=== PATIENT | female | born 1955 | race Caucasian/White ===

== ENCOUNTER 2017-09-25 11:58 | Inpatient (IN) | payer BC ==
[~2017-09-25] VITALS: Ht 172.7 cm; Wt 139.9 kg
[2017-09-25] VITALS (10 sets, daily range): BP systolic 84–140; BP diastolic 20–101
[~2017-09-25 11:58] MED LIST: CEPH500C PO; CLAR500T8 PO; CYCL10TA9 PO; DCS100C; HYDR-1231 PO; IRB150T PO; LOSARTAN; LSNP10T; MTC10T; MULT-608 PO; MULT1TAB63; NF-TYLARTH PO; OMEG1CAP51 PO; PRD20T PO; PRM25T; PSYL1PAC18; TRIGOSAMINE PO
[2017-09-25] MEDS ORDERED: PATIENT MAY USE OWN MEDS, ALL PO SCH (12:15)
[2017-09-25] MEDS ORDERED: ENOXAPARIN 40 MG/0.4 ML (LOVENOX) SYR SC SCH (12:15)
[2017-09-25] MEDS ORDERED: ASPIRIN 325 MG (5 GR) TABLET PO NR (12:15)
[2017-09-25] MEDS ORDERED: cefTRIAXone INJECTION 1,000 MG in NS (IVPB) 50 ML IV SCH (12:15)
[2017-09-25] MEDS ORDERED: ONDANSETRON 4 MG/2 ML (SDV) Z0FRAN IVP PRN (12:15)
--- OUTSIDE RECORDS SUMMARY | 2017-09-25 12:17 | XMS REPORT ---
Author Author RUBI DUMONT [facility] eClinicalWorks Address Unknown Phone Unavailable Care Team Providers Care Horse Racing Analyst Name Role Phone RUBI DUMONT Unavailable Allergies No Known Allergies Problems Problem Type Condition Code Onset Dates Condition Status Problem Cough 786.2 Active Assessment Encounter for immunization Z23 Active Problem Acute bronchitis 466.0 Active Medications No Known Medications Procedures Procedure Coding System Code Date SINGLE IMMUNIZATION ADMIN CPT-4 01456 May 24, 2016 FLUARIX QUAD P-FREE 3 AND UP .50 2015 CPT-4 69119 May 24, 2016 Results No Known Results Immunizations Vaccine Administration Date FLUARIX QUAD P-FREE 3 AND UP .50 2015May 24, 2016 Summary Purpose eClinicalWorks Submission
--- OUTSIDE RECORDS SUMMARY | 2017-09-25 12:17 | XMS REPORT ---
Author Author RUBI DUMONT [facility] eClinicalWorks Address Unknown Phone Unavailable Care Team Providers Care Seed District Sales Manager Name Role Phone RUBI DUOMNT Unavailable Allergies No Known Allergies Problems Problem Type Condition Code Onset Dates Condition Status Problem Need for prophylactic vaccination and inoculation, Influenza V04.81 Active Problem Acute bronchitis 466.0 Active Problem Acute upper respiratory infections of unspecified site 465.9 Active Problem Cough 786.2 Active Assessment Encounter for immunization Z23 Active Medications No Known Medications Procedures Procedure Coding System Code Date SINGLE IMMUNIZATION ADMIN CPT-4 54859 May 26, 2015 FLUARIX QUAD (3 & UP)-GSK-2014 CPT-4 36305 May 26, 2015 Results No Known Results Immunizations Vaccine Administration Date FLUARIX QUAD (3 & UP)-GSK-2014May 26, 2015 Summary Purpose eClinicalWorks Submission
--- OUTSIDE RECORDS SUMMARY | 2017-09-25 12:17 | XMS REPORT ---
Author Author RUBI DUMONT [facility] eClinicalWorks Address Unknown Phone Unavailable Care Team Providers Care Ship Fitter Name Role Phone RUBI DUMONT Unavailable Allergies [...] System Code Date SINGLE IMMUNIZATION ADMIN CPT-4 12705 Jun 06, 2015 TDAP (BOOSTRIX) CPT-4 56387 Jun 06, 2015 Results No Known Results Immunizations Vaccine Administration Date TDAP (BOOSTRIX) Jun 06, 2015 Summary Purpose eClinicalWorks Submission
--- OUTSIDE RECORDS SUMMARY | 2017-09-25 12:17 | XMS REPORT ---
Author Author RUBI DUMONT [facility] eClinicalWorks Address Unknown Phone Unavailable Care Team Providers Care Knotting Machine Operator Name Role Phone RUBI DUMONT Unavailable Allergies [...] System Code Date SINGLE IMMUNIZATION ADMIN CPT-4 95941 Jun 02, 2015 PCV 13 CPT-4 46817 Jun 02, 2015 Results No Known Results Immunizations Vaccine Administration Date PCV 13 Jun 02, 2015 Summary Purpose eClinicalWorks Submission
--- OUTSIDE RECORDS SUMMARY | 2017-09-25 12:17 | XMS REPORT ---
Author Author RUBI DUMONT Organization [facility] Address [address] [place] [address] Care Team Providers Care Mortgage Collector Name Role Phone JULIARUBI Unavailable PROBLEMS Type Condition ICD9-CM Code [id number] Code Onset Dates Condition Status SNOMED Code Problem Acute bronchitis 466.0 Active 66919400 Problem Cough 786.2 Active 24624296 Assessment Bronchitis J40 Apr, Active 42972384 ALLERGIES Substance Reaction Event Type Date Status Codeine Unknown Drug Allergy Apr, Active SOCIAL HISTORY No smoking Hx information available PLAN OF CARE VITAL SIGNS Height 68 in 2016-04-26 Heart Rate 68 bpm 2016-04-26 Respiratory Rate 16 2016-04-26 Oximetry 96 % 2016-04-26 Blood pressure systolic 161 mmHg 2016-04-26 Blood pressure diastolic 92 mmHg 2016-04-26 MEDICATIONS Medication Instructions Dosage Frequency Start Date End Date Duration Status PredniSONE 10 mg Orally 4 tabs x 4 days 3 tabs x 3 days 2 tabs x 2 days then 1 tab 1 tablet Apr, Apr, 10 days Active Zithromax 250 MG Orally Once a day 2 tablets on the first day, then 1 tablet daily for 4 days 24h Apr, Apr, 5 day(s) Active losartan 25 mg 1 Tablet by Oral route 1 time per day Nov, Active Ventolin HFA 108 (90 Base) MCG/ACT Inhalation every 4 hrs prn shortness of air 2 puffs as needed Apr, 30 days Active RESULTS No Results PROCEDURES Procedure Date Ordered Related Diagnosis Body Site MEASURE BLOOD OXYGEN LEVEL Apr 26, 2016 DEPO MEDROL 80 MG/ML Apr 26, 2016 Office Visit, Est Pt., Level 4 Apr 26, 2016 NEB/MDI RX INITIAL Apr 26, 2016 IMMUNIZATIONS Vaccine Route Administration Date Status DEPO MEDROL 80 MG/ML IM Intramuscular Apr 26, 2016 Administered
--- OUTSIDE RECORDS SUMMARY | 2017-09-25 12:17 | XMS REPORT ---
Author Author RUBI DUMONT Organization [facility] Address [address] [place] [address] Care Team Providers Care Relocation Services Specialist Name Role Phone RUBI DUMONT Unavailable PROBLEMS Type Condition ICD9-CM Code [id number] Code Onset Dates Condition Status SNOMED Code Problem Essential hypertension I10 Active 49979310 Problem Acute bronchitis J20.9 Active 09377715 ALLERGIES Substance Reaction Event Type Date Status Codeine Unknown Drug Allergy Oct, Active SOCIAL HISTORY Never Assessed PLAN OF CARE Activity Details Follow Up 1 Week Reason: VITAL SIGNS Height 68 in 2016-10-18 Temperature 98 degrees Fahrenheit 2016-10-18 Heart Rate 90 bpm 2016-10-18 Respiratory Rate 18 2016-10-18 Blood pressure systolic 168 mmHg 2016-10-18 Blood pressure diastolic 100 mmHg 2016-10-18 MEDICATIONS Medication Instructions Dosage Frequency Start Date End Date Duration Status losartan 25 mg 1 Tablet by Oral route 1 time per day Nov, Active RESULTS No Results PROCEDURES No Known procedures IMMUNIZATIONS No Known Immunizations MEDICAL (GENERAL) HISTORY Type Description Date Medical History Acute bronchitis Medical History hypertension Medical History obesity
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
--- NOTE | 2017-09-25 13:10 | History & Physicial ---
History of Present Illness History of Present Illness Reason for visit/HPI This is a 62 year old female who presented to my office with shortness of air for 4 days. She was hypoxic in my office with an oxygen saturation of 84% on room air. She was placed on 2L of oxygen via NC and her O2 sat increased to 90% . She did admit to some substernal chest pressure off and on recently as well. She denied any cough or fever. She states her legs have been more swollen recently as well. She will be directly admitted to cardiac stepdown for cardiac rule out as well as PE rule out and further treatment. Date of Admission Sep 25, 2017 at 12:12 Date Seen by Provider: Sep 25, 2017 Time Seen by Provider: 11:45 I consulted on this patient on 09/25/17 13:04 Attending Physician Katharine Alcala DO Admitting Physician Katharine Alcala DO Consult Allergies and Home Medications Allergies Coded Allergies: codeine (Verified Allergy, Unknown, 03/31/08) Home Medications Acetaminophen 650 Mg Cplt, 2 TAB PO DAILY, (Reported) Cephalexin Monohydrate 500 Mg Capsule, 1 EACH PO TID for 5 Days, Ref 0 Prescribed by: BHAVESH FONTAINE on 10/05/12 1208 Cephalexin Monohydrate 500 Mg Capsule, 1 EACH PO TID, #21 Ref 0 Prescribed by: BHAVESH FONTAINE on 02/01/151944 Clarithromycin 500 Mg Tab.sr.24h, 2 EACH PO DAILY, (Reported) Cyclobenzaprine Hcl 10 Mg Tablet, 1 EACH PO Q8H PRN for SPASMS, #10 Ref 0 Prescribed by: BHAVESH FONTAINE on 02/01/151944 Hydrocodone Bit/Acetaminophen 1 Tab Tablet, 1 TAB PO Q4H PRN for PAIN, #20 Ref 0 Prescribed by: BHAVESH FONTAINE on 02/01/151944 Multivitamins 1 Tab Tablet, 1 TAB PO DAILY, (Reported) [place]-3 Fatty Acids/Fish Oil 1 Each Capsule, 1 EACH PO DAILY, (Reported) Prednisone 20 Mg Tab, 20 MG PO BID for 3 Days Prescribed by: MAURICE DE LA CRUZ on 08/22/12 4257 [Losartan] , (Reported) [Trigosamine] , 1 TAB PO DAILY, (Reported) Past Ipvxkds-Ckiuhs-Vonbkc Hx Patient Social History Recent Foreign Travel: No Contact w/other who traveled: No Immunizations Up To Date Tetanus Booster (TDap): Less than 5yrs Date of Influenza Vaccine: May 19, 2012 Reproductive System Hx Reproductive Disorders: Yes (ENDOMETROSIS) Sexually Transmitted Disease: No Family Medical History Significant Family History: No Pertinent Family Hx Constitutional: weakness EENTM: No see HPI, No no symptoms reported, No ear discharge, No hearing loss, No ear pain, No blurred vision, No double vision, No eye pain, No tearing, No vision loss, No dental problems, No hoarseness, No mouth pain, No mouth swelling , No epistaxis, No nose congestion, No nose pain, No throat pain, No throat swelling, No other Respiratory: dyspnea on exertion, short of breath Cardiovascular: chest pain, edema Gastrointestinal: No RUQ, No LUQ, No RLQ, No LLQ, No no symptoms reported, No see HPI, No abdominal pain, No constipation, No diarrhea, No dysphagia, No hematemesis, No heartburn, No jaundice, No loss of appetite, No melena, No nausea, No vomiting, No other Genitourinary: No no symptoms reported, No see HPI, No decreased output, No discharge, No dysuria, No frequency, No hematuria, No hesitancy, No incontinence , No nocturia, No pain, No other Musculoskeletal: back pain (chest pain does radiate through to shoulder blades) Psychiatric/Neurological: Weakness Physical Exam Vital Signs Capillary Refill : General Appearance: Mild Distress HEENT: Pharynx Normal Neck: Supple Respiratory: Lungs Clear, Decreased Breath Sounds Cardiovascular: Regular Rate, Rhythm, Systolic Murmur, Gallop/S4 Gastrointestinal: Normal Bowel Sounds, Non Tender, Soft Rectal: Deferred Extremity: No Calf Tenderness, Pedal Edema Neurologic/Psychiatric: Alert, Oriented x3 Skin: Diaphoresis Assessment/Plan Assessment and Plan 1. Acute Hypoxia--admit for IV oxygen, check CXR, check D-Dimer and BNP, start lovenox, check EKG and cardiac enzymes 2. Dyspnea--as above 3. Acute Chest Pain--rule out cardiac etiology for hypoxia/dyspnea--check EKG and cardiac analyzer 4. Hypertension--resume home medications Problems: KATHARINE ALCALA DO Sep 25, 2017 13:10
[2017-09-25 13:39] LABS: BASOPHILS % (AUTO) 0 % (0-10); EOSINOPHILS % (AUTO) 0 % (0-10); HEMATOCRIT 43 % (35-52); HEMOGLOBIN 13.8 G/DL (11.5-16.0); LYMPHOCYTES # (AUTO) 0.8 X 10^3 (1.0-4.0); LYMPHOCYTES % (AUTO) 5 % (12-44); MEAN CORPUSCULAR HEMOGLOBIN 27 PG (25-34); MEAN CORPUSCULAR HGB CONC 32 G/DL (32-36); MEAN CORPUSCULAR VOLUME 83 FL (80-99); MEAN PLATELET VOLUME 9.7 FL (7.4-10.4); MONOCYTES # (AUTO) 0.8 X 10^3 (0.0-1.0); MONOCYTES % (AUTO) 5 % (0-12); NEUTROPHILS # (AUTO) 15.1 X 10^3 (1.8-7.8); NEUTROPHILS % (AUTO) 91 % (42-75); PLATELET COUNT 328 10^3/uL (130-400); RED BLOOD COUNT 5.15 10^6/uL (4.35-5.85); RED CELL DISTRIBUTION WIDTH 15.1 % (10.0-14.5); WHITE BLOOD COUNT 16.6 10^3/uL (4.3-11.0)
--- NOTE | 2017-09-25 13:45 | Diagnostic Imaging Report ---
EXAMINATION: Portable erect AP chest obtained at 1:07 PM . INDICATION: Chest pain The cardiomegaly noted on 01/22/2015 is again evident and no different. In the interval since the prior exam an area of increased density has developed in the right infrahilar region. This finding could be secondary to crowding of bronchovascular markings. The possibility that there is an element of pneumonia/atelectasis in this area should still be considered. Clinical followup is recommended. The lungs are otherwise clear. The mediastinum is not widened. The osseous structures are intact. IMPRESSION: 1. A new area of increased density has developed in the right infrahilar region. Whether this is secondary to superimposition of bronchovascular markings or whether there is an element of pneumonia/atelectasis present is not certain. Clinical followup is recommended. If further imaging is desired, then CT of the chest would be recommended. 2. There is no acute cardiopulmonary abnormality noted otherwise. 3. These results were discussed with Dr. Jovel. Dictated by: Dictated on workstation # [id number]
[2017-09-25 13:58] LABS: ALANINE AMINOTRANSFERASE 52 U/L (0-55); ALBUMIN 3.7 GM/DL (3.2-4.5); ALKALINE PHOSPHATASE 131 U/L (40-136); BILIRUBIN,TOTAL 0.5 MG/DL (0.1-1.0); BUN/CREATININE RATIO 23; CALCIUM 9.3 MG/DL (8.5-10.1); CARBON DIOXIDE 24 MMOL/L (21-32); CHLORIDE 103 MMOL/L (98-107); CREATININE SERUM 0.91 MG/DL (0.60-1.30); GFR ESTIMATED > 60; GLUCOSE 124 MG/DL (70-105); POTASSIUM 4.6 MMOL/L (3.6-5.0); SODIUM 139 MMOL/L (135-145); TOTAL PROTEIN 7.9 GM/DL (6.4-8.2)
[2017-09-25] MEDS ORDERED: LOSA100T28 PO (14:00)
[2017-09-25] MEDS ORDERED: GLUC-203 PO (14:00)
[2017-09-25] MEDS ORDERED: NAPR220T66 PO (14:00)
[2017-09-25] MEDS ORDERED: MULT-35 PO (14:00)
[2017-09-25 14:10] LABS: LYMPHOCYTES % (MANUAL) 2 %; MONOCYTES % (MANUAL) 6 %; NEUTROPHILS % (MANUAL) 92 %; RBC MORPH NORMAL
[2017-09-25] MEDS ORDERED: NS 250 ML (IVPB) BAG IV ONE (15:00)
[2017-09-25] MEDS ORDERED: IOHEXOL 350 MG/ML 150 ML (OMNIPAQUE 350) VIAL IV ONE (15:00)
[2017-09-25] MEDS: RT-ALBUTEROL/IPRATROPIUM 3 ML (DUONEB) VIAL INH SCH ×3 (15:14→21:47)
--- NOTE | 2017-09-25 16:50 | Diagnostic Imaging Report ---
PROCEDURE: CT angiography of the chest with contrast. TECHNIQUE: Multiple contiguous axial images were obtained through the chest after uneventful bolus administration of intravenous contrast. Reconstructed CTA MIP acquisitions were also performed. INDICATION: Sweatiness, lightheaded. COMPARISON: None. FINDINGS: Exam confirms the presence of an at least moderate burden of bilateral pulmonary arterial emboli. The disease involves branches of all five lobes but is most notable at the level of the left lower lobe. There is a small amount of clot within the distal left and right main pulmonary arteries but no clot in the undivided pulmonary segment and no bridging embolus left to right. No intracardiac chamber mass or thrombus and the pulmonary outflow tract revealed no clot or occlusion. There is no abnormal venous reflux. There is no pathological enlargement of the right heart or displacement of the intraventricular septum. There is no pleural or pericardial effusion. There is only minimal infrahilar and basilar partial atelectasis. There were no findings of pulmonary parenchymal hemorrhage or Padgett's hump. The visualized upper abdomen reveals fatty liver with patency of the intrahepatic, suprahepatic and upper intrahepatic cava. Superior vena cava also patent. Contrast was injected via left upper extremity with the left upper extremity central venous system patent. IMPRESSION: There is a moderate burden of bilateral pulmonary arterial emboli confirmed. A small amount of clot in the distal left and right main pulmonary arteries but no MPA clot. No bridging saddle embolus. No findings to suggest right heart failure. No pulmonary hemorrhage or acute pleural pathology. Critical findings were discussed by phone with the ordering physician prior to this dictation. Dictated by: Dictated on workstation # [id number]
[2017-09-25] MEDS ORDERED: ENOXAPARIN 300 MG/3 ML (LOVENOX) MULTI-DOSE VIAL SQ SCH (17:15)
--- NOTE | 2017-09-25 17:49 | Diagnostic Imaging Report ---
INDICATION: Pulmonary embolism. EXAMINATIONS: Both grayscale and color Doppler imaging of the deep veins of the lower extremities were performed with waveform analysis. FINDINGS: There is no intraluminal filling defect. Normal continuous flow is seen throughout the deep venous systems of both legs, and there is normal response to augmentation. The deep veins compress normally. IMPRESSION: No ultrasound evidence of deep venous thrombosis in either lower extremity. Dictated by: Dictated on workstation # [id number]
--- NOTE | 2017-09-25 18:07 | Consultation-Cardiology ---
HPI-Cardiology Cardiology Consultation: Date of Consultation 09/25/17 Date of Admission Attending Physician Katharine Jovel DO Admitting Physician Katharine Jovel DO Consulting Physician Jorge A LAYNE MD HPI: Time Seen by Provider: 18:06 Chief Complaint: shortness of breath this is a 62 year old lady who is a patient of Dr Jovel with no significant past medical history except HTN. She presented with shortness of breath to Dr Jovel's office. She also complained for mild sub sternal chest discomfort. No radiation. Mild intensity. No exacerbating or relieving factors. No Orthopnea, PND. The patient denies smoking. No recent surgeries or travel. Review of Systems-Cardiology Review of Systems Constitutional: No As described under HPI, No no symptoms reported, No chills, No fever, No lightheadedness, No malaise, No tiredness, No weight loss, No weight gain, No other Eyes: No As described under HPI, No no symptoms reported, No blindness, No blurred vision, No contact lenses, No drainage, No decreased acuity, No foreign body sensation, No glasses, No inflammation, No pain, No photophobia, No previous injury, No shadows, No tunnel vision, No other, No vision change Ears/Nose/Throat: No As described under HPI, No no symptoms reported, No chronic hearing loss, No epistaxis, No ear discharge, No ear pain, No loose teeth, No mouth pain, No mouth swelling, No nasal drainage, No nose pain, No recent hearing loss, No throat pain, No throat swelling, No ulcerations, No other Respiratory: orthopnea, shortness of breath Cardiovascular: No no symptoms reported, No As described under HPI, chest pain , No edema, No irregular heart rate, No lightheadedness, No palpitations, No syncope, No other Gastrointestinal: No no symptoms reported, No As described under HPI, No abdomen distended, No abdominal pain, No blood streaked bowels, No constipation , No diarrhea, No difficulty swallowing, No nausea, No poor appetite, No poor fluid intake, No rectal bleeding, No vomiting, No other, No nausea/vomiting/ diarrhea, No stool coloration changes Genitourinary: No no symptoms reported, No As described under HPI, No burning, No dysuria, No discharge, No frequency, No flank pain, No hematuria, No incontinence, No pain, No urgency, No other, No urine frequency changes, No urine coloration changes Musculoskeletal: No no symptoms reported, No As describe under HPI, No back pain, No gout, No joint pain, No joint swelling, No muscle pain, No muscle stiffness, No neck pain, No other Skin: No no symptoms reported, No As described under HPI, No change in color, No change in hair/nails, No dryness, No lesions, No lumps, No rash, No other, No skin related problems, No ulcerations, No rash on exposed areas, No ulcerations on exposed areas Psychiatric/Neurological: No no symptoms reported, No As described under HPI, No anxiety, No depression, No emotional problems, No headache, No numbness, No pre-existing deficit, No seizure, No tingling, No tremors, No weakness, No other , No focal weakness, No syncope PHK-Xgvaeg-Mdhgkg Hx Patient Social History Alcohol Use: Occasionally Uses Recreational Drug Use: No Smoking Status: Never a Smoker Recent Foreign Travel: No Recent Infectious Disease Expo: No Hospitalization with Isolation: Contact Physical Abuse Screen: No Sexual Abuse: No Immunizations Up To Date Tetanus Booster (TDap): Less than 5yrs Date of Pneumonia Vaccine: May 19, 2016 Date of Influenza Vaccine: May 19, 2017 Past Medical History PMH As described under Assessment. Allergies and Home Medications Allergies Coded Allergies: codeine (Verified Allergy, Unknown, 03/31/08) Home Medications Glucosam/Chond/Hyalu/Cf Borate 1 Each Tablet, 1 TAB PO HS, (Reported) Losartan Potassium 100 Mg Tablet, 100 MG PO DAILY, (Reported) Multivitamin 1 Each Tablet, 1 TAB PO DAILY, (Reported) Naproxen Sodium 220 Mg Tablet, 220-440 MG PO DAILY PRN for PAIN-MILD, (Reported) Physical Exam-Cardiology Physical Exam Vital Signs/I&O Vital Sign - Last 12Hours 09/25/17 09/25/17 09/25/17 09/25/17 12:20 12:20 12:45 13:00 Temp 98.9 Pulse 103 100 101 Resp 19 23 21 B/P (MAP) 136/98 (111) 139/95 (110) 140/90 (107) Pulse Ox 93 94 93 92 O2 Delivery Nasal Cannula Nasal Cannula Nasal Cannula Nasal Cannula O2 Flow Rate 2.00 2.00 2.00 2.00 2/7/18 2/7/18 2/7/18 2/7/18 13:00 14:00 15:14 16:00 Pulse 101 83 Resp 23 B/P (MAP) 133/97 (109) Pulse Ox 94 94 O2 Delivery Nasal Cannula Nasal Cannula Nasal Cannula O2 Flow Rate 2.00 2.00 4.00 09/25/17 09/25/17 16:35 19:02 B/P (MAP) Pulse Ox 95 O2 Delivery Nasal Cannula Nasal Cannula O2 Flow Rate 4.00 4.00 Capillary Refill : Constitutional: AAO x 3, well-developed HEENT: PERRL, No discharge, hearing is well preserved, oral hygience is good, No ulceration, No xanthelasmas are seen Neck: No non-tender, No full range of motion, No supple, No normal inspection, No carotid bruit, No limited range of motion, No lymphadenopathy (R), No lymphadenopathy (L), No tender lateral, No tender midline, No thyromegaly, No other, carotid pulses are 2 + bilaterally, No with good upstrokes Respiratory: No accessory muscle use, No respiratory distress, No chest tender , No chest expansion is symmetric, chest is bilaterally symmetric, lungs clear to percussion, lungs clear to auscultation, No crackles, No rhonchi, No rales, No stridor, No wheezing, No pleural rub, No other Cardiovascular: regular rate-rhythm, No irregularly irregular, No extra beats, No parasternal heave is noted, No JVD, No edema, No bradycardia, No tachycardia , No point of maximal impulse, No cardiac thrills are palpable, S1 and S2, No gallop/S3, No gallop/S4, No diastolic murmur, No systolic murmur, No friction rub, No click, No other Gastrointestinal: No tender, No soft, No round, No distended, No pulsatile mass , No organomegaly, No guarding, No rebound, No tenderness, No hernia, No mass, No audible bowel sounds, No abnormal bowel sounds, No abdominal bruits, No spleenomegaly, No other Rectal: deferred Extremities: No normal range of motion, No non-tender, No normal inspection, No pedal edema, No calf tenderness, No normal capillary refill, No pelvis stable , No calf tenderness, No inflammation, No pedal edema, No slow capillary refill , No swelling, No other, No abrasion, No clubbing, No cyanosis, No ecchymosis, No laceration, No no lower extremity edema bilateral, No significant edema, No tenderness, No wound Neurologic/Psychiatric: No course developer II-XII nml as tested, No no motor/sensory deficits, alert, normal mood/affect, oriented x 3, No abnormal cerebellar tests , No abnormal course developer II-XII, No abnormal gait, No aphasia, No EOM palsy, No facial droop, No motor weakness, No sensory deficit, No depressed affect, No disoriented x 3, No other, No grossly intact, No power is 5/5 both on sides Skin: No normal color, No warm/dry, No cyanosis, No cool, No diaphoresis, No damp, No ecchymosis, No jaundice, No mottled, No pallor, No rash, No tattoos/ piercings, No ulcerations, No rash on exposed areas, No ulcerations on exposed areas, No other Lymphatic: No no adenopathy, No axilla node tender (R), No axilla node tender ( L), No inguinal node tender (R), No inguinal node tender (L), No other Data Review Labs Laboratory Tests 09/25/17 13:29: White Blood Count 16.6H, Red Blood Count 5.15, Hemoglobin 13.8, Hematocrit 43, Mean Corpuscular Volume 83, Mean Corpuscular Hemoglobin 27, Mean Corpuscular Hemoglobin Concent 32, Red Cell Distribution Width 15.1H, Platelet Count 328, Mean Platelet Volume 9.7, Neutrophils (%) (Auto) 91H, Lymphocytes (%) (Auto) 5L , Monocytes (%) (Auto) 5, Eosinophils (%) (Auto) 0, Basophils (%) (Auto) 0, Neutrophils # (Auto) 15.1H, Lymphocytes # (Auto) 0.8L, Monocytes # (Auto) 0.8, Eosinophils # (Auto) 0.0, Basophils # (Auto) 0.0, Neutrophils % (Manual) 92, Lymphocytes % (Manual) 2, Monocytes % (Manual) 6, Clumped Platelets , Blood Morphology Comment NORMAL, D-Dimer 3.12H, Sodium Level 139, Potassium Level 4.6 , Chloride Level 103, Carbon Dioxide Level 24, Anion Gap 12, Blood Urea Nitrogen 21H, Creatinine 0.91, Estimat Glomerular Filtration Rate > 60, BUN/ Creatinine Ratio 23, Glucose Level 124H, Calcium Level 9.3, Total Bilirubin 0.5 , Aspartate Amino Transf (AST/SGOT) 48H, Alanine Aminotransferase (ALT/SGPT) 52 , Alkaline Phosphatase 131, Troponin I < 0.30, B-Type Natriuretic Peptide 84.8, Total Protein 7.9, Albumin 3.7 ECG Impression ECG Initial ECG Rhythm: S.Tach Comment RBBB. S1,Q3, Inverted T3 A/P-Cardiology Assessment/Admission Diagnosis Large bilateral PE, Hypoxia, Chest pain, HTN, Leukocytosis Plan Large bilateral PE, confirmed on CTA chest. Reviewed by self. large PE in main pulmonary branches. O2 saturation 87% on RA. Increased oxygen via NC. Start Eliquis 10mg po bid x 7 days. No clear etiology found. Ultrasound bilateral veins negative. watch in the ICU. normal hemodynamics at this point in time. If unstable hemodynamics -> thrombolytics. will also check for RV dysfunction. Hypoxia, secondary to PE. No CHF. BNP negative. Check Echo. Chest pain, rule out ACS with serial negative troponin. HTN, ok to start amlodipine. watch out for hypotension. Leukocytosis, likely stress related. however need to rule out infection. Thank you for your consultation. Please call me if you have any questions. Manda Layne MD, FACP, FACC, FSCAI, FHRS, CCDS Interventional Cardiology Cardiac Electrophysiology Vascular Medicine and Endovascular Interventions Clinical Quality Measures DVT/VTE Risk/Contraindication: Risk Factor Score Per Nursin RFS Level Per Nursing on Admit: 3=High Jorge A LAYNE MD Sep 25, 2017 6:06 pm
[2017-09-25] MEDS ORDERED: APIXABAN 5 MG (ELIQUIS) TABLET PO SCH (18:15)
[2017-09-25] MEDS ORDERED: ACETAMINOPHEN 500 MG TAB (TYLENOL) PO PRN (19:00)
[2017-09-25] MEDS ORDERED: amLODIPine 2.5MG (NORVASC) TAB PO NR (19:00)
[2017-09-25] MEDS ORDERED: NS 1000 ML IV BAG IV ONE (19:15)
[2017-09-25] MEDS ORDERED: NS IV 1000 ML 1,000 ML IV ONE (19:45)
[2017-09-25] MEDS: NS IV 1000 ML 1,000 ML IV SCH (20:42)
[2017-09-25] MEDS ORDERED: NS IV 500 ML 500 ML IV ONE (23:30)
[2017-09-26] VITALS (18 sets, daily range): BP systolic 102–147; BP diastolic 57–100
[2017-09-26] MEDS: RT-ALBUTEROL/IPRATROPIUM 3 ML (DUONEB) VIAL INH SCH ×6 (03:21→22:25)
[2017-09-26 05:30] LABS: BASOPHILS # (AUTO) 0.1 10^3/uL (0.0-0.1); BASOPHILS % (AUTO) 1 % (0-10); EOSINOPHILS # (AUTO) 0.1 10^3/uL (0.0-0.3); EOSINOPHILS % (AUTO) 1 % (0-10); HEMATOCRIT 40 % (35-52); HEMOGLOBIN 12.3 G/DL (11.5-16.0); LYMPHOCYTES # (AUTO) 1.5 X 10^3 (1.0-4.0); LYMPHOCYTES % (AUTO) 12 % (12-44); MEAN CORPUSCULAR HEMOGLOBIN 26 PG (25-34); MEAN CORPUSCULAR HGB CONC 31 G/DL (32-36); MEAN CORPUSCULAR VOLUME 85 FL (80-99); MEAN PLATELET VOLUME 9.9 FL (7.4-10.4); MONOCYTES # (AUTO) 0.9 X 10^3 (0.0-1.0); MONOCYTES % (AUTO) 7 % (0-12); NEUTROPHILS # (AUTO) 9.8 X 10^3 (1.8-7.8); NEUTROPHILS % (AUTO) 80 % (42-75); PLATELET COUNT 274 10^3/uL (130-400); RED BLOOD COUNT 4.66 10^6/uL (4.35-5.85); RED CELL DISTRIBUTION WIDTH 15.1 % (10.0-14.5); WHITE BLOOD COUNT 12.3 10^3/uL (4.3-11.0)
[2017-09-26 06:05] LABS: ALANINE AMINOTRANSFERASE 37 U/L (0-55); ALBUMIN 3.3 GM/DL (3.2-4.5); ALKALINE PHOSPHATASE 111 U/L (40-136); BILIRUBIN,TOTAL 0.3 MG/DL (0.1-1.0); BUN/CREATININE RATIO 22; CARBON DIOXIDE 21 MMOL/L (21-32); CHLORIDE 106 MMOL/L (98-107); CREATININE SERUM 0.93 MG/DL (0.60-1.30); GFR ESTIMATED > 60; GLUCOSE 117 MG/DL (70-105); MAGNESIUM 1.9 MG/DL (1.8-2.4); PHOSPHORUS 4.7 MG/DL (2.3-4.7); POTASSIUM 4.1 MMOL/L (3.6-5.0); SODIUM 139 MMOL/L (135-145); TOTAL PROTEIN 6.9 GM/DL (6.4-8.2)
[2017-09-26] MEDS: NS IV 1000 ML 1,000 ML IV SCH ×3 (06:41→18:36)
--- NOTE | 2017-09-26 07:01 | Pulmonary Consultation ---
History of Present Illness History of Present Illness Date of Consultation 09/26/17 06:50 Time Seen by Provider: 06:50 Date of Admission History of Present Illness 62yo never smoker and no hx of lung disease presented as direct admit from Dr. Méndez office secondary to acute worsening SOB over the previous 4 days. She was found to be hypoxic with Sp02 of 84%. She was placed on a 2 liter NC and Sp02 increased to 90%. No f/c or productive cough. She does have R>L LE edema. CTA of chest shows bilateral acute PEs. IV contrast infiltrated into subcutaneous tissue during Ct scan. Dopplers of LE show no blood clots. Echocardiogram is pending. I am consulted for pulmonary management. No prior hx of PE. Allergies and Home Medications Allergies Coded Allergies: codeine (Verified Allergy, Unknown, 03/31/08) Home Medications Glucosam/Chond/Hyalu/Cf Borate 1 Each Tablet, 1 TAB PO HS, (Reported) Losartan Potassium 100 Mg Tablet, 100 MG PO DAILY, (Reported) Multivitamin 1 Each Tablet, 1 TAB PO DAILY, (Reported) Naproxen Sodium 220 Mg Tablet, 220-440 MG PO DAILY PRN for PAIN-MILD, (Reported) Past Irdecqx-Fhpsnm-Dxntxq Hx Patient Social History Alcohol Use: Occasionally Uses Number of Drinks Today: 0 Alcohol Beverage of Choice: Other Recreational Drug Use: No Smoking Status: Never a Smoker Recent Foreign Travel: No Contact w/Someone Who Travel: No Recent Infectious Disease Expo: No Recent Hopitalizations: Yes (patient had cdiff 7 years ago) Immunizations Up To Date Tetanus Booster (TDap): Less than 5yrs Date of Pneumonia Vaccine: May 19, 2016 Date of Influenza Vaccine: May 19, 2017 Seasonal Allergies Seasonal Allergies: No Surgeries History of Surgeries: Yes (VAG DELIVERY, ENDOMETOSIS) Respiratory History of Respiratory Disorde: No (occasional bronchitis) Currently Using CPAP: No Currently Using BIPAP: No Cardiovascular History of Cardiac Disorders: Yes Neurological History of Neurological Disord: No Reproductive System Hx Reproductive Disorders: Yes (ENDOMETROSIS) Sexually Transmitted Disease: No Genitourinary History of Genitourinary Disor: Yes Genitourinary Disorders: Renal Failure Gastrointestinal History of Gastrointestinal Di: Yes Gastrointestinal Disorders: C-Diff Musculoskeletal History of Musculoskeletal Dis: Yes Endocrine History of Endocrine Disorders: No HEENT History of HEENT Disorders: No Cancer History of Cancer: No Psychosocial History of Psychiatric Problem: No Integumentary History of Skin or Integumenta: Yes Skin/Integumentary Disorders: Eczema Blood Transfusions History of Blood Disorders: No Family Medical History Significant Family History: No Pertinent Family Hx Review of Systems Time Seen by Provider: 07:11 Constitutional: Weakness, Malaise, No: Fever, Chills, Sweats, Other Respiratory: Cough, Dry, Shortness of breath Cardiovascular: Chest Pain, Palpitations, Paroxysmal Noc. Dyspnea, Edema, Lt Headedness Gastrointestinal: No: Nausea, Vomiting, Diarrhea Neurological: Weakness Exam Exam Vital Signs Date Time Temp Pulse Resp B/P (MAP) Pulse Ox O2 Delivery O2 Flow Rate FiO2 09/26/17 06:31 94 OxyMask 5.00 09/26/17 06:00 77 18 117/79 (92) 92 OxyMask 5.00 09/26/17 05:00 102 19 93 OxyMask 5.00 09/26/17 04:00 97.7 09/26/17 04:00 OxyMask 5.00 09/26/17 04:00 91 20 102/73 (83) 93 OxyMask 5.00 09/26/17 03:21 95 OxyMask 5.00 09/26/17 03:00 82 20 123/75 (91) 94 OxyMask 5.00 09/26/17 02:00 104 19 109/81 (90) 97 OxyMask 5.00 09/26/17 01:00 91 19 127/88 (101) 94 OxyMask 5.00 09/26/17 01:00 96 09/26/17 00:10 98.1 98 18 126/90 (102) 94 OxyMask 5.00 09/26/17 00:00 OxyMask 5.00 09/25/17 23:09 99.1 105 20 88/64 (72) 94 OxyMask 5.00 09/25/17 23:00 107 21 84/69 (74) 93 OxyMask 5.00 09/25/17 22:15 94 20 110/77 (88) 93 09/25/17 21:47 92 OxyMask 5.00 09/25/17 21:15 Nasal Cannula 5.00 09/25/17 21:00 89 23 120/69 (86) 90 Nasal Cannula 4.00 09/25/17 20:00 Nasal Cannula 4.00 09/25/17 20:00 97.8 09/25/17 20:00 106 21 135/71 (92) 92 Nasal Cannula 4.00 09/25/17 19:02 95 Nasal Cannula 4.00 09/25/17 19:00 101 16 128/101 (110) 95 Nasal Cannula 4.00 09/25/17 19:00 103 09/25/17 19:00 103 09/25/17 16:35 Nasal Cannula 4.00 09/25/17 16:00 94 Nasal Cannula 4.00 09/25/17 15:14 Nasal Cannula 2.00 09/25/17 14:00 83 23 133/97 (109) 94 Nasal Cannula 2.00 09/25/17 13:00 101 09/25/17 13:00 101 21 140/90 (107) 92 Nasal Cannula 2.00 09/25/17 12:45 100 23 139/95 (110) 93 Nasal Cannula 2.00 09/25/17 12:20 98.9 103 19 136/98 (111) 94 Nasal Cannula 2.00 09/25/17 12:20 93 Nasal Cannula 2.00 I & O 09/26/17 07:00 Intake Total 900 ml Output Total 500 ml Balance 400 ml General Appearance: Mild Distress HEENT: Pharynx Normal Neck: Supple Respiratory: Lungs Clear, Decreased Breath Sounds Cardiovascular: Regular Rate, Rhythm, Systolic Murmur, Gallop/S4 Extremity: No Calf Tenderness, Pedal Edema Neurologic/Psychiatric: Alert, Oriented x3 Skin: Diaphoresis Results Lab Laboratory Tests 09/25/17 13:29 09/26/17 05:10 Assessment/Plan Assessment/Plan Acute unprovoked bilateral PE with hypoxia -Pt is currently on Eliquis -Dopplers are negative -echo is pending Acute infiltration of right arm from IV contrast -ICE, elevation -CHeck peripheral pulses with vital signs -Monitor for compartment syndrome morbid obesity with probable PAMELLA -Will do out patient testing 255 Clinical Quality Measures DVT/VTE Risk/Contraindication: Risk Factor Score Per Nursin RFS Level Per Nursing on Admit: 3=High GORAN CHAVEZ DO Sep 26, 2017 07:01
[2017-09-26] MEDS ORDERED: ASPIRIN E.C. 325 MG (ECOTRIN) TABLET PO SCH (09:00)
--- NOTE | 2017-09-26 09:46 | Diagnostic Imaging Report ---
INDICATION: Hypoxia. Frontal chest obtained at 4:49 a.m. and compared with 09/25/17. FINDINGS: There is prominent cardiomegaly. Infiltrate in the right medial base appears unchanged from yesterday. There is no pneumothorax or pleural fluid or other new finding. IMPRESSION: Unchanged cardiomegaly. Unchanged infiltrate in right medial base. No new finding compared to yesterday. Dictated by: Dictated on workstation # [id number]
[2017-09-26] MEDS: APIXABAN 5 MG (ELIQUIS) TABLET PO SCH ×2 (09:57→18:36)
--- NOTE | 2017-09-26 11:25 | Cardiology Progress Note ---
Cardiology SOAP Progress Note Subjective: Mild improvement. Objective: I&O/Vital Signs Vital Sign - Last 12Hours 09/26/17 09/26/17 09/26/17 09/26/17 06:31 07:00 07:00 08:00 Temp 98.0 Pulse 114 112 Resp 11 B/P (MAP) 126/100 (109) Pulse Ox 94 95 O2 Delivery OxyMask OxyMask Nasal Cannula O2 Flow Rate 5.00 5.00 3.00 09/26/17 09/26/17 09/26/17 09/26/17 08:00 09:00 10:00 10:19 Pulse 105 86 Resp 12 26 B/P (MAP) 111/85 (94) 124/73 (90) Pulse Ox 92 96 96 O2 Delivery Nasal Cannula Nasal Cannula Nasal Cannula Nasal Cannula O2 Flow Rate 3.00 3.00 3.00 3.00 09/26/17 09/26/17 09/26/17 09/26/17 11:00 12:00 13:00 13:00 Pulse 107 100 97 96 Resp 27 11 16 B/P (MAP) 123/78 (93) Pulse Ox 95 94 93 O2 Delivery Nasal Cannula Nasal Cannula Nasal Cannula O2 Flow Rate 3.00 3.00 3.00 09/26/17 09/26/17 09/26/17 09/26/17 14:00 14:14 15:00 16:00 Pulse 105 109 105 Resp 19 12 13 B/P (MAP) 131/57 (81) 134/77 (96) Pulse Ox 93 94 95 94 O2 Delivery Nasal Cannula Nasal Cannula Nasal Cannula Nasal Cannula O2 Flow Rate 3.00 3.00 3.00 3.00 09/26/17 09/26/17 09/26/17 16:00 17:00 18:00 Temp 99.6 Pulse 95 98 Resp 18 18 B/P (MAP) 103/81 (88) Pulse Ox 92 93 O2 Delivery Nasal Cannula Nasal Cannula O2 Flow Rate 3.00 3.00 Intake and Output 09/26/17 00:00 Intake Total 900 ml Output Total 500 ml Balance 400 ml Weight (Pounds): 307 Weight (Ounces): 7.0 Weight (Calculated Kilograms): 139.354883 Constitutional: AAO x 3, well-developed Respiratory: No accessory muscle use, No respiratory distress, No chest tender , No chest expansion is symmetric, chest is bilaterally symmetric, lungs clear to percussion, lungs clear to auscultation, No crackles, No rhonchi, No rales, No stridor, No wheezing, No pleural rub, No other Cardiovascular: regular rate-rhythm, No irregularly irregular, No extra beats, No parasternal heave is noted, No JVD, No edema, No bradycardia, No tachycardia , No point of maximal impulse, No cardiac thrills are palpable, S1 and S2, No gallop/S3, No gallop/S4, No diastolic murmur, No systolic murmur, No friction rub, No click, No other Gastrointestional: No tender, No soft, No round, No distended, No pulsatile mass, No organomegaly, No guarding, No rebound, No tenderness, No hernia, No mass, No audible bowel sounds, No abnormal bowel sounds, No abdominal bruits, No spleenomegaly, No other Extremities: No normal range of motion, No non-tender, No normal inspection, No pedal edema, No calf tenderness, No normal capillary refill, No pelvis stable , No calf tenderness, No inflammation, No pedal edema, No slow capillary refill , No swelling, No other, No abrasion, No clubbing, No cyanosis, No ecchymosis, No laceration, No no lower extremity edema bilateral, No significant edema, No tenderness, No wound Neurologic/Psychiatric: No portfolio administrator II-XII nml as tested, No no motor/sensory deficits, alert, normal mood/affect, oriented x 3, No abnormal cerebellar tests , No abnormal portfolio administrator II-XII, No abnormal gait, No aphasia, No EOM palsy, No facial droop, No motor weakness, No sensory deficit, No depressed affect, No disoriented x 3, No other, No grossly intact, No power is 5/5 both on sides Skin: No normal color, No warm/dry, No cyanosis, No cool, No diaphoresis, No damp, No ecchymosis, No jaundice, No mottled, No pallor, No rash, No tattoos/ piercings, No ulcerations, No rash on exposed areas, No ulcerations on exposed areas, No other Results/Procedures: Labs Laboratory Tests 09/25/17 20:10: Troponin I 0.30 2/8/18 05:10: White Blood Count 12.3H, Red Blood Count 4.66, Hemoglobin 12.3, Hematocrit 40, Mean Corpuscular Volume 85, Mean Corpuscular Hemoglobin 26, Mean Corpuscular Hemoglobin Concent 31L, Red Cell Distribution Width 15.1H, Platelet Count 274, Mean Platelet Volume 9.9, Neutrophils (%) (Auto) 80H, Lymphocytes (%) (Auto) 12 , Monocytes (%) (Auto) 7, Eosinophils (%) (Auto) 1, Basophils (%) (Auto) 1, Neutrophils # (Auto) 9.8H, Lymphocytes # (Auto) 1.5, Monocytes # (Auto) 0.9, Eosinophils # (Auto) 0.1, Basophils # (Auto) 0.1, Sodium Level 139, Potassium Level 4.1, Chloride Level 106, Carbon Dioxide Level 21, Anion Gap 12, Blood Urea Nitrogen 20H, Creatinine 0.93, Estimat Glomerular Filtration Rate > 60, BUN /Creatinine Ratio 22, Glucose Level 117H, Calcium Level 9.0, Phosphorus Level 4.7, Magnesium Level 1.9, Total Bilirubin 0.3, Aspartate Amino Transf (AST/SGOT ) 28, Alanine Aminotransferase (ALT/SGPT) 37, Alkaline Phosphatase 111, Total Protein 6.9, Albumin 3.3 A/P: Assessment/Dx: Large bilateral PE, Hypoxia, Chest pain, HTN, Leukocytosis Plan: Large bilateral PE, confirmed on CTA chest. Reviewed by self. large PE in main pulmonary branches. O2 saturation 87% on RA. Increased oxygen via NC. Start Eliquis 10mg po bid x 7 days. No clear etiology found. Ultrasound bilateral veins negative. watch in the ICU. Hypoxia, secondary to PE. No CHF. BNP negative. Echocardiogram shows mild RV enlargement with normal RV function. No significant pulmonary hypertension. Chest pain, ACS ruled out with serial negative troponin. HTN, ok to start amlodipine. watch out for hypotension. Leukocytosis, likely stress related. however need to rule out infection. Thank you for your consultation. Please call me if you have any questions. Manda Layne MD, FACP, FACC, FSCAI, FHRS, CCDS Interventional Cardiology Cardiac Electrophysiology Vascular Medicine and Endovascular Interventions Jorge A LAYNE MD Sep 26, 2017 11:25
--- NOTE | 2017-09-26 13:02 | Progress Note (SOAP) ---
Subjective Date Seen by Provider: Sep 26, 2017 Time Seen by Provider: 12:58 Subjective/Events-last exam Fwup Bilateral pulmonary emboli, dyspnea, edema, hypertension, new RBBB. Had hypotension last night so given IVF bolus and switched to ICU status and BP improved now. Right arm with some swelling/blistering from infiltration of IV with contrast but nursing is measuring and monitoring and has improved per patient and nursing. Objective Exam Vital Signs Date Time Temp Pulse Resp B/P (MAP) Pulse Ox O2 Delivery O2 Flow Rate FiO2 09/26/17 10:19 96 Nasal Cannula 3.00 09/26/17 10:00 86 26 124/73 (90) 96 Nasal Cannula 3.00 09/26/17 09:00 105 12 111/85 (94) 92 Nasal Cannula 3.00 09/26/17 08:00 Nasal Cannula 3.00 09/26/17 08:00 98.0 Nasal Cannula 3.00 09/26/17 07:00 112 09/26/17 07:00 114 11 126/100 (109) 95 OxyMask 5.00 09/26/17 06:31 94 OxyMask 5.00 09/26/17 06:00 77 18 117/79 (92) 92 OxyMask 5.00 09/26/17 05:00 102 19 93 OxyMask 5.00 09/26/17 04:00 97.7 09/26/17 04:00 OxyMask 5.00 09/26/17 04:00 91 20 102/73 (83) 93 OxyMask 5.00 09/26/17 03:21 95 OxyMask 5.00 09/26/17 03:00 82 20 123/75 (91) 94 OxyMask 5.00 09/26/17 02:00 104 19 109/81 (90) 97 OxyMask 5.00 09/26/17 01:00 91 19 127/88 (101) 94 OxyMask 5.00 09/26/17 01:00 96 09/26/17 00:10 98.1 98 18 126/90 (102) 94 OxyMask 5.00 09/26/17 00:00 OxyMask 5.00 09/25/17 23:09 99.1 105 20 88/64 (72) 94 OxyMask 5.00 09/25/17 23:00 107 21 84/69 (74) 93 OxyMask 5.00 09/25/17 22:15 94 20 110/77 (88) 93 09/25/17 21:47 92 OxyMask 5.00 09/25/17 21:15 Nasal Cannula 5.00 09/25/17 21:00 89 23 120/69 (86) 90 Nasal Cannula 4.00 09/25/17 20:00 Nasal Cannula 4.00 09/25/17 20:00 97.8 09/25/17 20:00 106 21 135/71 (92) 92 Nasal Cannula 4.00 09/25/17 19:02 95 Nasal Cannula 4.00 09/25/17 19:00 101 16 128/101 (110) 95 Nasal Cannula 4.00 09/25/17 19:00 103 09/25/17 19:00 103 09/25/17 16:35 Nasal Cannula 4.00 09/25/17 16:00 94 Nasal Cannula 4.00 09/25/17 15:14 Nasal Cannula 2.00 09/25/17 14:00 83 23 133/97 (109) 94 Nasal Cannula 2.00 09/25/17 13:00 101 09/25/17 13:00 101 21 140/90 (107) 92 Nasal Cannula 2.00 I & O 09/26/17 07:00 Intake Total 900 ml Output Total 500 ml Balance 400 ml Capillary Refill : General Appearance: No Apparent Distress Neck: Supple Respiratory: Lungs Clear Cardiovascular: Regular Rate, Rhythm Gastrointestinal: normal bowel sounds, non tender, soft Extremity: Non Tender, No Calf Tenderness, Pedal Edema (1 plus) Neurologic/Psychiatric: Alert, Oriented x3 Skin: Other (blisters to medial antecubital fossa and down forearm on right) Results Lab Laboratory Tests 09/25/17 13:29: White Blood Count 16.6H, Red Blood Count 5.15, Hemoglobin 13.8, Hematocrit 43, Mean Corpuscular Volume 83, Mean Corpuscular Hemoglobin 27, Mean Corpuscular Hemoglobin Concent 32, Red Cell Distribution Width 15.1H, Platelet Count 328, Mean Platelet Volume 9.7, Neutrophils (%) (Auto) 91H, Lymphocytes (%) (Auto) 5L , Monocytes (%) (Auto) 5, Eosinophils (%) (Auto) 0, Basophils (%) (Auto) 0, Neutrophils # (Auto) 15.1H, Lymphocytes # (Auto) 0.8L, Monocytes # (Auto) 0.8, Eosinophils # (Auto) 0.0, Basophils # (Auto) 0.0, Neutrophils % (Manual) 92, Lymphocytes % (Manual) 2, Monocytes % (Manual) 6, Clumped Platelets , Blood Morphology Comment NORMAL, D-Dimer 3.12H, Sodium Level 139, Potassium Level 4.6 , Chloride Level 103, Carbon Dioxide Level 24, Anion Gap 12, Blood Urea Nitrogen 21H, Creatinine 0.91, Estimat Glomerular Filtration Rate > 60, BUN/ Creatinine Ratio 23, Glucose Level 124H, Calcium Level 9.3, Total Bilirubin 0.5 , Aspartate Amino Transf (AST/SGOT) 48H, Alanine Aminotransferase (ALT/SGPT) 52 , Alkaline Phosphatase 131, Troponin I < 0.30, B-Type Natriuretic Peptide 84.8, Total Protein 7.9, Albumin 3.7 09/25/17 20:10: Troponin I 0.30 09/26/17 05:10: White Blood Count 12.3H, Red Blood Count 4.66, Hemoglobin 12.3, Hematocrit 40, Mean Corpuscular Volume 85, Mean Corpuscular Hemoglobin 26, Mean Corpuscular Hemoglobin Concent 31L, Red Cell Distribution Width 15.1H, Platelet Count 274, Mean Platelet Volume 9.9, Neutrophils (%) (Auto) 80H, Lymphocytes (%) (Auto) 12 , Monocytes (%) (Auto) 7, Eosinophils (%) (Auto) 1, Basophils (%) (Auto) 1, Neutrophils # (Auto) 9.8H, Lymphocytes # (Auto) 1.5, Monocytes # (Auto) 0.9, Eosinophils # (Auto) 0.1, Basophils # (Auto) 0.1, Sodium Level 139, Potassium Level 4.1, Chloride Level 106, Carbon Dioxide Level 21, Anion Gap 12, Blood Urea Nitrogen 20H, Creatinine 0.93, Estimat Glomerular Filtration Rate > 60, BUN /Creatinine Ratio 22, Glucose Level 117H, Calcium Level 9.0, Total Bilirubin 0.3 , Aspartate Amino Transf (AST/SGOT) 28, Alanine Aminotransferase (ALT/SGPT) 37, Alkaline Phosphatase 111, Total Protein 6.9, Albumin 3.3, Phosphorus Level 4.7, Magnesium Level 1.9 Assessment/Plan Assessment/Plan Assess & Plan/Chief Complaint 1. Bilateral PE--switched to Eliquis, will do clotting studies after finished with 6mos of treatment but patient has been sleeping consistently in a chair with her legs hanging down 2. Hypertension--stable, will monitor 3. New RBBB--ECHO done this morning and cardiology evaluating 4. Right arm IV infiltration--monitor Clinical Quality Measures DVT/VTE Risk/Contraindication: Risk Factor Score Per Nursin RFS Level Per Nursing on Admit: 3=High AYLA ALCALA DO Sep 26, 2017 13:02
[2017-09-27] VITALS (13 sets, daily range): BP systolic 122–165; BP diastolic 74–99
[2017-09-27] MEDS: RT-ALBUTEROL/IPRATROPIUM 3 ML (DUONEB) VIAL INH SCH ×6 (02:24→21:24)
[2017-09-27 05:20] LABS: BASOPHILS # (AUTO) 0.1 10^3/uL (0.0-0.1); BASOPHILS % (AUTO) 1 % (0-10); EOSINOPHILS # (AUTO) 0.2 10^3/uL (0.0-0.3); EOSINOPHILS % (AUTO) 2 % (0-10); HEMATOCRIT 38 % (35-52); HEMOGLOBIN 12.2 G/DL (11.5-16.0); LYMPHOCYTES # (AUTO) 1.4 X 10^3 (1.0-4.0); LYMPHOCYTES % (AUTO) 11 % (12-44); MEAN CORPUSCULAR HEMOGLOBIN 27 PG (25-34); MEAN CORPUSCULAR HGB CONC 33 G/DL (32-36); MEAN CORPUSCULAR VOLUME 84 FL (80-99); MEAN PLATELET VOLUME 9.8 FL (7.4-10.4); MONOCYTES # (AUTO) 0.9 X 10^3 (0.0-1.0); MONOCYTES % (AUTO) 7 % (0-12); NEUTROPHILS % (AUTO) 80 % (42-75); PLATELET COUNT 258 10^3/uL (130-400); RED BLOOD COUNT 4.45 10^6/uL (4.35-5.85); RED CELL DISTRIBUTION WIDTH 15.4 % (10.0-14.5); WHITE BLOOD COUNT 12.6 10^3/uL (4.3-11.0)
--- NOTE | 2017-09-27 05:39 | Diagnostic Imaging Report ---
Indication: Hypoxemia Portable chest 5:14 AM Heart size and pulmonary vascular normal. Lungs are clear. There are no effusions or pneumothoraces. Impression: Suboptimal inspiration. No acute abnormalities seen in the chest. Dictated by: Dictated on workstation # [id number]
--- NOTE | 2017-09-27 05:42 | Pulmonary Progress Note ---
Subjective Time Seen by Provider: 05:42 Subjective/Events-last exam Pt feels better. Her right arm looks much better. SHe is still requiring oxygen. Exam Exam Vital Signs Date Time Temp Pulse Resp B/P (MAP) Pulse Ox O2 Delivery O2 Flow Rate FiO2 09/27/17 04:00 86 21 131/80 (97) 95 Nasal Cannula 3.00 09/27/17 03:00 81 10 146/91 (109) 94 Nasal Cannula 3.00 09/27/17 02:00 96 Nasal Cannula 3.00 09/27/17 02:00 81 20 141/99 (113) 94 Nasal Cannula 3.00 09/27/17 01:00 72 18 138/81 (100) 93 Nasal Cannula 3.00 09/27/17 01:00 78 09/27/17 00:00 86 22 123/74 (90) 94 Nasal Cannula 3.00 09/26/17 23:00 92 20 137/82 (100) 93 Nasal Cannula 3.00 09/26/17 22:00 96 35 140/89 (106) 93 Nasal Cannula 3.00 09/26/17 21:50 98 Nasal Cannula 3.00 09/26/17 21:00 100 18 131/88 (102) 93 Nasal Cannula 3.00 09/26/17 21:00 Nasal Cannula 3.00 09/26/17 20:02 98.5 09/26/17 20:00 107 23 147/81 (103) 93 Nasal Cannula 3.00 09/26/17 19:00 96 25 145/76 (99) 93 Nasal Cannula 3.00 09/26/17 19:00 96 09/26/17 18:15 97 Nasal Cannula 3.00 09/26/17 18:00 98 18 93 Nasal Cannula 3.00 09/26/17 17:00 95 18 103/81 (88) 92 Nasal Cannula 3.00 09/26/17 16:00 99.6 09/26/17 16:00 105 13 134/77 (96) 94 Nasal Cannula 3.00 09/26/17 15:00 109 12 131/57 (81) 95 Nasal Cannula 3.00 09/26/17 14:14 94 Nasal Cannula 3.00 09/26/17 14:00 105 19 93 Nasal Cannula 3.00 09/26/17 13:00 96 16 93 Nasal Cannula 3.00 09/26/17 13:00 97 2/8/18 12:00 100 11 94 Nasal Cannula 3.00 09/26/17 11:00 107 27 123/78 (93) 95 Nasal Cannula 3.00 09/26/17 10:19 96 Nasal Cannula 3.00 09/26/17 10:00 86 26 124/73 (90) 96 Nasal Cannula 3.00 09/26/17 09:00 105 12 111/85 (94) 92 Nasal Cannula 3.00 09/26/17 08:00 Nasal Cannula 3.00 09/26/17 08:00 98.0 Nasal Cannula 3.00 09/26/17 07:00 112 09/26/17 07:00 114 11 126/100 (109) 95 OxyMask 5.00 09/26/17 06:31 94 OxyMask 5.00 09/26/17 06:00 77 18 117/79 (92) 92 OxyMask 5.00 I & O 09/27/17 07:00 Intake Total 2060 ml Output Total 1000 ml Balance 1060 ml General Appearance: No Apparent Distress HEENT: Pharynx Normal Neck: Supple Respiratory: Lungs Clear, No Accessory Muscle Use, No Respiratory Distress Cardiovascular: Regular Rate, Rhythm Gastrointestinal: normal bowel sounds, non tender, soft Extremity: Non Tender, No Calf Tenderness, Pedal Edema (1 plus) Neurologic/Psychiatric: Alert, Oriented x3 Skin: Normal Color, Warm/Dry, Other (blisters to medial antecubital fossa and down forearm on right) Lymphatic: No Adenopathy Results Lab Laboratory Tests 09/25/17 13:29 09/26/17 05:10 09/27/17 05:10 Assessment/Plan Assessment/Plan Acute unprovoked bilateral PE with hypoxia -Pt is currently on Eliquis -Dopplers are negative -echo is pending Acute infiltration of right arm from IV contrast -ICE, elevation -CHeck peripheral pulses with vital signs -Monitor for compartment syndrome morbid obesity with probable PAMELLA -Will do out patient testing 233 Clinical Quality Measures DVT/VTE Risk/Contraindication: Risk Factor Score Per Nursin RFS Level Per Nursing on Admit: 3=High GORAN CHAVEZ DO Sep 27, 2017 05:42
[2017-09-27] MEDS ORDERED: FUROSEMIDE 40 MG/4 ML INJ (LASIX) IVP ONE (05:45)
[2017-09-27 05:49] LABS: BUN/CREATININE RATIO 18; CALCIUM 8.7 MG/DL (8.5-10.1); CARBON DIOXIDE 21 MMOL/L (21-32); CHLORIDE 106 MMOL/L (98-107); GFR ESTIMATED > 60; GLUCOSE 111 MG/DL (70-105); MAGNESIUM 1.9 MG/DL (1.8-2.4); PHOSPHORUS 3.8 MG/DL (2.3-4.7); POTASSIUM 4.4 MMOL/L (3.6-5.0); SODIUM 140 MMOL/L (135-145)
[2017-09-27] MEDS ORDERED: MAGNESIUM 1 GM/100 ML IVPB 100 ML IV SCH (06:00)
[2017-09-27] MEDS ORDERED: KCL 20 MEQ TAB (K-DUR) PO SCH (06:00)
[2017-09-27] MEDS ORDERED: POTASSIUM CL 10MEQ/50ML IVPB 50 ML IV SCH (06:00)
[2017-09-27] MEDS: APIXABAN 5 MG (ELIQUIS) TABLET PO SCH ×2 (07:48→17:56)
[2017-09-27] MEDS: CEFEPIME INJECTION 1,000 MG in NS (IVPB) 50 ML IV SCH ×2 (07:50→21:28)
--- NOTE | 2017-09-27 11:03 | Cardiology Progress Note ---
Cardiology SOAP Progress Note Subjective: Improved shortness of breath. Objective: I&O/Vital Signs Vital Sign - Last 12Hours 09/27/17 09/27/17 09/27/17 09/27/17 09:45 09:50 10:17 12:00 Temp 99.6 98.4 Pulse 92 88 Resp 20 20 B/P (MAP) 165/90 (115) 136/78 (97) Pulse Ox 91 91 93 O2 Delivery Nasal Cannula Room Air Nasal Cannula Nasal Cannula O2 Flow Rate 1.00 1.50 1.00 09/27/17 09/27/17 09/27/17 09/27/17 13:00 14:34 16:00 18:58 Temp 100.2 Pulse 101 105 87 Resp 20 B/P (MAP) 125/93 (104) Pulse Ox 91 92 O2 Delivery Nasal Cannula Nasal Cannula O2 Flow Rate 1.50 1.00 09/27/17 19:57 Temp 100.7 Pulse 87 Resp 22 B/P (MAP) 135/85 (102) Pulse Ox 93 O2 Delivery Nasal Cannula O2 Flow Rate 1.00 Intake and Output 09/27/17 00:00 Intake Total 1820 ml Output Total 1000 ml Balance 820 ml Weight (Pounds): 308 Weight (Ounces): 7.0 Weight (Calculated Kilograms): 139.019948 Constitutional: AAO x 3, well-developed Respiratory: No accessory muscle use, No respiratory distress, No chest tender , No chest expansion is symmetric, chest is bilaterally symmetric, lungs clear to percussion, lungs clear to auscultation, No crackles, No rhonchi, No rales, No stridor, No wheezing, No pleural rub, No other Cardiovascular: regular rate-rhythm, No irregularly irregular, No extra beats, No parasternal heave is noted, No JVD, No edema, No bradycardia, No tachycardia , No point of maximal impulse, No cardiac thrills are palpable, S1 and S2, No gallop/S3, No gallop/S4, No diastolic murmur, No systolic murmur, No friction rub, No click, No other Gastrointestional: No tender, No soft, No round, No distended, No pulsatile mass, No organomegaly, No guarding, No rebound, No tenderness, No hernia, No mass, No audible bowel sounds, No abnormal bowel sounds, No abdominal bruits, No spleenomegaly, No other Extremities: No normal range of motion, No non-tender, No normal inspection, No pedal edema, No calf tenderness, No normal capillary refill, No pelvis stable , No calf tenderness, No inflammation, No pedal edema, No slow capillary refill , No swelling, No other, No abrasion, No clubbing, No cyanosis, No ecchymosis, No laceration, No no lower extremity edema bilateral, No significant edema, No tenderness, No wound Neurologic/Psychiatric: No dye weigher II-XII nml as tested, No no motor/sensory deficits, alert, normal mood/affect, oriented x 3, No abnormal cerebellar tests , No abnormal dye weigher II-XII, No abnormal gait, No aphasia, No EOM palsy, No facial droop, No motor weakness, No sensory deficit, No depressed affect, No disoriented x 3, No other, No grossly intact, No power is 5/5 both on sides Skin: No normal color, No warm/dry, No cyanosis, No cool, No diaphoresis, No damp, No ecchymosis, No jaundice, No mottled, No pallor, No rash, No tattoos/ piercings, No ulcerations, No rash on exposed areas, No ulcerations on exposed areas, No other Results/Procedures: Labs Laboratory Tests 09/27/17 05:10: White Blood Count 12.6H, Red Blood Count 4.45, Hemoglobin 12.2, Hematocrit 38, Mean Corpuscular Volume 84, Mean Corpuscular Hemoglobin 27, Mean Corpuscular Hemoglobin Concent 33, Red Cell Distribution Width 15.4H, Platelet Count 258, Mean Platelet Volume 9.8, Neutrophils (%) (Auto) 80H, Lymphocytes (%) (Auto) 11L , Monocytes (%) (Auto) 7, Eosinophils (%) (Auto) 2, Basophils (%) (Auto) 1, Neutrophils # (Auto) 10.0H, Lymphocytes # (Auto) 1.4, Monocytes # (Auto) 0.9, Eosinophils # (Auto) 0.2, Basophils # (Auto) 0.1, Sodium Level 140, Potassium Level 4.4, Chloride Level 106, Carbon Dioxide Level 21, Anion Gap 13, Blood Urea Nitrogen 14, Creatinine 0.80, Estimat Glomerular Filtration Rate > 60, BUN/ Creatinine Ratio 18, Glucose Level 111H, Calcium Level 8.7, Phosphorus Level 3.8 , Magnesium Level 1.9 A/P: Assessment/Dx: Large bilateral PE, Hypoxia, Chest pain, HTN, Leukocytosis Plan: Large bilateral PE, confirmed on CTA chest. Reviewed by self. large PE in main pulmonary branches. Eliquis 10mg po bid x 7 days. No clear etiology found. Ultrasound bilateral veins negative. Hypoxia, secondary to PE. No CHF. BNP negative. Echocardiogram shows mild RV enlargement with normal RV function. No significant pulmonary hypertension. Chest pain, ACS ruled out with serial negative troponin. HTN, on amlodipine. Leukocytosis, likely stress related. however need to rule out infection. Follow-up with cardiology in one month after discharge. Thank you for your consultation. Please call me if you have any questions. Manda Layne MD, FACP, FACC, FSCAI, FHRS, CCDS Interventional Cardiology Cardiac Electrophysiology Vascular Medicine and Endovascular Interventions Jorge A LAYNE MD Sep 27, 2017 11:03 am
--- NOTE | 2017-09-27 12:43 | Progress Note (SOAP) ---
Subjective Date Seen by Provider: Sep 27, 2017 Time Seen by Provider: 11:30 Subjective/Events-last exam Fwup Bilateral pulmonary emboli, dyspnea, edema, hypertension, new RBBB, right arm swelling from IV infiltration with contrast. Has been moved to medical floor and feeling much better. Right arm not as swollen. Objective Exam Vital Signs Date Time Temp Pulse Resp B/P (MAP) Pulse Ox O2 Delivery O2 Flow Rate FiO2 09/27/17 10:17 91 Nasal Cannula 1.50 09/27/17 09:45 99.6 92 20 165/90 (115) 91 Nasal Cannula 1.00 09/27/17 09:00 Nasal Cannula 2.00 09/27/17 09:00 91 27 140/82 (101) 91 Nasal Cannula 3.00 09/27/17 08:00 90 13 92 Nasal Cannula 3.00 09/27/17 08:00 98.7 09/27/17 07:00 89 09/27/17 07:00 93 27 122/87 (99) 91 Nasal Cannula 3.00 09/27/17 06:43 98 Nasal Cannula 1.00 09/27/17 06:00 72 17 136/83 (100) 90 Nasal Cannula 3.00 09/27/17 05:00 81 17 148/91 (110) 94 Nasal Cannula 3.00 09/27/17 04:00 86 21 131/80 (97) 95 Nasal Cannula 3.00 09/27/17 03:00 81 10 146/91 (109) 94 Nasal Cannula 3.00 09/27/17 02:00 96 Nasal Cannula 3.00 09/27/17 02:00 81 20 141/99 (113) 94 Nasal Cannula 3.00 09/27/17 01:00 72 18 138/81 (100) 93 Nasal Cannula 3.00 09/27/17 01:00 78 09/27/17 00:00 86 22 123/74 (90) 94 Nasal Cannula 3.00 09/26/17 23:00 92 20 137/82 (100) 93 Nasal Cannula 3.00 09/26/17 22:00 96 35 140/89 (106) 93 Nasal Cannula 3.00 09/26/17 21:50 98 Nasal Cannula 3.00 09/26/17 21:00 100 18 131/88 (102) 93 Nasal Cannula 3.00 09/26/17 21:00 Nasal Cannula 3.00 09/26/17 20:02 98.5 09/26/17 20:00 107 23 147/81 (103) 93 Nasal Cannula 3.00 09/26/17 19:00 96 25 145/76 (99) 93 Nasal Cannula 3.00 09/26/17 19:00 96 09/26/17 18:15 97 Nasal Cannula 3.00 09/26/17 18:00 98 18 93 Nasal Cannula 3.00 09/26/17 17:00 95 18 103/81 (88) 92 Nasal Cannula 3.00 09/26/17 16:00 99.6 09/26/17 16:00 105 13 134/77 (96) 94 Nasal Cannula 3.00 09/26/17 15:00 109 12 131/57 (81) 95 Nasal Cannula 3.00 09/26/17 14:14 94 Nasal Cannula 3.00 09/26/17 14:00 105 19 93 Nasal Cannula 3.00 09/26/17 13:00 96 16 93 Nasal Cannula 3.00 09/26/17 13:00 97 I & O 09/27/17 07:00 Intake Total 2260 ml Output Total 1600 ml Balance 660 ml Capillary Refill : General Appearance: No Apparent Distress Neck: Supple Respiratory: Lungs Clear Cardiovascular: Regular Rate, Rhythm, Systolic Murmur Gastrointestinal: normal bowel sounds, non tender, soft Extremity: Non Tender, No Calf Tenderness, No Pedal Edema, Swelling (right arm antecubital area and forearm ) Neurologic/Psychiatric: Alert, Oriented x3 Skin: Erythema (mild to right forearm with some blisters) Results Lab Laboratory Tests 09/27/17 05:10: White Blood Count 12.6H, Red Blood Count 4.45, Hemoglobin 12.2, Hematocrit 38, Mean Corpuscular Volume 84, Mean Corpuscular Hemoglobin 27, Mean Corpuscular Hemoglobin Concent 33, Red Cell Distribution Width 15.4H, Platelet Count 258, Mean Platelet Volume 9.8, Neutrophils (%) (Auto) 80H, Lymphocytes (%) (Auto) 11L , Monocytes (%) (Auto) 7, Eosinophils (%) (Auto) 2, Basophils (%) (Auto) 1, Neutrophils # (Auto) 10.0H, Lymphocytes # (Auto) 1.4, Monocytes # (Auto) 0.9, Eosinophils # (Auto) 0.2, Basophils # (Auto) 0.1, Sodium Level 140, Potassium Level 4.4, Chloride Level 106, Carbon Dioxide Level 21, Anion Gap 13, Blood Urea Nitrogen 14, Creatinine 0.80, Estimat Glomerular Filtration Rate > 60, BUN/ Creatinine Ratio 18, Glucose Level 111H, Calcium Level 8.7, Phosphorus Level 3.8 , Magnesium Level 1.9 Assessment/Plan Assessment/Plan Assess & Plan/Chief Complaint 1. Bilateral PE--switched to Eliquis, will do clotting studies after finished with 6mos of treatment but patient had been sleeping consistently in a chair with her legs hanging down prior to presentation 2. Hypertension--stable, will monitor 3. New RBBB--ECHO normal 4. Right arm IV infiltration with mild cellulitis--monitoring and started on IV abx per pulmonology 5. Hypoxia--down to 1.5L of oxygen, will increase activity/start PT Clinical Quality Measures DVT/VTE Risk/Contraindication: Risk Factor Score Per Nursin RFS Level Per Nursing on Admit: 3=High AYLA ALCALA DO Sep 27, 2017 12:42 pm
--- NOTE | 2017-09-27 12:54 | Physical Therapy Evaluation ---
PT Evaluation-General Medical Diagnosis Admission Date Sep 25, 2017 at 12:12 Medical Diagnosis: CP/hyypoxia/dizziness Onset Date: Sep 25, 2017 Therapy Diagnosis Therapy Diagnosis: generalized weakness/debility Height/Weight Height (Feet): 5 Height (Inches): 8.00 Weight (Pounds): 308 Weight (Ounces): 7.0 Precautions Precautions/Isolations: Standard Precautions Weight Bear Status Right Lower Extremity: Right Full Weight Bearing Left Lower Extremity: Left Full Weight Bearing Referral Physician: Becka Reason for Referral: Evaluation/Treatment Medical History Pertinent Medical History: HTN Additional Medical History morbid obesity Current History admit from office with decreased SAO2 and bilateral LE edema; result...bilateral PE's Reviewed History: Yes Social History Home: Single Level Current Living Status: Alone Prior/Core FIM Prior Level of Function Functional [place] Measure 0=Not Assessed/NA 4=Minimal Assistance 1=Total Assistance 5=Supervision or Setup 2=Maximal Assistance 6=Modified [place] 3=Moderate Assistance 7=Complete [place] Bed Mobility: 7 Transfers (B,C,W/C) (FIM): 7 Gait: 7 Locomotion: 7 PT Evaluation-Current Subjective Patient agrees to PT. No c/o at this time. Pain Numeric Pain Scale: 0-No Pain Location: No Pain Reported Objective Patient Orientation: Normal For Age Problem Solving: Good Attachments: Oxygen (1.5L) ROM/Strength ROM Lower Extremities bilateral LE WNL Strength Lower Extremities bilateral LE WNL Integumentary/Posture Integumentary refer to nursing notes Bowel Incontinence: Yes Bladder Incontinence: Yes Posture WNL Neuromuscular (Tone, Coordination, Reflexes) grossly intact Sensory Vision: Functional Hearing: Functional Sensation Right Lower Extremit: Intact Sensation Left Lower Extremity: Intact Transfers Functional [place] Measure 0=Not Assessed/NA 4=Minimal Assistance 1=Total Assistance 5=Supervision or Setup 2=Maximal Assistance 6=Modified [place] 3=Moderate Assistance 7=Complete [place] Transfers (B, C, W/C) (FIM): 7 Scootin Rollin Supine to/from Sit: 7 Sit to/from Stand: 7 Gait Mode of Locomotion: Walk Anticipated Mode of Locomotion: Walk Gait (FIM): 7 Distance: 150' Gait Level of Assist: 7 Gait Assistive Device: None Comments/Gait Description slow, steady, functional Balance Sitting Static: Normal Sitting Dynamic: Normal Standing Static: Normal Standing Dynamic: Normal Assessment/Needs 62 y.o. female is currently at independent PLOF with all gross motor skills. PT educated patient on ambulating PRN in hallway to improve pulmonary function and patient voices understanding. RN notified of patient to be up ad jen. No skilled PT indicated at this time. Rehab Potential: Good PT Plan Treatment/Plan Treatment Plan: Discontinue PT, goals met Treatment Plan: Other Treatment Duration: Sep 27, 2017 Frequency: 1 time per week Estimated Hrs Per Day: .25 hour per day Patient and/or Family Agrees t: Yes Safety Risks/Education Patient Education: Safety Issues Teaching Recipient: Patient Teaching Methods: Discussion Response to Teaching: Verbalize Understanding Discharge Recommendations Therapy D/C Recommendations: Home Independently Time/GCodes Time In: 1145 Time Out: 1200 Total Billed Treatment Time: 15 Total Billed Treatment 1 visit EVLowC 15 min G Codes Necessary: NUPUR Marroquin PT Sep 27, 2017 12:54
[2017-09-27] MEDS ORDERED: NS (IVPB) 50 ML ONE (21:15)
[2017-09-27] MEDS ORDERED: CEFEPIME 1 GM (MAXIPIME) VIAL ONE (21:15)
[2017-09-28] VITALS: BP 134/66
[2017-09-28] MEDS: RT-ALBUTEROL/IPRATROPIUM 3 ML (DUONEB) VIAL INH SCH ×6 (01:29→21:59)
[2017-09-28 04:00] VITALS: BP 126/82
[2017-09-28] MEDS: APIXABAN 5 MG (ELIQUIS) TABLET PO SCH ×2 (06:16→18:20)
[2017-09-28 06:22] LABS: BASOPHILS # (AUTO) 0.1 10^3/uL (0.0-0.1); BASOPHILS % (AUTO) 1 % (0-10); EOSINOPHILS # (AUTO) 0.2 10^3/uL (0.0-0.3); EOSINOPHILS % (AUTO) 2 % (0-10); HEMATOCRIT 38 % (35-52); HEMOGLOBIN 12.1 G/DL (11.5-16.0); LYMPHOCYTES # (AUTO) 1.7 X 10^3 (1.0-4.0); LYMPHOCYTES % (AUTO) 13 % (12-44); MEAN CORPUSCULAR HEMOGLOBIN 27 PG (25-34); MEAN CORPUSCULAR HGB CONC 32 G/DL (32-36); MEAN CORPUSCULAR VOLUME 84 FL (80-99); MEAN PLATELET VOLUME 10.1 FL (7.4-10.4); MONOCYTES # (AUTO) 0.9 X 10^3 (0.0-1.0); MONOCYTES % (AUTO) 7 % (0-12); NEUTROPHILS # (AUTO) 10.1 X 10^3 (1.8-7.8); NEUTROPHILS % (AUTO) 78 % (42-75); PLATELET COUNT 279 10^3/uL (130-400); RED CELL DISTRIBUTION WIDTH 15.4 % (10.0-14.5)
[2017-09-28 06:39] LABS: BUN/CREATININE RATIO 17; CALCIUM 8.7 MG/DL (8.5-10.1); CARBON DIOXIDE 21 MMOL/L (21-32); CHLORIDE 104 MMOL/L (98-107); CREATININE SERUM 0.81 MG/DL (0.60-1.30); GFR ESTIMATED > 60; GLUCOSE 105 MG/DL (70-105); MAGNESIUM 1.8 MG/DL (1.8-2.4); PHOSPHORUS 4.5 MG/DL (2.3-4.7); POTASSIUM 3.6 MMOL/L (3.6-5.0); SODIUM 140 MMOL/L (135-145)
[2017-09-28 08:00] VITALS: BP 134/89
--- NOTE | 2017-09-28 08:41 | Diagnostic Imaging Report ---
EXAMINATION: Portable chest compared to prior study from 09/27/2017. INDICATION: Hypoxia. FINDINGS: There is enlargement of the cardiac silhouette. Prominence of the central pulmonary vascularity is unchanged. There is no new dense alveolar consolidation or large effusion evident and there is no evidence of pneumothorax. IMPRESSION: 1. Enlarged cardiac silhouette with continued central pulmonary vascular congestion. Dictated by: Dictated on workstation # [id number]
[2017-09-28] MEDS: CEFEPIME 1 GM/NS 50 ML IV SCH ×4 (10:00→20:44)
[2017-09-28 12:00] VITALS: BP 138/76
--- NOTE | 2017-09-28 12:10 | Progress Note-Hospitalist ---
Subjective HPI/CC On Admission Date Seen by Provider: Sep 28, 2017 Time Seen by Provider: 10:30 Subjective/Events-last exam Patient reports ambulating in halls with less shortness of breath. She denies right arm pain and reports swelling has gone down significantly. She denies chills or fever. She has mild nonproductive cough. No hemoptysis reported. Objective Exam Vital Signs Vital Signs Date Time Temp Pulse Resp B/P (MAP) Pulse Ox O2 Delivery O2 Flow Rate FiO2 09/25/17 12:20 93 Nasal Cannula 2.00 09/25/17 12:20 98.9 103 19 136/98 (111) Capillary Refill : General Appearance: No Apparent Distress, Obese Respiratory: Chest Non Tender, Lungs Clear, Normal Breath Sounds, No Accessory Muscle Use, No Respiratory Distress Cardiovascular: Regular Rate, Rhythm, No Edema, No Gallop, No JVD, No Murmur, Normal Peripheral Pulses Extremity: Other (Swelling of right upper extremity there are a few areas of erythema without evidence for skin breakdown on the volar aspect of the right forearm and hand is warm and radial pulses are 2+ over 4.) Results/Procedures Lab Laboratory Tests 09/28/17 05:26 Assessment/Plan Assessment and Plan Assess & Plan/Chief Complaint 1. Bilateral pulmonary embolism improving on Eliquis. 2. Local reaction from contrast extravasation of the right upper extremity doubt infection considering the rapidity of improvement. Consider possible discharge tomorrow if improvement continues. LUIS M WINSTON MD Sep 28, 2017 12:10
--- NOTE | 2017-09-28 12:37 | Cardiology Progress Note ---
Cardiology SOAP Progress Note Subjective: Improvement in shortness of breath. Objective: I&O/Vital Signs Vital Sign - Last 12Hours 09/28/17 09/28/17 09/28/17 09/28/17 06:47 07:09 07:11 08:00 Temp 98.0 Pulse 83 97 93 Resp 18 B/P (MAP) 134/89 (104) Pulse Ox 94 O2 Delivery Room Air Nasal Cannula O2 Flow Rate 2.00 09/28/17 09/28/17 09/28/17 09/28/17 08:30 10:45 12:00 13:00 Temp 98.6 Pulse 92 89 Resp 20 B/P (MAP) 138/76 (96) Pulse Ox 91 94 O2 Delivery Nasal Cannula Room Air Nasal Cannula O2 Flow Rate 2.00 2.00 09/28/17 14:22 Pulse Ox 91 O2 Delivery Nasal Cannula O2 Flow Rate 1.50 Intake and Output 09/28/17 00:00 Intake Total 1320 ml Balance 1320 ml Weight (Pounds): 309 Weight (Ounces): 5.0 Weight (Calculated Kilograms): 140.971960 Constitutional: AAO x 3, well-developed Respiratory: chest is bilaterally symmetric, lungs clear to percussion, lungs clear to auscultation Cardiovascular: regular rate-rhythm, S1 and S2 Gastrointestional: No tender, No soft, No round, No distended, No pulsatile mass, No organomegaly, No guarding, No rebound, No tenderness, No hernia, No mass, No audible bowel sounds, No abnormal bowel sounds, No abdominal bruits, No spleenomegaly, No other Extremities: No normal range of motion, No non-tender, No normal inspection, No pedal edema, No calf tenderness, No normal capillary refill, No pelvis stable , No calf tenderness, No inflammation, No pedal edema, No slow capillary refill , No swelling, No other, No abrasion, No clubbing, No cyanosis, No ecchymosis, No laceration, No no lower extremity edema bilateral, No significant edema, No tenderness, No wound Neurologic/Psychiatric: alert, normal mood/affect, oriented x 3 Skin: No normal color, No warm/dry, No cyanosis, No cool, No diaphoresis, No damp, No ecchymosis, No jaundice, No mottled, No pallor, No rash, No tattoos/ piercings, No ulcerations, No rash on exposed areas, No ulcerations on exposed areas, No other Results/Procedures: Labs Laboratory Tests 09/28/17 05:26: White Blood Count 13.0H, Red Blood Count 4.50, Hemoglobin 12.1, Hematocrit 38, Mean Corpuscular Volume 84, Mean Corpuscular Hemoglobin 27, Mean Corpuscular Hemoglobin Concent 32, Red Cell Distribution Width 15.4H, Platelet Count 279, Mean Platelet Volume 10.1, Neutrophils (%) (Auto) 78H, Lymphocytes (%) (Auto) 13 , Monocytes (%) (Auto) 7, Eosinophils (%) (Auto) 2, Basophils (%) (Auto) 1, Neutrophils # (Auto) 10.1H, Lymphocytes # (Auto) 1.7, Monocytes # (Auto) 0.9, Eosinophils # (Auto) 0.2, Basophils # (Auto) 0.1, Sodium Level 140, Potassium Level 3.6, Chloride Level 104, Carbon Dioxide Level 21, Anion Gap 15H, Blood Urea Nitrogen 14, Creatinine 0.81, Estimat Glomerular Filtration Rate > 60, BUN/ Creatinine Ratio 17, Glucose Level 105, Calcium Level 8.7, Phosphorus Level 4.5 , Magnesium Level 1.8 A/P: Assessment/Dx: Large bilateral PE, Hypoxia, Chest pain, HTN, Leukocytosis Plan: Large bilateral PE, confirmed on CTA chest. Reviewed by self. large PE in main pulmonary branches. Eliquis 10mg po bid x 7 days. No clear etiology found. Ultrasound bilateral veins negative. Hypoxia, secondary to PE. No CHF. BNP negative. Echocardiogram shows mild RV enlargement with normal RV function. No significant pulmonary hypertension. Chest pain, ACS ruled out with serial negative troponin. May require pharmacological nuclear stress test as an outpatient. HTN, on amlodipine. Leukocytosis, likely stress related. however need to rule out infection. Follow-up with cardiology in one month after discharge. Thank you for your consultation. Please call me if you have any questions. Manda Layne MD, FACP, FACC, FSCAI, FHRS, CCDS Interventional Cardiology Cardiac Electrophysiology Vascular Medicine and Endovascular Interventions Jorge A LAYNE MD Sep 28, 2017 12:37 pm
[2017-09-28 16:00] VITALS: BP 139/91
[2017-09-28 20:00] VITALS: BP 153/75
[2017-09-28] MEDS ORDERED: CEFEPIME 1 GM/NS 50 ML IV SCH ×2 (21:00)
[2017-09-29] VITALS: BP 138/80
[2017-09-29] MEDS: RT-ALBUTEROL/IPRATROPIUM 3 ML (DUONEB) VIAL INH SCH ×4 (01:21→17:13)
[2017-09-29 04:00] VITALS: BP 112/61
[2017-09-29 05:51] LABS: BASOPHILS # (AUTO) 0.1 10^3/uL (0.0-0.1); BASOPHILS % (AUTO) 1 % (0-10); EOSINOPHILS # (AUTO) 0.3 10^3/uL (0.0-0.3); EOSINOPHILS % (AUTO) 2 % (0-10); HEMATOCRIT 37 % (35-52); HEMOGLOBIN 11.9 G/DL (11.5-16.0); LYMPHOCYTES # (AUTO) 1.4 X 10^3 (1.0-4.0); LYMPHOCYTES % (AUTO) 11 % (12-44); MEAN CORPUSCULAR HEMOGLOBIN 27 PG (25-34); MEAN CORPUSCULAR HGB CONC 32 G/DL (32-36); MEAN CORPUSCULAR VOLUME 84 FL (80-99); MONOCYTES # (AUTO) 0.8 X 10^3 (0.0-1.0); MONOCYTES % (AUTO) 6 % (0-12); NEUTROPHILS # (AUTO) 10.2 X 10^3 (1.8-7.8); NEUTROPHILS % (AUTO) 80 % (42-75); PLATELET COUNT 279 10^3/uL (130-400); RED BLOOD COUNT 4.39 10^6/uL (4.35-5.85); RED CELL DISTRIBUTION WIDTH 15.3 % (10.0-14.5); WHITE BLOOD COUNT 12.7 10^3/uL (4.3-11.0)
[2017-09-29 06:06] LABS: BUN/CREATININE RATIO 19; CALCIUM 8.6 MG/DL (8.5-10.1); CARBON DIOXIDE 22 MMOL/L (21-32); CHLORIDE 105 MMOL/L (98-107); CREATININE SERUM 0.79 MG/DL (0.60-1.30); GFR ESTIMATED > 60; GLUCOSE 107 MG/DL (70-105); MAGNESIUM 1.9 MG/DL (1.8-2.4); POTASSIUM 3.6 MMOL/L (3.6-5.0); SODIUM 138 MMOL/L (135-145)
[2017-09-29] MEDS: APIXABAN 5 MG (ELIQUIS) TABLET PO SCH (06:16)
--- NOTE | 2017-09-29 08:22 | Diagnostic Imaging Report ---
INDICATION: Hypoxia. Comparison made with prior examination 09/28/2017. FINDINGS: There is cardiomegaly. There is venous congestion. There is bibasilar atelectasis and/or pneumonitis left greater than right. There is no pneumothorax. Mediastinum is unremarkable. IMPRESSION: Bibasilar atelectasis and/or pneumonitis left greater than right. Cardiomegaly and mild central pulmonary venous congestion. Dictated by: Dictated on workstation # [id number]
[2017-09-29 08:25] VITALS: BP 143/81
[2017-09-29] MEDS: CEFEPIME 1 GM/NS 50 ML IV SCH ×4 (09:20→09:26)
--- NOTE | 2017-09-29 11:45 | Cardiology Progress Note ---
Cardiology SOAP Progress Note Subjective: Significant improvement. Objective: I&O/Vital Signs Vital Sign - Last 12Hours 09/29/17 09/29/17 09/29/17 09/29/17 00:00 01:00 01:21 04:00 Temp 99.5 99.1 Pulse 103 93 79 Resp 20 16 B/P (MAP) 138/80 (99) 112/61 (78) Pulse Ox 92 91 94 O2 Delivery Room Air Nasal Cannula Nasal Cannula O2 Flow Rate 2.00 2.00 09/29/17 09/29/17 09/29/17 09/29/17 06:47 07:00 08:25 09:48 Temp 99.1 Pulse 79 82 Resp 18 B/P (MAP) 143/81 (101) Pulse Ox 92 93 93 O2 Delivery Nasal Cannula Room Air Room Air O2 Flow Rate 2.00 Intake and Output 09/29/17 00:00 Intake Total 1550 ml Output Total 1000 ml Balance 550 ml Weight (Pounds): 308 Weight (Ounces): 6.0 Weight (Calculated Kilograms): 139.866288 Constitutional: AAO x 3, well-developed Respiratory: chest is bilaterally symmetric, lungs clear to percussion, lungs clear to auscultation Cardiovascular: regular rate-rhythm, S1 and S2 Gastrointestional: No tender, No soft, No round, No distended, No pulsatile mass, No organomegaly, No guarding, No rebound, No tenderness, No hernia, No mass, No audible bowel sounds, No abnormal bowel sounds, No abdominal bruits, No spleenomegaly, No other Extremities: No normal range of motion, No non-tender, No normal inspection, No pedal edema, No calf tenderness, No normal capillary refill, No pelvis stable , No calf tenderness, No inflammation, No pedal edema, No slow capillary refill , No swelling, No other, No abrasion, No clubbing, No cyanosis, No ecchymosis, No laceration, No no lower extremity edema bilateral, No significant edema, No tenderness, No wound Neurologic/Psychiatric: alert, normal mood/affect, oriented x 3 Skin: No normal color, No warm/dry, No cyanosis, No cool, No diaphoresis, No damp, No ecchymosis, No jaundice, No mottled, No pallor, No rash, No tattoos/ piercings, No ulcerations, No rash on exposed areas, No ulcerations on exposed areas, No other Results/Procedures: Labs Laboratory Tests 09/29/17 05:30: White Blood Count 12.7H, Red Blood Count 4.39, Hemoglobin 11.9, Hematocrit 37, Mean Corpuscular Volume 84, Mean Corpuscular Hemoglobin 27, Mean Corpuscular Hemoglobin Concent 32, Red Cell Distribution Width 15.3H, Platelet Count 279, Mean Platelet Volume 10.0, Neutrophils (%) (Auto) 80H, Lymphocytes (%) (Auto) 11L, Monocytes (%) (Auto) 6, Eosinophils (%) (Auto) 2, Basophils (%) (Auto) 1, Neutrophils # (Auto) 10.2H, Lymphocytes # (Auto) 1.4, Monocytes # (Auto) 0.8, Eosinophils # (Auto) 0.3, Basophils # (Auto) 0.1, Sodium Level 138, Potassium Level 3.6, Chloride Level 105, Carbon Dioxide Level 22, Anion Gap 11, Blood Urea Nitrogen 15, Creatinine 0.79, Estimat Glomerular Filtration Rate > 60, BUN/ Creatinine Ratio 19, Glucose Level 107H, Calcium Level 8.6, Phosphorus Level 4.0 , Magnesium Level 1.9 A/P: Assessment/Dx: Large bilateral PE, Hypoxia, Chest pain, HTN, Leukocytosis Plan: Large bilateral PE, confirmed on CTA chest. Reviewed by self. large PE in main pulmonary branches. Eliquis 10mg po bid x 7 days. And then continue Eliquis at a lower dose for 6 months. No clear etiology found. Ultrasound bilateral veins negative. Hypoxia, secondary to PE. No CHF. BNP negative. Echocardiogram shows mild RV enlargement with normal RV function. No significant pulmonary hypertension. Chest pain, ACS ruled out with serial negative troponin. May require pharmacological nuclear stress test as an outpatient. HTN, on amlodipine. Leukocytosis, likely stress related. however need to rule out infection. Okay to discharge; Follow-up with cardiology in one month after discharge. Earlier if any other symptoms. Thank you for your consultation. Please call me if you have any questions. Manda Layne MD, FACP, FACC, FSCAI, FHRS, CCDS Interventional Cardiology Cardiac Electrophysiology Vascular Medicine and Endovascular Interventions Jorge A LAYNE MD Sep 29, 2017 11:45 am
[2017-09-29] MEDS ORDERED: APIX5TAB PO (11:46)
== END 2017-09-29 14:10 | disposition home or self-care (01) | DRG 176 ==
LOC: ICU 12:12 → 4TH 09-27 09:45
PROVIDERS: ADMIT Family Medicine; ATTEND Family Medicine
DX: I26.99 Other pulmonary embolism without acute cor pulmonale (principal); L03.113 Cellulitis of right upper limb; T80.818A Extravasation of other vesicant agent, initial encounter; T50.8X5A Adverse effect of diagnostic agents, initial encounter; I95.9 Hypotension, unspecified; I10 Essential (primary) hypertension; I45.10 Unspecified right bundle-branch block; E66.01 Morbid (severe) obesity due to excess calories; Z68.42 Body mass index [BMI] 45.0-49.9, adult
CPT/HCPCS: 36415; 71045; 71275; 80048; 80053; 83735; 83880; 84100; 84484; 85007; 85025; 85027; 85379; 93005; 93306; 93970; 94150; 94640; 94760

== ENCOUNTER 2017-11-01 20:00 | Outpatient (CLI) | payer BC ==
[~2017-11-01 20:00] MED LIST changes: +APIX5TAB PO; +GLUC-203 PO; +LOSA100T28 PO; +MULT-35 PO; +NAPR220T66 PO
== END 2017-11-02 06:59 | disposition home or self-care (01) ==
LOC: SLEEP 20:00
PROVIDERS: ATTEND Internal Medicine Critical Care Medicine
DX: G47.33 Obstructive sleep apnea (adult) (pediatric) (principal); I10 Essential (primary) hypertension; Z88.5 Allergy status to narcotic agent; Z86.718 Personal history of other venous thrombosis and embolism
CPT/HCPCS: 95811

== ENCOUNTER 2017-12-11 15:57 | Emergency (ER) | payer BC ==
[~2017-12-11] VITALS: Ht 172.7 cm; Wt 132.4 kg
--- OUTSIDE RECORDS SUMMARY | 2017-12-11 16:02 | XMS REPORT ---
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 Name Role Phone MAURILIO DUMONTYL Unavailable PROBLEMS Type Condition ICD9-CM Code LCI86-GN Code Onset Dates Condition Status SNOMED Code Problem Essential hypertension I10 Active 47188641 Problem Acute bronchitis J20.9 Active 19141220 ALLERGIES Substance Reaction Event Type Date Status Codeine Unknown Drug Allergy Apr, Active ENCOUNTERS Encounter Location Date Diagnosis [facility] [id number] [place] [address] [phone] May, Encounter for immunization Z23 [facility] [address] [id number] Apr, Swelling R60.9 ; Toxic effect of venom of other arthropod, accidental (unintentional), initial encounter T63.481A and Bitten or stung by nonvenomous insect and other nonvenomous arthropods, initial encounter W57.XXXA [facility] [id number] [place] [address] [id number] Oct, Essential hypertension I10 and Acute bronchitis J20.9 [facility] [id number] [place] [address] [phone] May, Encounter for immunization Z23 [facility] [id number] [place] [address] [id number] Apr, Bronchitis J40 [facility] [id number] [place] [address] [phone] May, Encounter for immunization Z23 [facility] [id number] [place] [address] [phone] May, Encounter for immunization 23 [facility] [id number] [address] May, Encounter for immunization Z23 [facility] [id number] [place] [address] [phone] December, Candidiasis of female genitalia 112.1 ; Sinusitis 473.9 and Cough 786.2 [facility] [id number] [place] [phone] Nov, [facility] [id number] [place] [address] [phone] Nov, [facility] [id number] [place] [address] [phone] Sep, [facility] [id number] [place] [address] [phone] Sep, [facility] [id number] [place] [address] [phone] May, [facility] [id number] [place] [address] [phone] May, [facility] [id number] [place] [address] [phone] May, [facility] [id number] [place] [address] [phone] May, [facility] [id number] [place] [phone] May, [facility] [id number] [place] [address] May, [facility] [id number] [place] [address] [phone] May, [facility] [id number] [place] [address] May, [facility] [id number] [place] [address] [phone] December, [facility] [address] [facility] [place] [id number] [place] [address] Nov, [facility] [address] [facility] [place] [id number] [place] [address] May, [facility] [address] [facility] [place] [id number] [place] [address] May, IMMUNIZATIONS Vaccine Route Administration Date Status DEPO MEDROL 80 MG/ML IM Intramuscular Apr 26, 2017 Administered SOCIAL HISTORY Never Assessed REASON FOR VISIT wasp sting-TGuymonMA PLAN OF CARE Activity Details Follow Up prn Reason: VITAL SIGNS Height 68 in 2017-04-26 Temperature 99.0 degrees Fahrenheit 2017-04-26 Heart Rate 103 bpm 2017-04-26 Respiratory Rate 20 2017-04-26 Blood pressure systolic 170 mmHg 2017-04-26 Blood pressure diastolic 88 mmHg 2017-04-26 MEDICATIONS Medication Instructions Dosage Frequency Start Date End Date Duration Status losartan 25 mg 1 Tablet by Oral route 1 time per day Nov, Active PredniSONE 20 mg Orally Once a day 2 tablets x 3 days then 1 tablet x 2 days 24h Apr, Apr, 05 days Active RESULTS No Results PROCEDURES Procedure Date Ordered Result Body Site DEPO MEDROL 80 MG/ML Apr 26, 2017 THER/PROPH/DIAG INJ, SC/IM Apr 26, 2017 INSTRUCTIONS MEDICATIONS ADMINISTERED No Known Medications MEDICAL (GENERAL) HISTORY Type Description Date Medical History Acute bronchitis Medical History hypertension Medical History obesity
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
[2017-12-11] MEDS ORDERED: NS IV 1000 ML 1,000 ML IV ONE (16:14)
[2017-12-11] MEDS ORDERED: ASPIRIN 81 MG CHEW (CHILDREN'S ASA) PO ONE (16:15)
[2017-12-11 16:25] LABS: BASOPHILS # (AUTO) 0.1 10^3/uL (0.0-0.1); BASOPHILS % (AUTO) 1 % (0-10); EOSINOPHILS # (AUTO) 0.2 10^3/uL (0.0-0.3); EOSINOPHILS % (AUTO) 2 % (0-10); HEMATOCRIT 40 % (35-52); HEMOGLOBIN 12.8 G/DL (11.5-16.0); LYMPHOCYTES # (AUTO) 1.7 X 10^3 (1.0-4.0); LYMPHOCYTES % (AUTO) 14 % (12-44); MEAN CORPUSCULAR HEMOGLOBIN 26 PG (25-34); MEAN CORPUSCULAR HGB CONC 32 G/DL (32-36); MEAN CORPUSCULAR VOLUME 81 FL (80-99); MEAN PLATELET VOLUME 9.7 FL (7.4-10.4); MONOCYTES % (AUTO) 8 % (0-12); NEUTROPHILS # (AUTO) 9.2 X 10^3 (1.8-7.8); NEUTROPHILS % (AUTO) 76 % (42-75); PLATELET COUNT 335 10^3/uL (130-400); RED BLOOD COUNT 4.85 10^6/uL (4.35-5.85); RED CELL DISTRIBUTION WIDTH 15.7 % (10.0-14.5); WHITE BLOOD COUNT 12.1 10^3/uL (4.3-11.0)
--- NOTE | 2017-12-11 16:28 | ED Chest Pain ---
General Chief Complaint: Chest Pain Stated Complaint: CHEST DISCOMFORT Source: patient Exam Limitations: no limitations (EVITA NI MD) History of Present Illness Date Seen by Provider: Dec 11, 2017 Time Seen by Provider: 16:15 Initial Comments Here with report of central chest pain left-sided above the breast that is described as dull discomfort. Onset at about 2 p.m. and persisted but better now. Was a 5 earlier and now is a 1 or 2. Denies breathing problems. Does have history of pulmonary embolism and is currently on Eliquis and reports that she takes it exactly as directed. Denies breathing problems or nausea or vomiting. Timing/Duration: 1-3 hours Severity/Quality: moderate, dull Location: central Radiation: no radiation Activities at Onset: none Prior CP/Workup: pulmonary embolism Modifying Factors: improves with rest ASA po SENIOR STAFF ACCOUNTANT: No NTG SL SENIOR STAFF ACCOUNTANT: No Associated Symptoms: No abdominal pain, No back pain, No nausea/vomiting, No shortness of breath, No weakness (EVITA NI MD) Allergies and Home Medications Allergies Coded Allergies: codeine (Verified Allergy, Unknown, 03/31/08) Home Medications Apixaban 5 Mg Tablet, 10 MG PO BID@0700,1900 For the next 7 doses take 2 of the 5mg eliquis tabs then decrease to one 5mg tablet twice daily. Prescribed by: LUIS M WINSTON on 09/29/17 1146 Glucosam/Chond/Hyalu/Cf Borate 1 Each Tablet, 1 TAB PO HS, (Reported) Losartan Potassium 100 Mg Tablet, 100 MG PO DAILY, (Reported) Multivitamin 1 Each Tablet, 1 TAB PO DAILY, (Reported) Patient Home Medication List Home Medication List Reviewed: Yes (EVITA NI MD) Home Medication List Reviewed: Yes (LANI FORBES) Review of Systems Constitutional: see HPI; No chills, No fever EENTM: No Symptoms Reported Respiratory: No Symptoms Reported; Denies Cough, Denies Shortness of Air Cardiovascular: See HPI, Chest Pain; Denies Edema, Denies Irregular Heart Rate Gastrointestinal: Denies Nausea, Denies Vomiting Genitourinary: No Symptoms Reported Musculoskeletal: no symptoms reported Skin: no symptoms reported (EVITA IN MD) All Other Systems Reviewed Negative Unless Noted: Yes (EVITA NI MD) Past Rmawhln-Dfffnz-Tfumeg Hx Past Med/Social Hx: Reviewed Nursing Past Med/Soc Hx (EVITA NI MD) Patient Social History Alcohol Use: Occasionally Uses Number of Drinks Today: II Alcohol Beverage of Choice: Other Recreational Drug Use: No Smoking Status: Never a Smoker Recent Foreign Travel: No Contact w/Someone Who Travel: No Recent Hopitalizations: Yes (patient had cdiff 7 years ago) Physical Abuse: No Sexual Abuse: No Mistreated: No Fear: No (EVITA NI MD) Immunizations Up To Date Tetanus Booster (TDap): Unknown Date of Pneumonia Vaccine: May 19, 2016 Date of Influenza Vaccine: May 19, 2017 (EVITA NI MD) Seasonal Allergies Seasonal Allergies: No (EVITA NI MD) Past Medical History Surgeries: Yes (, ltkr) Orthopedic Respiratory: Yes (occasional bronchitis) Currently Using CPAP: No Currently Using BIPAP: No Cardiac: Yes Hypertension Neurological: No Reproductive Disorders: Yes (ENDOMETROSIS) Sexually Transmitted Disease: No Genitourinary: Yes Renal Failure Gastrointestinal: Yes C-Diff Musculoskeletal: Yes Endocrine: No HEENT: No Cancer: No Psychosocial: No Nursing Suicide Risk Score: 0 Integumentary: Yes Eczema Blood Disorders: No (EVITA NI MD) Family Medical History Reviewed Nursing Family Hx (EVITA NI MD) No Pertinent Family Hx (EVITA NI MD) Physical Exam Vital Signs Vital Signs - First Documented 12/11/17 16:21 Temp 98.1 Pulse 100 Resp 14 B/P (MAP) 159/83 (108) Pulse Ox 96 O2 Delivery Room Air (LANI FORBES) Vital Signs Capillary Refill : Less Than 3 Seconds (EVITA NI MD) General Appearance: No Apparent Distress, WD/WN HEENT: PERRL/EOMI, Pharynx Normal Neck: Non Tender, Supple Respiratory: Lungs Clear, Normal Breath Sounds Cardiovascular: Regular Rate, Rhythm, No Murmur Gastrointestinal: Non Tender, Soft Extremity: Normal Inspection, Normal Range of Motion, Non Tender, No Calf Tenderness Neurologic/Psychiatric: Alert, Oriented x3 Skin: Normal Color, Warm/Dry (EVITA NI MD) Progress/Results/Core Measures Lab Results Laboratory Tests Test 12/11/17 16:12 12/11/17 19:11 Range/Units White Blood Count 12.1 H 4.3-11.0 10^3/uL Red Blood Count 4.85 4.35-5.85 10^6/uL Hemoglobin 12.8 11.5-16.0 G/DL Hematocrit 40 35-52 % Mean Corpuscular Volume 81 80-99 FL Mean Corpuscular Hemoglobin 26 25-34 PG Mean Corpuscular Hemoglobin Concent 32 32-36 G/DL Red Cell Distribution Width 15.7 H 10.0-14.5 % Platelet Count 335 130-400 10^3/uL Mean Platelet Volume 9.7 7.4-10.4 FL Neutrophils (%) (Auto) 76 H 42-75 % Lymphocytes (%) (Auto) 14 12-44 % Monocytes (%) (Auto) 8 0-12 % Eosinophils (%) (Auto) 2 0-10 % Basophils (%) (Auto) 1 0-10 % Neutrophils # (Auto) 9.2 H 1.8-7.8 X 10^3 Lymphocytes # (Auto) 1.7 1.0-4.0 X 10^3 Monocytes # (Auto) 1.0 0.0-1.0 X 10^3 Eosinophils # (Auto) 0.2 0.0-0.3 10^3/uL Basophils # (Auto) 0.1 0.0-0.1 10^3/uL Prothrombin Time 13.6 12.2-14.7 SEC INR Comment 1.0 0.8-1.4 Activated Partial Thromboplast Time 30 24-35 SEC D-Dimer 0.63 H 0.00-0.49 UG/ML Sodium Level 138 135-145 MMOL/L Potassium Level 4.4 3.6-5.0 MMOL/L Chloride Level 104 98-107 MMOL/L Carbon Dioxide Level 23 21-32 MMOL/L Anion Gap 11 5-14 MMOL/L Blood Urea Nitrogen 16 7-18 MG/DL Creatinine 0.90 0.60-1.30 MG/DL Estimat Glomerular Filtration Rate > 60 BUN/Creatinine Ratio 18 Glucose Level 101 70-105 MG/DL Calcium Level 9.4 8.5-10.1 MG/DL Magnesium Level 1.9 1.8-2.4 MG/DL Total Bilirubin 0.4 0.1-1.0 MG/DL Aspartate Amino Transf (AST/SGOT) 33 5-34 U/L Alanine Aminotransferase (ALT/SGPT) 17 0-55 U/L Alkaline Phosphatase 108 40-136 U/L Myoglobin 139.3 H 89.8 10.0-92.0 NG/ML Troponin I < 0.30 < 0.30 <0.30 NG/ML B-Type Natriuretic Peptide 40.7 <100.0 PG/ML Total Protein 7.6 6.4-8.2 GM/DL Albumin 3.7 3.2-4.5 GM/DL Lipase 25 8-78 U/L (LANI FORBES) My Orders Orders - LANI FORBES Troponin I (12/11/17 19:00) Myoglobin Serum (12/11/17 19:00) Ekg Tracing (12/11/17 19:00) (LANI FORBES) Medications Given in ED Current Medications Medications Dose Ordered Sig/Dai Route Start Time Stop Time Status Last Admin Dose Admin Aspirin 324 mg ONCE ONCE PO 12/11/17 16:15 12/11/17 16:17 DC 12/11/17 17:15 324 MG Sodium Chloride 1,000 ml @ 0 mls/hr Q0M ONCE IV 12/11/17 16:14 12/11/17 16:17 DC 12/11/17 17:16 0 MLS/HR (LANI FORBES) Vital Signs/I&O 12/11/17 12/11/17 16:21 16:21 Temp 98.1 Pulse 100 Resp 14 B/P (MAP) 159/83 (108) Pulse Ox 96 O2 Delivery Room Air (LANI FORBES) Progress Note : Progress Note Seen and evaluated. IV, labs, EKG and chest x-ray ordered. ASA 324 mg by mouth ordered. Monitor patient. 1800: Patient is pain-free. Labs reviewed. Slight elevation of myoglobin. We will get repeat labs and EKG at around 7 p.m. to give this time between onset of pain and repeat labs. This was discussed with the patient who agrees. D-dimer was slightly elevated but patient is on medication appropriate for treatment and this is only very slight elevation. Care transferred to Dr. Forbes pending repeat labs. (EVITA NI MD) Initial ECG Impression Date: Dec 11, 2017 Initial ECG Impression Time: 16:16 Initial ECG Rate: 101 Initial ECG Rhythm: Normal Sinus Initial ECG Comparisson: Changed Comment Sinus rhythm with normal axis. No evidence of ST elevation DE. Right bundle branch block noted previously is less pronounced today. Multiple PVCs noted today that were not present previously. Interpreted by me. (EVITA NI MD) EKG : EKG Time: 19:07 Rate: 82 Rhythm: Normal Sinus Intervals: Normal ECG Comparisson: No Previous ECG Available ECG Impression: Normal Comment No ST segment elevation or depression. (LANI FORBES) Diagonstic Imaging: Xray Plain Films/CT/US/NM/MRI: chest Comments NAME: ANA ROSA MOLINA MED REC#: [id number] PHYSICIAN: EVITA NI MD CC: AMY GREGORY MD; EVITA NI MD Page 1 of 1 RADIOLOGY REPORT [facility] [place] [place] CC: AMY GREGORY MD; EVITA NI MD Page 1 of 1 RADIOLOGY REPORT NAME: ANA ROSA MOLINA MED REC#: [id number] PT STATUS: REG ER : 1955 PHYSICIAN: EVITA NI MD ADMIT DATE: 12/11/17/ER Signed Date of Exam: 12/11/17 CHEST 1 VIEW, AP/PA ONLY PATIENT HISTORY: Chest pain. TECHNIQUE: Single frontal view of the chest. COMPARISON: 09/29/2017 and priors. FINDINGS: Lung volumes are normal. There are bibasilar airspace opacities. There is moderate cardiomegaly. Mild central vascular congestion is present. No large pleural effusion is seen. No pneumothorax is seen. IMPRESSION: Moderate cardiomegaly with mild central vascular congestion. Bibasilar airspace opacities may be due to atelectasis or infiltrate. Dictated by: Dictated on workstation # [id number] Dict: 12/11/17 1644 Trans: 12/11/17 1720 Interpreted by: AMY GREGORY MD Electronically signed by: AMY GREGORY MD 12/11/17 1720 Reviewed: Reviewed by Me (LANI FORBES) Departure Impression Primary Impression: Chest pain Qualified Codes: R07.9 - Chest pain, unspecified Disposition: HOME, SELF-CARE Condition: Stable Departure-Patient Inst. Decision time for Depature: 20:09 (LANI FORBES) Referrals: AYLA ALCALA DO (PCP/Family) Primary Care Physician Patient Instructions: Chest Pain That Is Not Caused by the Heart (DC) Add. Discharge Instructions: Follow-up with your primary care provider to continue workup for your chest pain if it continues. All discharge instructions reviewed with patient and/or family. Voiced understanding. Copy Copies To 1: AYLA ALCALA TIMOTHY D MD Dec 11, 2017 16:28 LANI FORBES Dec 11, 2017 20:05
[2017-12-11 16:43] LABS: ALANINE AMINOTRANSFERASE 17 U/L (0-55); ALBUMIN 3.7 GM/DL (3.2-4.5); ALKALINE PHOSPHATASE 108 U/L (40-136); BILIRUBIN,TOTAL 0.4 MG/DL (0.1-1.0); BUN/CREATININE RATIO 18; CALCIUM 9.4 MG/DL (8.5-10.1); CARBON DIOXIDE 23 MMOL/L (21-32); CHLORIDE 104 MMOL/L (98-107); GFR ESTIMATED > 60; GLUCOSE 101 MG/DL (70-105); LIPASE 25 U/L (8-78); MAGNESIUM 1.9 MG/DL (1.8-2.4); POTASSIUM 4.4 MMOL/L (3.6-5.0); SODIUM 138 MMOL/L (135-145); TOTAL PROTEIN 7.6 GM/DL (6.4-8.2)
[2017-12-11 16:47] LABS: PROTHROMBIN TIME PATIENT 13.6 SEC (12.2-14.7)
--- NOTE | 2017-12-11 16:48 | Diagnostic Imaging Report ---
PATIENT HISTORY: Chest pain. TECHNIQUE: Single frontal view of the chest. COMPARISON: 09/29/2017 and priors. FINDINGS: Lung volumes are normal. There are bibasilar airspace opacities. There is moderate cardiomegaly. Mild central vascular congestion is present. No large pleural effusion is seen. No pneumothorax is seen. IMPRESSION: Moderate cardiomegaly with mild central vascular congestion. Bibasilar airspace opacities may be due to atelectasis or infiltrate. Dictated by: Dictated on workstation # [id number]
[2017-12-11 16:49] LABS: MYOGLOBIN SERUM 139.3 NG/ML (10.0-92.0)
[2017-12-11 19:41] LABS: MYOGLOBIN SERUM 89.8 NG/ML (10.0-92.0)
[2017-12-11 20:19] VITALS: BP 145/90
== END 2017-12-11 20:19 | disposition home or self-care (01) ==
LOC: EDUNIT# 15:57 → ER 15:58
DX: R07.89 Other chest pain (principal); I10 Essential (primary) hypertension; Z87.19 Personal history of other diseases of the digestive system; Z86.718 Personal history of other venous thrombosis and embolism; Z79.01 Long term (current) use of anticoagulants; Z88.5 Allergy status to narcotic agent
CPT/HCPCS: 36415; 71045; 80053; 83690; 83735; 83874; 83880; 84484; 85025; 85379; 85610; 85730; 93005; 93041; 96360; 96361

== ENCOUNTER → 2018-01-14 | Outpatient (CLI) | payer BC ==
[~2018-01-14] MED LIST changes: +LIDOCAINE 2% VISCOUS 15 ML UDC ONE
== END ==
LOC: CARD 08:52
PROVIDERS: ATTEND Internal Medicine Interventional Cardiology
DX: I10 Essential (primary) hypertension (principal); I26.99 Other pulmonary embolism without acute cor pulmonale; E66.01 Morbid (severe) obesity due to excess calories
CPT/HCPCS: 93306

== ENCOUNTER → 2018-01-15 | Outpatient (CLI) | payer BC ==
[~2018-01-15] MED LIST changes: -LIDOCAINE 2% VISCOUS 15 ML UDC ONE
--- NOTE | 2018-01-15 12:22 | Diagnostic Imaging Report ---
INDICATION: Chest pain. COMPARISON: 12/11/2017 FINDINGS: 2 views of the chest are obtained. Heart size is mildly prominent but is less prominent than on the recent prior study, likely technical. The pulmonary vessels appear unremarkable. There is no pneumothorax, mediastinal widening or pleural fluid. Bibasilar opacities are again demonstrated particularly on the right. Suspect this is prominent vascular structures overlapping soft tissue. No focal pneumonia is suspected. IMPRESSION: No acute abnormality is demonstrated. Mild cardiomegaly. Dictated by: Dictated on workstation # [id number]
== END ==
LOC: RAD 10:19
PROVIDERS: ATTEND Nurse Practitioner Family
DX: I51.7 Cardiomegaly (principal)
CPT/HCPCS: 71046

== ENCOUNTER → 2018-03-03 | Outpatient (CLI) | payer BC ==
[~2018-03-03] MED LIST changes: +RT-ALBUTEROL SULF 2.5 MG/3 ML PRE-MIX VIAL INH ONE; +RT-ALBUTEROL SULF 2.5 MG/3 ML PRE-MIX VIAL ONE
== END ==
LOC: RT 08:41
PROVIDERS: ATTEND Nurse Practitioner Family
DX: I26.99 Other pulmonary embolism without acute cor pulmonale (principal); J40 Bronchitis, not specified as acute or chronic
CPT/HCPCS: 94060; 94726; 94729

== ENCOUNTER → 2018-06-06 | Outpatient (CLI) | payer BC ==
[~2018-06-06] MED LIST changes: -LOSA100T28 PO; +LOSA100T8 PO; -RT-ALBUTEROL SULF 2.5 MG/3 ML PRE-MIX VIAL INH ONE; -RT-ALBUTEROL SULF 2.5 MG/3 ML PRE-MIX VIAL ONE
--- NOTE | 2018-06-10 19:16 | Diagnostic Imaging Report ---
INDICATION: Routine screening. COMPARISON: Comparison is made with prior mammograms from 05/20/2017 and 03/27/2016. TECHNIQUE: 2D and 3D bilateral screening mammography was performed with computer-aided detection (CAD) system. FINDINGS: Scattered fibroglandular densities are identified bilaterally. Circumscribed nodular densities in both breasts appear to be fairly stable. No spiculated mass or malignant appearing microcalcifications are seen. The axillae are unremarkable. IMPRESSION: No mammographic features suspicious for malignancy are identified. ACR BI-RADS Category 2: Benign findings. Result letter will be mailed to the patient. Note: At least 10% of breast cancer is not imaged by mammography. Dictated by: Dictated on workstation # [id number]
== END ==
LOC: RAD 13:46
PROVIDERS: ATTEND Nurse Practitioner Family
DX: Z12.31 Encounter for screening mammogram for malignant neoplasm of breast (principal)
CPT/HCPCS: 77067

== ENCOUNTER 2018-08-21 07:33 | Inpatient (IN) | payer BC ==
[2018-08-21] VITALS (7 sets, daily range): BP systolic 140–179; BP diastolic 76–107
[~2018-08-21] VITALS: Ht 172.7 cm; Wt 133.4 kg
--- OUTSIDE RECORDS SUMMARY | 2018-08-21 07:38 | XMS REPORT ---
Author Author SATHISH HINOJOSA Organization [facility] Address [address] [place] [address] Care Team Providers Care Planer Operator / Grader Name Role Phone SATHISH HINOJOSA Unavailable PROBLEMS Type Condition ICD9-CM Code [id number] Code Onset Dates Condition Status SNOMED Code Problem Essential hypertension I10 Active 89207128 Problem Acute bronchitis J20.9 Active 81631139 ALLERGIES No Information ENCOUNTERS Encounter Location Date Diagnosis [place] [address] [id number] May, Encounter for immunization Z23 [facility] [address] [id number] May, Encounter for immunization Z23 [facility] [address] [id number] Apr, Swelling R60.9 ; Toxic effect of venom of other arthropod, accidental (unintentional), initial encounter T63.481A and Bitten or stung by nonvenomous insect and other nonvenomous arthropods, initial encounter W57.XXXA [facility] [address] [id number] Oct, Essential hypertension I10 and Acute bronchitis J20.9 [facility] [address] [id number] May, Encounter for immunization Z23 [facility] [address] [id number] Apr, Bronchitis J40 [facility] [address] [id number]- [address] May, Encounter for immunization Z23 [place] [address] [id number] [address] May, 2015 Encounter for immunization Z23 [facility] [address] [address] 08 May, 2015 Encounter for immunization Z23 [facility] [address] [place] [id number] [place] [id number] December, Candidiasis of female genitalia 112.1 ; Sinusitis 473.9 and Cough 786.2 [facility] [address] [place] [id number] [place] [address] Nov, [facility] [address] [place] [id number] [place] [address] Nov, [facility] [address] [place] [id number] [place] [address] Sep, [facility] [address] [place] [id number] [place] [address] 677219- [address] Sep, [facility] [address] [place] [address]- [address] May, [facility] [address] [place] [id number] [place] [address] 240172- [address] May, [facility] [address] [place] [id number], [place] [address] May, [facility] [address] [place] [id number] [place] [address]- [address] May, [facility] [address] [address] May, [facility] [address] [place] [id number] [place] [address]- [address] May, [facility] [address] [place] [id number] [address] May, [facility] [address] [place] [address] 985702- [address] May, [facility] [address] [facility] [id number] [address] December, [facility] [address] [facility] [id number] [address] Nov, [facility] [address] [facility] [id number], [place] [address] May, [facility] [address] [facility] [id number], [place] [address] May, IMMUNIZATIONS Vaccine Route Administration Date Status FLULAVAL QUAD 0.5ML (6 MO & UP) 2018 IM Intramuscular Jun 12, 2018 Administered SOCIAL HISTORY Never Assessed REASON FOR VISIT flu shot PLAN OF CARE VITAL SIGNS MEDICATIONS Unknown Medications RESULTS No Results PROCEDURES Procedure Date Ordered Result Body Site FLULAVAL QUAD 0.5ML (6 MO AND UP) 2018 Jun 12, 2018 SINGLE IMMUNIZATION ADMIN Jun 12, 2018 INSTRUCTIONS MEDICATIONS ADMINISTERED No Known Medications MEDICAL (GENERAL) HISTORY Type Description Date Medical History Acute bronchitis Medical History hypertension Medical History obesity
--- OUTSIDE RECORDS SUMMARY | 2018-08-21 07:39 | XMS REPORT ---
Author Author RUBI DUMONT [facility] Address [address] [place] [address] Care Team Providers Care Environmental Department Manager Name Role Phone RUBI DUMONT Unavailable PROBLEMS Type Condition ICD9-CM Code ALM36-JS Code Onset Dates Condition Status SNOMED Code Problem Essential hypertension I10 Active 87875529 Problem Acute bronchitis J20.9 Active 75782985 ALLERGIES No Information ENCOUNTERS Encounter Location Date Diagnosis [facility] [address] [id number] May, Encounter for immunization Z23 [facility] [address] [id number] Apr, Swelling R60.9 ; Toxic effect of venom of other arthropod, accidental (unintentional), initial encounter T63.481A and Bitten or stung by nonvenomous insect and other nonvenomous arthropods, initial encounter W57.XXXA [facility] [address] [place] [id number] [place] [id number] Oct, Essential hypertension I10 and Acute bronchitis J20.9 [facility] [address] [place] [id number] [place] [address] [id number] May, Encounter for immunization Z23 [facility] [address] [place] [id number] [place] [address] [id number] Apr, Bronchitis J40 [facility] [address] [address] May, Encounter for immunization Z23 [place] [address] 7728[address]- [address] May, Encounter for immunization Z23 [place] [address] [place] [address] May, Encounter for immunization Z23 [facility] [address] [place] [id number] [id number] December, Candidiasis of female genitalia 112.1 ; Sinusitis 473.9 and Cough 786.2 [facility] [address] [address] Nov, [facility] [address] [place] [id number] [place] [address] Nov, [facility] [address] [place] [id number] [place] [address]- [address] Sep, [facility] [address] [place] [id number] [place] [address] Sep, [facility] [address] [place] [id number] [address] May, [facility] [address] [place] [id number] [address] May, [facility] [address] [address] May, [facility] [address] [place] [id number] [address] May, [facility] [address] [address] May, [facility] [address] [address] May, [facility] [address] [address] May, [facility] [address] [address] May, [facility] [address] [address] December, [facility] [address] [place] [id number] [address] Nov, [facility] [address] [facility] [id number] [place] [address] May, [facility] [address] [facility] [id number] [place] [address] May, IMMUNIZATIONS Vaccine Route Administration Date Status FLUARIX QUAD (3 AND UP) 2017 IM Intramuscular May 23, 2017 Administered SOCIAL HISTORY Never Assessed REASON FOR VISIT Flu Vaccine-Mary 

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
[2018-08-21] MEDS ORDERED: RECEIVED CONTRAST (Hold Metformin) IV SCH (08:00)
[2018-08-21] MEDS ORDERED: IOHEXOL 350 MG/ML 150 ML (OMNIPAQUE 350) VIAL IV ONE (08:00)
[2018-08-21] MEDS ORDERED: NS 100 ML (IVPB) BAG IV ONE (08:00)
[2018-08-21 08:01] LABS: BASOPHILS # (AUTO) 0.1 10^3/uL (0.0-0.1); BASOPHILS % (AUTO) 1 % (0-10); EOSINOPHILS # (AUTO) 0.1 10^3/uL (0.0-0.3); EOSINOPHILS % (AUTO) 1 % (0-10); HEMATOCRIT 43 % (35-52); HEMOGLOBIN 13.1 G/DL (11.5-16.0); LYMPHOCYTES # (AUTO) 1.2 X 10^3 (1.0-4.0); LYMPHOCYTES % (AUTO) 11 % (12-44); MEAN CORPUSCULAR HEMOGLOBIN 25 PG (25-34); MEAN CORPUSCULAR HGB CONC 31 G/DL (32-36); MEAN CORPUSCULAR VOLUME 82 FL (80-99); MEAN PLATELET VOLUME 9.8 FL (7.4-10.4); MONOCYTES # (AUTO) 0.7 X 10^3 (0.0-1.0); MONOCYTES % (AUTO) 7 % (0-12); NEUTROPHILS # (AUTO) 8.8 X 10^3 (1.8-7.8); NEUTROPHILS % (AUTO) 80 % (42-75); PLATELET COUNT 336 10^3/uL (130-400); RED CELL DISTRIBUTION WIDTH 15.6 % (10.0-14.5); WHITE BLOOD COUNT 10.9 10^3/uL (4.3-11.0)
[2018-08-21 08:12] LABS: PROTHROMBIN TIME PATIENT 13.2 SEC (12.2-14.7)
[2018-08-21 08:18] LABS: ALANINE AMINOTRANSFERASE 20 U/L (0-55); ALBUMIN 3.9 GM/DL (3.2-4.5); ALKALINE PHOSPHATASE 131 U/L (40-136); BILIRUBIN,TOTAL 0.5 MG/DL (0.1-1.0); BUN/CREATININE RATIO 16; CALCIUM 9.4 MG/DL (8.5-10.1); CARBON DIOXIDE 24 MMOL/L (21-32); CHLORIDE 104 MMOL/L (98-107); GFR ESTIMATED 56; GLUCOSE 137 MG/DL (70-105); MAGNESIUM 1.7 MG/DL (1.8-2.4); POTASSIUM 3.9 MMOL/L (3.6-5.0); SODIUM 140 MMOL/L (135-145); TOTAL PROTEIN 7.7 GM/DL (6.4-8.2)
--- NOTE | 2018-08-21 08:23 | Diagnostic Imaging Report ---
EXAMINATION: Portable erect AP chest obtained at 750h. INDICATION: Respiratory distress The mild cardiomegaly noted on the prior exam of 01/15/18 is again evident and no different. The lungs are generally clear. There is no sign of failure, pneumonia or a pleural effusion to indicate an acute abnormality. The mediastinum is not widened. The ascending aorta shadow is prominent but no different than on the prior exam. The osseous structures are intact. IMPRESSION: There is mild cardiomegaly but there is no evidence for an acute cardiopulmonary abnormality. Dictated by: Dictated on workstation # [id number]
[2018-08-21 08:24] LABS: MYOGLOBIN SERUM 47.8 NG/ML (10.0-92.0)
[2018-08-21] MEDS ORDERED: ASPI-808 PO (09:04)
--- NOTE | 2018-08-21 09:05 | Diagnostic Imaging Report ---
PROCEDURE: CT angiography of the chest with contrast. TECHNIQUE: Multiple contiguous axial images were obtained through the chest after uneventful bolus administration of intravenous contrast. 2D reconstructed CTA MIP acquisitions were also performed. INDICATION: Hypoxemia There are emboli present in both pulmonary arteries involving proximal segmental branches. Lungs are clear. There is no effusion or pneumothorax. There is some calcific atherosclerosis of the aorta but no aneurysm. There is no hilar or mediastinal lymphadenopathy. Impression: Bilateral pulmonary emboli. Critical finding Report was called to [facility] ER by marleny at 9:05 am. Dictated by: Dictated on workstation # [id number]
[2018-08-21] MEDS ORDERED: HEParin DRIP 25000 UNIT/500ML 500 ML IV ONE (09:08)
[2018-08-21] MEDS ORDERED: HEParin 1000 UNIT/ML (10ML VIAL) FOR BOLUS IV ONE (09:15)
--- NOTE | 2018-08-21 09:31 | ED Chest Pain ---
General Chief Complaint: Respiratory Problems Stated Complaint: SOB;CHEST HEAVINESS Nursing Triage Note: PT AMBULATED TO ROOM 7 PT CO OF SOA AND UPPER BACK RIB PAIN, PT STATES STARTED ABOUT 3 DAYS AGO HAS HX OF PE. Nursing Sepsis Screen: No Definite Risk Source: patient Exam Limitations: no limitations History of Present Illness Date Seen by Provider: Aug 21, 2018 Time Seen by Provider: 09:53 Initial Comments This 63-year-old woman presents to the emergency room with shortness of breath and pleuritic chest pain for couple of days. She is noted to be hypoxic with an oxygen saturation of 75 percent on room air and tachycardic. She has a history of pulmonary embolism of uncertain cause in September of last year. She completed 6 months of anticoagulation on Eliquis. She then had a quite a lot with the workup performed by Dr. JOVEL. No abnormalities were identified. Patient is now on aspirin alone. She denies any lower extremity symptoms. She reports being more sedentary recently over the holidays than usual. Allergies and Home Medications Allergies Coded Allergies: codeine (Verified Allergy, Unknown, 03/31/08) Home Medications Losartan Potassium 100 Mg Tablet, 100 MG PO DAILY, (Reported) Multivitamin 1 Each Tablet, 1 TAB PO DAILY, (Reported) Patient Home Medication List Home Medication List Reviewed: Yes Review of Systems Review of Systems Constitutional: no symptoms reported EENTM: No Symptoms Reported Respiratory: See HPI Cardiovascular: See HPI Gastrointestinal: No Symptoms Reported Genitourinary: No Symptoms Reported Musculoskeletal: no symptoms reported Skin: no symptoms reported Psychiatric/Neurological: No Symptoms Reported Endocrine: No Symptoms Reported Hematologic/Lymphatic: No Symptoms Reported Past Nlhgrye-Yqwxvy-Bkcwds Hx Patient Social History Alcohol Use: Occasionally Uses Alcohol Beverage of Choice: Other Recreational Drug Use: No Smoking Status: Never a Smoker Recent Foreign Travel: No Contact w/Someone Who Travel: No Recent Infectious Disease Expo: No Recent Hopitalizations: Yes (patient had cdiff 7 years ago) Immunizations Up To Date Tetanus Booster (TDap): Unknown Date of Pneumonia Vaccine: May 19, 2016 Date of Influenza Vaccine: May 19, 2017 Seasonal Allergies Seasonal Allergies: No Past Medical History Surgeries: Yes (, ltkr) Orthopedic Respiratory: Yes (occasional bronchitis) Pulmonary Embolism Currently Using CPAP: No Currently Using BIPAP: No Cardiac: Yes Hypertension Neurological: No Reproductive Disorders: Yes (ENDOMETROSIS) Sexually Transmitted Disease: No Genitourinary: Yes Renal Failure Gastrointestinal: Yes C-Diff Musculoskeletal: Yes Endocrine: No HEENT: No Cancer: No Psychosocial: No Integumentary: Yes Eczema Blood Disorders: No Family Medical History No Pertinent Family Hx Physical Exam Vital Signs Vital Signs - First Documented 08/21/18 07:35 Temp 98.1 Pulse 117 Resp 24 B/P (MAP) 145/98 (114) Pulse Ox 96 O2 Delivery Nasal Cannula O2 Flow Rate 4.00 FiO2 75 Capillary Refill : Less Than 3 Seconds Height, Weight, BMI Height: 5'8.00" Weight: 291lbs. 6.0oz. 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 Skin: Normal Color, Warm/Dry Progress/Results/Core Measures Results/Orders Lab Results Laboratory Tests Test 08/21/18 07:45 08/21/18 09:45 Range/Units White Blood Count 10.9 4.3-11.0 10^3/uL Red Blood Count 5.20 4.35-5.85 10^6/uL Hemoglobin 13.1 11.5-16.0 G/DL Hematocrit 43 35-52 % Mean Corpuscular Volume 82 80-99 FL Mean Corpuscular Hemoglobin 25 25-34 PG Mean Corpuscular Hemoglobin Concent 31 L 32-36 G/DL Red Cell Distribution Width 15.6 H 10.0-14.5 % Platelet Count 336 130-400 10^3/uL Mean Platelet Volume 9.8 7.4-10.4 FL Neutrophils (%) (Auto) 80 H 42-75 % Lymphocytes (%) (Auto) 11 L 12-44 % Monocytes (%) (Auto) 7 0-12 % Eosinophils (%) (Auto) 1 0-10 % Basophils (%) (Auto) 1 0-10 % Neutrophils # (Auto) 8.8 H 1.8-7.8 X 10^3 Lymphocytes # (Auto) 1.2 1.0-4.0 X 10^3 Monocytes # (Auto) 0.7 0.0-1.0 X 10^3 Eosinophils # (Auto) 0.1 0.0-0.3 10^3/uL Basophils # (Auto) 0.1 0.0-0.1 10^3/uL Prothrombin Time 13.2 12.2-14.7 SEC INR Comment 1.0 0.8-1.4 Activated Partial Thromboplast Time 28 24-35 SEC D-Dimer 3.29 H 0.00-0.49 UG/ML Sodium Level 140 135-145 MMOL/L Potassium Level 3.9 3.6-5.0 MMOL/L Chloride Level 104 98-107 MMOL/L Carbon Dioxide Level 24 21-32 MMOL/L Anion Gap 12 5-14 MMOL/L Blood Urea Nitrogen 16 7-18 MG/DL Creatinine 1.00 0.60-1.30 MG/DL Estimat Glomerular Filtration Rate 56 BUN/Creatinine Ratio 16 Glucose Level 137 H 70-105 MG/DL Calcium Level 9.4 8.5-10.1 MG/DL Corrected Calcium 9.5 8.5-10.1 MG/DL Magnesium Level 1.7 L 1.8-2.4 MG/DL Total Bilirubin 0.5 0.1-1.0 MG/DL Aspartate Amino Transf (AST/SGOT) 21 5-34 U/L Alanine Aminotransferase (ALT/SGPT) 20 0-55 U/L Alkaline Phosphatase 131 40-136 U/L Myoglobin 47.8 10.0-92.0 NG/ML Troponin I < 0.028 <0.028 NG/ML Total Protein 7.7 6.4-8.2 GM/DL Albumin 3.9 3.2-4.5 GM/DL My Orders Orders - CY ANN MD Cbc With Automated Diff (08/21/18 07:39) Magnesium (08/21/18 07:39) Chest 1 View, Ap/Pa Only (08/21/18 07:39) Ekg Tracing (08/21/18 07:39) Cardiac Profile 1 (08/21/18 07:39) Comprehensive Metabolic Panel (08/21/18 07:39) Myoglobin Serum (08/21/18 07:39) Protime With Inr (08/21/18 07:39) Partial Thromboplastin Time (08/21/18 07:39) O2 (08/21/18 07:39) Monitor-Rhythm Ecg Trace Only (08/21/18 07:39) Lipid Panel (08/22/18 06:00) Saline Lock/Iv-Start (08/21/18 07:39) Fibrin Degradation Products (08/21/18 07:39) I-Stat Bedside Testing (08/21/18 07:39) Ct Angio Chest W (08/21/18 07:51) Iohexol Injection (Omnipaque 350 Mg/Ml 1 (08/21/18 08:00) Contrast Received (Contrast Received) (08/21/18 08:00) Ns (Ivpb) (Sodium Chloride 0.9% Ivpb Bag (08/21/18 08:00) Heparin Drip [id number] Unit/500ml (Heparin (08/21/18 09:08) Heparin (Bolus Per Protocol) (Heparin (B (08/21/18 09:15) Factor Ii Mutation (08/21/18 09:32) Medications Given in ED Current Medications Medications Dose Ordered Sig/Dai Route Start Time Stop Time Status Last Admin Dose Admin Heparin Sodium (Porcine) HEPARIN FULL PROTOC... ONCE ONCE IV 08/21/18 09:15 08/21/18 09:16 DC 08/21/18 09:45 5,000 UNIT Heparin Sodium/ Dextrose 500 ml @ 0 mls/hr Q0M ONCE IV 08/21/18 09:08 08/21/18 09:10 DC 08/21/18 09:45 24 MLS/HR Iohexol 125 ml ONCE ONCE IV 08/21/18 08:00 08/21/18 08:01 DC 08/21/18 08:06 125 ML Sodium Chloride 100 ml ONCE ONCE IV 08/21/18 08:00 08/21/18 08:01 DC 08/21/18 08:06 80 ML Vital Signs/I&O 08/21/18 08/21/18 07:35 07:35 Temp 98.1 Pulse 117 Resp 24 B/P (MAP) 145/98 (114) Pulse Ox 96 95 O2 Delivery Nasal Cannula Nasal Cannula O2 Flow Rate 4.00 4.00 FiO2 75 Blood Pressure Mean: 114 iStat Bedside Lab Testing Sodium (Na): 140.00 Potassium (K): 4.10 Chloride (CI): 104.00 TCO2: 26.00 Glucose (Glu): 138.00 Urea Nitrogen (BUN)/Urea: 19.00 Creatinine (Crea): 0.80 Anion Gap*: 14.00 Progress Progress Note : Progress Note Patient's hypoxia resolved with nasal cannula at 3-4 L/m. I-STAT labs were obtained. Creatinine was normal and CT angiogram was pursued. Large bilateral PEs were identified. Case was discussed with Dr. Rodríguez who agreed with starting heparin bolus and drip. Heparin drip will be used so that it can be stopped in preparation for TPA should patient develop significant right heart strain or decompensate. Dr. Rodríguez requested an echocardiogram. Case was discussed with Dr. JOVEL who confirmed that patient had a thorough coagulopathy workup through her office. She is in agreement with admission. I also discussed the case with Dr. Cramer who recommended adding in the factor II gene mutation. Heparin drip was started in the emergency room. Initial ECG Impression Date: Aug 21, 2018 Initial ECG Impression Time: 07:37 Initial ECG Rate: 107 Initial ECG Rhythm: S.Tach Comment Sinus tachycardia with no ST elevation or depression. No significant abnormal intervals or axis deviation. PVCs noted. Diagnostic Imaging Diagonstic Imaging: Xray Plain Films/CT/US/NM/MRI: chest Comments NAME: ANA ROSA MOLINA MED REC#: [id number] PT STATUS: REG ER : 1955 PHYSICIAN: CY ANN MD ADMIT DATE: 08/21/18/ER Draft Date of Exam:08/21/18 CHEST 1 VIEW, AP/PA ONLY EXAMINATION: Portable erect AP chest obtained at 750h. INDICATION: Respiratory distress The mild cardiomegaly noted on the prior exam of 01/15/18 is again evident and no different. The lungs are generally clear. There is no sign of failure, pneumonia or a pleural effusion to indicate an acute abnormality. The mediastinum is not widened. The ascending aorta shadow is prominent but no different than on the prior exam. The osseous structures are intact. IMPRESSION: There is mild cardiomegaly but there is no evidence for an acute cardiopulmonary abnormality. Dictated on workstation # [id number] Dict: 08/21/18 0814 Trans: 08/21/18 0822 [facility] [id number] Interpreted by: MANNY GAUTAM MD Reviewed: Reviewed by Me Diagonstic Imaging: CT Plain Films/CT/US/NM/MRI: chest Comments CT chest viewed by me and report reviewed. See report below: NAME: ANA ROSA MOLINA [facility] REC#: [id number] PT STATUS: REG ER : 1955 PHYSICIAN: CY ANN MD ADMIT DATE: 08/21/18/ER Signed Date of Exam: 08/21/18 CT ANGIO CHEST W PROCEDURE: CT angiography of the chest with contrast. TECHNIQUE: Multiple contiguous axial images were obtained through the chest after uneventful bolus administration of intravenous contrast. 2D reconstructed CTA MIP acquisitions were also performed. INDICATION: Hypoxemia There are emboli present in both pulmonary arteries involving proximal segmental branches. Lungs are clear. There is no effusion or pneumothorax. There is some calcific atherosclerosis of the aorta but no aneurysm. There is no hilar or mediastinal lymphadenopathy. Impression: Bilateral pulmonary emboli. Critical finding Report was called to Dr. Ann [facility] ER by marleny at 9:05 am. Dictated by: Dictated on workstation # [id number] Dict: 08/21/18 0858 Trans: 08/21/18918 Interpreted by: EVITA BAUTISTA MD Electronically signed by: EVITA BAUTISTA MD 08/21/18918 Departure Communication (Admissions) Time/Spoke to Admitting Phy: 09:20 Dr. Jovel Time/Spoke to Consulting Phy: 09:15 Dr. Rodríguez Impression Primary Impression: Bilateral pulmonary embolism Additional Impression: Hypoxia Disposition: ADMITTED INPATIENT Condition: Improved Admissions Decision to Admit Reason: Admit from ER (General) Decision to Admit/Date: Aug 21, 2018 Time/Decision to Admit Time: 09:15 Departure-Patient Inst. Decision time for Depature: 09:27 Referrals: AYLA JOVEL DO (PCP/Family) Primary Care Physician CY ANN MD Aug 21, 2018 09:31
[2018-08-21] MEDS ORDERED: inSUlin ASPART (NovoLOG) 1 UNIT/0.01 ML (CHARGE PER UNIT) SQ PRN (11:00)
[2018-08-21] MEDS ORDERED: CETI10TA20 PO (11:32)
[2018-08-21] MEDS ORDERED: GLUC-203 PO (11:32)
--- NOTE | 2018-08-21 12:19 | Pulmonary Consultation ---
History of Present Illness History of Present Illness Date of Consultation 08/21/18 12:14 Time Seen by Provider: 12:14 Date of Admission History of Present Illness 63yo with hx of unprovoked PE 10/06 presented to ED with pleuritic CP onset 2 days prior. She was found to be 75% on RA and tachycardic. Allergies and Home Medications Allergies Coded Allergies: codeine (Verified Allergy, Unknown, 03/31/08) Home Medications Aspirin 325 Mg Tablet, 325 MG PO DAILY, (Reported) Cetirizine HCl 10 Mg Tablet, 10 MG PO HS PRN for ITCH/RASH, (Reported) Glucosam/Chond/Hyalu/Cf Borate 1 Each Tablet, 1 TAB PO HS, (Reported) Losartan Potassium 100 Mg Tablet, 100 MG PO DAILY, (Reported) Multivitamin 1 Each Tablet, 1 TAB PO HS, (Reported) Past Ofvaxlc-Nifkrf-Tbmyeg Hx Patient Social History Alcohol Use: Occasionally Uses Alcohol Beverage of Choice: Other Recreational Drug Use: No Smoking Status: Never a Smoker Recent Foreign Travel: No Contact w/Someone Who Travel: No Recent Infectious Disease Expo: No Recent Hopitalizations: Yes (patient had cdiff 7 years ago) Immunizations Up To Date Tetanus Booster (TDap): Unknown Date of Pneumonia Vaccine: May 19, 2016 Date of Influenza Vaccine: May 19, 2018 Seasonal Allergies Seasonal Allergies: No Past Medical History Surgeries: Yes (, ltkr) Orthopedic Respiratory: Yes (occasional bronchitis) Pulmonary Embolism Currently Using CPAP: Yes Currently Using BIPAP: No Cardiac: Yes Hypertension Neurological: No Reproductive Disorders: Yes (ENDOMETROSIS) Sexually Transmitted Disease: No Genitourinary: Yes Renal Failure Gastrointestinal: Yes Hemorrhoids, C-Diff Musculoskeletal: Yes Endocrine: No HEENT: No Cancer: No Psychosocial: No Integumentary: Yes Eczema Blood Disorders: No Family Medical History No Pertinent Family Hx Review of Systems Time Seen by Provider: 12:37 Constitutional: Sweats, Weakness, Malaise; No: Fever, Chills, Other Eyes: No: Pain, Vision change, Conjunctivae inflammation, Eyelid inflammation, Other, Redness ENT: No: Ear pain, Ear discharge, Nose pain, Nose discharge, Nose congestion, Mouth pain, Mouth swelling, Throat pain, Throat swelling, Other Respiratory: Cough, Dry, Shortness of breath; No: Wheezing, Hemoptysis Cardiovascular: Chest Pain, Palpitations, Orthopnea, Paroxysmal Noc. Dyspnea, Lt Headedness; No: Edema, Other Gastrointestinal: No: Nausea, Vomiting, Abdominal Pain, Diarrhea, Constipation , Melena, Hematochezia, Other Neurological: Weakness Sepsis Event Evaluation Height, Weight, BMI Height: 5'8.00" Weight: 301lbs. 0.0oz. 136.780333qo; 45.8 BMI Method:Stated Exam Exam Vital Signs Date Time Temp Pulse Resp B/P (MAP) Pulse Ox O2 Delivery O2 Flow Rate FiO2 08/21/18 10:37 96 Nasal Cannula 4.00 08/21/18 10:27 93 08/21/18 10:20 98.4 90 19 148/105 (119) 95 Nasal Cannula 4.00 08/21/18 09:58 98.1 83 21 139/90 (106) 97 Nasal Cannula 4.00 08/21/18 07:35 95 Nasal Cannula 4.00 75 08/21/18 07:35 98.1 117 24 145/98 (114) 96 Nasal Cannula 4.00 Height & Weight Height: 5'8.00" Weight: 301lbs. 0.0oz. 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 -There is no need to do genetic testing since it will not change recommendation of life long treatment. -Check Bilateral dopplers -I would not recommend TPA since pt is doing well on 2 liter NC and is not hypotensive -Check echocardiogram Morbid obesity GORAN CHAVEZ DO Aug 21, 2018 12:19
[2018-08-21] MEDS ORDERED: APIXABAN 5 MG (ELIQUIS) TABLET PO SCH (12:30)
[2018-08-21] MEDS: APIXABAN 5 MG (ELIQUIS) TABLET PO SCH ×2 (13:00→22:58)
[2018-08-21] MEDS: LOSARTAN 100 MG (COZAAR) TABLET PO SCH (13:12)
--- NOTE | 2018-08-21 14:45 | Diagnostic Imaging Report ---
PROCEDURE: US Venous Lower Ext Bello. TECHNIQUE: Multiple real-time grayscale images were obtained over the lower extremities in various projections, bilaterally. Additional duplex Doppler and color Doppler images were also obtained. INDICATION: Pulmonary emboli. FINDINGS: The veins in lower extremities have good color filling and compressibility. There is normal spontaneous and augmented flow. IMPRESSION: Negative venous Doppler of lower extremities. Dictated by: Dictated on workstation # [id number]
--- NOTE | 2018-08-21 16:00 | NUR ---
TRANSFERRED FROM ICU TO ROOM 430. SKIN W/D. COLOR SL. PALE RESP. REGULAR. O2 ON PER N/C AT 4 L PER MIN. DENIES S.O.A AT REST. SALINE LOCK TO LEFT AC IN PLACE. TELEMETRY ON. TAKING LIQUIDS WELL.
[2018-08-22] VITALS (7 sets, daily range): BP systolic 116–171; BP diastolic 60–93
[2018-08-22] MEDS ORDERED: MAGNESIUM 1 GM/100 ML IVPB 100 ML IV SCH (06:00)
[2018-08-22] MEDS ORDERED: POTASSIUM CL 10MEQ/50ML IVPB 50 ML IV SCH (06:00)
[2018-08-22] MEDS ORDERED: KCL 20 MEQ TAB (K-DUR) PO SCH (06:00)
[2018-08-22 07:15] LABS: BUN/CREATININE RATIO 17; CALCIUM 8.9 MG/DL (8.5-10.1); CARBON DIOXIDE 24 MMOL/L (21-32); CHLORIDE 104 MMOL/L (98-107); CREATININE SERUM 0.82 MG/DL (0.60-1.30); GFR ESTIMATED > 60; GLUCOSE 105 MG/DL (70-105); POTASSIUM 4.1 MMOL/L (3.6-5.0); SODIUM 139 MMOL/L (135-145)
[2018-08-22 07:20] LABS: INR 1.3 (0.8-1.4); PROTHROMBIN TIME PATIENT 16.6 SEC (12.2-14.7)
[2018-08-22 07:39] LABS: CHOLESTEROL 185 MG/DL (< 200); HDL CHOLESTEROL 47 MG/DL (40-60); TRIGLYCERIDES 168 MG/DL (<150); VLDL CHOLESTEROL 34 MG/DL (5-40)
--- NOTE | 2018-08-22 08:16 | Pulmonary Progress Note ---
Subjective Time Seen by a Provider: 08:16 Subjective/Events-last exam Pt appears to be doing better today. SHe is still requiring oxygen. Sepsis Event Evaluation Height, Weight, BMI Height: 5'8.00" Weight: 301lbs. 0.6oz. 136.573717tg; 45.8 BMI Method:Stated Exam Exam Vital Signs Date Time Temp Pulse Resp B/P (MAP) Pulse Ox O2 Delivery O2 Flow Rate FiO2 08/22/18 04:00 98.4 84 18 129/75 (93) 95 Nasal Cannula 4.00 08/22/18 01:00 89 08/22/18 00:10 98.4 93 20 116/60 (78) 93 Nasal Cannula 4.00 08/21/18 23:50 Nasal Cannula 3.00 08/21/18 20:00 Nasal Cannula 3.00 08/21/18 19:20 98.8 101 20 147/88 (107) 96 Nasal Cannula 4.00 08/21/18 19:00 95 08/21/18 16:00 95 Nasal Cannula 3.00 08/21/18 16:00 97.8 83 18 143/76 (98) 95 Nasal Cannula 4.00 08/21/18 13:00 87 08/21/18 13:00 86 10 153/100 (117) 97 Nasal Cannula 4.00 08/21/18 12:00 89 20 147/107 (120) 98 Nasal Cannula 4.00 08/21/18 12:00 95 Nasal Cannula 3.00 08/21/18 11:00 87 18 140/79 (99) 97 Nasal Cannula 4.00 08/21/18 10:45 85 18 179/96 (123) 97 Nasal Cannula 4.00 08/21/18 10:37 96 Nasal Cannula 4.00 08/21/18 10:27 93 08/21/18 10:20 98.4 90 19 148/105 (119) 95 Nasal Cannula 4.00 08/21/18 09:58 98.1 83 21 139/90 (106) 97 Nasal Cannula 4.00 I & O 08/22/18 07:00 Intake Total 1400 ml Output Total 350 ml Balance 1050 ml Height & Weight Height: 5'8.00" Weight: 301lbs. 0.6oz. 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 From pulmonary standpoint she is ok for discharge. I will f/u with her as an out patient. Will have RT do qualification testing. GORAN CHAVEZ DO Aug 22, 2018 08:16
[2018-08-22] MEDS: LOSARTAN 100 MG (COZAAR) TABLET PO SCH (08:23)
[2018-08-22] MEDS: APIXABAN 5 MG (ELIQUIS) TABLET PO SCH ×2 (08:23→20:32)
[2018-08-22] MEDS ORDERED: LOSARTAN 100 MG (COZAAR) TABLET PO SCH (09:00)
--- NOTE | 2018-08-22 09:38 | NUR ---
HOME OXYGEN STUDY PT WILL REQUIRE OXYGEN AT ALL TIMES SPO2 ON ROOM AIR FOR 20 MINUTES WAS 83%, PLACED BACK ON 4 LPM NASAL CANNULA AND SPO2 INCREASED TO 92%.
--- NOTE | 2018-08-22 11:51 | History & Physicial ---
History of Present Illness History of Present Illness Reason for visit/HPI This is a 63 year old female with a previous history of bilateral pulmonary emboli after a long trip and then sleeping in her chair for 2 weeks. She had completed 6 months of therapy with eliquis then was off anticoagulants for a month and clotting studies were ordered which were negative so she was continued on aspirin therapy with lifestyle change for weight loss, exercise, and counseling on ways to prevent edema/venous stasis. She also had a cardiac workup following her PEs which was negative. 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 However, this morning when she was getting ready for work she was very short of air and so she presented to the emergency room where her oxygen saturation was 72% and she was once again found to have bilateral pulmonary emboli. She will be admitted to the ICU on oxygen with heparin and restarted on eliquis. Cardiology and pulmonology have been consulted. Date of Admission Aug 21, 2018 at 09:51 Date Seen by a Provider: Aug 21, 2018 Time Seen by a Provider: 12:25 I consulted on this patient on 08/22/18 11:46 Attending Physician Katharine Jovel DO Admitting Physician Katharine Jovel DO Consult Allergies and Home Medications Allergies Coded Allergies: codeine (Verified Allergy, Unknown, 03/31/08) Home Medications Aspirin 325 Mg Tablet, 325 MG PO DAILY, (Reported) Cetirizine HCl 10 Mg Tablet, 10 MG PO HS PRN for ITCH/RASH, (Reported) Glucosam/Chond/Hyalu/Cf Borate 1 Each Tablet, 1 TAB PO HS, (Reported) Losartan Potassium 100 Mg Tablet, 100 MG PO DAILY, (Reported) Multivitamin 1 Each Tablet, 1 TAB PO HS, (Reported) Patient Home Medication List Home Medication List Reviewed: Yes Past Nohhgwc-Gbcrmt-Rrlihz Hx Patient Social History Alcohol Use: Occasionally Uses Alcohol Beverage of Choice: Other Recreational Drug Use: No Smoking Status: Never a Smoker Recent Foreign Travel: No Contact w/other who traveled: No Recent Hopitalizations: Yes (patient had cdiff 7 years ago) Recent Infectious Disease Expo: No Immunizations Up To Date Tetanus Booster (TDap): Unknown Date of Pneumonia Vaccine: May 19, 2016 Date of Influenza Vaccine: May 19, 2018 Seasonal Allergies Seasonal Allergies: No Surgeries Yes (, ltkr) Orthopedic Respiratory Yes (occasional bronchitis) Currently Using CPAP: Yes Currently Using BIPAP: No Cardiovascular Yes Hypertension Neurological No Reproductive System Hx Reproductive Disorders: Yes (ENDOMETROSIS) Sexually Transmitted Disease: No Genitourinary Yes Renal Failure Gastrointestinal Yes Hemorrhoids, C-Diff Musculoskeletal Yes Endocrine History of Endocrine Disorders: No HEENT History of HEENT Disorders: No Cancer No Psychosocial History of Psychiatric Problem: No Integumentary History of Skin or Integumenta: Yes Skin/Integumentary Disorders: Eczema Blood Transfusions History of Blood Disorders: No Family Medical History Significant Family History: No Pertinent Family Hx Review of Systems Constitutional: weakness EENTM: No see HPI, No no symptoms reported, No ear discharge, No hearing loss, No ear pain, No blurred vision, No double vision, No eye pain, No tearing, No vision loss, No dental problems, No hoarseness, No mouth pain, No mouth swelling , No epistaxis, No nose congestion, No nose pain, No throat pain, No throat swelling, No other Respiratory: dyspnea on exertion, short of breath Cardiovascular: No no symptoms reported, No see HPI, No chest pain, No edema, No Hx of Intervention, No palpitations, No syncope, No vascular heart diseas, No other Gastrointestinal: No RUQ, No LUQ, No RLQ, No LLQ, No no symptoms reported, No see HPI, No abdominal pain, No constipation, No diarrhea, No dysphagia, No hematemesis, No heartburn, No jaundice, No loss of appetite, No melena, No nausea, No vomiting, No other Genitourinary: No no symptoms reported, No see HPI, No decreased output, No discharge, No dysuria, No frequency, No hematuria, No hesitancy, No incontinence , No nocturia, No pain, No other Musculoskeletal: No no symptoms reported, No see HPI, No back pain, No gout, No joint pain, No joint swelling, No muscle pain, No muscle stiffness, No muscle cramps, No muscle twitching, No muscle weakness, No neck pain, No other Skin: No no symptoms reported, No see HPI, No change in color, No change in hair/nails, No dryness, No hx of skin cancer, No lesions, No lumps, No pruritus , No rash, No other Psychiatric/Neurological: Weakness Physical Exam Vital Signs Vital Signs - First Documented 08/21/18 07:35 Temp 98.1 Pulse 117 Resp 24 B/P (MAP) 145/98 (114) Pulse Ox 96 O2 Delivery Nasal Cannula O2 Flow Rate 4.00 FiO2 75 Capillary Refill : Less Than 3 Seconds Height, Weight, BMI Height: 5'8.00" Weight: 301lbs. 0.6oz. 136.525386kc; 45.8 BMI Method:Stated General Appearance: No Apparent Distress HEENT: Normal ENT Inspection Neck: Supple Respiratory: Lungs Clear Cardiovascular: Regular Rate, Rhythm, Systolic Murmur, Gallop/S4 Gastrointestinal: Normal Bowel Sounds, Non Tender, Soft Rectal: Deferred Back: No CVA Tenderness Extremity: Non Tender, No Calf Tenderness, No Pedal Edema Neurologic/Psychiatric: Alert, Oriented x3 Skin: Warm/Dry Comments Laboratory Tests 08/21/18 07:45: White Blood Count 10.9, Red Blood Count 5.20, Hemoglobin 13.1, Hematocrit 43, Mean Corpuscular Volume 82, Mean Corpuscular Hemoglobin 25, Mean Corpuscular Hemoglobin Concent 31L, Red Cell Distribution Width 15.6H, Platelet Count 336, Mean Platelet Volume 9.8, Neutrophils (%) (Auto) 80H, Lymphocytes (%) (Auto) 11L , Monocytes (%) (Auto) 7, Eosinophils (%) (Auto) 1, Basophils (%) (Auto) 1, Neutrophils # (Auto) 8.8H, Lymphocytes # (Auto) 1.2, Monocytes # (Auto) 0.7, Eosinophils # (Auto) 0.1, Basophils # (Auto) 0.1, Prothrombin Time 13.2, INR Comment 1.0, Activated Partial Thromboplast Time 28, D-Dimer 3.29H, Sodium Level 140, Potassium Level 3.9, Chloride Level 104, Carbon Dioxide Level 24, Anion Gap 12, Blood Urea Nitrogen 16, Creatinine 1.00, Estimat Glomerular Filtration Rate 56, BUN/Creatinine Ratio 16, Glucose Level 137H, Calcium Level 9.4, Corrected Calcium 9.5, Magnesium Level 1.7L, Total Bilirubin 0.5, Aspartate Amino Transf (AST/SGOT) 21, Alanine Aminotransferase (ALT/SGPT) 20, Alkaline Phosphatase 131, Myoglobin 47.8, Troponin I < 0.028, Total Protein 7.7 , Albumin 3.9 08/21/18 09:45: 08/21/18 12:14: Glucometer 108 08/22/18 06:30: Prothrombin Time 16.6H, INR Comment 1.3, Sodium Level 139, Potassium Level 4.1, Chloride Level 104, Carbon Dioxide Level 24, Anion Gap 11, Blood Urea Nitrogen 14, Creatinine 0.82, Estimat Glomerular Filtration Rate > 60, BUN/Creatinine Ratio 17, Glucose Level 105, Calcium Level 8.9, Triglycerides Level 168H, Cholesterol Level 185, LDL Cholesterol Direct 124, VLDL Cholesterol 34, HDL Cholesterol 47 Assessment/Plan Assessment and Plan 1. Bilateral Pulmonary Emboli--recurrent so will be on residential anticoagulation , started on heparin and eliquis started so will dc heparin after 2hrs of the first eliquis dose 2. Hypertension--resume home medications Admission Diagnosis Admission Status: Inpatient Order (span 2 midnights) Reason for Inpatient Admission: Will need at least 2 nights while adjusting meds and monitoring oxygen Clinical Quality Measures DVT/VTE Risk/Contraindication: Risk Factor Score Per Nursin RFS Level Per Nursing on Admit: 4+=Very High KATHARINE JOVEL DO Aug 22, 2018 11:51
--- NOTE | 2018-08-22 11:56 | Progress Note (SOAP) ---
Subjective Date Seen by a Provider: Aug 22, 2018 Time Seen by a Provider: 11:54 Subjective/Events-last exam Fwup bilateral pulmonary emboli. Still short of air with exertion. Still requiring oxygen. Objective Exam Vital Signs Date Time Temp Pulse Resp B/P (MAP) Pulse Ox O2 Delivery O2 Flow Rate FiO2 08/22/18 09:35 92 4.00 08/22/18 08:00 98.1 84 16 171/93 (119) 92 Nasal Cannula 4.00 08/22/18 07:04 84 08/22/18 04:00 98.4 84 18 129/75 (93) 95 Nasal Cannula 4.00 08/22/18 01:00 89 08/22/18 00:10 98.4 93 20 116/60 (78) 93 Nasal Cannula 4.00 08/21/18 23:50 Nasal Cannula 3.00 08/21/18 20:00 Nasal Cannula 3.00 08/21/18 19:20 98.8 101 20 147/88 (107) 96 Nasal Cannula 4.00 08/21/18 19:00 95 08/21/18 16:00 95 Nasal Cannula 3.00 08/21/18 16:00 97.8 83 18 143/76 (98) 95 Nasal Cannula 4.00 08/21/18 13:00 87 08/21/18 13:00 86 10 153/100 (117) 97 Nasal Cannula 4.00 08/21/18 12:00 89 20 147/107 (120) 98 Nasal Cannula 4.00 08/21/18 12:00 95 Nasal Cannula 3.00 I & O 08/22/18 07:00 Intake Total 1400 ml Output Total 350 ml Balance 1050 ml Capillary Refill : Less Than 3 Seconds General Appearance: No Apparent Distress Neck: Supple Respiratory: Lungs Clear Cardiovascular: Regular Rate, Rhythm Gastrointestinal: normal bowel sounds, non tender, soft Extremity: Non Tender, No Calf Tenderness, No Pedal Edema Neurologic/Psychiatric: Alert, Oriented x3 Skin: Warm/Dry Results Lab Laboratory Tests 08/21/18 12:14: Glucometer 108 08/22/18 06:30: Prothrombin Time 16.6H, INR Comment 1.3, Sodium Level 139, Potassium Level 4.1, Chloride Level 104, Carbon Dioxide Level 24, Anion Gap 11, Blood Urea Nitrogen 14, Creatinine 0.82, Estimat Glomerular Filtration Rate > 60, BUN/Creatinine Ratio 17, Glucose Level 105, Calcium Level 8.9, Triglycerides Level 168H, Cholesterol Level 185, LDL Cholesterol Direct 124, VLDL Cholesterol 34, HDL Cholesterol 47 Assessment/Plan Assessment/Plan Assess & Plan/Chief Complaint 1. Bilateral pulmonary Emboli--Home on eliquis and fdc anticoagulation 2. Dyspnea/Hypoxia--home on oxygen 3. Hypertension--home meds restarted Clinical Quality Measures Admission Status Admission Dx 1. Bilateral Pulmonary Emboli--recurrent so will be on fdc anticoagulation , started on heparin and eliquis started so will dc heparin after 2hrs of the first eliquis dose 2. Hypertension--resume home medications DVT/VTE Risk/Contraindication: Risk Factor Score Per Nursin RFS Level Per Nursing on Admit: 4+=Very High AYLA ALCALA DO Aug 22, 2018 11:56
[2018-08-22] MEDS ORDERED: APIX5TAB PO (12:00)
--- NOTE | 2018-08-22 13:00 | NUR ---
RT ABDIEL NOTIFIED OF NEW IS ORDER.
[2018-08-22] MEDS ORDERED: ONDANSETRON 4 MG/2 ML (SDV) Z0FRAN IVP PRN (14:15)
[2018-08-22] MEDS ORDERED: DOCUSATE SODIUM 100 MG (COLACE) CAP PO PRN (14:15)
[2018-08-22] MEDS ORDERED: diphenhydrAMINE 25 MG TAB (BENADRYL) PO PRN (14:15)
[2018-08-22] MEDS ORDERED: CALCIUM CARBONATE 500 MG (TUMS) TAB.CHEW PO PRN (14:15)
[2018-08-22] MEDS ORDERED: HYDROcodone/APAP 5 MG/325 MG (LORTAB) TAB PO PRN (14:15)
[2018-08-22] MEDS ORDERED: MELATONIN 3 MG TABLET PO PRN (14:15)
[2018-08-22] MEDS ORDERED: ALPRAZolam 0.25 MG (XANAX) TAB PO PRN (14:15)
[2018-08-22] MEDS ORDERED: ACETAMINOPHEN 500 MG TAB (TYLENOL) PO PRN ×2 (14:15→14:30)
[2018-08-22] MEDS ORDERED: ACETAMINOPHEN 500 MG TAB (TYLENOL) ONE (14:16)
--- NOTE | 2018-08-22 14:22 | NUR ---
TYLENOL 500MG PO FOR HEADACHE.
--- NOTE | 2018-08-22 14:47 | NUR ---
CM/SS, respond to consult. DME: Coordinated new home O2 with patient choice agency, [facility] ([facility]) [facility]. Agency understands that patient is not discharged until tomorrow and to deliver portable O2 to patient room today or tomorrow per their preference. They are to work directly with patient and her family regarding home setup. Patient's son was present and will likely be the one to be at home for equipment unless they wait until patient has arrived before delivering.
[2018-08-22] MEDS ORDERED: MULTIVIT W/MINERALS TAB (THERAGRAN M) PO SCH (17:00)
[2018-08-22] MEDS: POLYETHYLENE GLYCOL 17 GM (MIRALAX) PACK PO SCH (20:56)
[2018-08-22] MEDS ORDERED: NON-FORMULARY MEDICATION 1 EA EA (Multivitamin (Daily Multiple Vitamin) 1 TAB) PO SCH (21:00)
[2018-08-23 04:18] VITALS: BP 144/85
--- NOTE | 2018-08-23 07:47 | Discharge Summary-Hospitalist ---
Diagnosis/Chief Complaint Date of Admission Aug 21, 2018 at 09:51 Date of Discharge Discharge Date: Aug 23, 2018 Discharge Diagnosis (1) Bilateral pulmonary embolism Status: Acute (2) PAMELLA on CPAP Status: Chronic (3) Obesity Status: Chronic (4) Hypoxia Status: Acute (5) Dyspnea Status: Acute Discharge Summary Discharge Physical Exam Allergies: Coded Allergies: codeine (Verified Allergy, Unknown, Pt has received Lortab in the past, 08/22/18) Vitals & I&Os Vital Signs Date Time Temp Pulse Resp B/P (MAP) Pulse Ox O2 Delivery O2 Flow Rate FiO2 08/23/18 08:00 97.7 81 18 126/56 (79) 94 Nasal Cannula 4.00 08/21/18 07:35 75 General Appearance: No Apparent Distress, WD/WN, Chronically ill, Obese Neurologic/Psychiatric: Alert, Oriented x3, No Motor/Sensory Deficits, Normal Mood/Affect Hospital Course Hospital course: Patient presented with shortness of breath found to have pulmonary emboli bilaterally. Patient required oxygen and placement on anticoagulation. She was found to meet criteria for home oxygen and that was set up and lubrication for the inside of her nose was clarified with respiratory therapy to use K-Y jelly and respiratory therapy also provided an adapter to hook the oxygen into the CPAP machine. Patient was deemed stable for discharge. Labs (last 24 hrs) Laboratory Tests 08/23/18 06:57: Sodium Level 138, Potassium Level 4.1, Chloride Level 104, Carbon Dioxide Level 23, Anion Gap 11, Blood Urea Nitrogen 14, Creatinine 0.81, Estimat Glomerular Filtration Rate > 60, BUN/Creatinine Ratio 17, Glucose Level 101, Calcium Level 8.9 Microbiology 08/21/18 MRSA Screen - Final, Complete MRSA not isolated Patient resulted labs reviewed. Pending Labs Laboratory Tests 08/23/18 06:57: Sodium Level 138, Potassium Level 4.1, Chloride Level 104, Carbon Dioxide Level 23, Anion Gap 11, Blood Urea Nitrogen 14, Creatinine 0.81, Estimat Glomerular Filtration Rate > 60, BUN/Creatinine Ratio 17, Glucose Level 101, Calcium Level 8.9 Discussion & Recommendations Discharge Planning: <30 minutes discharge planning Discharge Home Medications: Active Scripts Active Eliquis (Apixaban) 5 Mg Tablet 5 Mg PO BID 2 po BID for 5 days then 1 po BID Reported Zyrtec (Cetirizine HCl) 10 Mg Tablet 10 Mg PO HS PRN Move Free Joint Health Tablet (Glucosam/Chond/Hyalu/Cf Borate) 1 Each Tablet 1 Tab PO HS Losartan Potassium 100 Mg Tablet 100 Mg PO DAILY Daily Multiple Vitamin (Multivitamin) 1 Each Tablet 1 Tab PO HS Instructions to patient/family Please see electronic discharge instructions given to patient. Clinical Quality Measures DVT/VTE Risk/Contraindication: Risk Factor Score Per Nursin RFS Level Per Nursing on Admit: 4+=Very High Problem Qualifiers (1) Obesity: Obesity type: due to excess calories Obesity classification: adult class 3 ( BMI >= 40) Body mass index: BMI 40.0-44.9 (2) Dyspnea: Dyspnea type: dyspnea on exertion Qualified Codes: R06.09 - Other forms of dyspnea MARISELA CHU DO Aug 23, 2018 07:47
[2018-08-23 08:00] VITALS: BP 126/56
[2018-08-23 08:20] LABS: BUN/CREATININE RATIO 17; CALCIUM 8.9 MG/DL (8.5-10.1); CARBON DIOXIDE 23 MMOL/L (21-32); CHLORIDE 104 MMOL/L (98-107); CREATININE SERUM 0.81 MG/DL (0.60-1.30); GFR ESTIMATED > 60; GLUCOSE 101 MG/DL (70-105); POTASSIUM 4.1 MMOL/L (3.6-5.0); SODIUM 138 MMOL/L (135-145)
[2018-08-23] MEDS: LOSARTAN 100 MG (COZAAR) TABLET PO SCH (10:13)
[2018-08-23] MEDS: APIXABAN 5 MG (ELIQUIS) TABLET PO SCH (10:14)
[2018-08-23] MEDS: POLYETHYLENE GLYCOL 17 GM (MIRALAX) PACK PO SCH (10:14)
[2018-08-23 12:30] VITALS: BP 126/58
--- NOTE | 2018-08-23 12:30 | NUR ---
ANA ROSA MOLINA demonstrates understanding of discharge instructions and accurately returns instructions upon questioning. Copy of Post-Discharge Instructions given to PT. ANA ROSA MOLINA is able to manage continuing needs after discharge. Patients belongings returned to PT. Patient discharged from [facility] on 08/23/18 at 1230. ANA ROSA MOLINA left floor via W/C, accompanied by STAFF AND SON PER AUTO.
[2018-08-28] MEDS ORDERED: APIXABAN 5 MG (ELIQUIS) TABLET PO SCH (09:00)
== END 2018-08-23 12:30 | disposition home or self-care (01) | DRG 176 ==
LOC: EDUNIT# 07:33 → ER 07:34 → ICU 09:51 → 4TH 15:36
PROVIDERS: ADMIT Family Medicine; ATTEND Family Medicine
DX: I26.99 Other pulmonary embolism without acute cor pulmonale (principal); Z68.42 Body mass index [BMI] 45.0-49.9, adult; I10 Essential (primary) hypertension; I49.3 Ventricular premature depolarization; E66.01 Morbid (severe) obesity due to excess calories; L30.9 Dermatitis, unspecified; N80.9 Endometriosis, unspecified; G47.33 Obstructive sleep apnea (adult) (pediatric); Z96.652 Presence of left artificial knee joint; Z86.711 Personal history of pulmonary embolism; Z88.5 Allergy status to narcotic agent; Z79.82 Long term (current) use of aspirin
CPT/HCPCS: 36415; 71045; 71275; 80048; 80053; 80061; 81240; 82962; 83735; 83874; 84484; 85025; 85379; 85610; 85730; 87081; 93005; 93041; 93306; 93970; 94664; 94761; 96374

== ENCOUNTER 2018-09-29 14:07 | Outpatient (RCR) | payer BC ==
[~2018-09-29 14:07] MED LIST changes: +ASPI-808 PO; +CETI10TA20 PO; +LOSA100T57 PO; -LOSA100T8 PO
--- NOTE | 2018-09-29 15:18 | Pulmonary Rehab Eval/Txmt Plan ---
Pulmonary Rehab Initial Eval Information Paper Evaluation Completed: Yes Date: Sep 29, 2018 Therapist: SAULO FREEMAN Diagnosis: COPD Pulmonary Rehab Treatment Plan Treatment P Treatment Periord: Initial Diagnosis Diagnosis: COPD Date: Sep 29, 2018 Barriers to Learning Barriers: None Assessment/Problems Exercise: Deconditioning, Decreased Exer Tolerance, No Regular Exercise, Sedentary Type: AEROBIC Frequency: 2 X'S PER WEEK Duration: 1 HR CLASS, EXERCISE PER PT'S TOLERANCE Barriers to Exercise: RIGHT KNEE PAIN; P.E. BEING TX Initial MET Level: 1 Aerobic Exercise/Goals Freq: time per week minus DC: 2 MET Level=: 1 Type: Arm Ergometry, Bike, Scifi/Nustep, Treadmill, Walking DAYEN LOMAX DO Sep 29, 2018 15:18
[2018-12-08] MEDS ORDERED: LOSA1TAB26 PO (14:40)
[2018-12-11] MEDS ORDERED: IBUP-1773 PO (10:16)
== END 2018-12-28 | disposition home or self-care (01) ==
LOC: RT 14:07
PROVIDERS: ATTEND Family Medicine
DX: J44.9 Chronic obstructive pulmonary disease, unspecified (principal); I26.99 Other pulmonary embolism without acute cor pulmonale; G47.33 Obstructive sleep apnea (adult) (pediatric)
CPT/HCPCS: 99211

== ENCOUNTER → 2018-10-22 | Outpatient (CLI) | payer BC ==
--- NOTE | 2018-10-22 17:15 | Diagnostic Imaging Report ---
INDICATION: Postmenopausal bleeding. EXAMINATION: Pelvic sonography was performed with transvaginal views only. FINDINGS: Bladder was empty and therefore transabdominal view could not be performed. The uterus measures 8.6 x 4.5 x 3.4 cm. Endometrium measures 9 mm in thickness. Neither ovary could be visualized. There is a nabothian cyst in the cervix measuring about 1 cm. There is no free fluid. IMPRESSION: Endometrium appears thickened for age, measuring 9 mm. This may represent endometrial hyperplasia or endometrial neoplasm. Correlate with clinical findings. Ovaries could not be visualized. Nabothian cyst in the cervix is noted. Dictated by: Dictated on workstation # [id number]
== END ==
LOC: RAD 15:07
PROVIDERS: ATTEND Family Medicine
DX: N95.0 Postmenopausal bleeding (principal)
CPT/HCPCS: 76830

== ENCOUNTER 2018-12-08 05:37 | Outpatient (CLI) | payer BC ==
[~2018-12-08] VITALS: Ht 172.7 cm; Wt 133.4 kg
[2018-12-08] MEDS ORDERED: LOSA1TAB26 PO (14:40)
== END 2018-12-08 14:54 | disposition home or self-care (01) ==
LOC: PREOP 05:37
PROVIDERS: ATTEND Obstetrics & Gynecology
DX: Z01.818 Encounter for other preprocedural examination (principal)

== ENCOUNTER 2018-12-11 09:39 | Day surgery (SDC) | payer BC ==
[~2018-12-11] VITALS: Ht 172.7 cm; Wt 133.4 kg
[2018-12-11] VITALS (9 sets, daily range): BP systolic 117–137; BP diastolic 54–81
[~2018-12-11 09:39] MED LIST changes: +LOSA1TAB26 PO
[2018-12-11] MEDS ORDERED: LACTATED RINGERS 1,000 ML IV PRN (10:13)
[2018-12-11] MEDS ORDERED: D5 LR IV SOLUTION 1,000 ML IV SCH (10:14)
--- NOTE | 2018-12-11 10:14 | Progress Note-Pre Operative ---
Pre-Operative Progress Note H&P Reviewed The H&P was reviewed, patient examined and no changes noted. Date Seen by Provider: Dec 11, 2018 Time Seen by Provider: 10:14 Date H&P Reviewed: Dec 11, 2018 Time H&P Reviewed: 10:20 Pre-Operative Diagnosis: PMB, Endometrial thickening DELVIS SHERMAN DO Dec 11, 2018 10:14
[2018-12-11] MEDS ORDERED: KETOROLAC 30 MG/ML VIAL IVP ONE (10:15)
[2018-12-11] MEDS ORDERED: ONDANSETRON 4 MG/2 ML (SDV) Z0FRAN IVP PRN ×2 (10:15→12:00)
[2018-12-11] MEDS ORDERED: IBUP-1773 PO (10:16)
--- NOTE | 2018-12-11 10:18 | Discharge Inst-Women's Service ---
Discharge Inst-Women's Serv Depart Medication/Instructions New, Converted or Re-Newed RX: Call to Patients Pharmacy Consults/Follow Up Additional Follow Up: Yes Orders/Referrals Dr. Sherman in 3 weeks Activity Activity: Activity as Tolerated Driving Instructions: No Driving for 1 Week NO SMOKING: NO SMOKING Nothing Inside Vagina: No Douching, No [place], No Tampons Diet Discharge Diet: No Restrictions Symptoms to Report to : Bleeding Excessive, Pain Increased, Fever Over 101 Degrees F, Vaginal Bleeding Increase, Questions/Concerns For Any Problems or Questions: Contact Your Physician DELVIS SHERMAN DO Dec 11, 2018 10:18
[2018-12-11 10:20] LABS: BASOPHILS # (AUTO) 0.1 10^3/uL (0.0-0.1); BASOPHILS % (AUTO) 1 % (0-10); EOSINOPHILS # (AUTO) 0.1 10^3/uL (0.0-0.3); EOSINOPHILS % (AUTO) 1 % (0-10); HEMATOCRIT 40 % (35-52); HEMOGLOBIN 12.6 G/DL (11.5-16.0); LYMPHOCYTES # (AUTO) 1.6 X 10^3 (1.0-4.0); LYMPHOCYTES % (AUTO) 18 % (12-44); MEAN CORPUSCULAR HEMOGLOBIN 26 PG (25-34); MEAN CORPUSCULAR HGB CONC 32 G/DL (32-36); MEAN CORPUSCULAR VOLUME 82 FL (80-99); MEAN PLATELET VOLUME 9.3 FL (7.4-10.4); MONOCYTES # (AUTO) 0.6 X 10^3 (0.0-1.0); MONOCYTES % (AUTO) 7 % (0-12); NEUTROPHILS # (AUTO) 6.6 X 10^3 (1.8-7.8); NEUTROPHILS % (AUTO) 74 % (42-75); PLATELET COUNT 375 10^3/uL (130-400); RED CELL DISTRIBUTION WIDTH 16.1 % (10.0-14.5)
[2018-12-11] MEDS ORDERED: DEXAMETHASONE 10 MG/ML (DECADRON) 1 ML VIAL ONE (10:32)
[2018-12-11] MEDS ORDERED: LIDOCAINE PF 2% 5 ML (XYLOCAINE) VIAL ONE (10:32)
[2018-12-11] MEDS ORDERED: SEVOFLURANE (ULTANE) 15 ML INHAL SOLN ONE ×2 (10:32→11:38)
[2018-12-11] MEDS ORDERED: MIDAZOLAM 2 MG/2 ML (VERSED) VIAL ONE (10:32)
[2018-12-11] MEDS ORDERED: ONDANSETRON 4 MG/2 ML (SDV) Z0FRAN ONE (10:32)
[2018-12-11] MEDS ORDERED: fentaNYL INJECTION 100 MCG/2 ML AMP ONE (10:32)
[2018-12-11] MEDS ORDERED: proPOfol 200 MG/20 ML (DIPRIVAN) VIAL IV ONE (10:32)
[2018-12-11] MEDS ORDERED: BUPIVACAINE 0.25% 30 ML (SENSORCAINE) VIAL ONE ×2 (10:38→10:51)
[2018-12-11] MEDS ORDERED: MEPERIDINE (DEMEROL) INJ 50 MG/ML IVP ONE (12:00)
[2018-12-11] MEDS ORDERED: morphine INJ 10 MG/ML 1ML (SYR OR VIAL) IVP ONE (12:00)
[2018-12-11] MEDS ORDERED: morphine INJ 10 MG/ML 1ML (SYR OR VIAL) ONE (12:07)
--- NOTE | 2018-12-11 13:47 | Anesthesia-General Post-Op ---
General Patient Condition Mental Status/LOC: Same as Preop Cardiovascular: Satisfactory Nausea/Vomiting: Absent Respiratory: Satisfactory Pain: Controlled Complications: Absent Post Op Complications Complications None Follow Up Care/Instructions Patient Instructions None needed. Anesthesia/Patient Condition Patient Condition Patient is doing well, no complaints, stable vital signs, no apparent adverse anesthesia problems. No complications reported per nursing. D/C home per [facility] Criteria: Yes PHILOMENA BABIN CRNA Dec 11, 2018 13:47
--- NOTE | 2018-12-11 15:20 | OPERATIVE REPORT ---
DATE OF SERVICE: 12/11/2018 PREOPERATIVE DIAGNOSIS: A 63-year-old female with postmenopausal bleeding. POSTOPERATIVE DIAGNOSIS: A 63-year-old female with postmenopausal bleeding. PROCEDURE: D and C. SURGEON: Delvis Sherman DO ANESTHESIA: General endotracheal. ESTIMATED BLOOD LOSS: Minimal. URINE OUTPUT: 30 mL of clear drained at the end of procedure. FLUIDS: 1200 mL of lactated Ringer solution. FINDINGS: Grossly normal external female genitalia with a stenotic cervix and a small to moderate amount of endometrial tissue collected by curetting. SPECIMEN SENT: Endometrial curettes. INDICATION FOR PROCEDURE: This 63-year-old female is a consultation to me from Dr. Jovel's office for episodes of postmenopausal bleeding. The patient had been on Eliquis for the past year and half due to recurrent DVT and pulmonary embolism in the past. We discussed having to come off the blood thinners for a few days that we could perform this procedure. Risks of the procedure were discussed with the patient in detail including the risk of bleeding, infection, damage to surrounding structures including, but not limited to bowel, bladder, ureter, kidneys, possible postoperative thromboembolic events, recovery timeframe, everything was discussed with the patient and all of her questions were answered. Consent was obtained in the preoperative area and the patient was taken to the operating room. OPERATIVE REPORT IN DETAIL: Once in the operating room, anesthesia was found to be adequate. She was placed in dorsal lithotomy position, prepped and draped in normal sterile fashion. A weighted speculum was inserted in the patient's vagina. A right angle retractor was used to visualize the cervix, which was grasped at 12 o'clock position using a single tooth tenaculum. A paracervical block was then performed at 3 and 9 o'clock positions on the cervix and 5 mL of 0.25% Marcaine are injected at each site after which I gently dilated the cervix using Hegar dilators to a maximum dilatation of approximately 5 to 6 mm to allow myself to pass endometrial curette. The endometrial cavity does sound to approximately 8 cm. The curetting was then performed after the curette was passed through the cervix and small to moderate amount of endometrial tissue was collected and sent to pathology as endometrial curettings after which there was no active bleeding noted from any of my dissection planes. I removed the single tooth tenaculum and there was some bleeding from that site, which was made hemostatic using silver nitrate. After which, all the instruments were removed from the patient's vagina. The patient tolerated the procedure well and was taken to recovery area in stable condition. Lap and sponge counts were correct at the end of the procedure. Instrument counts were correct as well. Job ID: [id number] DocumentID: [id number] Dictated Date: 12/11/2018 11:48:58 Corporate Attorney Date: 12/11/2018 15:19:51 Dictated By: DELVIS SHERMAN DO
== END 2018-12-11 13:55 | disposition home or self-care (01) ==
LOC: SDC 09:39
PROVIDERS: ATTEND Obstetrics & Gynecology
DX: N95.0 Postmenopausal bleeding (principal); N88.2 Stricture and stenosis of cervix uteri; G47.33 Obstructive sleep apnea (adult) (pediatric); I27.20 Pulmonary hypertension, unspecified; I10 Essential (primary) hypertension; J45.909 Unspecified asthma, uncomplicated; E66.01 Morbid (severe) obesity due to excess calories; Z68.41 Body mass index [BMI] 40.0-44.9, adult; Z86.711 Personal history of pulmonary embolism; Z86.718 Personal history of other venous thrombosis and embolism; Z79.01 Long term (current) use of anticoagulants; Z79.899 Other long term (current) drug therapy
CPT/HCPCS: 36415; 85025; 86850; 86900; 86901; 87081; 94664

== ENCOUNTER 2019-01-21 05:49 | Outpatient (CLI) | payer BC ==
[~2019-01-21] VITALS: Ht 172.7 cm; Wt 133.4 kg
[~2019-01-21 05:49] MED LIST changes: +IBUP-1773 PO
[2019-01-21] MEDS ORDERED: APIX5TAB PO (12:43)
[2019-01-21] MEDS ORDERED: MULT-974 PO (12:43)
[2019-01-21] MEDS ORDERED: CHOL500044 PO (12:44)
== END 2019-01-21 12:48 | disposition home or self-care (01) ==
LOC: PREOP 05:49
PROVIDERS: ATTEND Specialist
DX: Z01.818 Encounter for other preprocedural examination (principal)

== ENCOUNTER 2019-01-23 08:01 | Day surgery (SDC) | payer BC ==
[~2019-01-23] VITALS: Ht 172.7 cm; Wt 133.4 kg
[~2019-01-23 08:01] MED LIST changes: +CHOL500044 PO; +MULT-974 PO
[2019-01-23 08:05] VITALS: BP 129/78
[2019-01-23] MEDS: TETRACAINE 0.5% OPHTH SOLN 4 ML BTL (SINGLE DOSE ONLY) OU PRN ×4 (08:12→08:39)
[2019-01-23] MEDS ORDERED: TIMOLOL MALEATE 0.5% 5 ML (TIMOPTIC) BTL OU PRN (08:15)
[2019-01-23] MEDS ORDERED: POVIDONE (BETADINE) OPHTH SOLN 5% 30 ML OP ONE (08:15)
[2019-01-23] MEDS ORDERED: MOXIFLOXACIN OPHTH SOLN 5 MG/ML 0.3 ML SYRINGE OP ONE (08:15)
[2019-01-23] MEDS ORDERED: LIDOCAINE PF 1% 2 ML AMP IR PRN (08:15)
[2019-01-23] MEDS: PHENYLEPHRINE 10% OPHTH (NEO-SYN) 5 ML BTL OU SCH ×3 (08:23→08:39)
[2019-01-23] MEDS: CYCLOPENTOLATE 1% (CYCLOGYL) 2 ML DROPS OP SCH ×3 (08:23→08:39)
--- NOTE | 2019-01-23 08:51 | Ophthalmologist Pre-Op Note ---
Pre-Operative Progress Note H&P Reviewed The H&P was reviewed, patient examined and no changes noted. Date H&P Reviewed: Jan 23, 2019 Time H&P Reviewed: 08:51 Pre-Op Dx Cataract, Right Eye GONZALO JOHN MD Jan 23, 2019 08:51
[2019-01-23] MEDS ORDERED: MIDAZOLAM 2 MG/2 ML (VERSED) VIAL ONE (08:57)
--- NOTE | 2019-01-23 09:18 | Ophthalmology Operative Report ---
Cataract removal/placement IOL PREOPERATIVE DIAGNOSIS: Cataract Right Eye POSTOPERATIVE DIAGNOSIS: Cataract Right Eye PROCEDURE: Cataract removal and placement of posterior chamber implant, right eye SURGEON: Wes John ANESTHESIA: Topical with sedation COMPLICATIONS: None ESTIMATED BLOOD LOSS: Minimal DESCRIPTION OF PROCEDURE: After proper informed consent was obtained, the patient, a 63 female, was taken to the Operating Room and the right eye was anesthetized with tetracaine. The right eye was then prepped and draped in the usual manner. A wire lid speculum was placed. A paracentesis was made at the left hand position. Preservative free lidocaine was injected into the anterior chamber followed by viscoelastic. A clear corneal incision was made in the temporal position. A capsulorrhexis was preformed and the central nuclear and cortical material were removed. The posterior capsule was polished and Kunal 19.5 AU00T0 IOL was placed into the capsular bag. The residual viscoelastic was aspirated and balanced saline solution was injected into the anterior chamber. Moxifloxacin was injected into the anterior chamber. The wound was checked and found to be water tight. The patient tolerated the procedure well without complications. WES JOHN MD Jan 23, 2019 09:18
[2019-01-23 09:27] VITALS: BP 127/96
[2019-01-23] MEDS ORDERED: acetaZOLAMIDE ER 500 MG CAP (DIAMOX SEQUELS) PO ONE (09:30)
--- NOTE | 2019-01-23 09:57 | Anesthesia-General Post-Op ---
MAC Patient Condition Mental Status/LOC: Same as Preop Cardiovascular: Satisfactory Nausea/Vomiting: Absent Respiratory: Satisfactory Pain: Controlled Complications: Absent Post Op Complications Complications None Follow Up Care/Instructions Patient Instructions None needed. Anesthesiology Discharge Order Discharge Order Patient is doing well, no complaints, stable vital signs, no apparent adverse anesthesia problems. No complications reported per nursing. NIMISHA SMITH CRNA Jan 23, 2019 09:57
== END 2019-01-23 09:27 | disposition home or self-care (01) ==
LOC: SDC 08:01
PROVIDERS: ATTEND Specialist
DX: H25.11 Age-related nuclear cataract, right eye (principal)

== ENCOUNTER 2019-02-04 05:48 | Outpatient (CLI) | payer BC | END 2019-02-04 14:42 | disposition home or self-care (01) | LOC: PREOP 05:48 | PROVIDERS: ATTEND Specialist | DX: Z01.818 Encounter for other preprocedural examination (principal) ==

== ENCOUNTER → 2019-06-08 | Outpatient (CLI) | payer BC ==
--- NOTE | 2019-06-08 10:39 | Diagnostic Imaging Report ---
INDICATION: Routine screening. Comparison is made with prior mammogram from 06/06/2018 and 05/20/2017. 2-D and 3-D bilateral screening mammography was performed with a Computer Aided Detection (CAD) system. 3-D tomosynthesis was also performed and reviewed. FINDINGS: Scattered fibroglandular densities are identified bilaterally. Numerous bilateral circumscribed breast nodules appear stable. There are benign calcifications. No dominant mass or malignant appearing microcalcifications are seen. Axillae are unremarkable. IMPRESSION: No mammographic features suspicious for malignancy are identified. ACR BI-RADS Category 2: Benign findings. Result letter will be mailed to the patient. Note: At least 10% of breast cancer is not imaged by mammography. Dictated by: Dictated on workstation # [id number]
== END ==
LOC: RAD 07:43
PROVIDERS: ATTEND Family Medicine
DX: Z12.31 Encounter for screening mammogram for malignant neoplasm of breast (principal)
CPT/HCPCS: 77067

== ENCOUNTER 2019-11-02 11:30 | Outpatient (CLI) | payer BC ==
[~2019-11-02] VITALS: Ht 172 cm; Wt 131.0 kg
[~2019-11-02 11:30] MED LIST changes: -CETI10TA20 PO; +CETI10TA21 PO; +CHOL200078 PO
== END 2019-11-02 11:57 | disposition home or self-care (01) ==
LOC: PREOP 11:30
PROVIDERS: ATTEND Surgery
DX: Z01.818 Encounter for other preprocedural examination (principal)

== ENCOUNTER → 2020-06-09 | Outpatient (CLI) | payer BC ==
[~2020-06-09] MED LIST changes: -CETI10TA21 PO; +CETI10TA49 PO
--- NOTE | 2020-06-09 11:19 | Diagnostic Imaging Report ---
INDICATION: Routine screening. Comparison is made with prior mammogram 06/08/2019 and 06/06/2018. 2-D and 3-D bilateral screening mammography was performed with CAD. Scattered fibroglandular densities are identified bilaterally. Circumscribed nodules in both breasts appears stable. There are benign calcifications in both breasts. There is an irregular density in the outer left breast at anterior to mid depth appearing slightly more prominent than prior exams. No definite corresponding density on the MLO view is identified. Right breast is unremarkable. Axillae are unremarkable. IMPRESSION: Left breast density. Additional views including spot compression and rolled cc views are recommended for further evaluation. BI-RADS 0 ACR BI-RADS Category 0: Incomplete. (Needs additional imaging evaluation). Result letter will be mailed to the patient. Note: At least 10% of breast cancer is not imaged by mammography. Dictated by: Dictated on workstation # [id number]
== END ==
LOC: RAD 07:45
PROVIDERS: ATTEND Nurse Practitioner Family
DX: Z12.31 Encounter for screening mammogram for malignant neoplasm of breast (principal); R92.2 Inconclusive mammogram
CPT/HCPCS: 77063; 77067

== ENCOUNTER → 2020-06-15 | Outpatient (CLI) | payer BC ==
--- NOTE | 2020-06-15 12:56 | Diagnostic Imaging Report ---
INDICATION: Left breast density. Patient presents for additional views. Correlation is made with recent screening study from 06/09/2020. 2-D and 3-D unilateral left diagnostic mammography was performed including spot compression CC, rolled CC and 90 degree lateral views. There appears to be predominantly dispersion of fibroglandular elements with additional views. There is mild residual density present but no discrete mass is seen. There are scattered benign nodules and benign calcifications. IMPRESSION: BI-RADS 0 No discrete mass identified. There is some minimal residual density outer left breast approximately 4 to 5 cm from the nipple. Further evaluation with ultrasound is recommended and will be performed today. ACR BI-RADS Category 0: Incomplete. (Needs additional imaging evaluation). Result letter will be mailed to the patient. Note: At least 10% of breast cancer is not imaged by mammography. Dictated by: Dictated on workstation # [id number]
--- NOTE | 2020-06-15 13:43 | Diagnostic Imaging Report ---
INDICATION: Left breast density. COMPARISON: Correlation is made with the diagnostic mammogram from earlier this same day and the screening mammogram from 06/09/2020. FINDINGS: Interrogation of the outer left breast was performed. There is a lymph node at the 2:30 location. A second smaller circumscribed hypoechoic nodule is seen at the 3:30 location 4-5 cm from the nipple measuring 7 mm x 3 mm x 6 mm. This has benign features. It is uncertain if this accounts for the mammographic density. No concerning findings are noted sonographically. IMPRESSION: Benign findings in the outer left breast. No concerning sonographic findings are seen. The patient may return to routine annual screening mammography. ACR BI-RADS Category 2: Benign findings. Dictated by: Dictated on workstation # [id number]
== END ==
LOC: RAD 12:45
PROVIDERS: ATTEND Family Medicine
DX: R92.2 Inconclusive mammogram (principal)
CPT/HCPCS: 76642; 77065; G0279

== ENCOUNTER 2020-07-29 12:15 | Emergency (ER) | payer BC ==
[2020-07-29] MEDS ORDERED: ZIPRASIDONE 20 MG INJ (GEODON) VIAL IM ONE (12:33)
[2020-07-29] MEDS ORDERED: WATER (STERILE) FOR INJECTION 10 ML ONE (12:34)
[2020-07-29] MEDS ORDERED: HALOPERIDOL 5 MG/ML (HALDOL) VIAL IM ONE (13:00)
[2020-07-29] MEDS ORDERED: LORazepam INJ 2 MG/ML (ATIVAN) VIAL IVP ONE ×2 (13:00)
[2020-07-29] MEDS ORDERED: ZIPRASIDONE INJECTION 20 MG in WATER (STERILE) FOR INJECTION 1.2 ML IM PRN (13:00)
[2020-07-29] MEDS ORDERED: NS IV 1000 ML 1,000 ML IV SCH (13:00)
--- NOTE | 2020-07-29 13:10 | NUR ---
Note undone in [facility] - 07/29/20 at 1530 by TLBROCE 1303 PREOXYGENATED VIA BVM. SPO2 98%. 1304 10MG ETOMIDATE IV PUSH 1305 50MCG ROCURONIUM IV PUSH 1306 INTUBATION COMPLETE. + COLOR CHANGE. + BILAT BREATH SOUNDS. 7.5 ET TUBE 23 AT GUMS. 1310 16FR OG (LOW INTERMITTENT SUCTION). Addendum: 07/29/20 at 1412 by TLBROCE Amendment undone in [facility] - 07/29/20 at 1530 by TLBROCE VENT SETTINGS TV 450 PEEP 7 FIO2 40% RATE 18
--- NOTE | 2020-07-29 13:10 | NUR ---
Note undone in [facility] - 07/29/20 at 2023 by TLBROCE 1303 PREOXYGENATED VIA BVM. SPO2 98%. 1304 10MG ETOMIDATE IV PUSH 1305 50MG ROCURONIUM IV PUSH 1306 INTUBATION COMPLETE. + COLOR CHANGE. + BILAT BREATH SOUNDS. 7.5 ET TUBE 23 AT GUMS. 1310 16FR OG (LOW INTERMITTENT SUCTION). Addendum: 07/29/20 at 1530 by TLBROCE Amendment undone in [facility] - 07/29/20 at 2023 by TLBROCE VENT SETTINGS TV 450 PEEP 7 FIO2 40% RATE 18
[2020-07-29] MEDS ORDERED: DexMEDEtomidine PRE MIX 100 ML IV SCH (13:15)
[2020-07-29 13:16] VITALS: BP 131/96
[2020-07-29 13:18] LABS: BASOPHILS # (AUTO) 0.1 10^3/uL (0.0-0.1); BASOPHILS % (AUTO) 0 % (0-10); EOSINOPHILS # (AUTO) 0.1 10^3/uL (0.0-0.3); EOSINOPHILS % (AUTO) 1 % (0-10); HEMATOCRIT 39 % (35-52); HEMOGLOBIN 11.7 g/dL (11.5-16.0); LYMPHOCYTES # (AUTO) 1.1 10^3/uL (1.0-4.0); LYMPHOCYTES % (AUTO) 9 % (12-44); MEAN CORPUSCULAR HEMOGLOBIN 28 pg (25-34); MEAN CORPUSCULAR HGB CONC 30 g/dL (32-36); MEAN CORPUSCULAR VOLUME 92 fL (80-99); MEAN PLATELET VOLUME 10.6 fL (9.0-12.2); MONOCYTES # (AUTO) 1.4 10^3/uL (0.0-1.0); MONOCYTES % (AUTO) 11 % (0-12); NEUTROPHILS # (AUTO) 10.5 10^3/uL (1.8-7.8); NEUTROPHILS % (AUTO) 79 % (42-75); PLATELET COUNT 648 10^3/uL (130-400); WHITE BLOOD COUNT 13.3 10^3/uL (4.3-11.0)
[2020-07-29 13:22] LABS: ALBUMIN 4.1 GM/DL (3.2-4.5)
[2020-07-29 13:23] LABS: CHLORIDE 106 MMOL/L (98-107); POTASSIUM 4.2 MMOL/L (3.6-5.0); SODIUM 140 MMOL/L (135-145)
[2020-07-29 13:24] LABS: CALCIUM 9.9 MG/DL (8.5-10.1)
[2020-07-29 13:25] LABS: GLUCOSE 112 MG/DL (70-105); TOTAL PROTEIN 7.8 GM/DL (6.4-8.2)
[2020-07-29 13:26] LABS: CARBON DIOXIDE 21 MMOL/L (21-32)
[2020-07-29 13:27] LABS: BILIRUBIN,TOTAL 0.3 MG/DL (0.1-1.0)
[2020-07-29 13:29] LABS: ALKALINE PHOSPHATASE 188 U/L (40-136); CREATININE SERUM 0.82 MG/DL (0.60-1.30); GFR ESTIMATED > 60
[2020-07-29 13:30] LABS: BUN/CREATININE RATIO 16
[2020-07-29 13:32] LABS: ALANINE AMINOTRANSFERASE 45 U/L (0-55)
[2020-07-29 13:41] LABS: ABG BASE EXCESS -1.7 MMOL/L (-2.5-2.5); ABG OXYGEN SATURATION 87 % (94-100); ABG PCO2 42 MMHG (35-45); ABG PH 7.36 (7.37-7.43); ABG PO2 60 MMHG (79-93); ABG TCO2 24.3 MMOL/L (21.0-31.0)
[2020-07-29 13:42] LABS: BILIRUBIN,URINE 1+ (NEGATIVE); CLARITY,URINE CLEAR; COLOR,URINE YELLOW; GLUCOSE, URINE (UA) NEGATIVE (NEGATIVE); KETONES,URINE 1+ (NEGATIVE); LEUKOCYTE ESTERASE ,URINE NEGATIVE (NEGATIVE); NITRITE,URINE NEGATIVE (NEGATIVE); PROTEIN,URINE 1+ (NEGATIVE)
--- NOTE | 2020-07-29 13:45 | ED General ---
General Chief Complaint: Altered Mental Status Stated Complaint: COVID +, SOB Source of Information: Patient Exam Limitations: No Limitations History of Present Illness Date Seen by Provider: Jul 29, 2020 Time Seen by Provider: 12:39 Initial Comments To ER by EMS from [facility] with reports of altered mental status. She had Covid diagnosed on 07/08/2020. Upon EMS arrival oxygen saturation 90% on room air, patient has a known history of bipolar and Alzheimer's but is medicated and is typically conversational and alert and fairly oriented. Upon their arrival she was moaning screaming and flailing repeating "fuck fuck fuck" Timing/Duration: 1-2 Days (Long time) Severity: Moderate Allergies and Home Medications Allergies Coded Allergies: codeine (Verified Allergy, Mild, N/V, 11/02/19) Home Medications Apixaban 5 Mg Tablet, 5 MG PO BID, (Reported) Cetirizine HCl 10 Mg Tablet, 10 MG PO HS PRN for ITCH/RASH, (Reported) Cholecalciferol (Vitamin D3) 2,000 Unit Tab.chew, 2,000 UNIT PO DAILY, (Re ported) Glucosam/Chond/Hyalu/Cf Borate 1 Each Tablet, 1 TAB PO HS, (Reported) Losartan/Hydrochlorothiazide 1 Each Tablet, 1 EACH PO DAILY, (Reported) Multivitamin 1 Each Tablet, 1 EACH PO HS, (Reported) Patient Home Medication List Home Medication List Reviewed: Yes Review of Systems Review of Systems Constitutional: see HPI, other (Unable to obtain) Past Zdmgquu-Zgrnkj-Ayclxb Hx Patient Social History Alcohol Beverage of Choice: Other 2nd Hand Smoke Exposure: No Recent Hopitalizations: Yes (AUG 2018-PE ) Immunizations Up To Date Tetanus Booster (TDap): Unknown Date of Pneumonia Vaccine: May 19, 2016 Date of Influenza Vaccine: May 25, 2019 Seasonal Allergies Seasonal Allergies: Yes Past Medical History Surgeries: Yes (L TKR, DX LAP-ENDOMETRIOSIS, D&C, CATARACT) Orthopedic Respiratory: Yes (PE X2) Pulmonary Embolism, Sleep Apnea Currently Using CPAP: Yes Currently Using BIPAP: No Cardiac: Yes Hypertension Neurological: No Reproductive Disorders: Yes (ENDOMETROSIS) Female Reproductive Disorders: Denies Sexually Transmitted Disease: No Genitourinary: Yes (HX RENAL FAILURE 2007) Gastrointestinal: Yes Hemorrhoids, Chronic Diarrhea, C-Diff Musculoskeletal: Yes (KNEE AND SHOULDER) Arthritis Endocrine: No HEENT: No (GLASSES) Loss of Vision: Bilateral Hearing Impairment: Denies Cancer: No Psychosocial: No Integumentary: No Eczema Blood Disorders: No Adverse Reaction/Blood Tranf: No (N/A) Family Medical History No Pertinent Family Hx Physical Exam Vital Signs Vital Signs - First Documented 07/29/20 07/29/20 12:15 13:16 Temp 36.7 Pulse 123 Resp 26 B/P (MAP) 129/101 (110) Pulse Ox 94 O2 Delivery OxyMask O2 Flow Rate 10.00 FiO2 40 Capillary Refill : Height, Weight, BMI Height: 5'8.00" Weight: 294lbs. 0.6oz. 133.202539bo; 44.28 BMI Method:Stated General Appearance: WD/WN, Other (Appears older than stated age, flailing about the bed, trying to climb over the rails takes 3 staff members to restrain in bed, not making any sense, grabbing at her oxygen mask, repeats "mama mama" and "Fuck you". She was given 2 mg of IV lorazepam with minimal improvement in symptoms. After 5 minutes additional 2 mg was given. Minimal improvement. She also received 2.5 mg of IV haloperidol with minimal improvement. She was then given 20 mg of intramuscular Geodon, continued to flail about the bed moaning a nd pulling oxygen and leads off. Decided to proceed with intubation) Eyes: Bilateral Eye Normal Inspection, Bilateral Eye PERRL, Bilateral Eye EOMI Neck: Full Range of Motion, Normal Inspection Respiratory: Normal Breath Sounds, No Accessory Muscle Use, No Respiratory Distress Cardiovascular: Normal Peripheral Pulses, Tachycardia Gastrointestinal: Normal Bowel Sounds, Non Tender, Soft Extremity: Normal Capillary Refill, Normal Inspection Neurologic/Psychiatric: Alert, Other (Disoriented) Skin: Normal Color, Warm/Dry Focused Exam Lactate Level 07/29/20 12:30: Lactic Acid Level 2.17*H Lactic Acid Level Procedures/Interventions Date of ETT Placement: Jul 29, 2020 Time of ETT Placement: 1310 Tube Size: 7.50 Medications: Etomidate, Rocuronium Positive End Tide CO2: Yes Breath Sounds after Intubation: bilateral-equal Intubation Complications: no complications Progress/Results/Core Measures Suspected Sepsis SIRS Temperature: Pulse: 126 Respiratory Rate: 18 Laboratory Tests 07/29/20 12:30: White Blood Count 13.3H Blood Pressure 131 /96 Mean: 108 07/29/20 12:30: Lactic Acid Level 2.17*H Laboratory Tests 07/29/20 12:30: Creatinine 0.82, Platelet Count 648H, Total Bilirubin 0.3 Results/Orders Lab Results Laboratory Tests Test 07/29/20 12:30 07/29/20 13:25 07/29/20 13:30 Range/Units White Blood Count 13.3 H 4.3-11.0 10^3/uL Red Blood Count 4.20 3.80-5.11 10^6/uL Hemoglobin 11.7 11.5-16.0 g/dL Hematocrit 39 35-52 % Mean Corpuscular Volume 92 80-99 fL Mean Corpuscular Hemoglobin 28 25-34 pg Mean Corpuscular Hemoglobin Concent 30 L 32-36 g/dL Red Cell Distribution Width 14.9 H 10.0-14.5 % Platelet Count 648 H 130-400 10^3/uL Mean Platelet Volume 10.6 9.0-12.2 fL Immature Granulocyte % (Auto) 1 % Neutrophils (%) (Auto) 79 H 42-75 % Lymphocytes (%) (Auto) 9 L 12-44 % Monocytes (%) (Auto) 11 0-12 % Eosinophils (%) (Auto) 1 0-10 % Basophils (%) (Auto) 0 0-10 % Neutrophils # (Auto) 10.5 H 1.8-7.8 10^3/uL Lymphocytes # (Auto) 1.1 1.0-4.0 10^3/uL Monocytes # (Auto) 1.4 H 0.0-1.0 10^3/uL Eosinophils # (Auto) 0.1 0.0-0.3 10^3/uL Basophils # (Auto) 0.1 0.0-0.1 10^3/uL Immature Granulocyte # (Auto) 0.1 0.0-0.1 10^3/uL Sodium Level 140 135-145 MMOL/L Potassium Level 4.2 3.6-5.0 MMOL/L Chloride Level 106 98-107 MMOL/L Carbon Dioxide Level 21 21-32 MMOL/L Anion Gap 13 5-14 MMOL/L Blood Urea Nitrogen 13 7-18 MG/DL Creatinine 0.82 0.60-1.30 MG/DL Estimat Glomerular Filtration Rate > 60 BUN/Creatinine Ratio 16 Glucose Level 112 H 70-105 MG/DL Lactic Acid Level 2.17 *H 0.50-2.00 MMOL/L Calcium Level 9.9 8.5-10.1 MG/DL Corrected Calcium 9.8 8.5-10.1 MG/DL Total Bilirubin 0.3 0.1-1.0 MG/DL Aspartate Amino Transf (AST/SGOT) 35 H 5-34 U/L Alanine Aminotransferase (ALT/SGPT) 45 0-55 U/L Alkaline Phosphatase 188 H 40-136 U/L C-Reactive Protein High Sensitivity 1.22 H 0.00-0.50 MG/DL Total Protein 7.8 6.4-8.2 GM/DL Albumin 4.1 3.2-4.5 GM/DL Thyroid Stimulating Hormone (TSH) 0.53 0.35-4.94 UIU/ML Free Thyroxine 1.40 0.70-1.48 NG/DL Urine Color YELLOW Urine Clarity CLEAR Urine pH 6.0 5-9 Urine Specific [place] 1.025 H 1.016-1.022 Urine Protein 1+ H NEGATIVE Urine Glucose (UA) NEGATIVE NEGATIVE Urine Ketones 1+ H NEGATIVE Urine Nitrite NEGATIVE NEGATIVE Urine Bilirubin 1+ H NEGATIVE Urine Urobilinogen 0.2 < = 1.0 MG/DL Urine Leukocyte Esterase NEGATIVE NEGATIVE Urine RBC (Auto) NEGATIVE NEGATIVE Urine RBC NONE /HPF Urine WBC NONE /HPF Urine Squamous Epithelial Cells 0-2 /HPF Urine Crystals NONE /LPF Urine Bacteria NEGATIVE /HPF Urine Casts NONE /LPF Urine Mucus SMALL H /LPF Urine Culture Indicated NO Urine Opiates Screen NEGATIVE NEGATIVE Urine Oxycodone Screen NEGATIVE NEGATIVE Urine Methadone Screen NEGATIVE NEGATIVE Urine Propoxyphene Screen NEGATIVE NEGATIVE Urine Barbiturates Screen NEGATIVE NEGATIVE Ur Tricyclic Antidepressants Screen NEGATIVE NEGATIVE Urine Phencyclidine Screen NEGATIVE NEGATIVE Urine Amphetamines Screen NEGATIVE NEGATIVE Urine Methamphetamines Screen NEGATIVE NEGATIVE Urine Benzodiazepines Screen POSITIVE H NEGATIVE Urine Cocaine Screen NEGATIVE NEGATIVE Urine Cannabinoids Screen NEGATIVE NEGATIVE Blood Gas Puncture Site RT RAD Blood Gas Patient Temperature 36.7 Arterial Blood pH 7.36 L 7.37-7.43 Arterial Blood Partial Pressure CO2 42 35-45 MMHG Arterial Blood Partial Pressure O2 60 L 79-93 MMHG Arterial Blood HCO3 23 23-27 MMOL/L Arterial Blood Total CO2 24.3 21.0-31.0 MMOL/L Arterial Blood Oxygen Saturation 87 L 94-100 % Arterial Blood Base Excess -1.7 -2.5-2.5 MMOL/L Hal Test YES-POS Blood Gas Ventilator Setting YES Blood Gas Inspired Oxygen 40% My Orders Orders - MATTY ROSENTHAL APRN Lorazepam Injection (Ativan Injection) (07/29/20 13:00) Lorazepam Injection (Ativan Injection) (07/29/20 13:00) Haloperidol Injection (Haldol Injectio (07/29/20 13:00) Ziprasidone Injection (Geodon Injection) (07/29/20 13:00) Cbc With Automated Diff (07/29/20 12:57) Comprehensive Metabolic Panel (07/29/20 12:57) Hs C Reactive Protein (07/29/20 12:57) Chest 1 View, Ap/Pa Only (07/29/20 12:57) Lactic Acid Analyzer (07/29/20 12:57) Blood Culture (07/29/20 12:57) Marshall Cath (07/29/20 12:57) Ua Culture If Indicated (07/29/20 12:57) Drug Screen Stat (Urine) (07/29/20 12:57) Ns Iv 1000 Ml (Sodium Chloride 0.9%) (07/29/20 13:00) Dexmedetomidine Pre Mix (Precedex Pre-M (07/29/20 13:15) Propofol Drip (Icu) (Diprivan Drip (Icu) (07/29/20 14:15) Propofol Drip (Icu) (Diprivan Drip (Icu) (07/29/20 14:02) Fentanyl Drip Pre-Mix (Fentanyl Drip Pre (07/29/20 14:30) Iohexol Injection (Omnipaque 350 Mg/Ml 1 (07/29/20 14:30) Received Contrast (Hold Metformin- Contr (07/29/20 14:30) Sodium Chloride Flush (Catheter Flush Sy (07/29/20 14:30) Ns (Ivpb) (Sodium Chloride 0.9% Ivpb Bag (07/29/20 14:30) Ekg Tracing (07/29/20 14:34) Thyroid Stimulating Hormone (07/29/20 14:35) Free T4 (Free Thyroxine) (07/29/20 14:35) Norepinephrine 4 Mg/250 Ml (Norepinephri (07/29/20 15:02) [place] Level (07/29/20 16:03) Blood Culture (07/29/20 16:34) Medications Given in ED Current Medications Medications Dose Ordered Sig/Dai Route Start Time Stop Time Status Last Admin Dose Admin Haloperidol Lactate 2.5 mg ONCE ONCE IM 07/29/20 13:00 07/29/20 13:02 DC 07/29/20 12:25 2.5 MG Lorazepam 2 mg ONCE ONCE IVP 07/29/20 13:00 07/29/20 13:02 DC 07/29/20 12:17 2 MG Lorazepam 2 mg ONCE ONCE IVP 07/29/20 13:00 07/29/20 13:02 DC 07/29/20 12:35 2 MG Norepinephrine Bitartrate 250 ml @ ud STK-MED ONCE IV 07/29/20 15:02 07/29/20 15:04 DC 07/29/20 15:11 29.6 MLS/HR Sterile Water 10 ml @ ud STK-MED ONCE .ROUTE 07/29/20 12:34 07/29/20 12:37 DC 07/29/20 12:42 0 MLS/HR Ziprasidone 20 mg STK-MED ONCE IM 07/29/20 12:33 07/29/20 12:36 DC 07/29/20 12:42 20 MG Vital Signs/I&O 07/29/20 07/29/20 07/29/20 07/29/20 12:15 13:16 13:22 13:47 Temp 36.7 36.7 Pulse 123 128 126 121 Resp 26 18 18 B/P (MAP) 129/101 (110) 131/96 121/99 Pulse Ox 94 99 98 O2 Delivery OxyMask Mechanical Ventilator Mechanical Ventilator O2 Flow Rate 10.00 40.00 40.00 FiO2 40 07/29/20 07/29/20 14:10 15:11 Pulse 112 86 B/P (MAP) 120/76 96/71 Capillary Refill : Blood Pressure Mean: 108 Departure Communication (Admissions) Time/Spoke to Admitting Phy: 16:19 Family Conversation NAME: ANA ROSA DANIEL [facility] REC#: [id number] PT STATUS: REG ER : 1955 PHYSICIAN: MATTY ROSENTHAL APRN ADMIT DATE: 07/29/20/ER Draft Date of Exam:07/29/20 CT ANGIO CHST/ABD/PELV W PROCEDURE: CT angiography of the chest with contrast and CT abdomen and pelvis with contrast. TECHNIQUE: Multiple contiguous axial images were obtained through the chest, abdomen and pelvis after administration of intravenous contrast. 3D MIP reconstructed CT angiography acquisitions of the aorta were then performed. Auto Exposure Controls were utilized during the CT exam to meet ALARA standards for radiation dose reduction. INDICATION: Altered mental status. COVID-19 infection in April. Abdominal distention. FINDINGS: CHEST: ET tube has tip at the level of the priscilla and near the left mainstem bronchus. Retraction of approximately 3 cm is recommended. Enteric tube courses through the esophagus and terminates in the mid stomach. No pulmonary emboli. Normal caliber thoracic aorta without dissection. No pleural effusion. No pneumothorax. Consolidations are present in the posterior aspect of both lower lobes, greater on the right. There are some groundglass opacities and interlobular septal thickening in the upper lobes. No concerning focal osseous lesion. ABDOMEN AND PELVIS: No free intraperitoneal air or fluid. Diffuse hypoattenuation of liver is indicative of hepatic steatosis. No focal mass lesion. Cholecystectomy. No biliary duct dilatation. The spleen and pancreas are normal. No adrenal mass. Kidneys enhance symmetrically without mass lesion or obstruction. The urinary bladder is partially filled with a Marshall catheter in place. Appendix is normal. No bowel obstruction or pericolonic inflammatory change. Ectasia of the infrarenal abdominal aorta measuring up to 2.8 cm. No dissection within the abdominal aorta. Grade 1 anterolisthesis of L5 on S1 due to severe facet osteoarthritis. Focal osseous lesions. IMPRESSION: 1. No pulmonary emboli or acute aortic syndrome. 2. ET tube has tip at the level of the priscilla. Recommend 3 cm retraction and follow-up radiograph imaging to confirm adequate position. 3. Bilateral pulmonary consolidations with scattered groundglass opacities. This may be due to sequelae of COVID-19, although superimposed bacterial infection could be present. 4. No obstructive or inflammatory process in the abdomen and pelvis. 5. Diffuse hepatic steatosis. Dictated on workstation # [id number] Dict: 07/29/20 1605 Trans: 07/29/20 1614 [facility] [id number] Interpreted by: GAGAN SMALLS MD Electronically signed by: NAME: ANA ROSA DANIEL [facility] REC#: [id number] PT STATUS: REG ER : 1955 PHYSICIAN: MATTY ROSENTHAL APRN ADMIT DATE: 07/29/20/ER Signed Date of Exam:07/29/20 CT HEAD WO PROCEDURE: CT head without contrast. TECHNIQUE: Multiple contiguous axial images were obtained through the brain without the use of intravenous contrast. Auto Exposure Controls were utilized during the CT exam to meet ALARA standards for radiation dose reduction. INDICATION: Altered mental status. CORRELATION is made with prior head CT from 05/14/2016. Ventricles and sulci appear stable. No sulcal effacement or midline shift is identified. No acute intra-axial or extra-axial hemorrhage is detected. Cisterns are patent. Visualized paranasal sinuses are clear. IMPRESSION: No acute intracranial process is detected. Dictated by: Dictated on workstation # [id number] Dict: 07/29/20 1559 Trans: 07/29/20 1616 [facility] [id number] Interpreted by: REA CRANE MD Electronically signed by: REA CRANE MD 07/29/20 1615 1240-Her oxygen saturation is 95% on 4 L. Heart rate is 130-140. She is afebrile at 97 6. She moves all extremities. 1420-vitals are as follows, heart rate of 103 sinus, SPO2 99% on the ventilator respiratory rate of 18 blood pressure 115/75. Ventilator settings are size 7.5 endotracheal tube 23 cm at the teeth tidal volume of 450 mL PEEP of 7 rate of 1840% FiO2. She is on a propofol drip at 20 mics per kilo per minute, she is on Precedex drip, she is still biting on the tube and attempting to grab at the tube. Gave a 100 mcg push of fentanyl which did help with sedation. I then called pharmacy for a fentanyl drip. Impression Primary Impression: Agitated Delirium Disposition: ADMITTED INPATIENT Condition: Stable Admissions Decision to Admit Reason: Admit from ER (General) Decision to Admit/Date: Jul 29, 2020 Time/Decision to Admit Time: 14:11 Departure-Patient Inst. Referrals: ORENDER,AYLA S DO (PCP/Family) Primary Care Physician MATTY ROSENTHAL GRAIN RO[employer]ER Jul 29, 2020 13:45
[2020-07-29 13:47] LABS: ALLENS TEST YES-POS; INSPIRED O2 40%; VENTILATOR YES
[2020-07-29 13:48] LABS: PATIENT TEMP 36.7
--- NOTE | 2020-07-29 13:51 | NUR ---
Danny solo in EDM - 07/29/20 at 2024 by TETE 1351 5MG VERSED IV PUSH PER PROVIDER VERBAL ORDER.
[2020-07-29 13:54] LABS: AMPHETAMINE SCREEN, URINE NEGATIVE (NEGATIVE); BARBITURATE SCREEN URINE NEGATIVE (NEGATIVE); BENZODIAZEPINES SCREEN URINE POSITIVE (NEGATIVE); CANNABINOID SCREEN, URINE NEGATIVE (NEGATIVE); COCAINE SCREEN URINE NEGATIVE (NEGATIVE); METHADONE STAT NEGATIVE (NEGATIVE); METHAMPHETAMINE SCREEN URINE S NEGATIVE (NEGATIVE); OPIATE SCREEN URINE NEGATIVE (NEGATIVE); OXYCODONE STAT NEGATIVE (NEGATIVE); PROPOXYPHENE STAT NEGATIVE (NEGATIVE); TRICYCLIC ANTIDEPRESSANTS SCRE NEGATIVE (NEGATIVE)
[2020-07-29 13:55] LABS: BACTERIA,URINE NEGATIVE /HPF; SQUAMOUS EPITHELIAL CELL,UR 0-2 /HPF
[2020-07-29] MEDS ORDERED: PROPOFOL DRIP (ICU) 100 ML IV ONE (14:02)
[2020-07-29] MEDS ORDERED: PROPOFOL DRIP (ICU) 100 ML IV SCH (14:15)
--- NOTE | 2020-07-29 14:17 | Diagnostic Imaging Report ---
INDICATION: Shortness of breath, altered mental status, COVID positive. TECHNIQUE: Frontal chest obtained at 01:46 p.m. and compared to 08/21/2018. FINDINGS: ET tube tip is in the lower trachea just above the priscilla. NG tube tip is below the film. Heart is normal in size. There are some patchy infiltrates in the right perihilar region and base as well as some milder infiltrate in the left base. There is no pneumothorax or pleural fluid. IMPRESSION: Patchy bilateral infiltrates, right greater than left, compatible with atypical pneumonia. ET tube and NG tube, as above. Dictated by: Dictated on workstation # [id number]
--- NOTE | 2020-07-29 14:18 | NUR ---
Danny solo in [facility] - 07/29/20 at 2025 by TETE 100MCG FENTANYL PUSH BY MATTY ROSENTHAL, CHICKEN DRESSER
[2020-07-29] MEDS ORDERED: fentaNYL DRIP PRE-MIX 250 ML IV SCH (14:30)
[2020-07-29] MEDS ORDERED: CATHETER FLUSH 10 ML SYR IV PRN (14:30)
[2020-07-29] MEDS ORDERED: IOHEXOL 350 MG/ML 100 ML (OMNIPAQUE 350) VIAL IV ONE (14:30)
[2020-07-29] MEDS ORDERED: HOLD METFORMIN - RECEIVED CONTRAST 20 ML VIAL IV SCH (14:30)
[2020-07-29] MEDS ORDERED: NS 100 ML (IVPB) BAG IV ONE (14:30)
--- NOTE | 2020-07-29 15:00 | NUR ---
Danny solo in EDM - 07/29/20 at 2024 by TETE 50MG ROCURONIUM IV PUSH PER PROVIDER ORDER.
[2020-07-29] MEDS ORDERED: NOREPINEPHRINE 4 MG/250 ML 250 ML IV ONE (15:02)
[2020-07-29 15:11] VITALS: BP 96/71
[2020-07-29 15:20] LABS: FREE T4 (FREE THYROXINE) 1.4 NG/DL (0.70-1.48)
== END 2020-07-29 17:13 | disposition other institution (70) ==
LOC: EDUNIT# 12:19 → ER 12:21
DX: R41.0 Disorientation, unspecified (principal); I10 Essential (primary) hypertension; Z88.5 Allergy status to narcotic agent; Z86.711 Personal history of pulmonary embolism; Z79.01 Long term (current) use of anticoagulants
CPT/HCPCS: 36415; 71045; 80053; 80306; 81000; 82805; 83605; 84439; 84443; 85025; 86141; 87040; 94002

== ENCOUNTER → 2021-06-12 | Outpatient (CLI) | payer BC ==
--- NOTE | 2021-06-12 12:33 | Diagnostic Imaging Report ---
INDICATION: Routine screening. COMPARISON: 06/09/2020 and 06/08/2019. TECHNIQUE: 2D and 3D bilateral screening mammography was performed with CAD. FINDINGS: Numerous intraparenchymal lymph nodes in the outer left breast are again noted. There are scattered benign calcifications. No malignant-appearing microcalcifications are seen. The axillae are unremarkable. IMPRESSION: No mammographic features suspicious for malignancy are identified. ACR BI-RADS Category 2: Benign findings. Result letter will be mailed to the patient. Note: At least 10% of breast cancer is not imaged by mammography. Dictated by: Dictated on workstation # [id number]
== END ==
LOC: RAD 07:30
PROVIDERS: ATTEND Family Medicine
DX: Z12.31 Encounter for screening mammogram for malignant neoplasm of breast (principal)
CPT/HCPCS: 77063; 77067

== ENCOUNTER → 2021-12-29 | Outpatient (CLI) | payer BC ==
--- NOTE | 2021-12-29 11:03 | Diagnostic Imaging Report ---
PROCEDURE: CT right lower extremity without contrast. TECHNIQUE: Axially acquired CT was obtained through the right lower extremity without intravenous contrast. Coronal and sagittal reformations were also performed. Auto Exposure Controls were utilized during the CT exam to meet ALARA standards for radiation dose reduction. INDICATION: Right knee pain, osteoarthritis. COMPARISON: None. FINDINGS: No acute fracture is seen in the right knee. Alignment appears normal. Evaluation is suboptimal without sagittal and coronal reformats, but there is severe degenerative change in the medial compartment and there appears to be at least [id number] degenerative change in the lateral and patellofemoral compartments. There is a small right knee joint effusion. No focal muscular atrophy is seen. Ligaments and menisci are not well evaluated by CT. There are degenerative changes in the right hip and ankle with no acute osseous abnormality identified. There is soft tissue swelling about the right ankle. IMPRESSION: 1. Advanced tricompartmental degenerative change in the right knee. 2. Small right knee joint effusion. Dictated by: Dictated on workstation # [id number]
== END ==
LOC: RAD 09:45
PROVIDERS: ATTEND Orthopaedic Surgery
DX: M17.11 Unilateral primary osteoarthritis, right knee (principal)
CPT/HCPCS: 73700

== ENCOUNTER 2022-01-10 09:44 | Outpatient (CLI) | payer BC ==
[~2022-01-10] VITALS: Ht 172.1 cm; Wt 140.5 kg
[2022-01-10] MEDS ORDERED: SITA25TA5 PO (10:51)
[2022-01-10] MEDS ORDERED: METO-333 PO (10:51)
[2022-01-10 11:57] LABS: BILIRUBIN,URINE NEGATIVE (NEGATIVE); CLARITY,URINE CLEAR; COLOR,URINE YELLOW; GLUCOSE, URINE (UA) NEGATIVE (NEGATIVE); KETONES,URINE NEGATIVE (NEGATIVE); LEUKOCYTE ESTERASE ,URINE NEGATIVE (NEGATIVE); NITRITE,URINE NEGATIVE (NEGATIVE); PROTEIN,URINE NEGATIVE (NEGATIVE)
[2022-01-10 11:57] LABS: BASOPHILS # (AUTO) 0.1 10^3/uL (0.0-0.1); BASOPHILS % (AUTO) 1 % (0-10); EOSINOPHILS # (AUTO) 0.1 10^3/uL (0.0-0.3); EOSINOPHILS % (AUTO) 1 % (0-10); HEMATOCRIT 39 % (35-52); HEMOGLOBIN 12.1 g/dL (11.5-16.0); LYMPHOCYTES # (AUTO) 1.3 10^3/uL (1.0-4.0); LYMPHOCYTES % (AUTO) 13 % (12-44); MEAN CORPUSCULAR HEMOGLOBIN 26 pg (25-34); MEAN CORPUSCULAR HGB CONC 31 g/dL (32-36); MEAN CORPUSCULAR VOLUME 83 fL (80-99); MEAN PLATELET VOLUME 9.6 fL (9.0-12.2); MONOCYTES # (AUTO) 0.5 10^3/uL (0.0-1.0); MONOCYTES % (AUTO) 5 % (0-12); NEUTROPHILS # (AUTO) 7.6 10^3/uL (1.8-7.8); NEUTROPHILS % (AUTO) 79 % (42-75); PLATELET COUNT 309 10^3/uL (130-400); WHITE BLOOD COUNT 9.6 10^3/uL (4.3-11.0)
[2022-01-10 12:04] LABS: ALBUMIN 3.6 GM/DL (3.2-4.5)
[2022-01-10 12:05] LABS: POTASSIUM 3.8 MMOL/L (3.6-5.0)
[2022-01-10 12:06] LABS: BACTERIA,URINE NEGATIVE /HPF
[2022-01-10 12:06] LABS: CALCIUM 9.3 MG/DL (8.5-10.1)
[2022-01-10 12:07] LABS: TOTAL PROTEIN 7.5 GM/DL (6.4-8.2)
[2022-01-10 12:08] LABS: INR 1.2 (0.8-1.4); PROTHROMBIN TIME PATIENT 15.5 SEC (12.2-14.7)
[2022-01-10 12:09] LABS: BILIRUBIN,TOTAL 0.6 MG/DL (0.1-1.0)
[2022-01-10 12:11] LABS: CREATININE SERUM 0.85 MG/DL (0.60-1.30)
[2022-01-10 12:16] LABS: ERYTHROCYTE SEDIMENTATION RATE 72 MM/HR (0-30)
--- NOTE | 2022-01-10 12:20 | Diagnostic Imaging Report ---
INDICATION: Preop for knee replacement surgery. Time of Exam: 11:59 AM Correlation is made with prior chest 01/15/2018. Finding: The heart size is normal. The pulmonary vascularity is unremarkable. The lungs are clear. No infiltrate, effusion or pneumothorax is detected. Impression: No acute cardiopulmonary process is detected. Dictated by: Dictated on workstation # [id number]
[2022-01-10 12:24] VITALS: BP 127/66
== END 2022-01-10 12:56 ==
LOC: PREOP 09:44
PROVIDERS: ATTEND Orthopaedic Surgery
DX: M17.11 Unilateral primary osteoarthritis, right knee (principal); I45.10 Unspecified right bundle-branch block; Z96.651 Presence of right artificial knee joint
CPT/HCPCS: 36415; 71046; 80053; 81000; 82308; 85025; 85610; 85652; 86850; 86900; 86901; 87081; 93005

== ENCOUNTER 2022-01-17 05:52 | Inpatient (IN) | payer BC, MEDICARE ==
--- NOTE | 2022-01-10 08:23 | HISTORY AND PHYSICAL ---
DATE OF SERVICE: ADMISSION HISTORY AND PHYSICAL This will be for inpatient admission on 01/17/2022 for right total knee arthroplasty. The patient will require regular inpatient admission for pain management, need for physical therapy and gait abnormalities. HISTORY OF PRESENT ILLNESS: The patient is a 66-year-old female with progressively worsening right knee pain. Radiographs revealed severe tricompartmental osteoarthritis. She has undergone treatment with injections in the past, but reports activity limitations because of the knee. Due to progressive symptoms and failure to improve with conservative measures, the patient has elected to proceed with surgical intervention. REVIEW OF SYSTEMS: No chest pain, no shortness of breath, no dysuria. PAST MEDICAL HISTORY: Fatigue, hypertension, borderline diabetes, pulmonary embolism, sleep apnea. PAST SURGICAL HISTORY: Left total knee arthroplasty, hemorrhoidectomy, endometrial surgery, bilateral eye. 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 Denies alcohol and tobacco use. PRIMARY CARE PROVIDER: Dr. Jovel. MEDICATIONS: Losartan, joint support, Eliquis, Januvia, metoprolol. ALLERGIES: CODEINE. PHYSICAL EXAMINATION: GENERAL: The patient is a well-developed, well-nourished, in no acute distress. HEENT: Normocephalic, atraumatic. Pupils are equal, round and reactive to light. Oropharynx is clear. NECK: Supple, no lymphadenopathy. LUNGS: Clear to auscultation bilaterally. HEART: Regular rate and rhythm. ABDOMEN: Soft, nontender, nondistended. EXTREMITIES: The right knee demonstrates varus alignment. There is no erythema or warmth. She ambulates with an antalgic gait. She has difficulty getting out of a chair because of the knee range of motion 0/3/100. There is no gross valgus laxity. Negative anterior and posterior drawer. She is tender along the medial femoral condyle. She has pain with patellar loading. IMPRESSION: Severe right knee osteoarthritis, unresponsive to conservative measures. PLAN: Right total knee arthroplasty. The risks, benefits, options, ramifications and recovery were discussed at length with the patient. She understands and wishes to proceed. Job ID: [id number] DocumentID: [id number] Dictated Date: 01/03/2022 15:32:29 Senior Site Manager Date: 01/03/2022 15:42:20 Dictated By: DELVIS ACUÑA MD
[~2022-01-17] VITALS: Ht 172 cm; Wt 140.5 kg
[2022-01-17] VITALS (11 sets, daily range): BP systolic 122–155; BP diastolic 60–96
[~2022-01-17 05:52] MED LIST changes: +METO-333 PO; +SITA25TA5 PO
[2022-01-17] MEDS ORDERED: ONDANSETRON 4 MG/2 ML (SDV) Z0FRAN IVP PRN ×2 (06:45→07:30)
[2022-01-17] MEDS ORDERED: HYDROmorphone 2 MG/ML VIAL (DILAUDID) IV ONE (06:45)
[2022-01-17] MEDS ORDERED: morphine INJ 10 MG/ML 1ML (SYR OR VIAL) IVP ONE (06:45)
[2022-01-17] MEDS ORDERED: LIDOCAINE PF 2% 5 ML (XYLOCAINE) VIAL ONE (06:53)
[2022-01-17] MEDS ORDERED: fentaNYL INJ 100 MCG/2 ML AMP ONE (06:53)
[2022-01-17] MEDS ORDERED: BUPIVACAINE 0.5% 30 ML (SENSORCAINE) VIAL ONE (06:53)
[2022-01-17] MEDS ORDERED: MIDAZOLAM 2 MG/2 ML (VERSED) VIAL ONE (06:53)
[2022-01-17] MEDS ORDERED: CEFUROXIME INJECTION 1,500 MG in NS (IVPB) 50 ML IV ONE (07:00)
[2022-01-17] MEDS ORDERED: LACTATED RINGERS 1,000 ML IV PRN (07:00)
[2022-01-17] MEDS ORDERED: NEOSTIGMINE 3 MG/3 ML VIAL ONE (07:14)
[2022-01-17] MEDS ORDERED: ROCURONIUM 50 MG/5 ML (ZEMURON) VIAL IV ONE (07:14)
[2022-01-17] MEDS ORDERED: proPOfol 200 MG/20 ML (DIPRIVAN) VIAL IV ONE (07:14)
[2022-01-17] MEDS ORDERED: GLYCOPYRROLATE 0.2 MG/ML (ROBINUL) 2 ML VIAL ONE (07:14)
[2022-01-17] MEDS ORDERED: ONDANSETRON 4 MG/2 ML (SDV) Z0FRAN ONE (07:14)
[2022-01-17] MEDS ORDERED: TRANEXAMIC ACID 100 MG/ML 10 ML INJECTION ONE (07:19)
[2022-01-17] MEDS ORDERED: diphenhydrAMINE 50 MG/ML INJ (BENADRYL) IVP PRN (07:30)
[2022-01-17] MEDS ORDERED: morphine PCA 100 MG/100 ML BAG IV PRN (07:30)
[2022-01-17] MEDS ORDERED: NALOXONE 0.4 MG/ML 1 ML (NARCAN) VIAL IV PRN (07:30)
--- NOTE | 2022-01-17 07:36 | Progress Note-Pre Operative ---
Pre-Operative Progress Note H&P Reviewed The H&P was reviewed, patient examined and no changes noted. Date Seen by Provider: Jan 17, 2022 Time Seen by Provider: 07:22 Date H&P Reviewed: Jan 17, 2022 Time H&P Reviewed: 07:11 Pre-Operative Diagnosis: right knee primary osteoarthritis DELVIS ACUÑA MD Jan 17, 2022 07:36
--- NOTE | 2022-01-17 07:37 | Progress Note-Post Operative ---
Post-Operative Progess Note Surgeon (s)/Manager Books (s) Surgeon DELVIS ACUÑA MD Manager Books: Lopez Ansari Pre-Operative Diagnosis right knee primary osteoarthritis Post-Operative Diagnosis right knee primary osteoarthritis Procedure & Operative Findings Date of Procedure 01/17/22 Procedure Performed/Findings right total knee arthroplasty Anesthesia Type GETA Estimated Blood Loss Estimated blood loss (mL): minimal Specimens/Packing Specimens Removed none Packing: none DELVIS ACUÑA MD Jan 17, 2022 07:37
--- NOTE | 2022-01-17 07:39 | D/C HH Face to Face Order ---
D/C Face to Face Orders Reconcile Patient Problems Problems Reviewed?: Yes Instructions for Patient Via [facility], Patient Instructions/FollowUp: three weeks Physician to follow Patient: three weeks Discharge Diet for Home: Regular Diet Patient Data-Allergies,Ht & Wt Patient Allergies: Coded Allergies: codeine (Verified Allergy, Mild, N/V, 11/02/19) Height (Feet): 5 Height (Inches): 8.00 Weight (Pounds): 294 Weight (Ounces): 0.6 Home Health Need/Face to Face Date of Face to Face: Jan 17, 2022 Clinical Findings: Pain with ambulation, Unsteady gait I have seen Pt [id number]: Yes Discharged To: Home Diagnosis/Conditions: right total knee arthroplasty Patient is Homebound due to: Muscle weakness, Pain w/ambulation Homebound Status Due to the above stated illness, injury or surgical procedure (medical condition or diagnosis) and associated clinical findings, the patient is homebound because of his/her inability to leave home except with aid of a supportive device and/or person AND leaving the home requires a considerable and taxing effort or is medically contraindicated. Pt req the following assistanc: Walker Home Health Nursing Orders Home Health Services Order: Physical Therapy-Evaluate & Treat DC right knee ashley and apply steri strips 01/31/22 Home Health Infusion Therapy Line Start Date: Jan 17, 2022 Therapy Orders Therapy Orders: Physical Therapy, PT to assess for OT Therapy Specific Orders: Eval assistive deivces, Teach enviro modifications/safety, Gait training, Increase strength/endurance, Provider maintenance therapy, Restore ROM Certify Stmt I certify that this patient is under my care and that I, a nurse practitioner or a physician; a events administrative assistant working with me, had a face to face encounter that - meets the physician face to face encounter requirements with this patient as dated. DELVIS ACUÑA MD Jan 17, 2022 07:39
[2022-01-17] MEDS ORDERED: INTRA-ARTICULAR IU ONE ×5 (08:00)
[2022-01-17] MEDS ORDERED: HYDROmorphone 2 MG/ML VIAL (DILAUDID) ONE (09:12)
[2022-01-17] MEDS ORDERED: SEVOFLURANE (ULTANE) 15 ML INHAL SOLN ONE (09:29)
--- NOTE | 2022-01-17 09:46 | Diagnostic Imaging Report ---
INDICATION: Osteoarthritis. 2 views were obtained. FINDINGS: There are postsurgical changes of changes of a right knee arthroplasty. The hardware is in satisfactory position. There is no loosening. There is fracture or dislocation. IMPRESSION: Stable postsurgical changes of a right knee arthroplasty Dictated by: Dictated on workstation # [id number]
--- NOTE | 2022-01-17 11:56 | Progress Note ---
Standard Progress Note Progress Notes/Assess & Plan Date Seen by a Provider: Jan 17, 2022 Time Seen by a Provider: 11:54 Progress/Assessment & Plan post op check no complaints Radiographs--HW well positioned without fracture RLE--2 plus DP pulse with brisck cap refill intact DF and PF of toes and ankle intact sensation to light touch throughout s/p RTKA mobilize as able DELVIS ACUÑA MD Jan 17, 2022 11:56
--- NOTE | 2022-01-17 13:56 | Physical Therapy Evaluation ---
PT Evaluation-General Medical Diagnosis Admission Date Jan 17, 2022 at 05:52 Medical Diagnosis: right TKA Onset Date: Jan 17, 2022 Therapy Diagnosis Therapy Diagnosis: impaired mobility, ROM Height/Weight Height (Feet): 5 Height (Inches): 8.00 Weight (Pounds): 294 Weight (Ounces): 0.6 Weight Bear Status Right Lower Extremity: Right Weight Bearing/Tolerated Referral Physician: Elan Reason for Referral: Evaluation/Treatment Medical History Pertinent Medical History: HTN Additional Medical History PAST MEDICAL HISTORY: Fatigue, hypertension, borderline diabetes, pulmonary embolism, sleep apnea. PAST SURGICAL HISTORY: Left total knee arthroplasty, hemorrhoidectomy, endometrial surgery, bilateral eye. Reviewed History: Yes Social History Home: Single Level Current Living Status: Alone Entry Into Home: Stairs With Railing PT Steps Into Home: 3 Prior Prior Level of Function SCALE: Activities may be completed with or without assistive devices. 8-Sbwzvqacih-tavkazu completes the activity by him/herself with no assistance from a helper. 5-Set-up or Clean-up Assistance-helper sets up or cleans up; patient completes activity. [place] assists only prior to or following the activity. 4-Supervision or Touching Assistance-helper provides verbal cues and/or touching/steadying and/or contact guard assistance as patient completes activity. Assistance may be provided throughout the activity or intermittently. 3-Partial/Moderate Assistance-helper does LESS THAN HALF the effort. [place] lifts, holds or supports trunk or limbs, but provides less than half the effort. 2-Substantial/Maximal Assistance-helper does MORE THAN HALF the effort. [place] lifts or holds trunk or limbs and provides more than half the effort. 8-Vkdsbzgdj-zkjxma does ALL the effort. Patient does none of the effort to complete the activity. Or, the assistance of 2 or more helpers is required for the patient to complete the activity. If activity was not attempted, code reason: 7-Patient Refused. 9-Not Applicable-not attempted and the patient did not perform the activity before the current illness, exacerbation or injury. 10-Not Attempted due to Environmental Limitations-(lack of equipment, weather restraints, etc.). 88-Not Attempted due to Medical Conditions or Safety Concerns. Bed Mobility: 6 Transfers (B,C,W/C): 6 Gait: 6 Stairs: 6 Indoor Mobility (Ambulation): Independent Stairs: Independent PT Evaluation-Current Subjective Patient in bed pre tx, agrees to PT, has no complaints of pain. Pt/Family Goals to be independent at home Objective Patient Orientation: Person, Place, Situation Attachments: IV ROM/Strength ROM Lower Extremities right knee extension +20 degrees, flexion 75 degrees Sensory Hearing: Functional Sensation Right Lower Extremit: Intact Sensation Left Lower Extremity: Intact Transfers Roll Left to Right (QC): 6 Lying to Sitting/Side of Bed(Q: 3 Sit to Stand (QC): 3 Chair/Zln-ay-Daeue Xfer(QC): 4 Toilet Transfer (QC): 4 Patient reported some dizziness with supine to sit but cleared up with a moment of rest. Gait Does the Patient Walk?: Yes Mode of Locomotion: Walk Anticipated Mode of Locomotion: Walk Walk 10 feet (QC): 4 Distance: 10'x2 Gait Assistive Device: FWW Comments/Gait Description Patient ambulated from the bed to the restroom to the toilet and then back to h er recliner. Gait is slow and antalgic but no knee buckling. Balance Sitting Static: Normal Sitting Dynamic: Normal Standing Static: Good Standing Dynamic: Good Treatment RLE total knee protocol x10 (AP, QS, HS, SAQ, SLR) Assessment/Needs Patient in recliner post tx with nurse call, phone, tray, legs elevated, encouraged patient to perform QS to improve knee extension. Patient has impaired mobility and ROM. She needs some assist for supine to sit and sit to stand, especially from lower surfaces. Rehab Potential: Fair PT Fdc Goals Dispute Coordinator Goals PT Dispute Coordinator Goals Time Frame: Jan 24, 2022 Roll Left & Right (QC): 6 Sit to Lying (QC): 6 Lying-Sitting on Side/Bed(QC): 6 Sit to Stand (QC): 6 Chair/Mnm-tm-Awdva Xfer(QC): 6 Walk 10 feet (QC): 6 Walk 50ft with 2 Turns (QC): 6 Walk 150 ft (QC): 6 1 Step (curb) (QC): 4 4 Steps (QC): 4 PT Plan Problem List Problem List: Activity Tolerance, Functional Strength, Safety, Balance, Gait, Transfer, Bed Mobility, ROM Treatment/Plan Treatment Plan: Continue Plan of Care Treatment Plan: Bed Mobility, Education, Functional Activity Karen, Functional Strength, Gait, Safety, Therapeutic Exercise, Transfers Treatment Duration: Jan 24, 2022 Frequency: 11 times per week Estimated Hrs Per Day: .25 hour per day Patient and/or Family Agrees t: Yes Safety Risks/Education Patient Education: Gait Training, Transfer Techniques, Correct Positioning, Safety Issues Teaching Recipient: Patient Teaching Methods: Demonstration, Discussion Response to Teaching: Reinforcement Needed Discharge Recommendations Plan Patient will perform bed mobility and transfer training, balance and endurance training, functional strengthening, stair training, gait training, and education, to improve functional mobility and independence at home. Therapy Discharge Recommendati: Home & Family, Post Acute PT Time/GCodes Time In: 1305 Time Out: 1328 Total Billed Treatment Time: 23 Total Billed Treatment 1 visit EVL 10' FA 13' ISAREL SEQUEIRA PT Jan 17, 2022 13:56
[2022-01-17] MEDS: NS IV 1000 ML 1,000 ML IV SCH ×2 (15:44→22:48)
[2022-01-17] MEDS: CEFUROXIME INJECTION 750 MG in NS (IVPB) 50 ML IV SCH (15:44)
--- NOTE | 2022-01-17 15:57 | OPERATIVE REPORT ---
DATE OF SERVICE: 01/17/2022 PREOPERATIVE DIAGNOSIS: Right knee primary osteoarthritis. POSTOPERATIVE DIAGNOSIS: Right knee primary osteoarthritis. PROCEDURE: Right total knee arthroplasty. SURGEON: Brian Acuña MD FINANCE ANALYST: Lopez Ansari, who assisted throughout the procedure and closed the incision. ANESTHESIA: General endotracheal by Dr. Luke. TOURNIQUET TIME: Approximately 70 minutes at 300 mmHg. ESTIMATED BLOOD LOSS: Minimal. DRAINS: None. COMPLICATIONS: None. POSTOPERATIVE PLAN: Routine protocol. The patient was transferred to the recovery room awake and in stable condition. MATERIALS: Microport cemented size 4 femur, cemented size 4 tibia with 12 mm insert and cemented size 29 patellar button. STATEMENT OF MEDICAL NECESSITY: The patient is a 66-year-old female with longstanding right knee pain. Radiographs revealed severe tricompartmental osteoarthritis. She has undergone treatment with injections and anti-inflammatories without relief. Due to functional impairment and failure to improve with conservative measures, the patient elected to proceed with surgical intervention. DESCRIPTION OF PROCEDURE: After risks and benefits of procedure were discussed and questions were answered, an informed consent was signed and placed on chart, the operative site was confirmed and prepped in normal initialed by the surgeon. The patient was then transferred to the operating room. After adequate levels of general endotracheal anesthetic were obtained, a timeout was called, confirming the operative site. The right lower extremity was prepped and draped in the usual sterile fashion with the leg elevated and the knee flexed, tourniquet was inflated to 300 mmHg. Standard anterior approach was utilized. Hemostasis was obtained with cautery. Medial parapatellar arthrotomy was performed leaving 1 cm cuff on the patella for later reattachment. A portion of the fat pad was resected and subperiosteal release was performed on the proximal medial tibia being careful to stay on the bony surface. The ACL was resected. The custom cutting block was placed distally. This was pinned into position. The distal cut was made, and the size 4 cutting block was placed. Cuts were then made from posterior to anterior. Subperiosteal release was then carefully performed on the posterior distal femur, being careful stay on the bony surface. The tibial guide was placed that had been custom prepared. This was pinned into position, felt to be in excellent position. The drop therese transected the intermalleolar axis and the cut was made. The baseplate was placed in the previously placed guide holes. Again, the drop therese transected the intermalleolar axis. This was prepared with the drill and keel punch, the femoral trial was placed and trochlear cut was made, 12 mm insert was placed. The patella was then prepared by resecting 10 mm off the undersurface. The peg guide was placed, and the peg holes were drilled. A 29 trial was placed. The knee was taken through range of motion. Full extension was easily obtained, 120 degrees of flexion with gravity was easily obtained. There was no anterior/posterior or medial/lateral laxity in flexion or extension. The patella tracked well. The trials were removed. The joint was irrigated with pulse lavage. The periarticular block was placed in the posterior capsule, medial and lateral retinaculum extensor mechanism and subcutaneous tissues. The bone ends were irrigated and dried and the tibial baseplate was cemented into position. Excessive cement was removed, the superior surface was irrigated and dried and the polyethylene insert was placed. The distal femur was irrigated and dried and the femoral prosthesis was cemented into position. Excessive cement was removed and the knee was brought into full extension until cement had cured. The undersurface of patella was irrigated and dried. The patellar button was cemented into position. Once the cement had cured, the knee was taken through full range of motion. Full extension was easily obtained, 120 degrees of flexion with gravity was easily obtained. There was no anterior/posterior or medial/lateral laxity in flexion or extension. The patella tracked well. The joint was further irrigated with pulse lavage. The arthrotomy was closed with #2 [place] in ssaaif-nk-qpdti interrupted fashion. Knee was flexed. Patella tracked well with no undue tension at the repair site. Subcutaneous tissues were irrigated using a total of 6 liters throughout the procedure. A 0 Vicryl was used for the deep subcutaneous layer, 2-0 Vicryl for the superficial subcutaneous layer, ashley used on the skin. A soft dressing was applied. The tourniquet was deflated, and the patient was transferred to the recovery room awake and in stable condition. Job ID: [id number] DocumentID: [id number] Dictated Date: 01/17/2022 09:23:44 Facilities Administrator Date: 01/17/2022 15:55:54 Dictated By: BRIAN ACUÑA MD
--- NOTE | 2022-01-17 17:52 | Consultation ---
History of Present Illness History of Present Illness Patient Consulted On(pj/time) 01/17/22 17:47 Date Seen by Provider: Jan 17, 2022 Time Seen by Provider: 12:45 History of Present Illness This is a 66 year old female with a known history of right knee osteoarthritis who underwent right TKA today by Dr. Morelos. I follow her for HTN, DMII, Chronic Renal Insufficiency and History of DVTs. I am asked to consult postoperatively for medical management. She is currently resting in bed with pain well controlled. Allergies and Home Medications Allergies Coded Allergies: codeine (Verified Allergy, Mild, N/V, 11/02/19) Patient Home Medication List Home Medication List Reviewed: Yes Apixaban (Eliquis) 5 Mg Tablet, 5 MG PO BID, (Reported) Entered as Reported by: TAL RAMOS on 01/21/19 1243 Last Action: Last Taken Edited Cetirizine HCl (Zyrtec) 10 Mg Tablet, 10 MG PO HS PRN for ITCH/RASH, (Reported) Entered as Reported by: PANKAJ POTTS on 08/21/18 1132 Glucosam/Chond/Hyalu/Cf Borate (Move Free Joint Health Tablet) 1 Each Tablet, 1 TAB PO HS, (Reported) Entered as Reported by: PANKAJ POTTS on 08/21/18 1132 Last Action: Last Taken Edited Losartan/Hydrochlorothiazide (Losartan-Hctz 100-12.5 mg Tab) 1 Each Tablet, 1 EACH PO DAILY, (Reported) Entered as Reported by: TAL RAMOS on 12/08/18 1440 Last Action: Last Taken Edited Metoprolol Tartrate (Metoprolol Tartrate) 25 Mg Tablet, 25 MG PO DAILY, (Reported) Entered as Reported by: ERNST LUU on 01/10/22 1051 Last Action: Last Taken Edited Multivitamin (Multi-Vitamin Daily) 1 Each Tablet, 1 EACH PO HS, (Reported) Entered as Reported by: TAL RAMOS on 01/21/19 1243 Last Action: Last Taken Edited Sitagliptin Phosphate (Januvia) 25 Mg Tablet, 25 MG PO DAILY, (Reported) Entered as Reported by: ERNST LUU on 01/10/22 1051 Last Action: Last Taken Edited Discontinued Medications Cholecalciferol (Vitamin D3) (Vitamin D3) 2,000 Unit Tab.chew, 2,000 UNIT PO DAILY, (Reported) Discontinued Reason: No Longer Taking Entered as Reported by: TAL RAMOS on 11/02/19 1032 Past Ysgftas-Zmdxxl-Zekork Hx Patient Social History Marrital Status: 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: employed Tobacco Use?: No Substance use?: No Alcohol Use?: No Pt feels they are or have been: No Immunizations Up To Date Date of Influenza Vaccine: Apr 25, 2021 First/Initial COVID19 Vaccinat: 2020 Second COVID19 Vaccination Pj: 2020 Tetanus Booster (TDap): Unknown Date of Pneumonia Vaccine: May 19, 2016 Seasonal Allergies Seasonal Allergies: Yes Current Status status: No status: No Primary Language: Com[place]an Preferred Spoken Language: Com[place]an Is interpretation needed?: No Sensory deficits: Vision impairment Past Medical History Surgeries: Orthopedic Pulmonary Embolism, Sleep Apnea Currently Using CPAP: No (has cpap-currently not using) Currently Using BIPAP: No Hypertension Sexually Transmitted Disease: No Hemorrhoids, Chronic Diarrhea, C-Diff Arthritis Diabetes, Non-Insulin dep Loss of Vision: Bilateral Hearing Impairment: Denies Eczema Blood Disorders: Yes (HX OF BLOOD CLOTS) Adverse Reaction/Blood Tranf: No (N/A) Family Medical History No Pertinent Family Hx Review of Systems Review of Systems General: No Chills, No Night Sweats, No Fatigue, No Malaise, No Appetite, No Ot her HEENT: No Head Aches, No Visual Changes, No Eye Pain, No Ear Pain, No Dysphasia, No Sinus Congestion, No Post Nasal Drip, No Sore Throat, No Other Pulmonary: No Dyspnea, No Cough, No Pleuritic Chest Pain, No Other Cardiovascular: Edema Gastrointestinal: No: Nausea, Vomiting, Abdominal Pain, Diarrhea, Constipation, Melena, Hematochezia, Other Genitourinary: No Dysuria, No Frequency, No Incontinence, No Hematuria, No Retention, No Other Musculoskeletal: leg pain (right knee) Neurological: No: Weakness, Numbness, Incoordination, Change in speech, Confusion, Seizures, Other Physical Exam Vital Signs Vital Signs - First Documented 01/17/22 06:35 Temp 37.1 Pulse 85 Resp 20 B/P (MAP) 147/96 (113) Pulse Ox 95 O2 Delivery Room Air Capillary Refill : Less Than 3 Seconds Height, Weight, BMI Height: 5'8.00" Weight: 294lbs. 0.6oz. 133.847479oh; 47.49 BMI Method:Stated General Appearance: No Apparent Distress Neck: Supple Respiratory: Lungs Clear Cardiovascular: Regular Rate, Rhythm, Systolic Murmur Gastrointestinal: Normal Bowel Sounds, Non Tender, Soft Rectal: Deferred Back: No CVA Tenderness Extremity: Non Tender, No Calf Tenderness, Pedal Edema (RUFINA hose in place) Neurologic/Psychiatric: Alert, Oriented x3 Skin: Warm/Dry Comments Laboratory Tests 01/17/22 06:47: Glucometer 111H Assessment/Plan Assessment/Plan Admission Dx 1. Right Knee OA--S/P right TKA--pain control, lovenox for DVT prophylaxis, start PT/OT 2. Hypertension--Restart metoprolol ER 25mg po q HS and Hyzaar 100/25mg po q AM 3. Chronic Renal Insufficiency--hydate and monitor BUN/Cr 4. DMII--start accuchecks AC and HS with SSI and start AYLA Chaves DO Jan 17, 2022 17:52
[2022-01-17] MEDS: SENNA W/DOCUSATE (SENOKOT S) TABLET PO SCH ×2 (21:46→21:48)
[2022-01-17] MEDS: inSUlin ASPART (NovoLOG) 1 UNIT/0.01 ML (CHARGE PER UNIT) SC SCH (21:47)
[2022-01-18] VITALS (7 sets, daily range): BP systolic 96–149; BP diastolic 58–85
[2022-01-18] MEDS: CEFUROXIME INJECTION 750 MG in NS (IVPB) 50 ML IV SCH (00:25)
[2022-01-18] MEDS: NS IV 1000 ML 1,000 ML IV SCH ×2 (02:29→20:55)
[2022-01-18] MEDS: inSUlin ASPART (NovoLOG) 1 UNIT/0.01 ML (CHARGE PER UNIT) SC SCH ×4 (05:59→20:31)
[2022-01-18] MEDS ORDERED: MULTIVIT W/MINERALS TAB (THERAGRAN M) PO SCH (07:00)
[2022-01-18 07:30] LABS: HEMOGLOBIN 10.7 g/dL (11.5-16.0)
--- NOTE | 2022-01-18 07:45 | Progress Note ---
Standard Progress Note Progress Notes/Assess & Plan Date Seen by a Provider: Jan 18, 2022 Time Seen by a Provider: 07:45 Progress/Assessment & Plan post op check no complaints Radiographs--HW well positioned without fracture RLE--2 plus DP pulse with brisck cap refill intact DF and PF of toes and ankle intact sensation to light touch throughout s/p RTKA mobilize as able Final Diagnosis no complaints Vital Signs Date Time Temp Pulse Resp B/P (MAP) Pulse Ox O2 Delivery O2 Flow Rate FiO2 01/18/22 04:47 37.6 71 20 129/80 (96) 94 2.00 01/18/22 00:59 37.1 74 20 149/85 (106) 93 2.00 01/17/22 20:55 95 Nasal Cannula 2.00 01/17/22 19:53 36.2 65 20 135/70 (91) 95 Room Air 01/17/22 15:27 35.5 62 20 122/60 (80) 92 Room Air 01/17/22 11:10 35.8 67 18 136/79 (98) 90 Room Air 01/17/22 10:20 Room Air 01/17/22 10:20 36.6 18 132/75 (94) 93 Room Air 01/17/22 10:10 Room Air 01/17/22 10:10 18 140/75 (96) 96 Room Air 01/17/22 10:00 18 136/76 (96) 98 OxyMask 4 01/17/22 10:00 OxyMask 4 01/17/22 09:50 18 138/67 (90) 99 OxyMask 8 01/17/22 09:50 OxyMask 8 01/17/22 09:40 OxyMask 8 01/17/22 09:40 20 140/71 (94) 98 OxyMask 8 01/17/22 09:30 20 151/69 (96) 97 OxyMask 8 01/17/22 09:30 OxyMask 8 01/17/22 09:21 36.5 20 155/73 (100) 96 OxyMask 8 01/17/22 09:21 OxyMask 8 I & O 01/18/22 07:00 Intake Total 1630 ml Output Total 400 ml Balance 1230 ml Laboratory Tests Test 01/17/22 20:10 01/18/22 05:58 01/18/22 07:17 Range/Units Glucometer 99 121 H 70-110 MG/DL Hemoglobin 10.7 L 11.5-16.0 g/dL Hematocrit 35 35-52 % RLE--NVI distally no calf tenderness neg Tiffanie''s s/p RTKA PT/OT DELVIS ACUÑA MD Jan 18, 2022 07:45
[2022-01-18] MEDS: oxyCODONE/APAP 5/325MG (PERCOCET 5) TABLET PO PRN ×4 (08:25→19:19)
[2022-01-18] MEDS: ENOXAPARIN INJECTION 30 MG/0.3 ML SYR SC SCH ×2 (09:08→20:31)
[2022-01-18] MEDS: ASPIRIN E.C. 81 MG (ECOTRIN) TAB PO SCH (09:08)
[2022-01-18] MEDS: LOSARTAN 100 MG (COZAAR) TABLET PO SCH (09:08)
[2022-01-18] MEDS: SENNA W/DOCUSATE (SENOKOT S) TABLET PO SCH ×2 (09:08→20:30)
--- NOTE | 2022-01-18 09:39 | Physical Therapy Daily Note ---
PT Daily Note-Current Subjective Patient agrees to PT. Pain Numeric Pain Scale: 8 Location: Right Location Body Site: Knee Pain Description: Acute Mental Status Patient Orientation: Normal For Age Attachments: Oxygen, IV Transfers SCALE: Activities may be completed with or without assistive devices. 1-Cxwqckflie-tzpkcfp completes the activity by him/herself with no assistance from a helper. 5-Set-up or Clean-up Assistance-helper sets up or cleans up; patient completes activity. [place] assists only prior to or following the activity. 4-Supervision or Touching Assistance-helper provides verbal cues and/or touching/steadying and/or contact guard assistance as patient completes activity. Assistance may be provided throughout the activity or intermittently. 3-Partial/Moderate Assistance-helper does LESS THAN HALF the effort. [place] lifts, holds or supports trunk or limbs, but provides less than half the effort. 2-Substantial/Maximal Assistance-helper does MORE THAN HALF the effort. [place] lifts or holds trunk or limbs and provides more than half the effort. 0-Ejgzlhgxy-orgzgn does ALL the effort. Patient does none of the effort to compl ete the activity. Or, the assistance of 2 or more helpers is required for the patient to complete the activity. If activity was not attempted, code reason: 7-Patient Refused. 9-Not Applicable-not attempted and the patient did not perform the activity before the current illness, exacerbation or injury. 10-Not Attempted due to Environmental Limitations-(lack of equipment, weather restraints, etc.). 88-Not Attempted due to Medical Conditions or Safety Concerns. Lying to Sitting/Side of Bed(Q: 4 Sit to Stand (QC): 4 Chair/Ytl-st-Tcwco Xfer(QC): 4 Weight Bearing Right Lower Extremity: Right Weight Bearing/Tolerated Gait Training Distance: 175' Walk 10 feet (QC): 4 Walk 50 ft with 2 Turns(QC): 4 Walk 150 ft (QC): 4 Gait Assistive Device: FWW slow, antalgic Exercises Supine Ex: Ankle pumps, Quad Set, Heel Slides, Straight leg raise Supine Reps: 15 (AAROM) Seated Therapy Exercises: Long arc quads Seated Reps: 15 Assessment Patient right knee extension improved on this date. Patient requires time to complete all tasks. Patient up in recliner with breakfast in situ. PT encouraged patient to perform exercises PRN. PT Assisted Goals Derrick Operator Goals PT Derrick Operator Goals Time Frame: Jan 24, 2022 Roll Left & Right (QC): 6 Sit to Lying (QC): 6 Lying-Sitting on Side/Bed(QC): 6 Sit to Stand (QC): 6 Chair/Min-ys-Itnuf Xfer(QC): 6 Walk 10 feet (QC): 6 Walk 50ft with 2 Turns (QC): 6 Walk 150 ft (QC): 6 1 Step (curb) (QC): 4 4 Steps (QC): 4 PT Plan Treatment/Plan Treatment Plan: Continue Plan of Care Treatment Plan: Bed Mobility, Education, Functional Activity Karen, Functional Strength, Gait, Safety, Therapeutic Exercise, Transfers Treatment Duration: Jan 24, 2022 Frequency: 11 times per week Estimated Hrs Per Day: .25 hour per day Patient and/or Family Agrees t: Yes Time/GCodes Time In: 810 Time Out: 836 Total Billed Treatment Time: 26 Total Billed Treatment 1 visit EX 12 min GT 14 min NUPUR MULLIGAN PT Jan 18, 2022 09:39
--- NOTE | 2022-01-18 09:51 | Occupational Therapy Eval ---
OT Evaluation-General/PLF Medical Diagnosis Admission Date Jan 17, 2022 at 05:52 Medical Diagnosis: right TKA Onset Date: Jan 17, 2022 Therapy Diagnosis Therapy Diagnosis: reduced adl status Height/Weight Height (Feet): 5 Height (Inches): 8.00 Weight (Pounds): 294 Weight (Ounces): 0.6 Precautions Precautions/Isolations: Fall Prevention, Standard Precautions Weight Bear Status Weight Bearing Restriction: Weight Bearing/Tolerated Location Restriction: R LE Referral Physician: Elan Referral Reason: Evaluation/Treatment Medical History Pertinent Medical History: DM, HTN Additional Medical History PE Current History post op day 1, s/p R TKA Per patient, she lives alone in a multilevel home. All needs are met on main level. Pt states she was indep with adls and iadls prior to surgery. 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 Pt was not using any AD prior to admission. Reviewed History: Yes Social History Home: Multilevel Current Living Status: Alone Entry Into Home: Stairs With Railing Steps Into Home: 3 ADL-Prior Level of Function SCALE: Activities may be completed with or without assistive devices. 6-Fmfscajtts-vlxkick completes the activity by him/herself with no assistance from a helper. 5-Set-up or Clean-up Assistance-helper sets up or cleans up; patient completes activity. [place] assists only prior to or following the activity. 4-Supervision or Touching Assistance-helper provides verbal cues and/or touching/steadying and/or contact guard assistance as patient completes activity. Assistance may be provided throughout the activity or intermittently. 3-Partial/Moderate Assistance-helper does LESS THAN HALF the effort. [place] lifts, holds or supports trunk or limbs, but provides less than half the effort. 2-Substantial/Maximal Assistance-helper does MORE THAN HALF the effort. [place] lifts or holds trunk or limbs and provides more than half the effort. 9-Onvmutkuf-zvvcin does ALL the effort. Patient does none of the effort to complete the activity. Or, the assistance of 2 or more helpers is required for the patient to complete the activity. If activity was not attempted, code reason: 7-Patient Refused. 9-Not Applicable-not attempted and the patient did not perform the activity before the current illness, exacerbation or injury. 10-Not Attempted due to Environmental Limitations-(lack of equipment, weather restraints, etc.). 88-Not Attempted due to Medical Conditions or Safety Concerns. Self Care: Independent Functional Cognition: Independent DME/Equipment: Bath Bench, Shower Drive Self: Yes OT Current Status Subjective Pt reports 6/10 pain in thigh/knee. Pain meds given during treatment. Appearance Pt left sitting in recliner, all needs within reach. Mental Status/Objective Patient Orientation: Person, Place, Situation Attachments: IV, Oxygen Current Glasses/Contacts: Yes Hearing Aids: No Dentures/Partials: No Hand Dominance: Right Upper Extremity ROM WNL Upper Extremity Strength WFL ADL-Treatment Eating (QC): 6 Oral Hygiene (QC): 4 On/Off Footwear (QC): 1 Toileting Hygiene (QC): 4 Pt sitting in recliner at OT arrival. Several attempts to stand, max a needed for lifting from low surface. Once upright, pt is CGA. She was able to ambulate to/from bathroom with use of walker, slow but steady gait. OT placed commode over toilet for increased height. With use of grab bars, pt was able to lower/stand with CGA from heighten surface. She stood to perform kaelyn care with steadying assist. No clothing management performed as pt only wearing gown. At this time, pt likely needing steadying assist when pulling clothing up over hips. Education OT Patient Education: Correct positioning, Purpose of tx/functional activities, Reviewed precautions, Safety issues, Transfer techniques Teaching Recipient: Patient Teaching Methods: Demonstration, Discussion Response to Teaching: Verbalize Understanding, Return Demonstration, Reinforcement Needed OT People Greeter Goals Custodial Goals Time Frame: Jan 27, 2022 Oral Hygiene (QC): 6 Toileting Hygiene (QC): 6 Shower/Bathe Self (QC): 4 Upper Body Dressing (QC): 6 Lower Body Dressing (QC): 4 On/Off Footwear (QC): 4 1=Demonstrate adherence to instructed precautions during ADL tasks. 2=Patient will verbalize/demonstrate understanding of assistive devices/modifications for ADL. 3=Patient will improve strength/tolerance for activity to enable patient to perform ADL's. OT Education/Plan Problem List/Assessment Assessment: Decreased Activ Tolerance, Impaired Funct Balance, Impaired I ADL's, Impaired Self-Care Skills Discharge Recommendations Plan/Recommendations: Continue POC Target Placement ongoing assessment pt likely needing home health pending progress Treatment Plan/Plan of Care Treatment,Training & Education: Yes Patient would benefit from OT for education, treatment and training to promote independence in ADL's, mobility, safety and/or upper extremity function for ADL's. Plan of Care: ADL Retraining, Functional Mobility, Group Exercise/Act as Ind, UE Funct Exercise/Act Treatment Duration: Jan 27, 2022 Frequency: 5 times per week Estimated Hrs Per Day: .25 hour per day Agreement: Yes Rehab Potential: Fair Time/GCodes Start Time: 09:04 Stop Time: 09:28 Total Time Billed (hr/min): 24 Billed Treatment Time 1 visit EVM (10 min) ADL (14 min) Lisa Childs OT Jan 18, 2022 09:51
--- NOTE | 2022-01-18 11:33 | Anesthesia-General Post-Op ---
General Patient Condition Mental Status/LOC: Same as Preop Cardiovascular: Satisfactory Nausea/Vomiting: Absent Respiratory: Satisfactory Pain: Controlled Complications: Absent Post Op Complications Complications None Follow Up Care/Instructions Patient Instructions None needed. Anesthesia/Patient Condition Patient Condition Patient is doing well, no complaints, stable vital signs, no apparent adverse anesthesia problems. No complications reported per nursing. KWESI ALLEN CRNA Jan 18, 2022 11:33
--- NOTE | 2022-01-18 14:19 | Physical Therapy Daily Note ---
PT Daily Note-Current Subjective Patient agrees to PT. Pain Numeric Pain Scale: 7 Location: Right Location Body Site: Knee Pain Description: Acute Mental Status Patient Orientation: Normal For Age Attachments: IV Transfers SCALE: Activities may be completed with or without assistive devices. 8-Xzeddaudfz-sxfxxwj completes the activity by him/herself with no assistance from a helper. 5-Set-up or Clean-up Assistance-helper sets up or cleans up; patient completes activity. [place] assists only prior to or following the activity. 4-Supervision or Touching Assistance-helper provides verbal cues and/or touching/steadying and/or contact guard assistance as patient completes activity. Assistance may be provided throughout the activity or intermittently. 3-Partial/Moderate Assistance-helper does LESS THAN HALF the effort. [place] lifts, holds or supports trunk or limbs, but provides less than half the effort. 2-Substantial/Maximal Assistance-helper does MORE THAN HALF the effort. [place] lifts or holds trunk or limbs and provides more than half the effort. 0-Mcazbitzz-ubsskt does ALL the effort. Patient does none of the effort to complete the activity. Or, the assistance of 2 or more helpers is required for the patient to complete the activity. If activity was not attempted, code reason: 7-Patient Refused. 9-Not Applicable-not attempted and the patient did not perform the activity before the current illness, exacerbation or injury. 10-Not Attempted due to Environmental Limitations-(lack of equipment, weather restraints, etc.). 88-Not Attempted due to Medical Conditions or Safety Concerns. Sit to Lying (QC): 6 Sit to Stand (QC): 4 Chair/Lfz-kz-Mokvi Xfer(QC): 4 Weight Bearing Right Lower Extremity: Right Weight Bearing/Tolerated Gait Training Distance: 275' Walk 10 feet (QC): 4 Walk 50 ft with 2 Turns(QC): 4 Walk 150 ft (QC): 4 Gait Assistive Device: FWW slow, steady antalgic gait Exercises Supine Ex: Ankle pumps, Quad Set, Heel Slides, Straight leg raise Supine Reps: 15 Seated Therapy Exercises: Long arc quads Seated Reps: 15 Assessment Current Status: Excellent Progress Patient improving slowly with AROM right knee flexion. Patient does appear to self limit due to pain. Increase activity as tolerated by patient. PT Frontload Driver Goals Senior Living Goals PT Senior Living Goals Time Frame: Jan 24, 2022 Roll Left & Right (QC): 6 Sit to Lying (QC): 6 Lying-Sitting on Side/Bed(QC): 6 Sit to Stand (QC): 6 Chair/Mol-sh-Qgxtn Xfer(QC): 6 Walk 10 feet (QC): 6 Walk 50ft with 2 Turns (QC): 6 Walk 150 ft (QC): 6 1 Step (curb) (QC): 4 4 Steps (QC): 4 PT Plan Treatment/Plan Treatment Plan: Continue Plan of Care Treatment Plan: Bed Mobility, Education, Functional Activity Karen, Functional Strength, Gait, Safety, Therapeutic Exercise, Transfers Treatment Duration: Jan 24, 2022 Frequency: 11 times per week Estimated Hrs Per Day: .25 hour per day Patient and/or Family Agrees t: Yes Time/GCodes Time In: 1331 Time Out: 1400 Total Billed Treatment Time: 29 Total Billed Treatment 1 visit GT 15 min EX 14 min NUPUR MULLIGAN PT Jan 18, 2022 14:19
--- NOTE | 2022-01-18 18:03 | Progress Note ---
Subjective Date Seen by a Provider: Jan 18, 2022 Time Seen by a Provider: 17:50 Subjective/Events-last exam Fwup Right TKA, HTN, DMII, renal insufficiency. Had pain overnight but better today. Objective Exam Vital Signs Date Time Temp Pulse Resp B/P (MAP) Pulse Ox O2 Delivery O2 Flow Rate FiO2 01/18/22 16:28 35.9 67 20 120/69 (86) 92 Room Air 01/18/22 12:04 36.9 69 20 96/58 (71) 92 1.00 01/18/22 10:04 Nasal Cannula 1.00 01/18/22 10:02 96 Nasal Cannula 2.50 01/18/22 08:52 95 Nasal Cannula 2.00 01/18/22 08:05 37.6 70 16 114/70 (85) 96 2.00 01/18/22 04:47 37.6 71 20 129/80 (96) 94 2.00 01/18/22 00:59 37.1 74 20 149/85 (106) 93 2.00 01/17/22 20:55 95 Nasal Cannula 2.00 01/17/22 19:53 36.2 65 20 135/70 (91) 95 Room Air I & O 01/18/22 07:00 Intake Total 1630 ml Output Total 400 ml Balance 1230 ml Capillary Refill : Less Than 3 Seconds General Appearance: No Apparent Distress Respiratory: Lungs Clear Cardiovascular: Regular Rate, Rhythm Gastrointestinal: normal bowel sounds, non tender, soft Extremity: Non Tender, No Calf Tenderness, Pedal Edema (RUFINA hose on with dry dressing in place) Neurologic/Psychiatric: Alert, Oriented x3 Results Lab Laboratory Tests 01/17/22 20:10: Glucometer 99 01/18/22 05:58: Glucometer 121H 01/18/22 07:17: Hemoglobin 10.7L, Hematocrit 35 01/18/22 08:02: Glucometer 118H 01/18/22 11:26: Glucometer 147H 01/18/22 15:10: Glucometer 138H Assessment/Plan Assessment/Plan Assess & Plan/Chief Complaint 1. S/P right TKA--pain control, PT, lovenox for DVT prophylaxis, monitor H/H 2. Hypertension--Metoprolol and Hyzaar restarted 3. DMII--on tradjenta and SSI Clinical Quality Measures Admission Status Admission Dx 1. Right Knee OA--S/P right TKA--pain control, lovenox for DVT prophylaxis, start PT/OT 2. Hypertension--Restart metoprolol ER 25mg po q HS and Hyzaar 100/25mg po q AM 3. Chronic Renal Insufficiency--hydate and monitor BUN/Cr 4. DMII--start accuchecks AC and HS with SSI and start AYLA Chaves DO Jan 18, 2022 18:03
[2022-01-19] MEDS: NS IV 1000 ML 1,000 ML IV SCH (03:24)
[2022-01-19 04:00] VITALS: BP 134/63
[2022-01-19] MEDS: inSUlin ASPART (NovoLOG) 1 UNIT/0.01 ML (CHARGE PER UNIT) SC SCH ×4 (05:32→20:52)
[2022-01-19 06:02] LABS: HEMOGLOBIN 10.4 g/dL (11.5-16.0)
[2022-01-19 06:25] LABS: POTASSIUM 3.9 MMOL/L (3.6-5.0)
[2022-01-19 06:26] LABS: CALCIUM 8.3 MG/DL (8.5-10.1)
[2022-01-19 06:31] LABS: CREATININE SERUM 0.8 MG/DL (0.60-1.30)
--- NOTE | 2022-01-19 06:50 | Progress Note ---
Standard Progress Note Progress Notes/Assess & Plan Date Seen by a Provider: Jan 19, 2022 Time Seen by a Provider: 06:49 Progress/Assessment & Plan post op check no complaints Radiographs--HW well positioned without fracture RLE--2 plus DP pulse with brisck cap refill intact DF and PF of toes and ankle intact sensation to light touch throughout s/p RTKA mobilize as able Final Diagnosis no complaints Vital Signs Date Time Temp Pulse Resp B/P (MAP) Pulse Ox O2 Delivery O2 Flow Rate FiO2 01/19/22 04:00 37.3 68 19 134/63 (86) 93 Room Air 01/18/22 23:51 36.8 68 18 132/68 (89) 92 Room Air 01/18/22 20:52 Nasal Cannula 2.00 01/18/22 20:02 36.2 68 20 126/72 (90) 92 Room Air 01/18/22 16:28 35.9 67 20 120/69 (86) 92 Room Air 01/18/22 12:04 36.9 69 20 96/58 (71) 92 1.00 01/18/22 10:04 Nasal Cannula 1.00 01/18/22 10:02 96 Nasal Cannula 2.50 01/18/22 08:52 95 Nasal Cannula 2.00 01/18/22 08:05 37.6 70 16 114/70 (85) 96 2.00 I & O 01/19/22 07:00 Intake Total 2380 ml Output Total 1250 ml Balance 1130 ml Laboratory Tests Test 01/18/22 07:17 01/18/22 08:02 01/18/22 11:26 01/18/22 15:10 Range/Units Hemoglobin 10.7 L 11.5-16.0 g/dL Hematocrit 35 35-52 % Glucometer 118 H 147 H 138 H 70-110 MG/DL Test 01/18/22 20:29 01/19/22 05:25 01/19/22 05:30 Range/Units Glucometer 143 H 111 H 70-110 MG/DL Hemoglobin 10.4 L 11.5-16.0 g/dL Hematocrit 34 L 35-52 % Sodium Level 135 135-145 MMOL/L Potassium Level 3.9 3.6-5.0 MMOL/L Chloride Level 102 98-107 MMOL/L Carbon Dioxide Level 21 21-32 MMOL/L Anion Gap 12 5-14 MMOL/L Blood Urea Nitrogen 14 7-18 MG/DL Creatinine 0.80 0.60-1.30 MG/DL Estimat Glomerular Filtration Rate 82 BUN/Creatinine Ratio 18 Glucose Level 115 H 70-105 MG/DL Calcium Level 8.3 L 8.5-10.1 MG/DL RLE--incision clean and dry no calf tenderness s/p TKA PT/OT DC tomorrow DELVIS ACUÑA MD Jan 19, 2022 06:50
[2022-01-19] MEDS ORDERED: OXYC1TAB11 PO (06:53)
[2022-01-19] MEDS ORDERED: morphine INJ 4 MG/ML 1 ML (VIAL/SYRINGE) IVP PRN (07:00)
[2022-01-19 08:00] VITALS: BP 118/58
[2022-01-19] MEDS: ASPIRIN E.C. 81 MG (ECOTRIN) TAB PO SCH (08:26)
[2022-01-19] MEDS: LOSARTAN 100 MG (COZAAR) TABLET PO SCH (08:26)
[2022-01-19] MEDS: SENNA W/DOCUSATE (SENOKOT S) TABLET PO SCH ×2 (08:27→20:52)
[2022-01-19] MEDS: ENOXAPARIN INJECTION 30 MG/0.3 ML SYR SC SCH ×2 (08:27→21:05)
[2022-01-19] MEDS: oxyCODONE/APAP 5/325MG (PERCOCET 5) TABLET PO PRN ×4 (09:13→22:34)
--- NOTE | 2022-01-19 09:21 | Occupational Ther Daily Note ---
OT Current Status-Daily Note Subjective Pt reports pain in RLE as 3/10 at rest, pain increases to 7/10 post bed mobility and drops to 5/10 at end of session. RN notified that pt would like pain meds with her breakfast. Appearance Pt left sitting in recliner, all needs within reach at OT departure. Mental Status/Objective Patient Orientation: Person, Place, Situation ADL-Treatment Therapy Code Descriptions/Definitions Functional [place] Measure: 0=Not Assessed/NA 4=Minimal Assistance 1=Total Assistance 5=Supervision or Setup 2=Maximal Assistance 6=Modified [place] 3=Moderate Assistance 7=Complete IndependenceSCALE: Activities may be completed with or without assistive devices. 0-Wqysuakabh-tmeyxli completes the activity by him/herself with no assistance from a helper. 5-Set-up or Clean-up Assistance-helper sets up or cleans up; patient completes activity. [place] assists only prior to or following the activity. 4-Supervision or Touching Assistance-helper provides verbal cues and/or touching/steadying and/or contact guard assistance as patient completes activity. Assistance may be provided throughout the activity or intermittently. 3-Partial/Moderate Assistance-helper does LESS THAN HALF the effort. [place] lifts, holds or supports trunk or limbs, but provides less than half the effort. 2-Substantial/Maximal Assistance-helper does MORE THAN HALF the effort. [place] lifts or holds trunk or limbs and provides more than half the effort. 2-Sjrduajpj-ibrsxw does ALL the effort. Patient does none of the effort to complete the activity. Or, the assistance of 2 or more helpers is required for the patient to complete the activity. If activity was not attempted, code reason: 7-Patient Refused. 9-Not Applicable-not attempted and the patient did not perform the activity before the current illness, exacerbation or injury. 10-Not Attempted due to Environmental Limitations-(lack of equipment, weather restraints, etc.). 88-Not Attempted due to Medical Conditions or Safety Concerns. Eating (QC): 6 Lower Body Dressing (QC): 2 (per clinical judgment) On/Off Footwear: 1 Toileting Hygiene (QC): 4 Toilet Transfer (QC): 4 Pt supine in bed at OT arrival. Her breakfast had just arrived and she wanted help sitting more upright in bed in order to eat. Encouragement and education to sit in chair vs laying down in bed while eating. Pt reluctant to move to chair. Min-mod a to sit to EOB as pt required assist to transition RLE off side of bed and elevate torso. Good sitting balance once sitting upright. Dependent to don bilateral socks secondary to pain and impaired knee ROM. Sit<>stand: CGA from elevated bed height. Once upright, pt reports need to void. She ambulated to/from bathroom with walker and CGA. She lowered/stood from heightened toilet with use of grab bar and SBA. Steadying assist provided as she performed kaelyn care in standing. No clothing management performed as pt only wearing a hospital gown. Anticipate steadying assist would be needed. Poor eccentric control when lowering into recliner, cues for safety. Pt left sitting upright in recliner with breakfast set up in front of her. Education OT Patient Education: Correct positioning, Modified ADL techniques, Purpose of tx/functional activities, Reviewed precautions, Rehab process, Safety issues, Transfer techniques, Use of adapted equipment Teaching Recipient: Patient Teaching Methods: Demonstration, Discussion Response to Teaching: Verbalize Understanding, Return Demonstration, Reinforcement Needed OT Fci Goals Fci Goals Time Frame: Jan 27, 2022 Oral Hygiene (QC): 6 Toileting Hygiene (QC): 6 Shower/Bathe Self (QC): 4 Upper Body Dressing (QC): 6 Lower Body Dressing (QC): 4 On/Off Footwear (QC): 4 1=Demonstrate adherence to instructed precautions during ADL tasks. 2=Patient will verbalize/demonstrate understanding of assistive devices/modifications for ADL. 3=Patient will improve strength/tolerance for activity to enable patient to perform ADL's. OT Education/Plan Problem List/Assessment Assessment: Decreased Activ Tolerance, Impaired Bed Mobility, Impaired Funct Balance, Impaired I ADL's, Impaired Self-Care Skills Discharge Recommendations Plan/Recommendations: Continue POC Treatment Plan/Plan of Care Treatment,Training & Education: Yes Patient would benefit from OT for education, treatment and training to promote independence in ADL's, mobility, safety and/or upper extremity function for ADL's. Plan of Care: ADL Retraining, Functional Mobility, Group Exercise/Act as Ind, UE Funct Exercise/Act Treatment Duration: Jan 27, 2022 Frequency: 5 times per week Estimated Hrs Per Day: .25 hour per day Agreement: Yes Rehab Potential: Fair Time/GCodes Start Time: 08:53 Stop Time: 09:10 Total Time Billed (hr/min): 17 Billed Treatment Time 1 visit ADL Lisa Childs OT Jan 19, 2022 09:21
--- NOTE | 2022-01-19 11:00 | Physical Therapy Daily Note ---
PT Daily Note-Current Subjective Pt sitting in recliner upon arrival. Pt agrees to PT but reports pain and stiffness. Pain Numeric Pain Scale: 6 Location: Right, Incisional Location Body Site: Knee Pain Description: Ache, Tightness Comment: Reports pain at incision but stiffness in B knees Mental Status Patient Orientation: Person, Place, Time, Situation Transfers SCALE: Activities may be completed with or without assistive devices. 4-Ypxxtdkgil-whklhkl completes the activity by him/herself with no assistance from a helper. 5-Set-up or Clean-up Assistance-helper sets up or cleans up; patient completes activity. [place] assists only prior to or following the activity. 4-Supervision or Touching Assistance-helper provides verbal cues and/or touching/steadying and/or contact guard assistance as patient completes activity. Assistance may be provided throughout the activity or intermittently. 3-Partial/Moderate Assistance-helper does LESS THAN HALF the effort. [place] lifts, holds or supports trunk or limbs, but provides less than half the effort. 2-Substantial/Maximal Assistance-helper does MORE THAN HALF the effort. [place] lifts or holds trunk or limbs and provides more than half the effort. 1-Sdbbdjnya-sjesqx does ALL the effort. Patient does none of the effort to complete the activity. Or, the assistance of 2 or more helpers is required for the patient to complete the activity. If activity was not attempted, code reason: 7-Patient Refused. 9-Not Applicable-not attempted and the patient did not perform the activity before the current illness, exacerbation or injury. 10-Not Attempted due to Environmental Limitations-(lack of equipment, weather restraints, etc.). 88-Not Attempted due to Medical Conditions or Safety Concerns. Sit to Stand (QC): 3 Toilet Transfer (QC): 3 Weight Bearing Right Lower Extremity: Right Weight Bearing/Tolerated Gait Training Does the Patient Walk?: Yes Distance: 100' x2 Walk 10 feet (QC): 4 Walk 50 ft with 2 Turns(QC): 4 Gait Persons Needed: 1 Gait Assistive Device: FWW Very stiff and analgetic gait pattern Exercises Supine Ex: Ankle pumps, Quad Set, Glut sets, Heel Slides Supine Reps: 15 Seated Therapy Exercises: Long arc quads, Hip flexion Seated Reps: 15 Treatments VALVE LAPPER issues and reviews written HEP for Supine & Seated Ex. Pt takes short RB before standing at recliner at Mod A. Pt amb in hallway but is very stiff. Pt returns to room to use BR and VALVE LAPPER assists w/pericare. Pt returns to recliner w/LE elevated. All needs met, call light in hand. Assessment Current Status: Fair Progress Stiffness and pain limit movement, pt reluctant to move w/pain. VALVE LAPPER encourages pt to continue movement throughout day to breakup stiffness. VALVE LAPPER talked to Nurse about asking for CPM order. PT Residential Goals Residential Goals PT Minister Assistant Goals Time Frame: Jan 24, 2022 Roll Left & Right (QC): 6 Sit to Lying (QC): 6 Lying-Sitting on Side/Bed(QC): 6 Sit to Stand (QC): 6 Chair/Zbj-zf-Zeugq Xfer(QC): 6 Walk 10 feet (QC): 6 Walk 50ft with 2 Turns (QC): 6 Walk 150 ft (QC): 6 1 Step (curb) (QC): 4 4 Steps (QC): 4 PT Plan Problem List Problem List: Activity Tolerance, Functional Strength, Gait, Transfer Treatment/Plan Treatment Plan: Continue Plan of Care Treatment Plan: Bed Mobility, Education, Functional Activity Karen, Functional Strength, Gait, Safety, Therapeutic Exercise, Transfers Treatment Duration: Jan 24, 2022 Frequency: 11 times per week Estimated Hrs Per Day: .25 hour per day Patient and/or Family Agrees t: Yes Safety Risks/Education Patient Education: Gait Training, Transfer Techniques, Issued Written HEP, Correct Positioning, Safety Issues Teaching Recipient: Patient Teaching Methods: Discussion Response to Teaching: Verbalize Understanding Time/GCodes Time In: 950 Time Out: 1024 Total Billed Treatment Time: 34 Total Billed Treatment 1, FA (19m) & GT (15m) RIC LOWE VALVE LAPPER Jan 19, 2022 11:00
--- NOTE | 2022-01-19 11:01 | Progress Note ---
Subjective Date Seen by a Provider: Jan 19, 2022 Time Seen by a Provider: 10:58 Subjective/Events-last exam Fwup Right TKA, HTN, DMII, renal insufficiency. Plan was for DC home tomorrow but patient having some difficulty getting around today so looking into rehab. Objective Exam Vital Signs Date Time Temp Pulse Resp B/P (MAP) Pulse Ox O2 Delivery O2 Flow Rate FiO2 01/19/22 09:19 Room Air 01/19/22 08:00 37.0 71 18 118/58 (78) 90 Room Air 01/19/22 04:00 37.3 68 19 134/63 (86) 93 Room Air 01/18/22 23:51 36.8 68 18 132/68 (89) 92 Room Air 01/18/22 20:52 Nasal Cannula 2.00 01/18/22 20:02 36.2 68 20 126/72 (90) 92 Room Air 01/18/22 16:28 35.9 67 20 120/69 (86) 92 Room Air 01/18/22 12:04 36.9 69 20 96/58 (71) 92 1.00 I & O 01/19/22 07:00 Intake Total 2380 ml Output Total 1250 ml Balance 1130 ml Capillary Refill : Less Than 3 Seconds General Appearance: No Apparent Distress Respiratory: Lungs Clear Cardiovascular: Regular Rate, Rhythm Gastrointestinal: normal bowel sounds, non tender, soft Extremity: Non Tender, No Calf Tenderness, Pedal Edema (1 plus) Neurologic/Psychiatric: Alert, Oriented x3 Skin: Warm/Dry, Other (Dry dressing in place/RUFINA hose on) Results Lab Laboratory Tests 01/18/22 11:26: Glucometer 147H 01/18/22 15:10: Glucometer 138H 01/18/22 20:29: Glucometer 143H 01/19/22 05:25: Hemoglobin 10.4L, Hematocrit 34L, Sodium Level 135, Potassium Level 3.9, C hloride Level 102, Carbon Dioxide Level 21, Anion Gap 12, Blood Urea Nitrogen 14, Creatinine 0.80, Estimat Glomerular Filtration Rate 82, BUN/Creatinine Ratio 18, Glucose Level 115H, Calcium Level 8.3L 01/19/22 05:30: Glucometer 111H 01/19/22 10:55: Glucometer 137H Assessment/Plan Assessment/Plan Assess & Plan/Chief Complaint 1. S/P right TKA--pain control, PT, lovenox for DVT prophylaxis, H/H stable, looking into IRF 2. Hypertension--Stable on Metoprolol and Hyzaar 3. DMII--on tradjenta and SSI 4. Renal Insufficiency--BUN/Cr good/improved from baseline Clinical Quality Measures Admission Status Admission Dx 1. Right Knee OA--S/P right TKA--pain control, lovenox for DVT prophylaxis, start PT/OT 2. Hypertension--Restart metoprolol ER 25mg po q HS and Hyzaar 100/25mg po q AM 3. Chronic Renal Insufficiency--hydate and monitor BUN/Cr 4. DMII--start accuchecks AC and HS with SSI and start tradjenta AYLA ALCALA DO Jan 19, 2022 11:01
[2022-01-19 11:30] VITALS: BP 133/62
--- NOTE | 2022-01-19 15:03 | Physical Therapy Daily Note ---
PT Daily Note-Current Subjective Pt sitting in recliner upon arrival. Pt agrees to PT and asks to use BR to start tx. Pain Location: Right, Incisional Location Body Site: Knee Pain Description: Ache, Tightness Mental Status Patient Orientation: Person, Place, Time, Situation Attachments: Polar Pack, Other-See Comments (CPM) Transfers SCALE: Activities may be completed with or without assistive devices. 8-Gyycszuqvk-wusinnd completes the activity by him/herself with no assistance from a helper. 5-Set-up or Clean-up Assistance-helper sets up or cleans up; patient completes activity. [place] assists only prior to or following the activity. 4-Supervision or Touching Assistance-helper provides verbal cues and/or touching/steadying and/or contact guard assistance as patient completes activity . Assistance may be provided throughout the activity or intermittently. 3-Partial/Moderate Assistance-helper does LESS THAN HALF the effort. [place] lifts, holds or supports trunk or limbs, but provides less than half the effort. 2-Substantial/Maximal Assistance-helper does MORE THAN HALF the effort. [place] lifts or holds trunk or limbs and provides more than half the effort. 8-Fywxwcuhp-ecnjot does ALL the effort. Patient does none of the effort to complete the activity. Or, the assistance of 2 or more helpers is required for the patient to complete the activity. If activity was not attempted, code reason: 7-Patient Refused. 9-Not Applicable-not attempted and the patient did not perform the activity before the current illness, exacerbation or injury. 10-Not Attempted due to Environmental Limitations-(lack of equipment, weather restraints, etc.). 88-Not Attempted due to Medical Conditions or Safety Concerns. Sit to Lying (QC): 4 Sit to Stand (QC): 4 Toilet Transfer (QC): 4 MINING PLANT OPERATOR doesn't lift or assist w/TF or bed mob., only CGA. Weight Bearing Right Lower Extremity: Right Weight Bearing/Tolerated Gait Training Does the Patient Walk?: Yes Distance: 20' x2 Walk 10 feet (QC): 5 Gait Assistive Device: FWW Exercises Seated Therapy Exercises: Sit to stand Seated Reps: 3 Treatments TF to standing and amb. to BR. Pt returns to EOB and works on sit to stands as pt is nervous about possible d/c tomorrow. Pt needs encouragement as pt gives up TF in mid stand. Pt is able to stand at CGA x2. Pt TF to Supine in bed and repositioned to comfort w/CPM started at 50 degrees & polar pack applied. All needs met, call light in hand. Assessment Current Status: Good Progress Pt needs encouragement to push through pain/discomfort to stand w/o giving up. PT Clinical Fellow Goals Clinical Fellow Goals PT Detention Goals Time Frame: Jan 24, 2022 Roll Left & Right (QC): 6 Sit to Lying (QC): 6 Lying-Sitting on Side/Bed(QC): 6 Sit to Stand (QC): 6 Chair/Omu-gj-Smepf Xfer(QC): 6 Walk 10 feet (QC): 6 Walk 50ft with 2 Turns (QC): 6 Walk 150 ft (QC): 6 1 Step (curb) (QC): 4 4 Steps (QC): 4 PT Plan Problem List Problem List: Activity Tolerance, Functional Strength Treatment/Plan Treatment Plan: Continue Plan of Care Treatment Plan: Bed Mobility, Education, Functional Activity Karen, Functional Strength, Gait, Safety, Therapeutic Exercise, Transfers Treatment Duration: Jan 24, 2022 Frequency: 11 times per week Estimated Hrs Per Day: .25 hour per day Patient and/or Family Agrees t: Yes Safety Risks/Education Patient Education: Transfer Techniques, Correct Positioning, Safety Issues Teaching Recipient: Patient Teaching Methods: Discussion Response to Teaching: Verbalize Understanding Time/GCodes Time In: 1350 Time Out: 1435 Total Billed Treatment Time: 45 Total Billed Treatment 1, FA x3 (45m) RIC LOWE MINING PLANT OPERATOR Jan 19, 2022 15:03
[2022-01-19 16:21] VITALS: BP 120/58
[2022-01-19 19:59] VITALS: BP 155/69
[2022-01-19 23:00] VITALS: BP 126/62
--- NOTE | 2022-01-20 04:11 | DISCHARGE SUMMARY ---
DATE OF SERVICE: DIAGNOSES: 1. Right knee primary osteoarthritis. 2. Hypertension. 3. Diabetes. 4. Sleep apnea. PROCEDURE: Right total knee arthroplasty. SUMMARY: The patient is a 66-year-old female, who was admitted the day of a right total knee arthroplasty, which she underwent without complications. Postoperatively, she did well. At time of discharge, her wound was clean and dry. She had no calf tenderness. Negative Homans sign. CONDITION AT DISCHARGE: Good. DISCHARGE DIET: Regular. FOLLOWUP: Followup is in 3 weeks. ACTIVITIES: Weightbearing as tolerated with a walker. DISCHARGE MEDICATIONS: Home medications including her Eliquis and Percocet as needed for pain. Job ID: [id number] DocumentID: [id number] Dictated Date: 01/19/2022 06:51:53 School Library Media Program Director Date: 01/20/2022 04:10:08 Dictated By: DELVIS ACUÑA MD
[2022-01-20 04:14] VITALS: BP 111/53
[2022-01-20 05:46] LABS: HEMOGLOBIN 9.9 g/dL (11.5-16.0)
[2022-01-20] MEDS: inSUlin ASPART (NovoLOG) 1 UNIT/0.01 ML (CHARGE PER UNIT) SC SCH ×2 (06:07→11:26)
--- NOTE | 2022-01-20 07:39 | Progress Note ---
Standard Progress Note Progress Notes/Assess & Plan Date Seen by a Provider: Jan 20, 2022 Time Seen by a Provider: 07:38 Progress/Assessment & Plan post op check no complaints Radiographs--HW well positioned without fracture RLE--2 plus DP pulse with brisck cap refill intact DF and PF of toes and ankle intact sensation to light touch throughout s/p RTKA mobilize as able Final Diagnosis requiring two person assist, but feeling better today Vital Signs Date Time Temp Pulse Resp B/P (MAP) Pulse Ox O2 Delivery O2 Flow Rate FiO2 01/20/22 04:14 37.0 72 16 111/53 (72) 89 Room Air 01/19/22 23:00 37.1 69 20 126/62 (83) 93 Room Air 01/19/22 21:26 94 Room Air 01/19/22 19:59 37.4 73 20 155/69 (97) 94 Room Air 01/19/22 16:21 36.8 69 22 120/58 (78) 93 Room Air 01/19/22 11:30 36.8 85 22 133/62 (85) 92 Room Air 01/19/22 09:19 Room Air 01/19/22 08:00 37.0 71 18 118/58 (78) 90 Room Air I & O 01/20/22 07:00 Intake Total 1430 ml Output Total 800 ml Balance 630 ml Laboratory Tests Test 01/19/22 10:55 01/19/22 16:25 01/19/22 20:11 01/20/22 05:20 Range/Units Glucometer 137 H 125 H 178 H 70-110 MG/DL Hemoglobin 9.9 L 11.5-16.0 g/dL Hematocrit 32 L 35-52 % Test 01/20/22 05:51 Range/Units Glucometer 108 70-110 MG/DL RLE--no calf tenderness. Neg Tiffanie's dressing intact s/p RTKA with poor mobility To IRU today DELVIS ACUÑA MD Jan 20, 2022 07:39
[2022-01-20 08:00] VITALS: BP 119/58
[2022-01-20] MEDS: ASPIRIN E.C. 81 MG (ECOTRIN) TAB PO SCH (08:24)
[2022-01-20] MEDS: LOSARTAN 100 MG (COZAAR) TABLET PO SCH (08:24)
[2022-01-20] MEDS: SENNA W/DOCUSATE (SENOKOT S) TABLET PO SCH (08:25)
[2022-01-20] MEDS: oxyCODONE/APAP 5/325MG (PERCOCET 5) TABLET PO PRN ×2 (08:25→11:26)
[2022-01-20] MEDS: ENOXAPARIN INJECTION 30 MG/0.3 ML SYR SC SCH (08:25)
--- NOTE | 2022-01-20 17:53 | DISCHARGE SUMMARY ---
DATE OF SERVICE: ADDENDUM: The patient's discharge date remained 01/20/2022. However, due to poor mobility and lack of independence, the patient is transferred to the inpatient rehabilitation unit for continued physical and occupational therapy. Job ID: [id number] DocumentID: [id number] Dictated Date: 01/19/2022 19:26:27 Welt Cutter Date: 01/20/2022 17:52:14 Dictated By: DELVIS ACUÑA MD
== END 2022-01-20 11:30 | DRG 470 ==
LOC: 4TH 05:52 → SURG 05:53 → 4TH 10:19
PROVIDERS: ADMIT Orthopaedic Surgery; ATTEND Orthopaedic Surgery
PROC: 0SRC0J9 Replacement of Right Knee Joint with Synthetic Substitute, Cemented, Open Approach (ICD-10-PCS; principal; 2022-01-17 07:35)
DX: M17.11 Unilateral primary osteoarthritis, right knee (principal); G47.39 Other sleep apnea; Z96.652 Presence of left artificial knee joint; E11.22 Type 2 diabetes mellitus with diabetic chronic kidney disease; I12.9 Hypertensive chronic kidney disease with stage 1 through stage 4 chronic kidney disease, or unspecified chronic kidney disease; N18.9 Chronic kidney disease, unspecified; Z86.718 Personal history of other venous thrombosis and embolism; Z86.711 Personal history of pulmonary embolism
CPT/HCPCS: 36415; 73560; 80048; 82947; 85014; 85018; 86850; 86900; 86901; 94760

== ENCOUNTER 2022-01-20 11:15 | Inpatient (IN) | payer BC, MEDICARE ==
[~2022-01-20] VITALS: Ht 172.2 cm; Wt 147.3 kg
--- NOTE | 2022-01-20 10:26 | PM&R Post Admission Assessment ---
PM&R HP Date of Visit: Jan 20, 2022 Time of Visit: 11:30 History of Present Illness Chief complaint: Slow recovery from right total knee replacement History of present illness: This is a 66-year-old female clinic patient of Dr. Jovel who is status post right total knee replacement on 01/17/[address] Chuy boyd which was uncomplicated but has had a slow recovery since that time requiring inpatient rehab. 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 She occasionally drinks alcohol but does not smoke. She has been noncompliant with CPAP due to recall due to a filter. Currently she is doing well she has loose stools on a chronic basis. Pain is well controlled with Percocet. Prior level of functioning was independent without the use of assistive device. Past Csblzeh-Hrmjva-Zgwahd Hx Past Med/Social Hx: Reviewed Nursing Past Med/Soc Hx, Reviewed and Corrections made Patient Social History Marrital Status: 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: employed (Teacher [employer]) Alcohol Use: Occasionally Uses Alcohol Beverage of Choice: Other Smoking Status: Never a Smoker 2nd Hand Smoke Exposure: No Recent Hopitalizations: Yes (AUG 2018-PE ) Immunizations Up To Date Tetanus Booster (TDap): Unknown Date of Pneumonia Vaccine: May 19, 2016 Date of Influenza Vaccine: Apr 25, 2021 Seasonal Allergies Seasonal Allergies: Yes Past Medical History Surgeries: Orthopedic Respiratory: Sleep Apnea Currently Using CPAP: No (has cpap-currently not using) Currently Using BIPAP: No Cardiac: Hypertension Reproductive: Yes (ENDOMETROSIS) Sexually Transmitted Disease: No Female Reproductive Disorders: Denies Genitourinary: Renal Failure Gastrointestinal: Hemorrhoids, Chronic Diarrhea, C-Diff Musculoskeletal: Arthritis Endocrine: Diabetes, Non-Insulin dep Loss of Vision: Bilateral Hearing Impairment: Denies Skin/Integumentary: Eczema History of Blood Disorders: Yes (HX OF BLOOD CLOTS) Adverse Reaction to Blood Hartman: No (N/A) Family History No Pertinent Family Hx PM&R Allergy/Meds/Data Review Allergies Coded Allergies: codeine (Verified Allergy, Mild, N/V, 11/02/19) Home Medications Scheduled Apixaban (Eliquis), 5 MG PO BID, (Reported) Glucosam/Chond/Hyalu/Cf Borate (Move Free Joint Health Tablet), 1 TAB PO HS, (Reported) Losartan/Hydrochlorothiazide (Losartan-Hctz 100-12.5 mg Tab), 1 EACH PO DAILY, (Reported) Metoprolol Tartrate (Metoprolol Tartrate), 25 MG PO DAILY, (Reported) Multivitamin (Multi-Vitamin Daily), 1 EACH PO HS, (Reported) Sitagliptin Phosphate (Januvia), 25 MG PO DAILY, (Reported) Scheduled PRN Cetirizine HCl (Zyrtec), 10 MG PO HS PRN for ITCH/RASH, (Reported) Oxycodone HCl/Acetaminophen (Oxycodone-Acetaminophen 5-325), 1 EACH PO Q4H PRN for PAIN-SEVERE Current Medications Current Medications Reviewed Review of Systems Constitutional: see HPI, malaise, weakness EENTM: no symptoms reported Respiratory: no symptoms reported Cardiovascular: no symptoms reported Gastrointestinal: diarrhea Genitourinary: no symptoms reported Musculoskeletal: joint pain Skin: no symptoms reported Psychiatric/Neurological: No Symptoms Reported All Other Systems Reviewed Negative Unless Noted: Yes Physical Exam Physical Exam Vital Signs Capillary Refill : Height, Weight, BMI Height: 5'8.00" Weight: 294lbs. 0.6oz. [id number]; 47.49 BMI Method:Stated General Appearance: No Apparent Distress, WD/WN, Chronically ill, Obese Eyes: Bilateral Eye Normal Inspection, Bilateral Eye PERRL HEENT: PERRL/EOMI, Normal ENT Inspection, Pharynx Normal Neck: Full Range of Motion, Normal Inspection, Non Tender, Supple, Carotid Bruit Respiratory: Chest Non Tender, Lungs Clear, Normal Breath Sounds, No Accessory Muscle Use, No Respiratory Distress Cardiovascular: Regular Rate, Rhythm, No Edema, No Gallop, No JVD, No Murmur, Normal Peripheral Pulses Gastrointestinal: Normal Bowel Sounds, No Organomegaly, No Pulsatile Mass, Non Tender, Soft Back: Normal Inspection, No CVA Tenderness, No Vertebral Tenderness Extremity: Normal Capillary Refill, Normal Inspection, Normal Range of Motion (Except right knee), Non Tender, No Calf Tenderness, No Pedal Edema Neurologic/Psychiatric: Alert, Oriented x3, No Motor/Sensory Deficits, Normal Mood/Affect, Abnormal Gait, Motor Weakness Skin: Normal Color, Warm/Dry Lymphatic: No Adenopathy PM&R Medical Assessment & Plan REHAB/MEDICAL ASSESSMENT AND PLAN: REHAB IMPAIRMENT GROUP: Right knee replacement with slow recovery BMI 47 ETIOLOGIC DIAGNOSIS: Right knee replacement with slow recovery BMI 47 The comorbidities that impact the patients function and/or functional outcome by: Increased BMI, PAMELLA, hypertension, chronic kidney disease, diabetes REHAB PLAN: The patient is being admitted to our comprehensive inpatient rehabilitation facility and can tolerate the intensity of service consisting of at least: 180 minutes of therapy a day, 5 out of 7 days a week Rehab treatment will consist of: PT and OT will focus on regaining function with assistive device walker in order to regain enough independent function to return home with independent living The patient/family has a good understanding of our discharge process and will benefit from an interdisciplinary inpatient rehabilitation program. The patient has potential to make improvement and is in need of at least two of the following multidisciplinary therapies including but not limited to physical, occupational, speech, and prosthetics and orthotics. Additionally the patient will need services from respiratory, nutritional services, wound care, psychology, etc. (Customize this to each patient). Given the patients complex condition and risk of further medical complications, rehabilitation services cannot be safely or effectively provided at a lower level of care such as a halfway facility. BARRIERS TO DISCHARGE: Lives alone ESTIMATED LOS: 7 days DISPOSITION: Home RELEVANT CHANGES SINCE PREADMISSION SCREENING: I have compared the patients medical and functional status at the time of the preadmission screening and there are: no changes PROGNOSIS: Good REHABILITATION GOALS: 1. PT and OT will focus on regaining function with assistive device walker in order to regain enough independent function to return home with independent living All the above goals were reviewed with the patient and he/she is in agreement. By signing this document, I acknowledge that I have personally performed a full physical examination on this patient within 24 hours of admission to this inpatient rehabilitation facility and have determined the patient to be able to tolerate the above course of treatment at an intensive level for a reasonable period of time. I will be completing a detailed individualized Plan of Care for this patient by day #4 of the patients stay based upon the Preadmission Screen, the Post-Admission Evaluation, and the therapy evaluations. Admission Dx/Comorbidities: (1) Status post right knee replacement ICD Codes: Z96.651 - Presence of right artificial knee joint (2) Diabetes ICD Codes: E11.9 - Type 2 diabetes mellitus without complications (3) Hypertension ICD Codes: I10 - Essential (primary) hypertension (4) Chronic kidney disease ICD Codes: N18.9 - Chronic kidney disease, unspecified (5) History of pulmonary embolism ICD Codes: Z86.711 - Personal history of pulmonary embolism (6) Osteoarthritis of right knee ICD Codes: M17.11 - Unilateral primary osteoarthritis, right knee (7) PAMELLA on CPAP Status: Chronic ICD Codes: G47.33 - Obstructive sleep apnea (adult) (pediatric); Z99.89 - Depen dence on other enabling machines and devices (8) Obesity Status: Chronic ICD Codes: E66.9 - Obesity, unspecified Assessment/Plan Assessment and Plan Assess & Plan/Chief Complaint Assessment: Right total knee replacement postop day # 3 slow recovery Increased BMI 47 PAMELLA noncompliant with CPAP History of pulmonary emboli DVT prophylaxis with Lovenox 30 mg SQ every 12 Diabetes Hypertension Chronic kidney disease Chronic diarrhea Plan: Aggressive rehab Pain control DVT prophylaxis Monitor sugar MARISELA CHU DO Jan 20, 2022 10:26
[~2022-01-20 11:15] MED LIST changes: +ACETAMINOPHEN 325 MG TABLET PO PRN; +ALPRAZolam 0.25 MG (XANAX) TAB PO PRN; +BISACODYL 10 MG SUPP (DULCOLAX) PR PRN; +CALCIUM CARBONATE 500 MG (TUMS) TAB.CHEW PO PRN; +DOCUSATE SODIUM 100 MG (COLACE) CAP PO PRN; +FLEET ENEMA ADULT 1 EA BTL PR PRN; +LACTULOSE SYRUP 10GM/15ML (ENULOSE) 30ML UDC PO PRN; +LOPERAMIDE 2 MG (IMODIUM) TABLET PO PRN; +MELATONIN 3 MG TABLET PO PRN; +OXYC1TAB11 PO; +SENNA W/DOCUSATE (SENOKOT S) TABLET PO SCH; +diphenhydrAMINE 25 MG TAB (BENADRYL) PO PRN
[2022-01-20 12:01] VITALS: BP 126/57
[2022-01-20] MEDS ORDERED: diphenhydrAMINE 50 MG/ML INJ (BENADRYL) IVP PRN (12:15)
[2022-01-20] MEDS ORDERED: morphine INJ 4 MG/ML 1 ML (VIAL/SYRINGE) IVP PRN (12:15)
[2022-01-20] MEDS ORDERED: ONDANSETRON 4 MG/2 ML (SDV) Z0FRAN IVP PRN (12:15)
--- NOTE | 2022-01-20 12:49 | Physical Therapy Evaluation ---
PT Evaluation-General Medical Diagnosis Admission Date Jan 20, 2022 at 11:15 Medical Diagnosis: s/p R TKA Onset Date: Jan 17, 2022 Therapy Diagnosis Therapy Diagnosis: s/p R TKA Height/Weight Height (Feet): 5 Height (Inches): 8.00 Weight (Pounds): 294 Weight (Ounces): 0.6 Precautions Precautions/Isolations: Standard Precautions Weight Bear Status Right Lower Extremity: Right Weight Bearing/Tolerated Left Lower Extremity: Left Full Weight Bearing Referral Physician: Fanny Reason for Referral: Evaluation/Treatment Medical History Pertinent Medical History: DM, HTN Social History Home: Apartment Current Living Status: Alone Entry Into Home: Stairs With Railing PT Steps Into Home: 3 Prior Prior Level of Function SCALE: Activities may be completed with or without assistive devices. 9-Pgeujyrtgp-ngkeftx completes the activity by him/herself with no assistance from a helper. 5-Set-up or Clean-up Assistance-helper sets up or cleans up; patient completes activity. [place] assists only prior to or following the activity. 4-Supervision or Touching Assistance-helper provides verbal cues and/or touching/steadying and/or contact guard assistance as patient completes activity. Assistance may be provided throughout the activity or intermittently. 3-Partial/Moderate Assistance-helper does LESS THAN HALF the effort. [place] lifts, holds or supports trunk or limbs, but provides less than half the effort. 2-Substantial/Maximal Assistance-helper does MORE THAN HALF the effort. [place] lifts or holds trunk or limbs and provides more than half the effort. 2-Zyhwzzmca-irhote does ALL the effort. Patient does none of the effort to complete the activity. Or, the assistance of 2 or more helpers is required for the patient to complete the activity. If activity was not attempted, code reason: 7-Patient Refused. 9-Not Applicable-not attempted and the patient did not perform the activity before the current illness, exacerbation or injury. 10-Not Attempted due to Environmental Limitations-(lack of equipment, weather restraints, etc.). 88-Not Attempted due to Medical Conditions or Safety Concerns. Bed Mobility: 6 Transfers (B,C,W/C): 6 Gait: 6 Stairs: 6 PT Evaluation-Current Subjective Pt sitting up in chair upon arrival to room, agreeable to PT treatment. She rates R knee pain 4/10. Pt/Family Goals Return home Objective Patient Orientation: Person, Place, Situation ROM/Strength ROM Lower Extremities RLE: <90 deg flexion: approx 10 deg extension Strength Lower Extremities grossly 3/5 Integumentary/Posture Integumentary refer to nursing notes Neuromuscular (Tone, Coordination, Reflexes) intact Transfers Roll Left & Right (QC): 4 Sit to Lying (QC): 4 Lying to Sitting/Side of Bed(Q: 4 Sit to Stand (QC): 3 Chair/Hfs-rz-Lmyso Xfer(QC): 3 Toilet Transfer (QC): 3 Car Transfer (QC): 3 Assistance with RLE on car transfer, and sit to supine in bed. Gait Does the Patient Walk?: No and Walking Goal IS indicated Mode of Locomotion: Walk Anticipated Mode of Locomotion: Walk Walk 10 feet (QC): 4 Walk 50 ft with 2 Turns(QC): 4 Walk 150 ft (QC): 4 Walking 10ft/uneven surface-QC: 4 Distance: 200' Gait Assistive Device: FWW Wheelchair Training Wheel 50 ft with 2 turns (QC): 88 Wheel 150 ft (QC): 88 Stairs 1 Step (curb) (QC): 4 4 Steps (QC): 4 12 Steps (QC): 88 Pt able to ambulate 4 steps x 2 trips, Balance Sitting Static: Fair Sitting Dynamic: Fair Standing Static: Fair Standing Dynamic: Fair Picking up an Object (QC): 3 Assessment/Needs Pt presents with decreased R knee ROM, R knee strength, abnormal gait pattern and increased pain which impacts her functional mobility and increases her risk of falls. Pt will benefit from skilled PT to address above mentioned limitations and ensure safety upon DC from hospital. Rehab Potential: Good PT Short Term Goals Short Term Goals Time Frame: Feb 03, 2022 Roll Left & Right: 5 Sit to lyin Lying to sitting on side of be: 5 Sit to stand: 5 Chair/wyl-sj-ipmms transfer: 5 Toilet transfer: 5 Car transfer: 5 Walk 50 feet with two turns: 5 Walk 150 feet: 5 Walking 10ft on uneven surface: 5 1 step (curb): 5 4 steps: 5 12 steps: 5 Picking up objects: 5 PT Baker Chef Goals Detention Goals PT Detention Goals Time Frame: Feb 03, 2022 Roll Left & Right (QC): 6 Sit to Lying (QC): 6 Lying-Sitting on Side/Bed(QC): 6 Sit to Stand (QC): 6 Chair/Dup-da-Ywaej Xfer(QC): 6 Toilet Transfer (QC): 6 Car Transfer (QC): 6 Does the Patient Walk: Yes Walk 10 feet (QC): 6 Walk 50ft with 2 Turns (QC): 6 Walk 150 ft (QC): 6 Walking 10ft on Uneven Surface: 6 1 Step (curb) (QC): 6 4 Steps (QC): 6 12 Steps (QC): 6 Picking up an Object (QC): 6 Wheel 50 feet with 2 turns (QC: 88 Wheel 150 feet: 88 PT Plan Problem List Problem List: Activity Tolerance, Functional Strength, Safety, Balance, Gait, Transfer, Bed Mobility, ROM Treatment/Plan Treatment Plan: Continue Plan of Care Treatment Plan: Bed Mobility, Functional Activity Karen, Functional Strength, Group Therapy, Gait, Safety, Therapeutic Exercise, Transfers Treatment Duration: Feb 03, 2022 Frequency: At least 5 of 7 days/Wk (IRF) Estimated Hrs Per Day: 1.5 hours per day Patient and/or Family Agrees t: Yes Time/GCodes Time In: 1100 Time Out: 1145 Total Billed Treatment 1 visit [facility] (45') LUCIAN AHMADI PT Jan 20, 2022 12:49
[2022-01-20] MEDS: polyethylene glycoL POWDER 17 GM (MIRALAX) PACK PO SCH ×3 (13:15→21:11)
[2022-01-20] MEDS: DOCUSATE SODIUM 100 MG (COLACE) CAP PO SCH ×2 (13:16→21:10)
[2022-01-20] MEDS: oxyCODONE/APAP 5/325MG (PERCOCET 5) TABLET PO PRN ×2 (16:29→21:09)
[2022-01-20] MEDS: inSUlin ASPART (NovoLOG) 1 UNIT/0.01 ML (CHARGE PER UNIT) SC SCH ×2 (17:04→21:08)
[2022-01-20 20:00] VITALS: BP 135/67
[2022-01-20] MEDS: ENOXAPARIN 40 MG/0.4 ML (LOVENOX) SYR SC SCH (21:10)
[2022-01-20] MEDS: SENNA W/DOCUSATE (SENOKOT S) TABLET PO SCH (21:11)
[2022-01-21] MEDS ORDERED: CATHETER FLUSH 10 ML SYR IVP PRN (01:45)
[2022-01-21] MEDS ORDERED: CATHETER FLUSH 10 ML SYR IVP SCH (06:00)
[2022-01-21 06:25] LABS: BASOPHILS # (AUTO) 0.1 10^3/uL (0.0-0.1); BASOPHILS % (AUTO) 1 % (0-10); EOSINOPHILS # (AUTO) 0.2 10^3/uL (0.0-0.3); EOSINOPHILS % (AUTO) 2 % (0-10); HEMATOCRIT 32 % (35-52); LYMPHOCYTES % (AUTO) 9 % (12-44); MEAN CORPUSCULAR HEMOGLOBIN 26 pg (25-34); MEAN CORPUSCULAR HGB CONC 31 g/dL (32-36); MEAN CORPUSCULAR VOLUME 83 fL (80-99); MEAN PLATELET VOLUME 9.7 fL (9.0-12.2); MONOCYTES # (AUTO) 0.8 10^3/uL (0.0-1.0); MONOCYTES % (AUTO) 7 % (0-12); NEUTROPHILS # (AUTO) 9.5 10^3/uL (1.8-7.8); NEUTROPHILS % (AUTO) 82 % (42-75); PLATELET COUNT 309 10^3/uL (130-400); WHITE BLOOD COUNT 11.6 10^3/uL (4.3-11.0)
[2022-01-21 06:34] LABS: ALBUMIN 2.9 GM/DL (3.2-4.5); POTASSIUM 3.7 MMOL/L (3.6-5.0)
[2022-01-21 06:35] LABS: CALCIUM 8.5 MG/DL (8.5-10.1)
[2022-01-21 06:37] LABS: TOTAL PROTEIN 6.3 GM/DL (6.4-8.2)
[2022-01-21 06:38] LABS: BILIRUBIN,TOTAL 0.6 MG/DL (0.1-1.0)
[2022-01-21 06:40] LABS: CREATININE SERUM 0.76 MG/DL (0.60-1.30)
[2022-01-21] MEDS: inSUlin ASPART (NovoLOG) 1 UNIT/0.01 ML (CHARGE PER UNIT) SC SCH ×4 (06:42→21:06)
[2022-01-21] MEDS: DOCUSATE SODIUM 100 MG (COLACE) CAP PO SCH ×2 (08:22→21:34)
[2022-01-21] MEDS: ENOXAPARIN 40 MG/0.4 ML (LOVENOX) SYR SC SCH (08:22)
[2022-01-21] MEDS: LOSARTAN 100 MG (COZAAR) TABLET PO SCH (08:22)
[2022-01-21] MEDS: ASPIRIN E.C. 81 MG (ECOTRIN) TAB PO SCH (08:22)
[2022-01-21] MEDS: SENNA W/DOCUSATE (SENOKOT S) TABLET PO SCH ×2 (08:23→21:34)
[2022-01-21 08:24] VITALS: BP 141/63
[2022-01-21] MEDS: oxyCODONE/APAP 5/325MG (PERCOCET 5) TABLET PO PRN ×3 (08:31→16:59)
[2022-01-21] MEDS: polyethylene glycoL POWDER 17 GM (MIRALAX) PACK PO SCH ×2 (09:09→21:34)
--- NOTE | 2022-01-21 11:14 | PM&R Progress Note ---
Subjective HPI/CC On Admission Date Seen by Provider: Jan 21, 2022 Time Seen by Provider: 06:10 Subjective/Events-last exam 01/21/2022: Patient doing well BM+ Pain controlled Labs reviewed Changing Lovenox back to home dose Eliquis Review of Systems General: Fatigue, Malaise Musculoskeletal: leg pain Objective Exam Vital Signs Vital Signs Date Time Temp Pulse Resp B/P (MAP) Pulse Ox O2 Delivery O2 Flow Rate FiO2 01/21/22 09:10 Room Air 01/21/22 08:24 37.4 74 18 141/63 (89) 93 Capillary Refill : General Appearance: No Apparent Distress, WD/WN, Chronically ill, Obese HEENT: PERRL/EOMI, Normal ENT Inspection, Pharynx Normal Neck: Full Range of Motion, Normal Inspection, Non Tender, Supple, Carotid Bruit Respiratory: Chest Non Tender, Lungs Clear, Normal Breath Sounds, No Accessory Muscle Use, No Respiratory Distress Cardiovascular: Regular Rate, Rhythm, No Edema, No Gallop, No JVD, No Murmur, Normal Peripheral Pulses Gastrointestinal: Normal Bowel Sounds, No Organomegaly, No Pulsatile Mass, Non Tender, Soft Back: Normal Inspection, No CVA Tenderness, No Vertebral Tenderness Extremity: Normal Capillary Refill, Normal Inspection, Normal Range of Motion (Except right knee), Non Tender, No Calf Tenderness, No Pedal Edema Neurologic/Psychiatric: Alert, Oriented x3, No Motor/Sensory Deficits, Normal Mood/Affect, Abnormal Gait, Motor Weakness Skin: Normal Color, Warm/Dry Lymphatic: No Adenopathy Results/Procedures Lab Laboratory Tests 01/21/22 06:05 Patient resulted labs reviewed. FIM Transfers Therapy Code Descriptions/Definitions Functional [place] Measure: 0=Not Assessed/NA 4=Minimal Assistance 1=Total Assistance 5=Supervision or Setup 2=Maximal Assistance 6=Modified [place] 3=Moderate Assistance 7=Complete IndependenceSCALE: Activities may be completed with or without assistive devices. 4-Cnydukdlhm-roqitnw completes the activity by him/herself with no assistance from a helper. 5-Set-up or Clean-up Assistance-helper sets up or cleans up; patient completes activity. [place] assists only prior to or following the activity. 4-Supervision or Touching Assistance-helper provides verbal cues and/or touching/steadying and/or contact guard assistance as patient completes activity. Assistance may be provided throughout the activity or intermittently. 3-Partial/Moderate Assistance-helper does LESS THAN HALF the effort. [place] lifts, holds or supports trunk or limbs, but provides less than half the effort. 2-Substantial/Maximal Assistance-helper does MORE THAN HALF the effort. [place] lifts or holds trunk or limbs and provides more than half the effort. 3-Xgyzytpqp-jwpomz does ALL the effort. Patient does none of the effort to complete the activity. Or, the assistance of 2 or more helpers is required for the patient to complete the activity. If activity was not attempted, code reason: 7-Patient Refused. 9-Not Applicable-not attempted and the patient did not perform the activity before the current illness, exacerbation or injury. 10-Not Attempted due to Environmental Limitations-(lack of equipment, weather restraints, etc.). 88-Not Attempted due to Medical Conditions or Safety Concerns. Roll Left to Right (QC): 4 Sit to Lying (QC): 4 Sit to Stand (QC): 3 Chair/Pxi-xj-Cxwzp Xfer(QC): 3 Car Transfer (QC): 3 Gait Training Does the Patient Walk?: No and Walking Goal IS indicated Walk 10 feet (QC): 4 Walk 50 ft with 2 Turns(QC): 4 Walk 150 ft (QC): 4 Walking 10ft/uneven surface-QC: 4 Gait Assistive Device: FWW Wheelchair Training Wheel 50 ft with 2 turns (QC): 88 Wheel 150 ft (QC): 88 Stair Training 1 Step (curb) (QC): 4 4 Steps (QC): 4 12 Steps (QC): 88 Balance Picking up an Object (QC): 3 Assessment/Plan Assessment and Plan Assess & Plan/Chief Complaint Assessment: Right total knee replacement postop day # 4 slow recovery Increased BMI 47 PAMELLA noncompliant with CPAP History of pulmonary emboli DVT prophylaxis with Lovenox 30 mg SQ every 12 Diabetes Hypertension Chronic kidney disease Chronic diarrhea Plan: Aggressive rehab Pain control DVT prophylaxis Monitor sugar 01/21/2022: Eliquis Monitor closely (1) Status post right knee replacement (2) Diabetes (3) Hypertension (4) Chronic kidney disease (5) History of pulmonary embolism (6) Osteoarthritis of right knee (7) PAMELLA on CPAP Status: Chronic (8) Obesity Status: Chronic MARISELA CHU DO Jan 21, 2022 11:14
[2022-01-21] MEDS: APIXABAN 5 MG (ELIQUIS) TABLET PO SCH ×2 (12:08→21:05)
[2022-01-21 20:00] VITALS: BP 150/61
[2022-01-22] MEDS: oxyCODONE/APAP 5/325MG (PERCOCET 5) TABLET PO PRN ×4 (02:05→20:07)
--- NOTE | 2022-01-22 04:26 | PM&R Progress Note ---
Subjective HPI/CC On Admission Date Seen by Provider: Jan 22, 2022 Subjective/Events-last exam 01/21/2022: Patient doing well BM+ Pain controlled Labs reviewed Changing Lovenox back to home dose Eliquis Objective Exam Vital Signs Vital Signs Date Time Temp Pulse Resp B/P (MAP) Pulse Ox O2 Delivery O2 Flow Rate FiO2 01/21/22 21:21 Room Air 01/21/22 20:00 37.6 69 18 150/61 (90) 93 Capillary Refill : General Appearance: No Apparent Distress, WD/WN, Chronically ill, Obese HEENT: PERRL/EOMI, Normal ENT Inspection, Pharynx Normal Neck: Full Range of Motion, Normal Inspection, Non Tender, Supple, Carotid Bruit Respiratory: Chest Non Tender, Lungs Clear, Normal Breath Sounds, No Accessory Muscle Use, No Respiratory Distress Cardiovascular: Regular Rate, Rhythm, No Edema, No Gallop, No JVD, No Murmur, Normal Peripheral Pulses Gastrointestinal: Normal Bowel Sounds, No Organomegaly, No Pulsatile Mass, Non Tender, Soft Back: Normal Inspection, No CVA Tenderness, No Vertebral Tenderness Extremity: Normal Capillary Refill, Normal Inspection, Normal Range of Motion (Except right knee), Non Tender, No Calf Tenderness, No Pedal Edema Neurologic/Psychiatric: Alert, Oriented x3, No Motor/Sensory Deficits, Normal Mood/Affect, Abnormal Gait, Motor Weakness Skin: Normal Color, Warm/Dry Lymphatic: No Adenopathy Results/Procedures Lab Laboratory Tests 01/21/22 06:05 Patient resulted labs reviewed. FIM Transfers Therapy Code Descriptions/Definitions Functional [place] Measure: 0=Not Assessed/NA 4=Minimal Assistance 1=Total Assistance 5=Supervision or Setup 2=Maximal Assistance 6=Modified [place] 3=Moderate Assistance 7=Complete IndependenceSCALE: Activities may be completed with or without assistive devices. 5-Befoaudvvv-vduccbb completes the activity by him/herself with no assistance from a helper. 5-Set-up or Clean-up Assistance-helper sets up or cleans up; patient completes activity. [place] assists only prior to or following the activity. 4-Supervision or Touching Assistance-helper provides verbal cues and/or touching/steadying and/or contact guard assistance as patient completes activity. Assistance may be provided throughout the activity or intermittently. 3-Partial/Moderate Assistance-helper does LESS THAN HALF the effort. [place] lifts, holds or supports trunk or limbs, but provides less than half the effort. 2-Substantial/Maximal Assistance-helper does MORE THAN HALF the effort. [place] lifts or holds trunk or limbs and provides more than half the effort. 4-Pfsjsaxgv-qgbpwj does ALL the effort. Patient does none of the effort to complete the activity. Or, the assistance of 2 or more helpers is required for the patient to complete the activity. If activity was not attempted, code reason: 7-Patient Refused. 9-Not Applicable-not attempted and the patient did not perform the activity before the current illness, exacerbation or injury. 10-Not Attempted due to Environmental Limitations-(lack of equipment, weather restraints, etc.). 88-Not Attempted due to Medical Conditions or Safety Concerns. Roll Left to Right (QC): 4 Sit to Lying (QC): 4 Sit to Stand (QC): 3 Chair/Plf-od-Njxvw Xfer(QC): 3 Car Transfer (QC): 3 Gait Training Does the Patient Walk?: No and Walking Goal IS indicated Walk 10 feet (QC): 4 Walk 50 ft with 2 Turns(QC): 4 Walk 150 ft (QC): 4 Walking 10ft/uneven surface-QC: 4 Gait Assistive Device: FWW Wheelchair Training Wheel 50 ft with 2 turns (QC): 88 Wheel 150 ft (QC): 88 Stair Training 1 Step (curb) (QC): 4 4 Steps (QC): 4 12 Steps (QC): 88 Balance Picking up an Object (QC): 3 Assessment/Plan Assessment and Plan Assess & Plan/Chief Complaint Assessment: Right total knee replacement postop day # 4 slow recovery Increased BMI 47 PAMELLA noncompliant with CPAP History of pulmonary emboli DVT prophylaxis with Lovenox 30 mg SQ every 12 Diabetes Hypertension Chronic kidney disease Chronic diarrhea Plan: Aggressive rehab Pain control DVT prophylaxis Monitor sugar 01/21/2022: [place] Monitor closely (1) Status post right knee replacement (2) Diabetes (3) Hypertension (4) Chronic kidney disease (5) History of pulmonary embolism (6) Osteoarthritis of right knee (7) PAMELLA on CPAP Status: Chronic (8) Obesity Status: Chronic MARISELA CHU DO Jan 22, 2022 04:26
[2022-01-22] MEDS: inSUlin ASPART (NovoLOG) 1 UNIT/0.01 ML (CHARGE PER UNIT) SC SCH ×4 (06:20→20:10)
[2022-01-22 07:24] VITALS: BP 154/73
[2022-01-22] MEDS: ASPIRIN E.C. 81 MG (ECOTRIN) TAB PO SCH (08:12)
[2022-01-22] MEDS: APIXABAN 5 MG (ELIQUIS) TABLET PO SCH ×2 (08:13→20:07)
[2022-01-22] MEDS: LOSARTAN 100 MG (COZAAR) TABLET PO SCH (08:13)
[2022-01-22] MEDS: DOCUSATE SODIUM 100 MG (COLACE) CAP PO SCH ×2 (08:13→20:06)
[2022-01-22] MEDS: polyethylene glycoL POWDER 17 GM (MIRALAX) PACK PO SCH ×2 (08:14→20:10)
[2022-01-22] MEDS: SENNA W/DOCUSATE (SENOKOT S) TABLET PO SCH ×2 (08:14→20:10)
--- NOTE | 2022-01-22 08:22 | Physician Query Clarification ---
PQ-Intro New Diagnosis Admission/Discharge Admission Date: Jan 20, 2022 at 11:15 Discharge Date: Dr. Escobedo, The medical record reflects the following clinical scenario: History/Risk Factors: s/p rt TKR, DM, HTN w/CKD, PAMELLA Clinical Findings: Rt TKR Treatment: Rehab Question: What condition best reflects the above clinical scenario? Please document a response in the Progress Noter or Discharge Summary. 1. Rt knee OA s/p Rt TKR 2. Rt knee pain s/p Rt TKR underlying cause unknown 3. Other, with explanation of the clinical findings. 4. Clinically undetermined, no explanation for the clinical findings. PHYSICIAN RESPONSE What condition reflects above: 1 In responding to this query, please exercise your independent professional judgment. The purpose of this communication is to more accurately reflect the complexity of your patients condition. The fact that a question is asked does not imply that any particular answer is desired or expected. Thank you for your timely response to this clarification. Requestors name: Elijah THIS PHYSICIAN QUERY FORM IS A PERMANENT PART OF THE MEDICAL RECORD ELIJAH AC Jan 22, 2022 08:22 MARISELA ESCOBEDO DO Jan 22, 2022 12:23
--- NOTE | 2022-01-22 10:02 | Physical Therapy Daily Note ---
PT Daily Note-Current Subjective Pt sitting in reclienr upon arrival. Pt agrees to PT. Pain Numeric Pain Scale: 5-Moderate Pain Location: Right, Incisional Location Body Site: Knee Pain Description: Ache, Burning Mental Status Patient Orientation: Person, Place, Time, Situation Transfers SCALE: Activities may be completed with or without assistive devices. 2-Nbhdbhbaqy-pipaaip completes the activity by him/herself with no assistance from a helper. 5-Set-up or Clean-up Assistance-helper sets up or cleans up; patient completes activity. [employer] assists only prior to or following the activity. 4-Supervision or Touching Assistance-helper provides verbal cues and/or touching/steadying and/or contact guard assistance as patient completes activity. Assistance may be provided throughout the activity or intermittently. 3-Partial/Moderate Assistance-helper does LESS THAN HALF the effort. [employer] lifts, holds or supports trunk or limbs, but provides less than half the effort. 2-Substantial/Maximal Assistance-helper does MORE THAN HALF the effort. [place] [employer] lifts or holds trunk or limbs and provides more than half the effort. 7-Eeiczeiti-ikyrfq does ALL the effort. Patient does none of the effort to complete the activity. Or, the assistance of 2 or more helpers is required for the patient to complete the activity. If activity was not attempted, code reason: 7-Patient Refused. 9-Not Applicable-not attempted and the patient did not perform the activity before the current illness, exacerbation or injury. 10-Not Attempted due to Environmental Limitations-(lack of equipment, weather restraints, etc.). 88-Not Attempted due to Medical Conditions or Safety Concerns. Sit to Stand (QC): 5 Weight Bearing Right Lower Extremity: Right Weight Bearing/Tolerated Left Lower Extremity: Left Full Weight Bearing Gait Training Does the Patient Walk?: Yes Distance: 75' x2 Walk 10 feet (QC): 5 Walk 50 ft with 2 Turns(QC): 5 Gait Persons Needed: 1 Gait Assistive Device: FWW Pt walks w/extended R knee, no flexing so pt is circumducting a bit. Exercises Supine Ex: Ankle pumps, Quad Set, Glut sets, Heel Slides, Hip abd/add Supine Reps: 15 Seated Therapy Exercises: Ankle pumps, Long arc quads, Hip flexion, Hamstring Curls Seated Reps: 15 Treatments Pt completes Supine & Seated EX at recliner, RB as needed. UNDERCUTTER OPERATOR & pt discuss need for pushing R knee to bend to prevent contracture as well as need for movement and ARU expectations/process. Pt declines need for BR. Pt amb. in hallway before RB and returning to room to rest after ambulation. Resting in recliner w/all needs met, call light in hand. Assessment Current Status: Good Progress Pt has improved w/independence of transfers but still working on extended R knee while walking. PT Short Term Goals Short Term Goals Time Frame: Feb 03, 2022 Roll Left & Right: 5 Sit to lyin Lying to sitting on side of be: 5 Sit to stand: 5 Chair/qkm-el-tpsfa transfer: 5 Toilet transfer: 5 Car transfer: 5 Walk 50 feet with two turns: 5 Walk 150 feet: 5 Walking 10ft on uneven surface: 5 1 step (curb): 5 4 steps: 5 12 steps: 5 Picking up objects: 5 PT Fruit Worker Goals Chcf Goals PT Fruit Worker Goals Time Frame: Feb 03, 2022 Roll Left & Right (QC): 6 Sit to Lying (QC): 6 Lying-Sitting on Side/Bed(QC): 6 Sit to Stand (QC): 6 Chair/Ytk-nd-Riatg Xfer(QC): 6 Toilet Transfer (QC): 6 Car Transfer (QC): 6 Does the Patient Walk: Yes Walk 10 feet (QC): 6 Walk 50ft with 2 Turns (QC): 6 Walk 150 ft (QC): 6 Walking 10ft on Uneven Surface: 6 1 Step (curb) (QC): 6 4 Steps (QC): 6 12 Steps (QC): 6 Picking up an Object (QC): 6 Wheel 50 feet with 2 turns (QC: 88 Wheel 150 feet: 88 PT Plan Problem List Problem List: Activity Tolerance, Functional Strength, Gait Treatment/Plan Treatment Plan: Continue Plan of Care Treatment Plan: Bed Mobility, Functional Activity Karen, Functional Strength, Group Therapy, Gait, Safety, Therapeutic Exercise, Transfers Treatment Duration: Feb 03, 2022 Frequency: At least 5 of 7 days/Wk (IRF) Estimated Hrs Per Day: 1.5 hours per day Patient and/or Family Agrees t: Yes Safety Risks/Education Patient Education: Gait Training, Correct Positioning, Safety Issues Teaching Recipient: Patient Teaching Methods: Discussion Response to Teaching: Verbalize Understanding Time/GCodes Time In: 800 Time Out: 900 Total Billed Treatment Time: 60 Total Billed Treatment 1, FA (15m), EX x2 (30m) & GT (15m) RIC LOWE UNDERCUTTER OPERATOR Jan 22, 2022 10:02
--- NOTE | 2022-01-22 10:48 | Occupational Therapy Eval ---
OT Evaluation-General/PLF Medical Diagnosis Admission Date Jan 20, 2022 at 11:15 Medical Diagnosis: s/p R TKA Onset Date: Jan 17, 2022 Therapy Diagnosis Therapy Diagnosis: decreased ADL status Height/Weight Height (Feet): 5 Height (Inches): 8.00 Weight (Pounds): 294 Weight (Ounces): 0.6 Precautions Precautions/Isolations: Fall Prevention, Standard Precautions Weight Bear Status Weight Bearing Restriction: Weight Bearing/Tolerated Referral Physician: Fanny Referral Reason: Evaluation/Treatment Medical History Pertinent Medical History: DM, HTN Additional Medical History HTN, sleep apnea, chronic renal failure, C-diff, arthritis, DM, L TKA, obesity, and PE. Current History s/p R TKA on 01/17/22. Social History Home: Multilevel Current Living Status: Alone Entry Into Home: Stairs With Railing Steps Into Home: 3 ADL-Prior Level of Function SCALE: Activities may be completed with or without assistive devices. 6-Dzotydayae-dbdbkpd completes the activity by him/herself with no assistance from a helper. 5-Set-up or Clean-up Assistance-helper sets up or cleans up; patient completes activity. [place] assists only prior to or following the activity. 4-Supervision or Touching Assistance-helper provides verbal cues and/or touc lakshmi/steadying and/or contact guard assistance as patient completes activity. Assistance may be provided throughout the activity or intermittently. 3-Partial/Moderate Assistance-helper does LESS THAN HALF the effort. [place] lifts, holds or supports trunk or limbs, but provides less than half the effort. 2-Substantial/Maximal Assistance-helper does MORE THAN HALF the effort. [place] lifts or holds trunk or limbs and provides more than half the effort. 1-Rzhhwovta-gwflmv does ALL the effort. Patient does none of the effort to complete the activity. Or, the assistance of 2 or more helpers is required for the patient to complete the activity. If activity was not attempted, code reason: 7-Patient Refused. 9-Not Applicable-not attempted and the patient did not perform the activity before the current illness, exacerbation or injury. 10-Not Attempted due to Environmental Limitations-(lack of equipment, weather restraints, etc.). 88-Not Attempted due to Medical Conditions or Safety Concerns. ADL PLOF Comments Pt reports being IND with ADLs and IADLs without use of AD. Pt lives in a multilevel house but has bathroom, bedroom, kitchen and laundry on main level. Self Care: Independent Functional Cognition: Independent DME/Equipment: Bath Bench, Shower Occupation: [employer]ition[employer] at [employer] Self: Yes OT Current Status Subjective Pt reports doing better today. Pt agreeable to OT evaluation. Mental Status/Objective Patient Orientation: Normal For Age Current Glasses/Contacts: Yes Hearing Aids: No Dentures/Partials: No Hand Dominance: Right Upper Extremity ROM WFL Upper Extremity Coordination WFL Upper Extremity Strength WFL ADL-Treatment Eating (QC): 6 Oral Hygiene (QC): 6 (IND standing) Shower/Bathe Self (QC): 3 (Min A. assistance with b/l feet, and washing buttocks.) Upper Body Dressing (QC): 5 Lower Body Dressing (QC): 3 (min A for threading L foot) On/Off Footwear (QC): 1 Toileting Hygiene (QC): 3 (Min A with buttocks. Pt able to manage clothing with SBA.) Other Treatments Pt seated in recliner prior to tx. Pt used FWW to ambulate to toilet, SBA. Pt completed toileting, showering and oral care as outlined above. Pt provided LHS, able to wash/dry feet with AE, but still required min A with showering due to assistance with buttocks. Pt educated on using a inker and opaquer to assist wtih threading BLEs into pants, after education, pt completed LBD with SBA. Pt transferred to recliner. Education on inker and opaquer/sock aide for footwear. Pt able to doff/don gripper socks after education with VCs, assistance required to don TedHose. Pt used FWW to perform functional mobility to therapy gym, SBA, and completed 10min seated on the arm bike (25 [address]), in order to increase activity tolerance & BUE strength. Pt returned to recliner in room, Polar pack placed on R knee, call light within reach, and all needs met. Education OT Patient Education: Correct positioning, Energy conservation, Exercise program, Modified ADL techniques, Progress toward Goal/Update tx plan, Purpose of tx/functional activities, Rehab process, Use of adapted equipment Teaching Recipient: Patient Teaching Methods: Demonstration, Discussion Response to Teaching: Verbalize Understanding, Return Demonstration OT Short Term Goals Short Term Goals Time Frame: Jan 31, 2022 Toileting hygiene: 4 Shower/bathe self: 4 Lower body dressin Putting on/taking off footwear: 4 OT Seed Laboratory Assistant Goals Seed Laboratory Assistant Goals Time Frame: Feb 09, 2022 Eating (QC): 6 Oral Hygiene (QC): 6 Toileting Hygiene (QC): 6 Shower/Bathe Self (QC): 6 Upper Body Dressing (QC): 6 Lower Body Dressing (QC): 6 On/Off Footwear (QC): 6 Additional Goals: 1-Demonstrate ADL Tasks, 2-Verbalize Understanding, 3- ImproveStrength/Karen 1=Demonstrate adherence to instructed precautions during ADL tasks. 2=Patient will verbalize/demonstrate understanding of assistive devices/m odifications for ADL. 3=Patient will improve strength/tolerance for activity to enable patient to perform ADL's. OT Education/Plan Problem List/Assessment Assessment: Decreased Activ Tolerance, Impaired I ADL's, Impaired Self-Care Skills Discharge Recommendations Plan/Recommendations: Continue POC Therapy Discharge Recommendati: Home & Family, Post Acute OT (HH) Equpiment Recommendations-D/C: Extended Shower Sprayer, Aircraft Maintenance Engineer, Sock Aide Treatment Plan/Plan of Care Treatment,Training & Education: Yes Patient would benefit from OT for education, treatment and training to promote independence in ADL's, mobility, safety and/or upper extremity function for ADL's. Plan of Care: ADL Retraining, Functional Mobility, Group Exercise/Act as Ind, UE Funct Exercise/Act Treatment Duration: Feb 09, 2022 Frequency: At least 5 of 7 days/Wk (IRF) Estimated Hrs Per Day: 1.5 hours per day Rehab Potential: Good Time/GCodes Start Time: 09:15 Stop Time: 10:30 Total Time Billed (hr/min): 75 Billed Treatment Time 1, EVL (10'), ADL 3 (55'), Ex (10') ESTHELA MAHER OT Jan 22, 2022 10:48
--- NOTE | 2022-01-22 12:19 | ST Cognitive Linguistic Eval ---
Speech Evaluation-General Medical Diagnosis s/p R TKA Onset Date: Jan 17, 2022 Therapy Diagnosis Therapy Diagnosis: Intact Cognitive Linguistic Skills Precautions Precautions: Fall Precautions/Isolations: Fall Prevention, Standard Precautions Referral Referring Physician: Dr. Augusta Escobedo Reason for Referral: Evaluation/Treatment Medical History Pertinent Medical History: DM, HTN Current History The patient is a 66 year-old female with a past medical history of HTN, sleep apnea, renal failure, arthritis, and diabetes, who presents to the ARU following a right total knee replacement with Dr. Morelos on 01/17/22. Reviewed History: Yes Social History Current Living Status: Alone Speech PLF-Current Status Prior Level of Function The patient denied prior challenges with her speech, language, cognition, or swallowing. Subjective The patient was seated upright in her recliner, awake and alert upon entrance to her room by the clinician. The patient greeted the clinician appropriately and was agreeable to participation in the cognitive linguistic assessment. Language Eval: Auditory Comprehends Simple Yes/No Ques: Functional Indent/Objects Multiple [place]: Functional Ident/Pics in Multiple [place]: Functional Follows 1-Step Commands: Functional Follows Complex Directions: Functional Follows General Conversations: Functional Language Eval: Verbal Language Completes Spontaneous Greeting: Functional Produces Auto, Serial Info: Functional Imitates Simple Words/Phrases: Functional Word Finding: Functional Requests Basic Needs: Functional States Basic Personal Info: Functional Expresses Complex Ideas: Functional Language Evaluation: Reading Follows Simple Written Direct: Functional Language Evaluation: Writing Writes to Simple Dictation: Functional Objective Cognitive Domain Attention: WNL Memory: WNL Problem Solving: Functional Executive Functions: WNL Visuospatial Skills: WNL Composite Severity Rating: WNL Clock Drawing Severity Rating: WNL Objective Formal/Standardized Tests [facility] Mental Status Examination ([facility]) Results The patient demonstrated a result of +30/30 on the SLUMS correlating to cognitive linguistic skills within normal limits. Oral Motor/Speech Production The patient does not demonstrate dysarthria or apraxia of speech. The patient is 100% intelligible in known and unknown contexts. Impression The patient demonstrated cognitive linguistic skills within normal limits. Speech Patient Assess Expression of Ideas/Wants: Expression (4) Understanding Verbal Content: Understands (4) Brief Interview-Mental Status: Yes Repetition of Three Words: Three (3) Temporal Orientation: Year: Correct (3) Temporal Orientation: Month: Accurate within 5 days(2) Temporal Orientation: Day: Correct (1) Recall : Wear to say "Sock": Yes, no cue required (2) Recall : Color: Yes, no cue required (2) Recall : Bed: Yes, no cue required (2) Memory/Recall Ability: Current season, Location of own room, Staff names and faces, That he or she is in a hsp/hsp unit Speech-Plan Treatment Plan Speech Therapy Treatment Plan: Discontinue ST Treatment Duration: Jan 22, 2022 Frequency: 1 time per week Estimated Hrs Per Day: .5 hour per day Rehab Potential: Good Pt/Family Agrees to Plan: Yes Safety Risks/Education Teaching Recipient: Patient Teaching Methods: Discussion Response to Teaching: Verbalize Understanding Education Topics Provided: Results of SLUMS, Speech Pathology Plan of Care Time Speech Therapy Time In: 10:45 Speech Therapy Time Out: 11:15 Total Billed Time: 30 Billed Treatment Time 1, VALE BOUDREAUX [facility] Jan 22, 2022 12:19
--- NOTE | 2022-01-22 14:09 | Physical Therapy Daily Note ---
PT Daily Note-Current Subjective Pt sitting in recliner upon arrival. Pt agrees to PT. Pain Numeric Pain Scale: 5-Moderate Pain Location: Right, Incisional Location Body Site: Knee Pain Description: Ache, Burning Mental Status Patient Orientation: Person, Place, Time, Situation Attachments: Polar Pack Transfers SCALE: Activities may be completed with or without assistive devices. 8-Hobrdnswzd-jxomgfm completes the activity by him/herself with no assistance from a helper. 5-Set-up or Clean-up Assistance-helper sets up or cleans up; patient completes activity. [place] assists only prior to or following the activity. 4-Supervision or Touching Assistance-helper provides verbal cues and/or touching/steadying and/or contact guard assistance as patient completes activi ty. Assistance may be provided throughout the activity or intermittently. 3-Partial/Moderate Assistance-helper does LESS THAN HALF the effort. [place] lifts, holds or supports trunk or limbs, but provides less than half the effort. 2-Substantial/Maximal Assistance-helper does MORE THAN HALF the effort. [place] lifts or holds trunk or limbs and provides more than half the effort. 8-Sksegbybb-krhnpd does ALL the effort. Patient does none of the effort to complete the activity. Or, the assistance of 2 or more helpers is required for the patient to complete the activity. If activity was not attempted, code reason: 7-Patient Refused. 9-Not Applicable-not attempted and the patient did not perform the activity before the current illness, exacerbation or injury. 10-Not Attempted due to Environmental Limitations-(lack of equipment, weather restraints, etc.). 88-Not Attempted due to Medical Conditions or Safety Concerns. Sit to Stand (QC): 5 Toilet Transfer (QC): 5 Weight Bearing Right Lower Extremity: Right Weight Bearing/Tolerated Left Lower Extremity: Left Full Weight Bearing Gait Training Does the Patient Walk?: Yes Distance: 150' x2 Walk 10 feet (QC): 4 Walk 50 ft with 2 Turns(QC): 4 Walk 150 ft (QC): 4 Gait Persons Needed: 1 Gait Assistive Device: FWW VC to continue to bend R knee instead of circumducting R hip. Treatments TF to standing and uses BR. Pt amb. in hallway before returning to bed to rest. All needs met, call light in hand. Assessment Current Status: Good Progress R knee continues to be swollen and stiff but pt continues to try to flex R knee in normal gait pattern. PT Short Term Goals Short Term Goals Time Frame: Feb 03, 2022 Roll Left & Right: 5 Sit to lyin Lying to sitting on side of be: 5 Sit to stand: 5 Chair/gix-uo-veanv transfer: 5 Toilet transfer: 5 Car transfer: 5 Walk 50 feet with two turns: 5 Walk 150 feet: 5 Walking 10ft on uneven surface: 5 1 step (curb): 5 4 steps: 5 12 steps: 5 Picking up objects: 5 PT Half-Way Goals Insulation Machine Operator Goals PT Insulation Machine Operator Goals Time Frame: Feb 03, 2022 Roll Left & Right (QC): 6 Sit to Lying (QC): 6 Lying-Sitting on Side/Bed(QC): 6 Sit to Stand (QC): 6 Chair/Akf-cc-Htopb Xfer(QC): 6 Toilet Transfer (QC): 6 Car Transfer (QC): 6 Does the Patient Walk: Yes Walk 10 feet (QC): 6 Walk 50ft with 2 Turns (QC): 6 Walk 150 ft (QC): 6 Walking 10ft on Uneven Surface: 6 1 Step (curb) (QC): 6 4 Steps (QC): 6 12 Steps (QC): 6 Picking up an Object (QC): 6 Wheel 50 feet with 2 turns (QC: 88 Wheel 150 feet: 88 PT Plan Problem List Problem List: Activity Tolerance Treatment/Plan Treatment Plan: Continue Plan of Care Treatment Plan: Bed Mobility, Functional Activity Karen, Functional Strength, Group Therapy, Gait, Safety, Therapeutic Exercise, Transfers Treatment Duration: Feb 03, 2022 Frequency: At least 5 of 7 days/Wk (IRF) Estimated Hrs Per Day: 1.5 hours per day Patient and/or Family Agrees t: Yes Safety Risks/Education Patient Education: Gait Training, Correct Positioning, Safety Issues Teaching Recipient: Patient Teaching Methods: Discussion Response to Teaching: Verbalize Understanding Time/GCodes Time In: 1300 Time Out: 1330 Total Billed Treatment Time: 30 Total Billed Treatment 1, FA (10m) & GT (20m) RIC L[employer]E [employer] EXEC Jan 22, 2022 14:09
--- NOTE | 2022-01-22 17:02 | Progress Note ---
Subjective Date Seen by a Provider: Jan 22, 2022 Time Seen by a Provider: 13:00 Subjective/Events-last exam Fwup Right TKA, HTN, DMII, renal insufficiency. Doing better with PT. Pain controlled. Objective Exam Vital Signs Date Time Temp Pulse Resp B/P (MAP) Pulse Ox O2 Delivery O2 Flow Rate FiO2 01/22/22 09:34 Room Air 01/22/22 07:24 37.4 64 20 154/73 (100) 91 Room Air 01/21/22 21:21 Room Air 01/21/22 20:13 Room Air 01/21/22 20:00 37.6 69 18 150/61 (90) 93 Room Air Capillary Refill : General Appearance: No Apparent Distress Extremity: Non Tender, No Calf Tenderness, Pedal Edema (trace/RUFINA hose on) Neurologic/Psychiatric: Alert, Oriented x3 Skin: Warm/Dry, Other (right knee dressing in place and dry) Results Lab Laboratory Tests 01/21/22 20:56: Glucometer 100 01/22/22 11:10: Glucometer 108 01/22/22 16:34: Glucometer 106 Assessment/Plan Assessment/Plan Assess & Plan/Chief Complaint 1. Right TKA--continue PT/OT, on eliquis for DVT prevention and due to history of DVT, pain control 2. Hypertension--continue Hyzaar and increase metoprolol dose to 50mg po q HS 3. DMII--on Tradjenta with SSI and BS stable 4. Renal Insufficiency--repeat Chem 7 in AM AYLA ALCALA DO Jan 22, 2022 17:02
[2022-01-22 19:52] VITALS: BP 125/73
[2022-01-22] MEDS: meTOproloL SUCCINATE 50 MG (TOPROL XL) TAB PO SCH (20:06)
[2022-01-23] MEDS: oxyCODONE/APAP 5/325MG (PERCOCET 5) TABLET PO PRN ×5 (02:57→22:37)
--- NOTE | 2022-01-23 05:54 | PM&R Progress Note ---
Subjective HPI/CC On Admission Date Seen by Provider: Jan 23, 2022 Time Seen by Provider: 10:00 Subjective/Events-last exam 01/23/2022: Patient doing well Stopping ASA since she is back on the Eliquis Stopping accuchecks Pain is controlled 01/22/22: Patient doing well No changes BM+ loose Pain controlled Moving around well 01/21/2022: Patient doing well BM+ Pain controlled Labs reviewed Changing Lovenox back to home dose Eliquis Review of Systems General: Fatigue, Malaise Musculoskeletal: leg pain Objective Exam Vital Signs Vital Signs Date Time Temp Pulse Resp B/P (MAP) Pulse Ox O2 Delivery O2 Flow Rate FiO2 01/23/22 21:08 Room Air 01/23/22 19:28 37.1 70 20 113/70 (84) 94 Capillary Refill : General Appearance: No Apparent Distress HEENT: PERRL/EOMI, Normal ENT Inspection, Pharynx Normal Neck: Full Range of Motion, Normal Inspection, Non Tender, Supple, Carotid Bruit Respiratory: Chest Non Tender, Lungs Clear, Normal Breath Sounds, No Accessory Muscle Use, No Respiratory Distress Cardiovascular: Regular Rate, Rhythm, No Edema, No Gallop, No JVD, No Murmur, Normal Peripheral Pulses Gastrointestinal: Normal Bowel Sounds, No Organomegaly, No Pulsatile Mass, Non Tender, Soft Back: Normal Inspection, No CVA Tenderness, No Vertebral Tenderness Extremity: Non Tender, No Calf Tenderness, Pedal Edema (trace/RUFINA hose on) Neurologic/Psychiatric: Alert, Oriented x3 Skin: Warm/Dry, Other (right knee dressing in place and dry) Lymphatic: No Adenopathy Results/Procedures Lab Patient resulted labs reviewed. FIM Transfers Therapy Code Descriptions/Definitions Functional [place] Measure: 0=Not Assessed/NA 4=Minimal Assistance 1=Total Assistance 5=Supervision or Setup 2=Maximal Assistance 6=Modified [place] 3=Moderate Assistance 7=Complete IndependenceSCALE: Activities may be completed with or without assistive devices. 7-Mbegqldfql-sgtgiji completes the activity by him/herself with no assistance from a helper. 5-Set-up or Clean-up Assistance-helper sets up or cleans up; patient completes activity. [place] assists only prior to or following the activity. 4-Supervision or Touching Assistance-helper provides verbal cues and/or touching/steadying and/or contact guard assistance as patient completes activity. Assistance may be provided throughout the activity or intermittently. 3-Partial/Moderate Assistance-helper does LESS THAN HALF the effort. [place] lifts, holds or supports trunk or limbs, but provides less than half the effort. 2-Substantial/Maximal Assistance-helper does MORE THAN HALF the effort. [place] lifts or holds trunk or limbs and provides more than half the effort. 8-Hgrngvkwx-erpgmq does ALL the effort. Patient does none of the effort to complete the activity. Or, the assistance of 2 or more helpers is required for the patient to complete the activity. If activity was not attempted, code reason: 7-Patient Refused. 9-Not Applicable-not attempted and the patient did not perform the activity before the current illness, exacerbation or injury. 10-Not Attempted due to Environmental Limitations-(lack of equipment, weather restraints, etc.). 88-Not Attempted due to Medical Conditions or Safety Concerns. Roll Left to Right (QC): 4 Sit to Lying (QC): 4 Sit to Stand (QC): 5 Chair/Xzf-ey-Uvzat Xfer(QC): 3 Car Transfer (QC): 3 Gait Training Does the Patient Walk?: Yes Distance: 150' x2 Walk 10 feet (QC): 4 Walk 50 ft with 2 Turns(QC): 4 Walk 150 ft (QC): 4 Walking 10ft/uneven surface-QC: 4 Gait Persons Needed: 1 Gait Assistive Device: FWW Wheelchair Training Wheel 50 ft with 2 turns (QC): 88 Wheel 150 ft (QC): 88 Stair Training 1 Step (curb) (QC): 4 4 Steps (QC): 4 12 Steps (QC): 88 Balance Picking up an Object (QC): 3 ADL-Treatment Eating (QC): 6 Oral Hygiene (QC): 6 (IND standing) Shower/Bathe Self (QC): 3 (Min A. assistance with b/l feet, and washing buttocks.) Upper Body Dressing (QC): 5 Lower Body Dressing (QC): 3 (min A for threading L foot) On/Off Footwear (QC): 1 Toileting Hygiene (QC): 3 (Min A with buttocks. Pt able to manage clothing with SBA.) Assessment/Plan Assessment and Plan Assess & Plan/Chief Complaint Assessment: Right total knee replacement postop day # 7 slow recovery Increased BMI 47 PAMELLA noncompliant with CPAP History of pulmonary emboli DVT prophylaxis with Lovenox 30 mg SQ every 12 Diabetes Hypertension Chronic kidney disease Chronic diarrhea Plan: Aggressive rehab Pain control DVT prophylaxis Monitor sugar 01/21/2022: Eliquis Monitor closely 01/22/2022: Eliquis Supportive care 01/23/2022: DC ASA DC accuchecks (1) Status post right knee replacement (2) Diabetes (3) Hypertension (4) Chronic kidney disease (5) History of pulmonary embolism (6) Osteoarthritis of right knee (7) PAMELLA on CPAP Status: Chronic (8) Obesity Status: Chronic MARISELA CHU DO Jan 23, 2022 05:54
[2022-01-23] MEDS: inSUlin ASPART (NovoLOG) 1 UNIT/0.01 ML (CHARGE PER UNIT) SC SCH (06:00)
[2022-01-23 06:15] LABS: HEMATOCRIT 35 % (35-52); HEMOGLOBIN 10.7 g/dL (11.5-16.0); MEAN CORPUSCULAR HEMOGLOBIN 26 pg (25-34); MEAN CORPUSCULAR HGB CONC 31 g/dL (32-36); MEAN CORPUSCULAR VOLUME 83 fL (80-99); MEAN PLATELET VOLUME 9.5 fL (9.0-12.2); PLATELET COUNT 375 10^3/uL (130-400); WHITE BLOOD COUNT 11.6 10^3/uL (4.3-11.0)
[2022-01-23 06:29] LABS: POTASSIUM 3.9 MMOL/L (3.6-5.0)
[2022-01-23 06:35] LABS: CREATININE SERUM 0.75 MG/DL (0.60-1.30)
[2022-01-23 07:37] VITALS: BP 140/65
[2022-01-23] MEDS: DOCUSATE SODIUM 100 MG (COLACE) CAP PO SCH ×2 (08:58→20:47)
[2022-01-23] MEDS: LOSARTAN 100 MG (COZAAR) TABLET PO SCH (08:58)
[2022-01-23] MEDS: APIXABAN 5 MG (ELIQUIS) TABLET PO SCH ×2 (08:58→20:48)
[2022-01-23] MEDS: SENNA W/DOCUSATE (SENOKOT S) TABLET PO SCH ×2 (08:59→20:48)
[2022-01-23] MEDS: polyethylene glycoL POWDER 17 GM (MIRALAX) PACK PO SCH ×2 (08:59→19:14)
[2022-01-23] MEDS: ASPIRIN E.C. 81 MG (ECOTRIN) TAB PO SCH (09:54)
--- NOTE | 2022-01-23 10:17 | Physical Therapy Daily Note ---
PT Daily Note-Current Subjective Pt sitting in recliner upon arrival. Pt agrees to PT. Pain Numeric Pain Scale: 5-Moderate Pain Location: Right, Incisional Location Body Site: Knee Pain Description: Ache Mental Status Patient Orientation: Person, Place, Time, Situation Transfers SCALE: Activities may be completed with or without assistive devices. 2-Cfwjlseynm-lppggpi completes the activity by him/herself with no assistance from a helper. 5-Set-up or Clean-up Assistance-helper sets up or cleans up; patient completes activity. [place] assists only prior to or following the activity. 4-Supervision or Touching Assistance-helper provides verbal cues and/or touch ing/steadying and/or contact guard assistance as patient completes activity. Assistance may be provided throughout the activity or intermittently. 3-Partial/Moderate Assistance-helper does LESS THAN HALF the effort. [place] lifts, holds or supports trunk or limbs, but provides less than half the effort. 2-Substantial/Maximal Assistance-helper does MORE THAN HALF the effort. [place] lifts or holds trunk or limbs and provides more than half the effort. 1-Xtligblge-fuqwfs does ALL the effort. Patient does none of the effort to complete the activity. Or, the assistance of 2 or more helpers is required for the patient to complete the activity. If activity was not attempted, code reason: 7-Patient Refused. 9-Not Applicable-not attempted and the patient did not perform the activity before the current illness, exacerbation or injury. 10-Not Attempted due to Environmental Limitations-(lack of equipment, weather restraints, etc.). 88-Not Attempted due to Medical Conditions or Safety Concerns. Sit to Lying (QC): 4 Lying to Sitting/Side of Bed(Q: 4 Sit to Stand (QC): 5 Weight Bearing Right Lower Extremity: Right Weight Bearing/Tolerated Left Lower Extremity: Left Full Weight Bearing Gait Training Does the Patient Walk?: Yes Distance: 75', x2, 150' Walk 10 feet (QC): 5 Walk 50 ft with 2 Turns(QC): 5 Walk 150 ft (QC): 5 Gait Persons Needed: 1 Gait Assistive Device: FWW VC for bending R knee to prevent circumduction. Raised FWW for improved posture and less pressure on UE. Treatments TF to standing, declines need for BR. Pt amb. in hallway for RB as needed. Pt returns to room after walk to work on TF into bed. Pt uses gait belt looped for more independent TF for getting R LE into bed. Pt resting at EOB at end of tx. All needs met, call light in hand. Assessment Current Status: Good Progress Pt's mobility is improving but still fatigues, needing RB. PT Short Term Goals Short Term Goals Time Frame: Feb 03, 2022 Roll Left & Right: 5 Sit to lyin Lying to sitting on side of be: 5 Sit to stand: 5 Chair/glk-fr-wlrfw transfer: 5 Toilet transfer: 5 Car transfer: 5 Walk 50 feet with two turns: 5 Walk 150 feet: 5 Walking 10ft on uneven surface: 5 1 step (curb): 5 4 steps: 5 12 steps: 5 Picking up objects: 5 PT Halfway Goals Director Of Religious Life Goals PT Halfway Goals Time Frame: Feb 03, 2022 Roll Left & Right (QC): 6 Sit to Lying (QC): 6 Lying-Sitting on Side/Bed(QC): 6 Sit to Stand (QC): 6 Chair/Fyq-sx-Fzbdh Xfer(QC): 6 Toilet Transfer (QC): 6 Car Transfer (QC): 6 Does the Patient Walk: Yes Walk 10 feet (QC): 6 Walk 50ft with 2 Turns (QC): 6 Walk 150 ft (QC): 6 Walking 10ft on Uneven Surface: 6 1 Step (curb) (QC): 6 4 Steps (QC): 6 12 Steps (QC): 6 Picking up an Object (QC): 6 Wheel 50 feet with 2 turns (QC: 88 Wheel 150 feet: 88 PT Plan Problem List Problem List: Activity Tolerance, Transfer Treatment/Plan Treatment Plan: Continue Plan of Care Treatment Plan: Bed Mobility, Functional Activity Karen, Functional Strength, Group Therapy, Gait, Safety, Therapeutic Exercise, Transfers Treatment Duration: Feb 03, 2022 Frequency: At least 5 of 7 days/Wk (IRF) Estimated Hrs Per Day: 1.5 hours per day Patient and/or Family Agrees t: Yes Safety Risks/Education Patient Education: Gait Training, Transfer Techniques, Correct Positioning, Safety Issues Teaching Recipient: Patient Teaching Methods: Discussion Response to Teaching: Verbalize Understanding Time/GCodes Time In: 800 Time Out: 900 Total Billed Treatment Time: 60 Total Billed Treatment 1, FA x2 (30m) & GT x2 (30m) RIC LOWE PACKAGE LINE OPERATOR Jan 23, 2022 10:17
--- NOTE | 2022-01-23 10:21 | Occupational Ther Daily Note ---
OT Current Status-Daily Note Subjective Pt seated EOB prior to tx. Pt agreeable to OT tx. She reported not sleeping well the night before. Mental Status/Objective Patient Orientation: Normal For Age ADL-Treatment Therapy Code Descriptions/Definitions Functional [place] Measure: 0=Not Assessed/NA 4=Minimal Assistance 1=Total Assistance 5=Supervision or Setup 2=Maximal Assistance 6=Modified [place] 3=Moderate Assistance 7=Complete IndependenceSCALE: Activities may be completed with or without assistive devices. 0-Cqbponlvrq-hndbiwx completes the activity by him/herself with no assistance from a helper. 5-Set-up or Clean-up Assistance-helper sets up or cleans up; patient completes activity. [place] assists only prior to or following the activity. 4-Supervision or Touching Assistance-helper provides verbal cues and/or touc lakshmi/steadying and/or contact guard assistance as patient completes activity. Assistance may be provided throughout the activity or intermittently. 3-Partial/Moderate Assistance-helper does LESS THAN HALF the effort. [place] lifts, holds or supports trunk or limbs, but provides less than half the effort. 2-Substantial/Maximal Assistance-helper does MORE THAN HALF the effort. [place] lifts or holds trunk or limbs and provides more than half the effort. 9-Llgprmdsb-vwpunp does ALL the effort. Patient does none of the effort to complete the activity. Or, the assistance of 2 or more helpers is required for the patient to complete the activity. If activity was not attempted, code reason: 7-Patient Refused. 9-Not Applicable-not attempted and the patient did not perform the activity before the current illness, exacerbation or injury. 10-Not Attempted due to Environmental Limitations-(lack of equipment, weather restraints, etc.). 88-Not Attempted due to Medical Conditions or Safety Concerns. Eating (QC): 6 Oral Hygiene (QC): 6 Shower/Bathe Self (QC): 4 (SBA when standing to clean buttocks/kaelyn area and bending forward to watch feet using LHS) Upper Body Dressing (QC): 6 Lower Body Dressing (QC): 4 (SBA with v/c's to thread legs into pants with j2ee consultant) On/Off Footwear: 4 (SBA with v/c's to position and use wide sock aid & j2ee consultant to don/doff gripper socks) Toileting Hygiene (QC): 4 (SBA) Toilet Transfer (QC): 4 (SBA) Other Treatment Pt seated EOB prior to tx. Pt required two trials to standup with SBA and FWW. Pt transferred to bathroom to complete toileting, showering, and grooming activities (pt used AE such as sock aid, j2ee consultant, and long-handled sponge). Pt donned gripper socks and underwear prior to standing at sink to complete grooming activities. Pt completed dressing in recliner chair. Pt left in recliner chair with call light in reach, polar pack on, and all needs met. Education OT Patient Education: Correct positioning, Energy conservation, Modified ADL techniques, Progress toward Goal/Update tx plan, Purpose of tx/functional activities, Rehab process, Use of adapted equipment Teaching Recipient: Patient Teaching Methods: Discussion Response to Teaching: Verbalize Understanding, Return Demonstration OT Short Term Goals Short Term Goals Time Frame: Jan 31, 2022 Toileting hygiene: 4 Shower/bathe self: 4 Lower body dressin Putting on/taking off footwear: 4 OT Penitentiary Goals Penitentiary Goals Time Frame: Feb 09, 2022 Eating (QC): 6 Oral Hygiene (QC): 6 Toileting Hygiene (QC): 6 Shower/Bathe Self (QC): 6 Upper Body Dressing (QC): 6 Lower Body Dressing (QC): 6 On/Off Footwear (QC): 6 Additional Goals: 1-Demonstrate ADL Tasks, 2-Verbalize Understanding, 3- ImproveStrength/Karen 1=Demonstrate adherence to instructed precautions during ADL tasks. 2=Patient will verbalize/demonstrate understanding of assistive devices/modifications for ADL. 3=Patient will improve strength/tolerance for activity to enable patient to perform ADL's. OT Education/Plan Problem List/Assessment Assessment: Decreased Activ Tolerance, Impaired I ADL's, Impaired Self-Care Skills Discharge Recommendations Plan/Recommendations: Continue POC Equpiment Recommendations-D/C: Hand Grinder, Sock Aide Treatment Plan/Plan of Care Patient would benefit from OT for education, treatment and training to promote independence in ADL's, mobility, safety and/or upper extremity function for ADL's. Plan of Care: ADL Retraining, Functional Mobility, Group Exercise/Act as Ind, UE Funct Exercise/Act Treatment Duration: Feb 09, 2022 Frequency: At least 5 of 7 days/Wk (IRF) Estimated Hrs Per Day: 1.5 hours per day Rehab Potential: Good Time/GCodes Start Time: 09:15 Stop Time: 10:15 Total Time Billed (hr/min): 60 Billed Treatment Time 1, ADL 4 (60') ESTHELA MAHER OT Jan 23, 2022 10:21
--- NOTE | 2022-01-23 10:30 | Individualized Plan of Care ---
Individualized Plan of Care Rehab Nursing IPOC Order Admission Date Jan 20, 2022 at 11:15 Current Orders Orders Admission Order(Inpt,Obs,Sdc) (01/19/22 20:25) Vital Signs: Per Unit Policy ( 08,16,00 (01/19/22 20:25) Felix Donnelly (01/19/22 20:25) Sequential Compression Device (01/19/22 20:25) Gear Shaper-Inpt Rehab Con (01/19/22 20:25) Rehab Nursing Orders-Ipoc (01/19/22 20:25) Physical Therapy Rehab Orders (01/19/22 20:25) Occupational Therapy Rehab Ord (01/19/22 20:25) Speech Therapy Rehab Orders (01/19/22 20:25) Cbc With Automated Diff (01/21/22 06:00) Comprehensive Metabolic Panel (01/21/22 06:00) Precautions (Aru) (01/19/22 20:25) Weekly Weight WEEK (01/19/22 20:25) Rehab-Intensity Of Therapy (01/19/22 20:25) Initiate Admission Nursing Pro .admission (01/19/22 20:25) Alprazolam Tablet (Xanax Tablet) (01/19/22 20:30) Calcium Carbonate Chew Tablet (Antacid C (01/19/22 20:30) Diphenhydramine Tablet (Benadryl Tablet) (01/19/22 20:30) Docusate Sodium Capsule (Colace Capsule) (01/19/22 21:00) Docusate Sodium Capsule (Colace Capsule) (01/19/22 20:30) Bisacodyl Suppository (Dulcolax Supposit (01/19/22 20:30) Lactulose Oral Solution (Enulose Oral So (01/19/22 20:30) Na Phos/Na Biphos Enema (Fleet Enema Francisco (01/19/22 20:30) Loperamide Tablet (Imodium Tablet) (01/19/22 20:30) Melatonin Tablet (Melatonin Tablet) (01/19/22 20:30) Polyethylene Glycol Powder Pkt (Miralax (01/19/22 21:00) Ondansetron Oral Dissolve Tab (Zofran (01/19/22 20:30) Senna S Tablet (Senokot S Tablet) (01/19/22 21:00) Acetaminophen Tablet/Caplet (Tylenol T (01/19/22 20:30) Code/Resuscitation (01/19/22 20:25) Initiate Admission Nursing Pro .admission (01/19/22 20:25) Admission Arrival Bed Request (01/20/22 11:23) Code/Resuscitation (01/20/22 12:14) Accucheck Achs ACHS (01/20/22 12:14) Dressing Order (Intervention) DAILY (01/20/22 12:14) Incentive Spirometry (Nursing) Q2H (01/20/22 12:14) Sequential Compression Device ,,18,,02,06 (01/20/22 12:14) Felix Hose (01/20/22 12:14) Cho 60g/M 0snack (16-2000 Dariusz) (01/20/22 Lunch) Aspirin Enteric Coated Tablet (Ecotrin T (01/21/22 09:00) Hydrochlorothiazide Cap/Tablet (Hctz Cap (01/21/22 09:00) Linagliptin Tablet (Tradjenta Tablet) (01/21/22 09:00) Losartan Tablet (Cozaar Tablet) (01/21/22 09:00) Ondansetron Injection (Zofran Injectio (01/20/22 12:15) Senna S Tablet (Senokot S Tablet) (01/20/22 21:00) Diphenhydramine Injection (Benadryl Inje (01/20/22 12:15) Insulin Aspart (Novolog) (Novolog (Charg (01/20/22 15:00) Metoprolol Succinate (Xl) Tab (Toprol Xl (01/20/22 21:00) Oxycodone/Apap 5/325mg Tablet (Percocet (01/20/22 12:15) Consult Physician (01/20/22 12:14) Oxygen Delivery Set Up (01/20/22 12:14) Morphine Injection (Morphine Injection (01/20/22 12:15) Patient Visit (01/20/22 ) Pt Eval Moderate Complexity (01/20/22 ) Enoxaparin Injection (Lovenox Injection) (01/20/22 20:00) Sodium Chloride Flush (Catheter Flush Sy (01/21/22 01:45) Sodium Chloride Flush (Catheter Flush Sy (01/21/22 06:00) Insulin Aspart (Novolog) (Novolog (Charg (01/21/22 11:00) Apixaban Tablet (Eliquis Tablet) (01/21/22 11:15) Patient Visit (01/22/22 ) Speech Sound Lang Comp (01/22/22 ) Treat. Speech/Lang/Voice (01/22/22 ) Patient Visit (01/22/22 ) Functional Activities, Ea 15 (01/22/22 ) Exercise Therap, Ea 15 Min (01/22/22 ) Gait Training, Ea 15 Min (01/22/22 ) Metoprolol Succinate (Xl) Tab (Toprol Xl (01/22/22 21:00) Cbc No Diff (01/23/22 06:00) Basic Metabolic Panel (01/23/22 06:00) Rehab Nursing Orders: Ongoing Assess. of Cognitive Status, Ongoing Assess. of Function Status, Bladder Management, Bladder Scan, Bladder Training, Bowel Management, Bowel Training, Disease Management & Educaiton, DVT Prophylaxis, Fall Prevention, Fluid/Electrolyte/Nutrition Mgmt, Infection Prevention, Medication Management & Education, Management of Risks & Complications, Nutrition Management, Pain Management, Patient/Family Support, Safety Ma nagement, Swallow Precautions Intensity of Therapy to be met Patient to be seen: Min.3h per day/5 of 7d PT IPOC Problem List: Activity Tolerance, Transfer Treatment Plan: Continue Plan of Care Bed Mobility, Functional Activity Karen, Functional Strength, Group Therapy, Gait, Safety, Therapeutic Exercise, Transfers Treatment Duration: Feb 03, 2022 Frequency: At least 5 of 7 days/Wk (IRF) Estimated Hrs Per Day: 1.5 hours per day OT IPOC Problems: Decreased Activ Tolerance, Impaired I ADL's, Impaired Self-Care Skills OT Treatment, Training and Edu: Yes Plan of Care: ADL Retraining, Functional Mobility, Group Exercise/Act as Ind, UE Funct Exercise/Act Treatment Duration: Feb 09, 2022 Frequency: At least 5 of 7 days/Wk (IRF) Estimated Hrs Per Day: 1.[address] IPOC Speech Therapy Treatment Plan: Discontinue ST Treatment Duration: Jan 22, 2022 Frequency: 1 time per week Estimated Hrs Per Day: .5 hour per day Gear Shaper/Case Mgmt Gear Shaper/Case Managemen: Discharge Planning Dietitian/Cigar Tobacco Processing Supervisor Dietitian/Cigar Tobacco Processing Supervisor to monitor nutritional status and make changes and/or recommendations as needed and work with speech pathology on dietary upgrades as the occur. 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
[2022-01-23] MEDS ORDERED: ALPRAZolam 0.5 MG (XANAX) TAB PO PRN (10:45)
[2022-01-23] MEDS ORDERED: ALPRAZolam 0.25 MG (XANAX) TAB PO PRN (10:45)
--- NOTE | 2022-01-23 12:49 | Progress Note ---
Subjective Date Seen by a Provider: Jan 23, 2022 Time Seen by a Provider: 12:47 Subjective/Events-last exam Fwup Right TKA, HTN, DMII, renal insufficiency. Sitting up in chair. Some pain overnight but meds helping. Objective Exam Vital Signs Date Time Temp Pulse Resp B/P (MAP) Pulse Ox O2 Delivery O2 Flow Rate FiO2 01/23/22 09:20 Room Air 01/23/22 07:37 36.7 61 18 140/65 (90) 93 Room Air 01/22/22 20:09 94 Room Air 01/22/22 19:52 37.4 68 18 125/73 (90) 94 Room Air Capillary Refill : General Appearance: No Apparent Distress Neck: Supple Respiratory: Lungs Clear Cardiovascular: Regular Rate, Rhythm, Systolic Murmur Gastrointestinal: normal bowel sounds, non tender, soft Extremity: Non Tender, No Calf Tenderness, Pedal Edema (1 plus) Neurologic/Psychiatric: Alert, Oriented x3 Results Lab Laboratory Tests 01/22/22 16:34: Glucometer 106 01/22/22 20:04: Glucometer 127H 01/23/22 06:03: White Blood Count 11.6H, Red Blood Count 4.16, Hemoglobin 10.7L, Hematocrit 35, Mean Corpuscular Volume 83, Mean Corpuscular Hemoglobin 26, Mean Corpuscular Hemoglobin Concent 31L, Red Cell Distribution Width 15.7H, Platelet Count 375, Mean Platelet Volume 9.5, Sodium Level 139, Potassium Level 3.9, Chloride Level 99, Carbon Dioxide Level 27, Anion Gap 13, Blood Urea Nitrogen 15, Creatinine 0.75, Estimat Glomerular Filtration Rate 89, BUN/Creatinine Ratio 20, Glucose Level 107H, Calcium Level 9.0 01/23/22 10:49: Glucometer 114H Assessment/Plan Assessment/Plan Assess & Plan/Chief Complaint 1. Right TKA--continue PT/OT, on eliquis for DVT prevention and due to history of DVT, pain control, hopefully home at end of week 2. Hypertension--continue Hyzaar and increased metoprolol dose 3. DMII--on Tradjenta with SSI and BS stable 4. Renal Insufficiency--BUN/Cr stable AYLA ALCALA DO Jan 23, 2022 12:49
--- NOTE | 2022-01-23 13:18 | Occupational Ther Daily Note ---
OT Current Status-Daily Note Subjective Pt in recliner, agreeable to OT/PT cotreat for focus on higher level tasks. Mental Status/Objective Attachments: Polar Pack ADL-Treatment Therapy Code Descriptions/Definitions Functional [place] Measure: 0=Not Assessed/NA 4=Minimal Assistance 1=Total Assistance 5=Supervision or Setup 2=Maximal Assistance 6=Modified [place] 3=Moderate Assistance 7=Complete IndependenceSCALE: Activities may be completed with or without assistive devices. 6-Omidhkzhsk-dskxvrn completes the activity by him/herself with no assistance from a helper. 5-Set-up or Clean-up Assistance-helper sets up or cleans up; patient completes activity. [place] assists only prior to or following the activity. 4-Supervision or Touching Assistance-helper provides verbal cues and/or touching/steadying and/or contact guard assistance as patient completes activity. Assistance may be provided throughout the activity or intermittently. 3-Partial/Moderate Assistance-helper does LESS THAN HALF the effort. [place] lifts, holds or supports trunk or limbs, but provides less than half the effort. 2-Substantial/Maximal Assistance-helper does MORE THAN HALF the effort. [place] lifts or holds trunk or limbs and provides more than half the effort. 7-[place]-wvgawb does ALL the effort. Patient does none of the effort to complete the activity. Or, the assistance of 2 or more helpers is required for the patient to complete the activity. If activity was not attempted, code reason: 7-Patient Refused. 9-Not Applicable-not attempted and the patient did not perform the activity before the current illness, exacerbation or injury. 10-Not Attempted due to Environmental Limitations-(lack of equipment, weather restraints, etc.). 88-Not Attempted due to Medical Conditions or Safety Concerns. Other Treatment OT/PT cotreat due to skill of 2 clinicians required which a rehabilitator could not perform in order to focus on higher level balance tasks and activity tolerance due to pt's limitations with endurance. OT focused on UE placement, cues for sequencing and safety, PT focused on LE placement, gross overall movement, transfers and mobility, and balance. Pt used FWW to go to kitchen area. Pt located 12 [place] bags through drawers, upper/lower cabinets, and appliances. Pt utilized anode crew supervisor as needed to grab lower [place] bags. Pt required SBA throughout activity, 0 seated rest breaks. Pt educated on activity modification and kitchen management, as well as energy conservation throughout task. Pt returned to her room, transferring to bed. Post tx, pt in bed, call light in reach and all needs met. Education OT Patient Education: Correct positioning, Energy conservation, Modified ADL techniques, Progress toward Goal/Update tx plan, Purpose of tx/functional activities, Rehab process Teaching Recipient: Patient Teaching Methods: Discussion Response to Teaching: Verbalize Understanding OT Short Term Goals Short Term Goals Time Frame: Jan 31, 2022 Toileting hygiene: 4 Shower/bathe self: 4 Lower body dressin Putting on/taking off footwear: 4 OT Usp Goals Usp Goals Time Frame: Feb 09, 2022 Eating (QC): 6 Oral Hygiene (QC): 6 Toileting Hygiene (QC): 6 Shower/Bathe Self (QC): 6 Upper Body Dressing (QC): 6 Lower Body Dressing (QC): 6 On/Off Footwear (QC): 6 Additional Goals: 1-Demonstrate ADL Tasks, 2-Verbalize Understanding, 3- ImproveStrength/Karen 1=Demonstrate adherence to instructed precautions during ADL tasks. 2=Patient will verbalize/demonstrate understanding of assistive devices/modifications for ADL. 3=Patient will improve strength/tolerance for activity to enable patient to perform ADL's. OT Education/Plan Problem List/Assessment Assessment: Decreased Activ Tolerance, Decreased UE Strength, Impaired I ADL's, Impaired Self-Care Skills Discharge Recommendations Plan/Recommendations: Continue POC Treatment Plan/Plan of Care Patient would benefit from OT for education, treatment and training to promote independence in ADL's, mobility, safety and/or upper extremity function for ADL's. Plan of Care: ADL Retraining, Functional Mobility, Group Exercise/Act as Ind, UE Funct Exercise/Act Treatment Duration: Feb 09, 2022 Frequency: At least 5 of 7 days/Wk (IRF) Estimated Hrs Per Day: 1.5 hours per day Rehab Potential: Good Time/GCodes Start Time: 13:00 Stop Time: 13:30 Total Time Billed (hr/min): 30 Billed Treatment Time 1, FA 2 ESTHELA MAHER OT Jan 23, 2022 13:18
--- NOTE | 2022-01-23 13:59 | Physical Therapy Daily Note ---
PT Daily Note-Current Subjective Pt in recliner, agreeable to OT/PT cotreat for focus on higher level tasks. Pain Numeric Pain Scale: 5-Moderate Pain Location: Right, Incisional Location Body Site: Knee Pain Description: Ache, Burning, Tightness Mental Status Patient Orientation: Person, Place, Time, Situation Attachments: Polar Pack Transfers SCALE: Activities may be completed with or without assistive devices. 4-Nbgzcixpyo-waoxwli completes the activity by him/herself with no assistance from a helper. 5-Set-up or Clean-up Assistance-helper sets up or cleans up; patient completes activity. [place] assists only prior to or following the activity. 4-Supervision or Touching Assistance-helper provides verbal cues and/or touching/steadying and/or contact guard assistance as patient completes activity. Assistance may be provided throughout the activity or intermittently. 3-Partial/Moderate Assistance-helper does LESS THAN HALF the effort. [place] lifts, holds or supports trunk or limbs, but provides less than half the effort. 2-Substantial/Maximal Assistance-helper does MORE THAN HALF the effort. [place] lifts or holds trunk or limbs and provides more than half the effort. 2-Pxbmlljwt-aawnrm does ALL the effort. Patient does none of the effort to complete the activity. Or, the assistance of 2 or more helpers is required for the patient to complete the activity. If activity was not attempted, code reason: 7-Patient Refused. 9-Not Applicable-not attempted and the patient did not perform the activity before the current illness, exacerbation or injury. 10-Not Attempted due to Environmental Limitations-(lack of equipment, weather restraints, etc.). 88-Not Attempted due to Medical Conditions or Safety Concerns. Weight Bearing Right Lower Extremity: Right Weight Bearing/Tolerated Left Lower Extremity: Left Full Weight Bearing Treatments OT/PT cotreat due to skill of 2 clinicians required which a vocational rehabilitation counselor could not perform in order to focus on higher level balance tasks and activity tolerance due to pt's limitations with endurance. OT focused on UE placement, cues for sequencing and safety, PT focused on LE placement, gross overall movement, transfers and mobility, and balance. Pt used FWW to go to kitchen area. Pt located 12 [place] bags through drawers, upper/lower cabinets, and appliances. Pt utilized distributor cleaner as needed to grab lower [place] bags. Pt required SBA throughout activity, 0 seated rest breaks. Pt educated on activity modification and kitchen management, as well as energy conservation throughout task. Pt returned to her room, transferring to bed using gait belt loop to lift R LE into bed. Post tx, pt in bed, call light in reach and all needs met. Assessment Current Status: Good Progress Pt's activity tolerance and mobility have improved. PT has focused on proper posture and flexing of R knee to promote functional movement. PT Short Term Goals Short Term Goals Time Frame: Feb 03, 2022 Roll Left & Right: 5 Sit to lyin Lying to sitting on side of be: 5 Sit to stand: 5 Chair/jbc-oq-qaayc transfer: 5 Toilet transfer: 5 Car transfer: 5 Walk 50 feet with two turns: 5 Walk 150 feet: 5 Walking 10ft on uneven surface: 5 1 step (curb): 5 4 steps: 5 12 steps: 5 Picking up objects: 5 PT Sheet Metal Apprentice Goals Sheet Metal Apprentice Goals PT Sheet Metal Apprentice Goals Time Frame: Feb 03, 2022 Roll Left & Right (QC): 6 Sit to Lying (QC): 6 Lying-Sitting on Side/Bed(QC): 6 Sit to Stand (QC): 6 Chair/Gmt-yy-Abkqy Xfer(QC): 6 Toilet Transfer (QC): 6 Car Transfer (QC): 6 Does the Patient Walk: Yes Walk 10 feet (QC): 6 Walk 50ft with 2 Turns (QC): 6 Walk 150 ft (QC): 6 Walking 10ft on Uneven Surface: 6 1 Step (curb) (QC): 6 4 Steps (QC): 6 12 Steps (QC): 6 Picking up an Object (QC): 6 Wheel 50 feet with 2 turns (QC: 88 Wheel 150 feet: 88 PT Plan Problem List Problem List: Gait Treatment/Plan Treatment Plan: Continue Plan of Care Treatment Plan: Bed Mobility, Functional Activity Karen, Functional Strength, Group Therapy, Gait, Safety, Therapeutic Exercise, Transfers Treatment Duration: Feb 03, 2022 Frequency: At least 5 of 7 days/Wk (IRF) Estimated Hrs Per Day: 1.5 hours per day Patient and/or Family Agrees t: Yes Safety Risks/Education Patient Education: Correct Positioning, Safety Issues Teaching Recipient: Patient Teaching Methods: Discussion Response to Teaching: Verbalize Understanding Time/GCodes Time In: 1300 Time Out: 1330 Total Billed Treatment Time: 30 Total Billed Treatment Co-treat w/OT for 30m 1, FA x2 (30m) RIC LOWE KILN DRAWER Jan 23, 2022 13:59
[2022-01-23 19:28] VITALS: BP 113/70
[2022-01-23] MEDS ORDERED: MELATONIN 3 MG TABLET PO PRN (20:00)
[2022-01-23] MEDS: meTOproloL SUCCINATE 50 MG (TOPROL XL) TAB PO SCH (20:48)
--- NOTE | 2022-01-24 06:40 | PM&R Progress Note ---
Subjective HPI/CC On Admission Date Seen by Provider: Jan 24, 2022 Time Seen by Provider: 09:00 Subjective/Events-last exam 01/24/22: Patient doing well Nausea reported so will try to take meds more spread out than she is doing now Pain controlled 01/23/2022: Patient doing well Stopping ASA since she is back on the Eliquis Stopping accuchecks Pain is controlled 01/22/22: Patient doing well No changes BM+ loose Pain controlled Moving around well 01/21/2022: Patient doing well BM+ Pain controlled Labs reviewed Changing Lovenox back to home dose Eliquis Review of Systems General: Fatigue, Malaise Gastrointestinal: Nausea Musculoskeletal: leg pain Objective Exam Vital Signs Vital Signs Date Time Temp Pulse Resp B/P (MAP) Pulse Ox O2 Delivery O2 Flow Rate FiO2 01/24/22 09:00 Room Air 01/24/22 07:26 37.1 61 18 130/58 (82) 95 Capillary Refill : General Appearance: No Apparent Distress, Chronically ill, Obese HEENT: PERRL/EOMI, Normal ENT Inspection, Pharynx Normal Neck: Full Range of Motion, Normal Inspection, Non Tender, Supple, Carotid Bruit Respiratory: Chest Non Tender, Lungs Clear, Normal Breath Sounds, No Accessory Muscle Use, No Respiratory Distress Cardiovascular: Regular Rate, Rhythm, No Edema, No Gallop, No JVD, No Murmur, Normal Peripheral Pulses Gastrointestinal: Normal Bowel Sounds, No Organomegaly, No Pulsatile Mass, Non Tender, Soft Back: Normal Inspection, No CVA Tenderness, No Vertebral Tenderness Extremity: Non Tender, No Calf Tenderness, Pedal Edema (trace/RUFINA hose on) Neurologic/Psychiatric: Alert, Oriented x3 Skin: Warm/Dry, Other (right knee dressing in place and dry) Lymphatic: No Adenopathy Results/Procedures Lab Patient resulted labs reviewed. FIM Transfers Therapy Code Descriptions/Definitions Functional [place] Measure: 0=Not Assessed/NA 4=Minimal Assistance 1=Total Assistance 5=Supervision or Setup 2=Maximal Assistance 6=Modified [place] 3=Moderate Assistance 7=Complete IndependenceSCALE: Activities may be completed with or without assistive devices. 1-Kyvbjcqvso-prsxtqn completes the activity by him/herself with no assistance from a helper. 5-Set-up or Clean-up Assistance-helper sets up or cleans up; patient completes activity. [place] assists only prior to or following the activity. 4-Supervision or Touching Assistance-helper provides verbal cues and/or touching/steadying and/or contact guard assistance as patient completes activity. Assistance may be provided throughout the activity or intermittently. 3-Partial/Moderate Assistance-helper does LESS THAN HALF the effort. [place] lifts, holds or supports trunk or limbs, but provides less than half the effort. 2-Substantial/Maximal Assistance-helper does MORE THAN HALF the effort. [place] lifts or holds trunk or limbs and provides more than half the effort. 7-Nwwcdwwmr-ygsgcv does ALL the effort. Patient does none of the effort to complete the activity. Or, the assistance of 2 or more helpers is required for the patient to complete the activity. If activity was not attempted, code reason: 7-Patient Refused. 9-Not Applicable-not attempted and the patient did not perform the activity before the current illness, exacerbation or injury. 10-Not Attempted due to Environmental Limitations-(lack of equipment, weather restraints, etc.). 88-Not Attempted due to Medical Conditions or Safety Concerns. Roll Left to Right (QC): 4 Sit to Lying (QC): 4 Sit to Stand (QC): 5 Chair/Pwt-qn-Uyinu Xfer(QC): 3 Car Transfer (QC): 3 Gait Training Does the Patient Walk?: Yes Distance: 75', x2, 150' Walk 10 feet (QC): 5 Walk 50 ft with 2 Turns(QC): 5 Walk 150 ft (QC): 5 Walking 10ft/uneven surface-QC: 4 Gait Persons Needed: 1 Gait Assistive Device: FWW Wheelchair Training Does the Pt Use a Wheelchair?: No Wheel 50 ft with 2 turns (QC): 88 Wheel 150 ft (QC): 88 Type of Wheelchair: N/A Stair Training 1 Step (curb) (QC): 4 4 Steps (QC): 4 12 Steps (QC): 88 Balance Picking up an Object (QC): 3 ADL-Treatment Eating (QC): 6 Oral Hygiene (QC): 6 Shower/Bathe Self (QC): 4 (SBA when standing to clean buttocks/kaelyn area and bending forward to watch feet using LHS) Upper Body Dressing (QC): 6 Lower Body Dressing (QC): 4 (SBA with v/c's to thread legs into pants with retail service representative) On/Off Footwear (QC): 4 (SBA with v/c's to position and use wide sock aid & retail service representative to don/doff gripper socks) Toileting Hygiene (QC): 4 (SBA) Toilet Transfer (QC): 4 (SBA) Assessment/Plan Assessment and Plan Assess & Plan/Chief Complaint Assessment: Right total knee replacement postop day # 8 slow recovery Increased BMI 47 PAMELLA noncompliant with CPAP History of pulmonary emboli back on Eliquis DVT prophylaxis with Lovenox 30 mg SQ every 12 then switched to eliquis home dose Diabetes Hypertension Chronic kidney disease Chronic diarrhea Plan: Aggressive rehab Pain control DVT prophylaxis Monitor sugar 01/21/2022: Eliquis Monitor closely 01/22/2022: Eliquis Supportive care 01/23/2022: DC ASA DC accuchecks 01/24/22: Eliquis Monitor closely (1) Status post right knee replacement (2) Diabetes (3) Hypertension (4) Chronic kidney disease (5) History of pulmonary embolism (6) Osteoarthritis of right knee (7) PAMELLA on CPAP Status: Chronic (8) Obesity Status: Chronic MARISELA CHU DO Jan 24, 2022 06:40
[2022-01-24 07:26] VITALS: BP 130/58
[2022-01-24] MEDS: LOSARTAN 100 MG (COZAAR) TABLET PO SCH (07:33)
[2022-01-24] MEDS: DOCUSATE SODIUM 100 MG (COLACE) CAP PO SCH ×2 (07:34→21:09)
[2022-01-24] MEDS: APIXABAN 5 MG (ELIQUIS) TABLET PO SCH ×2 (07:34→21:06)
[2022-01-24] MEDS: oxyCODONE/APAP 5/325MG (PERCOCET 5) TABLET PO PRN ×4 (07:34→22:34)
[2022-01-24] MEDS: ONDANSETRON 4 MG (ZOFRAN) ORAL DISSOLVE TAB PO PRN ×2 (08:41→19:58)
[2022-01-24] MEDS: polyethylene glycoL POWDER 17 GM (MIRALAX) PACK PO SCH ×2 (09:37→21:09)
[2022-01-24] MEDS: SENNA W/DOCUSATE (SENOKOT S) TABLET PO SCH ×2 (09:38→21:10)
--- NOTE | 2022-01-24 09:52 | Progress Note ---
Standard Progress Note Progress Notes/Assess & Plan Date Seen by a Provider: Jan 24, 2022 Time Seen by a Provider: 09:52 Progress/Assessment & Plan patient ambulating in curz no calf tenderness NVI distally s/p RTKA continue PT/OT DELVIS ACUÑA MD Jan 24, 2022 09:52
--- NOTE | 2022-01-24 10:01 | Physical Therapy Daily Note ---
PT Daily Note-Current Subjective Pt sitting in recliner upon arrival. Pt agrees to PT. Pain Numeric Pain Scale: 5-Moderate Pain Location: Right, Incisional Location Body Site: Knee Pain Description: Ache, Burning, Tightness Mental Status Patient Orientation: Person, Place, Time, Situation Attachments: Polar Pack Transfers SCALE: Activities may be completed with or without assistive devices. 9-Ijjddoljly-vgwtudv completes the activity by him/herself with no assistance from a helper. 5-Set-up or Clean-up Assistance-helper sets up or cleans up; patient completes activity. [place] assists only prior to or following the activity. 4-Supervision or Touching Assistance-helper provides verbal cues and/or touching/steadying and/or contact guard assistance as patient completes activity. Assistance may be provided throughout the activity or intermittently. 3-Partial/Moderate Assistance-helper does LESS THAN HALF the effort. [place] lifts, holds or supports trunk or limbs, but provides less than half the effort. 2-Substantial/Maximal Assistance-helper does MORE THAN HALF the effort. [place] lifts or holds trunk or limbs and provides more than half the effort. 5-Fyalpkfoe-zwtwru does ALL the effort. Patient does none of the effort to complete the activity. Or, the assistance of 2 or more helpers is required for the patient to complete the activity. If activity was not attempted, code reason: 7-Patient Refused. 9-Not Applicable-not attempted and the patient did not perform the activity before the current illness, exacerbation or injury. 10-Not Attempted due to Environmental Limitations-(lack of equipment, weather restraints, etc.). 88-Not Attempted due to Medical Conditions or Safety Concerns. Sit to Stand (QC): 5 Weight Bearing Right Lower Extremity: Right Weight Bearing/Tolerated Left Lower Extremity: Left Full Weight Bearing Gait Training Does the Patient Walk?: Yes Distance: 125' x2, 100' x2 Walk 10 feet (QC): 5 Walk 50 ft with 2 Turns(QC): 5 Walk 150 ft (QC): 5 Gait Persons Needed: 1 Gait Assistive Device: FWW Occasional VC to flex/bend knee more instead of leaning to L side as compensation Stair Training Stair Training: Handrails/: 1 handrail #of Steps: 2 1 Step (curb) (QC): 4 Stairs: Pattern: Step to Treatments 800-900: TF to standing and amb. in hallway w/RB as needed. Pt completes 2 sets of single step before amb. to Therapy Gym and trying staircase. Pt completes 2 steps then asks to rest. After RB, Pt returns to room resting in recliner. All needs met, call light in hand. [id number]: After taking polar pack off, pt TF to standing. Pt amb. in hallway using FWW, ~250'. Pt is encouraged to bend R knee w/heel strike as pt tends to stay in extension. Pt takes RB as needed before returning to room to rest in recliner w/polar pack. All needs met, call light in hand. Assessment Current Status: Good Progress Pt needs VC to bend knee more as pt self limits. PT Short Term Goals Short Term Goals Time Frame: Feb 03, 2022 Roll Left & Right: 5 Sit to lyin Lying to sitting on side of be: 5 Sit to stand: 5 Chair/hmx-or-rqndl transfer: 5 Toilet transfer: 5 Car transfer: 5 Walk 50 feet with two turns: 5 Walk 150 feet: 5 Walking 10ft on uneven surface: 5 1 step (curb): 5 4 steps: 5 12 steps: 5 Picking up objects: 5 PT Joint Creaser Goals Joint Creaser Goals PT Joint Creaser Goals Time Frame: Feb 03, 2022 Roll Left & Right (QC): 6 Sit to Lying (QC): 6 Lying-Sitting on Side/Bed(QC): 6 Sit to Stand (QC): 6 Chair/Xel-ah-Qlsge Xfer(QC): 6 Toilet Transfer (QC): 6 Car Transfer (QC): 6 Does the Patient Walk: Yes Walk 10 feet (QC): 6 Walk 50ft with 2 Turns (QC): 6 Walk 150 ft (QC): 6 Walking 10ft on Uneven Surface: 6 1 Step (curb) (QC): 6 4 Steps (QC): 6 12 Steps (QC): 6 Picking up an Object (QC): 6 Wheel 50 feet with 2 turns (QC: 88 Wheel 150 feet: 88 PT Plan Problem List Problem List: Activity Tolerance, Gait Treatment/Plan Treatment Plan: Continue Plan of Care Treatment Plan: Bed Mobility, Functional Activity Karen, Functional Strength, Group Therapy, Gait, Safety, Therapeutic Exercise, Transfers Treatment Duration: Feb 03, 2022 Frequency: At least 5 of 7 days/Wk (IRF) Estimated Hrs Per Day: 1.5 hours per day Patient and/or Family Agrees t: Yes Safety Risks/Education Patient Education: Gait Training, Correct Positioning Teaching Recipient: Patient Teaching Methods: Discussion Response to Teaching: Verbalize Understanding Time/GCodes Time In: 800 Time Out: 900 Total Billed Treatment Time: 60 Total Billed Treatment 800-900: 1, FA (15m), EX (20m) & GT x2 (25m) [id number]: 1, GT x2 (35m) RIC LOWE FOREIGN DIPLOMAT Jan 24, 2022 10:01
--- NOTE | 2022-01-24 10:27 | Occupational Ther Daily Note ---
OT Current Status-Daily Note Subjective Pt seated in chair prior to tx. Pt states feeling n/v this morning but feels better after BM. Pt agreeable to OT tx. Mental Status/Objective Patient Orientation: Normal For Age ADL-Treatment Therapy Code Descriptions/Definitions Functional [place] Measure: 0=Not Assessed/NA 4=Minimal Assistance 1=Total Assistance 5=Supervision or Setup 2=Maximal Assistance 6=Modified [place] 3=Moderate Assistance 7=Complete IndependenceSCALE: Activities may be completed with or without assistive devices. 9-Yogkzjpdfz-mxnewqp completes the activity by him/herself with no assistance from a helper. 5-Set-up or Clean-up Assistance-helper sets up or cleans up; patient completes activity. [place] assists only prior to or following the activity. 4-Supervision or Touching Assistance-helper provides verbal cues and/or touching/steadying and/or contact guard assistance as patient completes activity. Assistance may be provided throughout the activity or intermittently. 3-Partial/Moderate Assistance-helper does LESS THAN HALF the effort. [place] lifts, holds or supports trunk or limbs, but provides less than half the effort. 2-Substantial/Maximal Assistance-helper does MORE THAN HALF the effort. [place] lifts or holds trunk or limbs and provides more than half the effort. 8-Imbbxiucw-iegdam does ALL the effort. Patient does none of the effort to complete the activity. Or, the assistance of 2 or more helpers is required for the patient to complete the activity. If activity was not attempted, code reason: 7-Patient Refused. 9-Not Applicable-not attempted and the patient did not perform the activity before the current illness, exacerbation or injury. 10-Not Attempted due to Environmental Limitations-(lack of equipment, weather restraints, etc.). 88-Not Attempted due to Medical Conditions or Safety Concerns. Shower/Bathe Self (QC): 4 (Supervision when seated and SBA when standing) Upper Body Dressing (QC): 6 Lower Body Dressing (QC): 6 Other Treatment Pt seated in recliner prior to tx. Pt used FWW to transfer sit to stand and retrieve clothing items from closet across room, independently. Pt completed sponge bath seated at the bathroom sink (pt used AE such as toilet tongs and pictures editor). During RB, pt was educated on energy conservation techniques when doing laundry tasks at home. Pt transferred to laundry room to wash clothing with FWW at the level of supervision. Pt transferred to therapy gym to complete 15min of standing modified scrabble task, 1lb wrist weights BUEs, to address functional balance and endurance, no RB needed. Pt returned to bed using FWW at the level of supervision, CPM placed on R knee, call light within reach, and all needs met. Education OT Patient Education: Correct positioning, Energy conservation, Exercise program, Modified ADL techniques, Progress toward Goal/Update tx plan, Purpose of tx/functional activities, Rehab process, Safety issues, Transfer techniques, Use of adapted equipment Teaching Recipient: Patient Teaching Methods: Discussion Response to Teaching: Verbalize Understanding, Return Demonstration OT Short Term Goals Short Term Goals Time Frame: Jan 31, 2022 Toileting hygiene: 4 Shower/bathe self: 4 Lower body dressin Putting on/taking off footwear: 4 OT Halfway Goals Acid Recovery Operator Goals Time Frame: Feb 09, 2022 Eating (QC): 6 Oral Hygiene (QC): 6 Toileting Hygiene (QC): 6 Shower/Bathe Self (QC): 6 Upper Body Dressing (QC): 6 Lower Body Dressing (QC): 6 On/Off Footwear (QC): 6 Additional Goals: 1-Demonstrate ADL Tasks, 2-Verbalize Understanding, 3- ImproveStrength/Karen 1=Demonstrate adherence to instructed precautions during ADL tasks. 2=Patient will verbalize/demonstrate understanding of assistive devices/modifications for ADL. 3=Patient will improve strength/tolerance for activity to enable patient to perform ADL's. OT Education/Plan Problem List/Assessment Assessment: Decreased Activ Tolerance, Decreased UE Strength, Impaired I ADL's, Impaired Self-Care Skills Discharge Recommendations Plan/Recommendations: Continue POC Treatment Plan/Plan of Care Patient would benefit from OT for education, treatment and training to promote independence in ADL's, mobility, safety and/or upper extremity function for ADL's. Plan of Care: ADL Retraining, Functional Mobility, Group Exercise/Act as Ind, UE Funct Exercise/Act Treatment Duration: Feb 09, 2022 Frequency: At least 5 of 7 days/Wk (IRF) Estimated Hrs Per Day: 1.5 hours per day Rehab Potential: Good Time/GCodes Start Time: 09:15 Stop Time: 10:15 Total Time Billed (hr/min): 60 Billed Treatment Time 1, ADL 2 (30'), FA 2 (30') ESTHELA MAHER OT Jan 24, 2022 10:27
--- NOTE | 2022-01-24 12:59 | Progress Note ---
Subjective Date Seen by a Provider: Jan 24, 2022 Time Seen by a Provider: 12:56 Subjective/Events-last exam Fwup Right TKA, HTN, DMII, renal insufficiency. Some nausea in AM. Pain improving. Objective Exam Vital Signs Date Time Temp Pulse Resp B/P (MAP) Pulse Ox O2 Delivery O2 Flow Rate FiO2 01/24/22 09:00 Room Air 01/24/22 07:26 37.1 61 18 130/58 (82) 95 Room Air 01/23/22 21:08 Room Air 01/23/22 19:28 37.1 70 20 113/70 (84) 94 Room Air Capillary Refill : General Appearance: No Apparent Distress Neck: Supple Respiratory: Lungs Clear Cardiovascular: Regular Rate, Rhythm Gastrointestinal: normal bowel sounds, non tender, soft Extremity: Non Tender, No Calf Tenderness, Pedal Edema (1) Neurologic/Psychiatric: Alert, Oriented x3 Skin: Warm/Dry Assessment/Plan Assessment/Plan Assess & Plan/Chief Complaint 1. Right TKA--continue PT/OT, on eliquis for DVT prevention and due to history of DVT, pain control, add pepcid for DVT prophylaxis 2. Hypertension--continue Hyzaar and increased metoprolol dose 3. DMII--on Tradjenta with SSI and BS stable 4. Renal Insufficiency--BUN/Cr stable AYLA ALCALA DO Jan 24, 2022 12:58
--- NOTE | 2022-01-24 13:41 | Occupational Ther Daily Note ---
OT Current Status-Daily Note Subjective Pt laying in bed prior to tx. Pt agreeable to OT tx. Mental Status/Objective Patient Orientation: Normal For Age ADL-Treatment Therapy Code Descriptions/Definitions Functional [place] Measure: 0=Not Assessed/NA 4=Minimal Assistance 1=Total Assistance 5=Supervision or Setup 2=Maximal Assistance 6=Modified [place] 3=Moderate Assistance 7=Complete IndependenceSCALE: Activities may be completed with or without assistive devices. 0-Yayiakvjtn-xffgpto completes the activity by him/herself with no assistance from a helper. 5-Set-up or Clean-up Assistance-helper sets up or cleans up; patient completes activity. [place] assists only prior to or following the activity. 4-Supervision or Touching Assistance-helper provides verbal cues and/or touching/steadying and/or contact guard assistance as patient completes activity. Assistance may be provided throughout the activity or intermittently. 3-Partial/Moderate Assistance-helper does LESS THAN HALF the effort. [place] lifts, holds or supports trunk or limbs, but provides less than half the effort. 2-Substantial/Maximal Assistance-helper does MORE THAN HALF the effort. [place] lifts or holds trunk or limbs and provides more than half the effort. 1-Jvasfmmbm-bcfueu does ALL the effort. Patient does none of the effort to complete the activity. Or, the assistance of 2 or more helpers is required for the patient to complete the activity. If activity was not attempted, code reason: 7-Patient Refused. 9-Not Applicable-not attempted and the patient did not perform the activity before the current illness, exacerbation or injury. 10-Not Attempted due to Environmental Limitations-(lack of equipment, weather restraints, etc.). 88-Not Attempted due to Medical Conditions or Safety Concerns. Toileting Hygiene (QC): 4 (supervision) Toilet Transfer (QC): 4 (supervision) Other Treatment Pt laying in bed prior to OT tx. Pt transferred supine to seated EOB, SBA. Pt used FWW to transfer to bathroom to use toilet with supervision for balance. Pt completed simulated standing laundry task and used problem solving techniques to retrieve clothing from dryer, fold clothes, and transport them back to the closet in her room while using a FWW, SBA-supervision. Pt able to fold all clothes and transport to closet with 2 trips between room and dryer. Post tx, pt in recliner with polar pack on R knee, call light in reach, and all needs met. Education OT Patient Education: Correct positioning, Energy conservation, Exercise pr ogram, Modified ADL techniques, Progress toward Goal/Update tx plan, Purpose of tx/functional activities, Rehab process, Transfer techniques, Use of adapted equipment Teaching Recipient: Patient Teaching Methods: Demonstration, Discussion Response to Teaching: Verbalize Understanding, Return Demonstration OT Short Term Goals Short Term Goals Time Frame: Jan 31, 2022 Toileting hygiene: 4 Shower/bathe self: 4 Lower body dressin Putting on/taking off footwear: 4 OT Animal Tech Goals Custodial Goals Time Frame: Feb 09, 2022 Eating (QC): 6 Oral Hygiene (QC): 6 Toileting Hygiene (QC): 6 Shower/Bathe Self (QC): 6 Upper Body Dressing (QC): 6 Lower Body Dressing (QC): 6 On/Off Footwear (QC): 6 Additional Goals: 1-Demonstrate ADL Tasks, 2-Verbalize Understanding, 3- ImproveStrength/Karen 1=Demonstrate adherence to instructed precautions during ADL tasks. 2=Patient will verbalize/demonstrate understanding of assistive devices/modifications for ADL. 3=Patient will improve strength/tolerance for activity to enable patient to perform ADL's. OT Education/Plan Problem List/Assessment Assessment: Decreased Activ Tolerance, Decreased UE Strength, Impaired I ADL's, Impaired Self-Care Skills Discharge Recommendations Plan/Recommendations: Continue POC Treatment Plan/Plan of Care Patient would benefit from OT for education, treatment and training to promote independence in ADL's, mobility, safety and/or upper extremity function for ADL's. Plan of Care: ADL Retraining, Functional Mobility, Group Exercise/Act as Ind, UE Funct Exercise/Act Treatment Duration: Feb 09, 2022 Frequency: At least 5 of 7 days/Wk (IRF) Estimated Hrs Per Day: 1.5 hours per day Rehab Potential: Good Time/GCodes Start Time: 13:00 Stop Time: 13:30 Total Time Billed (hr/min): 30 Billed Treatment Time 1, ADL 2 (30') ESTHELA MAHER OT Jan 24, 2022 13:41
[2022-01-24 20:00] VITALS: BP 150/56
[2022-01-24] MEDS: FAMOTIDINE 20 MG (PEPCID) TABLET PO SCH (21:06)
[2022-01-24] MEDS: meTOproloL SUCCINATE 50 MG (TOPROL XL) TAB PO SCH (21:06)
--- NOTE | 2022-01-25 06:28 | PM&R Progress Note ---
Subjective HPI/CC On Admission Date Seen by Provider: Jan 25, 2022 Time Seen by Provider: 11:00 Subjective/Events-last exam 01/25/2022: Patient doing well Ready for discharge tomorrow Pain medication already called into the pharmacy Reviewed meds 01/24/22: Patient doing well Nausea reported so will try to take meds more spread out than she is doing now Pain controlled 01/23/2022: Patient doing well Stopping ASA since she is back on the Eliquis Stopping accuchecks Pain is controlled 01/22/22: Patient doing well No changes BM+ loose Pain controlled Moving around well 01/21/2022: Patient doing well BM+ Pain controlled Labs reviewed Changing Lovenox back to home dose Eliquis Review of Systems Musculoskeletal: leg pain Objective Exam Vital Signs Vital Signs Date Time Temp Pulse Resp B/P (MAP) Pulse Ox O2 Delivery O2 Flow Rate FiO2 01/25/22 21:25 96 Room Air 01/25/22 19:49 37.3 66 16 115/71 (86) Capillary Refill : General Appearance: No Apparent Distress, Chronically ill, Obese HEENT: PERRL/EOMI, Normal ENT Inspection, Pharynx Normal Neck: Full Range of Motion, Normal Inspection, Non Tender, Supple, Carotid Bruit Respiratory: Chest Non Tender, Lungs Clear, Normal Breath Sounds, No Accessory Muscle Use, No Respiratory Distress Cardiovascular: Regular Rate, Rhythm, No Edema, No Gallop, No JVD, No Murmur, Normal Peripheral Pulses Gastrointestinal: Normal Bowel Sounds, No Organomegaly, No Pulsatile Mass, Non Tender, Soft Back: Normal Inspection, No CVA Tenderness, No Vertebral Tenderness Extremity: Non Tender, No Calf Tenderness, Pedal Edema (trace/RUFINA hose on) Neurologic/Psychiatric: Alert, Oriented x3 Skin: Warm/Dry, Other (right knee dressing in place and dry) Lymphatic: No Adenopathy Results/Procedures Lab Patient resulted labs reviewed. FIM Transfers Therapy Code Descriptions/Definitions Functional [place] Measure: 0=Not Assessed/NA 4=Minimal Assistance 1=Total Assistance 5=Supervision or Setup 2=Maximal Assistance 6=Modified [place] 3=Moderate Assistance 7=Complete IndependenceSCALE: Activities may be completed with or without assistive devices. 1-Tdawwansyq-thfwood completes the activity by him/herself with no assistance from a helper. 5-Set-up or Clean-up Assistance-helper sets up or cleans up; patient completes activity. [place] assists only prior to or following the activity. 4-Supervision or Touching Assistance-helper provides verbal cues and/or touching/steadying and/or contact guard assistance as patient completes activity. Assistance may be provided throughout the activity or intermittently. 3-Partial/Moderate Assistance-helper does LESS THAN HALF the effort. [place] lifts, holds or supports trunk or limbs, but provides less than half the effort. 2-Substantial/Maximal Assistance-helper does MORE THAN HALF the effort. [place] lifts or holds trunk or limbs and provides more than half the effort. 1-Osfsnwlev-wnvpys does ALL the effort. Patient does none of the effort to complete the activity. Or, the assistance of 2 or more helpers is required for the patient to complete the activity. If activity was not attempted, code reason: 7-Patient Refused. 9-Not Applicable-not attempted and the patient did not perform the activity before the current illness, exacerbation or injury. 10-Not Attempted due to Environmental Limitations-(lack of equipment, weather restraints, etc.). 88-Not Attempted due to Medical Conditions or Safety Concerns. Roll Left to Right (QC): 4 Sit to Lying (QC): 4 Sit to Stand (QC): 5 Chair/Yix-pq-Nagqp Xfer(QC): 3 Car Transfer (QC): 3 Gait Training Does the Patient Walk?: Yes Distance: 125' x2, 100' x2 Walk 10 feet (QC): 5 Walk 50 ft with 2 Turns(QC): 5 Walk 150 ft (QC): 5 Walking 10ft/uneven surface-QC: 4 Gait Persons Needed: 1 Gait Assistive Device: FWW Wheelchair Training Does the Pt Use a Wheelchair?: No Wheel 50 ft with 2 turns (QC): 88 Wheel 150 ft (QC): 88 Type of Wheelchair: N/A Stair Training Stair Training: Handrails/: 1 handrail #of Steps: 2 1 Step (curb) (QC): 4 4 Steps (QC): 4 12 Steps (QC): 88 Stairs: Pattern: Step to Balance Picking up an Object (QC): 3 ADL-Treatment Eating (QC): 6 Oral Hygiene (QC): 6 Shower/Bathe Self (QC): 4 (Supervision when seated and SBA when standing) Upper Body Dressing (QC): 6 Lower Body Dressing (QC): 6 On/Off Footwear (QC): 4 (SBA with v/c's to position and use wide sock aid & bagel maker to don/doff gripper socks) Toileting Hygiene (QC): 4 (supervision) Toilet Transfer (QC): 4 (supervision) Assessment/Plan Assessment and Plan Assess & Plan/Chief Complaint Assessment: Right total knee replacement postop day # 9 slow recovery Increased BMI 47 PAMELLA noncompliant with CPAP History of pulmonary emboli back on Eliquis DVT prophylaxis with Lovenox 30 mg SQ every 12 then switched to eliquis home dose Diabetes Hypertension Chronic kidney disease Chronic diarrhea Plan: Aggressive rehab Pain control DVT prophylaxis Monitor sugar 01/21/2022: Eliquis Monitor closely 01/22/2022: Eliquis Supportive care 01/23/2022: DC ASA DC accuchecks 01/24/22: Eliquis Monitor closely 01/25/2022: Discharge home Saturday (1) Status post right knee replacement (2) Diabetes (3) Hypertension (4) Chronic kidney disease (5) History of pulmonary embolism (6) Osteoarthritis of right knee (7) PAMELLA on CPAP Status: Chronic (8) Obesity Status: Chronic MARISELA CHU DO Jan 25, 2022 06:28
[2022-01-25] MEDS: oxyCODONE/APAP 5/325MG (PERCOCET 5) TABLET PO PRN ×3 (06:48→21:21)
[2022-01-25 07:23] VITALS: BP 124/62
[2022-01-25] MEDS: FAMOTIDINE 20 MG (PEPCID) TABLET PO SCH ×2 (08:06→21:20)
[2022-01-25] MEDS: LOSARTAN 100 MG (COZAAR) TABLET PO SCH (08:06)
[2022-01-25] MEDS: APIXABAN 5 MG (ELIQUIS) TABLET PO SCH ×2 (08:06→21:21)
--- NOTE | 2022-01-25 09:01 | Physical Therapy Daily Note ---
PT Daily Note-Current Subjective Pt. agrees to rx. States she will be home alone after a couple days with son. Pt. c/o pain in right knee at 5/10. Pt state she had a rough slow rehab with her left knee. Pt. admits she could not reach her feet before this and def cant now. Pain Numeric Pain Scale: 5-Moderate Pain Location: Right Location Body Site: Knee Pain Description: Ache Mental Status Patient Orientation: Normal For Age Transfers SCALE: Activities may be completed with or without assistive devices. 2-Esrqzxwfkx-yfzbkpc completes the activity by him/herself with no assistance from a helper. 5-Set-up or Clean-up Assistance-helper sets up or cleans up; patient completes activity. [place] assists only prior to or following the activity. 4-Supervision or Touching Assistance-helper provides verbal cues and/or touching/steadying and/or contact guard assistance as patient completes activity. Assistance may be provided throughout the activity or intermittently. 3-Partial/Moderate Assistance-helper does LESS THAN HALF the effort. [place] lifts, holds or supports trunk or limbs, but provides less than half the effort. 2-Substantial/Maximal Assistance-helper does MORE THAN HALF the effort. [place] lifts or holds trunk or limbs and provides more than half the effort. 2-Lkhbxxggv-cythki does ALL the effort. Patient does none of the effort to complete the activity. Or, the assistance of 2 or more helpers is required for the patient to complete the activity. If activity was not attempted, code reason: 7-Patient Refused. 9-Not Applicable-not attempted and the patient did not perform the activity before the current illness, exacerbation or injury. 10-Not Attempted due to Environmental Limitations-(lack of equipment, weather restraints, etc.). 88-Not Attempted due to Medical Conditions or Safety Concerns. Roll Left & Right (QC): 6 Sit to Lying (QC): 6 Lying to Sitting/Side of Bed(Q: 6 Sit to Stand (QC): 6 Chair/Pyg-eh-Yqjtk Xfer(QC): 6 pt. indep lifted right leg in out bed x 6, pt. enters and exits bed to her left at home, this was practiced which has pt. entering with R leg which she achieved several trials Weight Bearing Right Lower Extremity: Right Weight Bearing/Tolerated Left Lower Extremity: Left Full Weight Bearing Gait Training Does the Patient Walk?: Yes Walk 10 feet (QC): 4 Walk 50 ft with 2 Turns(QC): 4 Walk 150 ft (QC): 4 Gait Persons Needed: 1 Gait Assistive Device: FWW much work on heel strk and knee flexion and toe off etc, even step length, moderate wt bearing on FWW Exercises Supine Ex: Quad Set, Heel Slides, Short Arc Quads, Scooting, Straight leg raise Supine Reps: 20 (x2) Seated Therapy Exercises: Ankle pumps, Sit to stand, Long arc quads, Hip fl exion Seated Reps: 20 Treatments gait, instructed in use of gait belt to do heel slides in long sitting leaning against wall as well as qsets and HC stretches Assessment Current Status: Good Progress AROM 5 deg to 78 deg, PT Short Term Goals Short Term Goals Time Frame: Feb 03, 2022 Roll Left & Right: 5 Sit to lyin Lying to sitting on side of be: 5 Sit to stand: 5 Chair/svk-yy-mtnex transfer: 5 Toilet transfer: 5 Car transfer: 5 Walk 50 feet with two turns: 5 Walk 150 feet: 5 Walking 10ft on uneven surface: 5 1 step (curb): 5 4 steps: 5 12 steps: 5 Picking up objects: 5 PT Senior Care Goals Manager [employer] Goals PT Manager [employer] Goals Time Frame: Feb 03, 2022 Roll Left & Right (QC): 6 Sit to Lying (QC): 6 Lying-Sitting on Side/Bed(QC): 6 Sit to Stand (QC): 6 Chair/Pis-tn-Fesng Xfer(QC): 6 Toilet Transfer (QC): 6 Car Transfer (QC): 6 Does the Patient Walk: Yes Walk 10 feet (QC): 6 Walk 50ft with 2 Turns (QC): 6 Walk 150 ft (QC): 6 Walking 10ft on Uneven Surface: 6 1 Step (curb) (QC): 6 4 Steps (QC): 6 12 Steps (QC): 6 Picking up an Object (QC): 6 Wheel 50 feet with 2 turns (QC: 88 Wheel 150 feet: 88 PT Plan Treatment/Plan Treatment Plan: Continue Plan of Care Treatment Plan: Bed Mobility, Functional Activity Karen, Functional Strength, Group Therapy, Gait, Safety, Therapeutic Exercise, Transfers Treatment Duration: Feb 03, 2022 Frequency: At least 5 of 7 days/Wk (IRF) Estimated Hrs Per Day: 1.5 hours per day Patient and/or Family Agrees t: Yes Safety Risks/Education Patient Education: Gait Training, Transfer Techniques, Correct Positioning, Disease Process, Safety Issues Teaching Recipient: Patient Teaching Methods: Demonstration, Discussion Response to Teaching: Verbalize Understanding, Return Demonstration, Reinforcement Needed Time/GCodes Time In: 800 Time Out: 900 Total Billed Treatment Time: 60 Total Billed Treatment 1,GT15m,EX30m,FA15m ZANDRA PALOMO NETWORK SECURITY OFFICER Jan 25, 2022 09:01
[2022-01-25] MEDS: DOCUSATE SODIUM 100 MG (COLACE) CAP PO SCH ×2 (09:15→21:24)
[2022-01-25] MEDS: polyethylene glycoL POWDER 17 GM (MIRALAX) PACK PO SCH ×2 (09:16→21:24)
[2022-01-25] MEDS: SENNA W/DOCUSATE (SENOKOT S) TABLET PO SCH ×2 (09:16→21:25)
--- NOTE | 2022-01-25 10:58 | Occupational Ther Daily Note ---
OT Current Status-Daily Note Subjective Pt in recliner prior to tx. States that she is tired and her R knee is sore from morning therapy. Pt agreeable to tx. Mental Status/Objective Patient Orientation: Normal For Age ADL-Treatment Therapy Code Descriptions/Definitions Functional [place] Measure: 0=Not Assessed/NA 4=Minimal Assistance 1=Total Assistance 5=Supervision or Setup 2=Maximal Assistance 6=Modified [place] 3=Moderate Assistance 7=Complete IndependenceSCALE: Activities may be completed with or without assistive devices. 6-Kjoepvattx-kpvxqhi completes the activity by him/herself with no assistance from a helper. 5-Set-up or Clean-up Assistance-helper sets up or cleans up; patient completes a ctivity. [place] assists only prior to or following the activity. 4-Supervision or Touching Assistance-helper provides verbal cues and/or touching/steadying and/or contact guard assistance as patient completes activity. Assistance may be provided throughout the activity or intermittently. 3-Partial/Moderate Assistance-helper does LESS THAN HALF the effort. [place] lifts, holds or supports trunk or limbs, but provides less than half the effort. 2-Substantial/Maximal Assistance-helper does MORE THAN HALF the effort. [place] lifts or holds trunk or limbs and provides more than half the effort. 1-Lwekstduj-hmvztv does ALL the effort. Patient does none of the effort to complete the activity. Or, the assistance of 2 or more helpers is required for the patient to complete the activity. If activity was not attempted, code reason: 7-Patient Refused. 9-Not Applicable-not attempted and the patient did not perform the activity before the current illness, exacerbation or injury. 10-Not Attempted due to Environmental Limitations-(lack of equipment, weather restraints, etc.). 88-Not Attempted due to Medical Conditions or Safety Concerns. Eating (QC): 6 Oral Hygiene (QC): 6 Shower/Bathe Self (QC): 4 (Supervision needed when standing to clean buttocks/kaelyn area.) Upper Body Dressing (QC): 6 Lower Body Dressing (QC): 6 On/Off Footwear: 4 (Supervision for min verbal cues to use cat cracker operator when doffing gripper socks (adjusting to new type of gripper; one that is similar to cat cracker operator at home).) Toileting Hygiene (QC): 6 Toilet Transfer (QC): 6 Other Treatment Pt seated in recliner prior to tx. Pt independently transferred from seated EOC to standing, and used her FWW to retrieve clothing items from closet across room, independently. Pt independently ambulated with FWW to bathroom to complete toileting, dressing, and oral hygiene independently and showering with supervision required when standing to clean buttocks/kaelyn area. Pt requested RB before transferring to therapy gym. 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 Pt used FWW to transfer back to room, supervision required d/t pt fatigue. Post tx, pt left in recliner with polar pack on R knee, call light within reach, and all needs met. Education OT Patient Education: Correct positioning, Energy conservation, Exercise program, Modified ADL techniques, Progress toward Goal/Update tx plan, Purpose of tx/functional activities, Rehab process, Safety issues, Use of adapted equipment Teaching Recipient: Patient Teaching Methods: Discussion Response to Teaching: Verbalize Understanding OT Short Term Goals Short Term Goals Time Frame: Jan 31, 2022 Toileting hygiene: 4 Shower/bathe self: 4 Lower body dressin Putting on/taking off footwear: 4 OT Firearms Assembly Supervisor Goals Firearms Assembly Supervisor Goals Time Frame: Feb 09, 2022 Eating (QC): 6 (met) Oral Hygiene (QC): 6 (met) Toileting Hygiene (QC): 6 (met) Shower/Bathe Self (QC): 6 Upper Body Dressing (QC): 6 (met) Lower Body Dressing (QC): 6 (met) On/Off Footwear (QC): 6 Additional Goals: 1-Demonstrate ADL Tasks, 2-Verbalize Understanding, 3-ImproveStrength/Karen 1=Demonstrate adherence to instructed precautions during ADL tasks. 2=Patient will verbalize/demonstrate understanding of assistive devices/modifications for ADL. 3=Patient will improve strength/tolerance for activity to enable patient to perform ADL's. OT Education/Plan Problem List/Assessment Assessment: Decreased Activ Tolerance, Impaired I ADL's, Impaired Self-Care Skills Discharge Recommendations Plan/Recommendations: Continue POC Treatment Plan/Plan of Care Patient would benefit from OT for education, treatment and training to promote independence in ADL's, mobility, safety and/or upper extremity function for ADL's. Plan of Care: ADL Retraining, Functional Mobility, Group Exercise/Act as Ind, UE Funct Exercise/Act Treatment Duration: Feb 09, 2022 Frequency: At least 5 of 7 days/Wk (IRF) Estimated Hrs Per Day: 1.5 hours per day Rehab Potential: Good Time/GCodes Start Time: 09:15 Stop Time: 10:45 Total Time Billed (hr/min): 90 Billed Treatment Time 1, ADL 4 (60'), Ex (8'), FA (22') ESTHELA MAHER OT Jan 25, 2022 10:58
--- NOTE | 2022-01-25 13:50 | Physical Therapy Daily Note ---
PT Daily Note-Current Subjective Pt. agrees to Rx. No c/o pain Pain Location: No Pain Reported Mental Status Patient Orientation: Normal For Age Attachments: Other-See Comments (CPM after Rx) Transfers SCALE: Activities may be completed with or without assistive devices. 7-Vifhzydiyi-fnxylie completes the activity by him/herself with no assistance from a helper. 5-Set-up or Clean-up Assistance-helper sets up or cleans up; patient completes activity. [place] assists only prior to or following the activity. 4-Supervision or Touching Assistance-helper provides verbal cues and/or touching/steadying and/or contact guard assistance as patient completes activity. Assistance may be provided throughout the activity or intermittently. 3-Partial/Moderate Assistance-helper does LESS THAN HALF the effort. [place] lifts, holds or supports trunk or limbs, but provides less than half the effort. 2-Substantial/Maximal Assistance-helper does MORE THAN HALF the effort. [place] lifts or holds trunk or limbs and provides more than half the effort. 0-Fjouzbwkt-wiyrji does ALL the effort. Patient does none of the effort to complete the activity. Or, the assistance of 2 or more helpers is required for the patient to complete the activity. If activity was not attempted, code reason: 7-Patient Refused. 9-Not Applicable-not attempted and the patient did not perform the activity before the current illness, exacerbation or injury. 10-Not Attempted due to Environmental Limitations-(lack of equipment, weather restraints, etc.). 88-Not Attempted due to Medical Conditions or Safety Concerns. in out bed and chair and toilet all indep/SBA Weight Bearing Right Lower Extremity: Right Weight Bearing/Tolerated Left Lower Extremity: Left Full Weight Bearing Gait Training Does the Patient Walk?: Yes Gait Assistive Device: FWW 125x2 SBA Exercises NuStep Minutes: 10 NuStep Workload: 2 Treatments gati , ex and nustep followed by CPM at 0 to 75 deg Assessment Current Status: Good Progress PT Short Term Goals Short Term Goals Time Frame: Feb 03, 2022 Roll Left & Right: 5 Sit to lyin Lying to sitting on side of be: 5 Sit to stand: 5 Chair/nmb-yc-ntoua transfer: 5 Toilet transfer: 5 Car transfer: 5 Walk 50 feet with two turns: 5 Walk 150 feet: 5 Walking 10ft on uneven surface: 5 1 step (curb): 5 4 steps: 5 12 steps: 5 Picking up objects: 5 PT Half-Way Goals Half-Way Goals PT Crystal Grinder Goals Time Frame: Feb 03, 2022 Roll Left & Right (QC): 6 Sit to Lying (QC): 6 Lying-Sitting on Side/Bed(QC): 6 Sit to Stand (QC): 6 Chair/Orx-ru-Ljbhr Xfer(QC): 6 Toilet Transfer (QC): 6 Car Transfer (QC): 6 Does the Patient Walk: Yes Walk 10 feet (QC): 6 Walk 50ft with 2 Turns (QC): 6 Walk 150 ft (QC): 6 Walking 10ft on Uneven Surface: 6 1 Step (curb) (QC): 6 4 Steps (QC): 6 12 Steps (QC): 6 Picking up an Object (QC): 6 Wheel 50 feet with 2 turns (QC: 88 Wheel 150 feet: 88 PT Plan Treatment/Plan Treatment Plan: Continue Plan of Care Treatment Plan: Bed Mobility, Functional Activity Karen, Functional Strength, Group Therapy, Gait, Safety, Therapeutic Exercise, Transfers Treatment Duration: Feb 03, 2022 Frequency: At least 5 of 7 days/Wk (IRF) Estimated Hrs Per Day: 1.5 hours per day Patient and/or Family Agrees t: Yes Safety Risks/Education Patient Education: Gait Training, Transfer Techniques, Correct Positioning, Disease Process, Safety Issues Teaching Recipient: Patient Response to Teaching: Reinforcement Needed Time/GCodes Time In: 1245 Time Out: 1315 Total Billed Treatment Time: 30 Total Billed Treatment 1,GT10m,EX20m ZANDRA PALOMO ELECTRICIAN SUPERVISOR AIRPLANE Jan 25, 2022 13:50
--- NOTE | 2022-01-25 16:32 | Progress Note ---
Subjective Date Seen by a Provider: Jan 25, 2022 Time Seen by a Provider: 12:50 Subjective/Events-last exam Fwup Right TKA, HTN, DMII, renal insufficiency. No nausea this morning. In gym working on [employer]. Objective Exam Vital Signs Date Time Temp Pulse Resp B/P (MAP) Pulse Ox O2 Delivery O2 Flow Rate FiO2 01/25/22 09:18 Room Air 01/25/22 07:23 36.8 61 18 124/62 (82) 95 Room Air 01/24/22 21:10 96 Room Air 01/24/22 20:00 37.1 67 16 150/56 (87) 96 Room Air Capillary Refill : General Appearance: No Apparent Distress Extremity: Pedal Edema (trace) Neurologic/Psychiatric: Alert, Oriented x3 Skin: Warm/Dry (dry dressing on right knee) Assessment/Plan Assessment/Plan Assess & Plan/Chief Complaint 1. Right TKA--continue PT/OT, on eliquis for DVT prevention and due to history of DVT, pain control, added pepcid for stress ulcer prophylaxis 2. Hypertension--continue Hyzaar and increased metoprolol dose 3. DMII--on Tradjenta with SSI and BS stable 4. Renal Insufficiency--BUN/Cr stable AYLA ALCALA DO Jan 25, 2022 16:32
[2022-01-25 19:49] VITALS: BP 115/71
[2022-01-25] MEDS: meTOproloL SUCCINATE 50 MG (TOPROL XL) TAB PO SCH (21:20)
[2022-01-26] MEDS: oxyCODONE/APAP 5/325MG (PERCOCET 5) TABLET PO PRN ×4 (06:26→22:40)
--- NOTE | 2022-01-26 06:54 | Progress Note ---
Standard Progress Note Progress Notes/Assess & Plan Date Seen by a Provider: Jan 26, 2022 Time Seen by a Provider: 06:54 Progress/Assessment & Plan patient ambulating in cruz no calf tenderness NVI distally s/p RTKA continue PT/OT Final Diagnosis feeling better RLE--no claf tenderness. Neg Tiffanie incision clean and dry s/p RTKA doing well DC tomorrow FU twoweeks DELVIS ACUÑA MD Jan 26, 2022 06:54
[2022-01-26 07:29] VITALS: BP 115/66
[2022-01-26] MEDS: APIXABAN 5 MG (ELIQUIS) TABLET PO SCH ×2 (09:04→21:35)
[2022-01-26] MEDS: FAMOTIDINE 20 MG (PEPCID) TABLET PO SCH ×2 (09:05→21:35)
[2022-01-26] MEDS: LOSARTAN 100 MG (COZAAR) TABLET PO SCH (09:05)
[2022-01-26] MEDS: SENNA W/DOCUSATE (SENOKOT S) TABLET PO SCH ×2 (09:05→19:51)
--- NOTE | 2022-01-26 09:07 | Physical Therapy Daily Note ---
PT Daily Note-Current Subjective Pt. up in recliner, agrees to Rx, states she did not sleep very well. States she feels the CPM was turned up too high by this [employer] yesterday aftn. CPM was increased from 60 deg to 75 deg with good tolerance while this SUPERVIS[employer] was in her room. Discussed at length with pt. that she is in a period of time to make the most of mobility as scar tissue lays down and inhibits mobility if not pushed through to some degree. Pts left TKR is an example as pts AROM is approx 0 to 85 deg. Pain Numeric Pain Scale: 4 Location: Right Location Body Site: Knee Pain Description: Ache Comment: pain c/o during exercise only Mental Status Patient Orientation: Normal For Age Transfers SCALE: Activities may be completed with or without assistive devices. 0-Neutfiefnx-dutyets completes the activity by him/herself with no assistance from a helper. 5-Set-up or Clean-up Assistance-helper sets up or cleans up; patient completes activity. [place] assists only prior to or following the activity. 4-Supervision or Touching Assistance-helper provides verbal cues and/or touching/steadying and/or contact guard assistance as patient completes act ivity. Assistance may be provided throughout the activity or intermittently. 3-Partial/Moderate Assistance-helper does LESS THAN HALF the effort. [place] lifts, holds or supports trunk or limbs, but provides less than half the effort. 2-Substantial/Maximal Assistance-helper does MORE THAN HALF the effort. [place] lifts or holds trunk or limbs and provides more than half the effort. 4-Fwsaxamnu-cbgfec does ALL the effort. Patient does none of the effort to complete the activity. Or, the assistance of 2 or more helpers is required for the patient to complete the activity. If activity was not attempted, code reason: 7-Patient Refused. 9-Not Applicable-not attempted and the patient did not perform the activity before the current illness, exacerbation or injury. 10-Not Attempted due to Environmental Limitations-(lack of equipment, weather restraints, etc.). 88-Not Attempted due to Medical Conditions or Safety Concerns. Roll Left & Right (QC): 6 Sit to Lying (QC): 6 Lying to Sitting/Side of Bed(Q: 6 Sit to Stand (QC): 6 Chair/Ngm-es-Axnwz Xfer(QC): 6 Toilet Transfer (QC): 6 Car Transfer (QC): 3 pt. required mod assist to get right LE in out car simulator Weight Bearing Right Lower Extremity: Right Weight Bearing/Tolerated Left Lower Extremity: Left Full Weight Bearing Gait Training Does the Patient Walk?: Yes Walk 10 feet (QC): 6 Walk 50 ft with 2 Turns(QC): 6 Walk 150 ft (QC): 6 Walking 10ft/uneven surface-QC: 6 Gait Persons Needed: 0 Gait Assistive Device: FWW pt. likely candidate for up ad jen status in room, will consult DPT Stair Training Stair Training: Handrails/: 2 handrails #of Steps: 12 1 Step (curb) (QC): 6 4 Steps (QC): 6 12 Steps (QC): 6 Stairs: Pattern: Step to Balance Picking up an Object (QC): 6 Exercises Supine Ex: Ankle pumps, Quad Set, Rolling, Heel Slides, Short Arc Quads, Straight leg raise Supine Reps: 20 Seated Therapy Exercises: Ankle pumps, Sit to stand, Long arc quads Seated Reps: 15 NuStep Minutes: 10 NuStep Workload: 3 Treatments seated scoots keeping foot in place to facilitate knee flexion stretch Assessment Current Status: Good Progress PT Short Term Goals Short Term Goals Time Frame: Feb 03, 2022 Roll Left & Right: 5 Sit to lyin Lying to sitting on side of be: 5 Sit to stand: 5 Chair/ovr-jk-cqowl transfer: 5 Toilet transfer: 5 Car transfer: 5 Walk 50 feet with two turns: 5 Walk 150 feet: 5 Walking 10ft on uneven surface: 5 1 step (curb): 5 4 steps: 5 12 steps: 5 Picking up objects: 5 PT Fci Goals Fci Goals PT Fci Goals Time Frame: Feb 03, 2022 Roll Left & Right (QC): 6 Sit to Lying (QC): 6 Lying-Sitting on Side/Bed(QC): 6 Sit to Stand (QC): 6 Chair/Bna-lf-Yskep Xfer(QC): 6 Toilet Transfer (QC): 6 Car Transfer (QC): 6 Does the Patient Walk: Yes Walk 10 feet (QC): 6 Walk 50ft with 2 Turns (QC): 6 Walk 150 ft (QC): 6 Walking 10ft on Uneven Surface: 6 1 Step (curb) (QC): 6 4 Steps (QC): 6 12 Steps (QC): 6 Picking up an Object (QC): 6 Wheel 50 feet with 2 turns (QC: 88 Wheel 150 feet: 88 PT Plan Treatment/Plan Treatment Plan: Continue Plan of Care Treatment Plan: Bed Mobility, Functional Activity Karen, Functional Strength, Group Therapy, Gait, Safety, Therapeutic Exercise, Transfers Treatment Duration: Feb 03, 2022 Frequency: At least 5 of 7 days/Wk (IRF) Estimated Hrs Per Day: 1.5 hours per day Patient and/or Family Agrees t: Yes Safety Risks/Education Patient Education: Gait Training, Transfer Techniques, Steps, Correct Positioning, Disease Process, Safety Issues Teaching Recipient: Patient Teaching Methods: Demonstration, Discussion Response to Teaching: Verbalize Understanding, Return Demonstration, Reinforcement Needed educated in various exercises and stretches to be done at any time to help increase flexibility and strength Time/GCodes Time In: 800 Time Out: 900 Total Billed Treatment Time: 60 Total Billed Treatment 1,FA30m,GT10m,EX20m ZANDRA PALOMO [employer] Jan 26, 2022 09:07
[2022-01-26] MEDS: DOCUSATE SODIUM 100 MG (COLACE) CAP PO SCH ×2 (09:36→19:50)
[2022-01-26] MEDS: polyethylene glycoL POWDER 17 GM (MIRALAX) PACK PO SCH ×2 (09:36→19:50)
--- NOTE | 2022-01-26 10:17 | Occupational Ther Daily Note ---
OT Current Status-Daily Note Subjective Pt. seated in recliner prior to OT tx. Pt agreeable to tx. Pt states that her R knee "is burning" after 15min of standing task. Mental Status/Objective Patient Orientation: Normal For Age ADL-Treatment Therapy Code Descriptions/Definitions Functional [place] Measure: 0=Not Assessed/NA 4=Minimal Assistance 1=Total Assistance 5=Supervision or Setup 2=Maximal Assistance 6=Modified [place] 3=Moderate Assistance 7=Complete IndependenceSCALE: Activities may be completed with or without assistive devices. 9-Xllmeeupby-spkrcce completes the activity by him/herself with no assistance from a helper. 5-Set-up or Clean-up Assistance-helper sets up or cleans up; patient completes activity. [place] assists only prior to or following the activity. 4-Supervision or Touching Assistance-helper provides verbal cues and/or touching/steadying and/or contact guard assistance as patient completes activity. Assistance may be provided throughout the activity or intermittently. 3-Partial/Moderate Assistance-helper does LESS THAN HALF the effort. [place] lifts, holds or supports trunk or limbs, but provides less than half the effort. 2-Substantial/Maximal Assistance-helper does MORE THAN HALF the effort. [place] lifts or holds trunk or limbs and provides more than half the effort. 1-Isxscknzt-opcatr does ALL the effort. Patient does none of the effort to complete the activity. Or, the assistance of 2 or more helpers is required for the patient to complete the activity. If activity was not attempted, code reason: 7-Patient Refused. 9-Not Applicable-not attempted and the patient did not perform the activity before the current illness, exacerbation or injury. 10-Not Attempted due to Environmental Limitations-(lack of equipment, weather restraints, etc.). 88-Not Attempted due to Medical Conditions or Safety Concerns. Eating (QC): 6 Oral Hygiene (QC): 6 Shower/Bathe Self (QC): 5 Upper Body Dressing (QC): 6 Lower Body Dressing (QC): 6 On/Off Footwear: 6 Toileting Hygiene (QC): 6 Toilet Transfer (QC): 6 Other Treatment Pt seated in recliner prior to tx. Pt independently transferred sit to stand and used FWW to retrieve clothing items from closet across room, independently. Pt independently completed toileting, showering, and dressing within the bathroom. Pt requested 1 seated RB after shower. Pt independently ambulated to therapy gym with FWW to complete 13min seated at the arm bike (30 [place]). Pt completed puzzle in standing position with wrist weights (2lbs each arm) on to address functional balance and activity tolerance, pt needed seated RB after 15mins of standing task. Post tx, pt left in recliner with call light in reach and all needs met. Education OT Patient Education: Correct positioning, Energy conservation, Exercise program, Modified ADL techniques, Progress toward Goal/Update tx plan, Purpose of tx/functional activities, Rehab process, Use of adapted equipment Teaching Recipient: Patient Teaching Methods: Discussion Response to Teaching: Verbalize Understanding OT Short Term Goals Short Term Goals Time Frame: Jan 31, 2022 Toileting hygiene: 4 Shower/bathe self: 4 Lower body dressin Putting on/taking off footwear: 4 OT Long-Term Goals Bindery Helper Goals Time Frame: Feb 09, 2022 Eating (QC): 6 (met) Oral Hygiene (QC): 6 (met) Toileting Hygiene (QC): 6 (met) Shower/Bathe Self (QC): 6 (not met, set up) Upper Body Dressing (QC): 6 (met) Lower Body Dressing (QC): 6 (met) On/Off Footwear (QC): 6 (met) Additional Goals: 1-Demonstrate ADL Tasks, 2-Verbalize Understanding, 3- ImproveStrength/Karen 1=Demonstrate adherence to instructed precautions during ADL tasks. 2=Patient will verbalize/demonstrate understanding of assistive devices/modifications for ADL. 3=Patient will improve strength/tolerance for activity to enable patient to perform ADL's. OT Education/Plan Problem List/Assessment Assessment: Decreased Activ Tolerance, Impaired I ADL's, Impaired Self-Care Skills Discharge Recommendations Plan/Recommendations: Continue POC Treatment Plan/Plan of Care Patient would benefit from OT for education, treatment and training to promote independence in ADL's, mobility, safety and/or upper extremity function for ADL's. Plan of Care: ADL Retraining, Functional Mobility, Group Exercise/Act as Ind, UE Funct Exercise/Act Treatment Duration: Feb 09, 2022 Frequency: At least 5 of 7 days/Wk (IRF) Estimated Hrs Per Day: 1.5 hours per day Rehab Potential: Good Time/GCodes Start Time: 09:15 Stop Time: 10:45 Total Time Billed (hr/min): 90 Billed Treatment Time 1, ADL 3 (50'), Ex (15'), FA 2 (25') ESTHELA MAHER OT Jan 26, 2022 10:17
--- NOTE | 2022-01-26 10:40 | PM&R Progress Note ---
Subjective HPI/CC On Admission Date Seen by Provider: Jan 26, 2022 Time Seen by Provider: 12:00 Subjective/Events-last exam 01/26/22: Pt is doing really well Incision looks good Pain is okay No nausea reported Discharge planned for tomorrow 01/25/2022: Patient doing well Ready for discharge tomorrow Pain medication already called into the pharmacy Reviewed meds 01/24/22: Patient doing well Nausea reported so will try to take meds more spread out than she is doing now Pain controlled 01/23/2022: Patient doing well Stopping ASA since she is back on the Eliquis Stopping accuchecks Pain is controlled 01/22/22: Patient doing well No changes BM+ loose Pain controlled Moving around well 01/21/2022: Patient doing well BM+ Pain controlled Labs reviewed Changing Lovenox back to home dose Eliquis Review of Systems Musculoskeletal: leg pain Objective Exam Vital Signs Vital Signs Date Time Temp Pulse Resp B/P (MAP) Pulse Ox O2 Delivery O2 Flow Rate FiO2 01/26/22 09:05 95 Room Air 01/26/22 07:29 36.6 58 18 115/66 (82) Capillary Refill : General Appearance: No Apparent Distress, Chronically ill, Obese HEENT: PERRL/EOMI, Normal ENT Inspection, Pharynx Normal Neck: Full Range of Motion, Normal Inspection, Non Tender, Supple, Carotid Bruit Respiratory: Chest Non Tender, Lungs Clear, Normal Breath Sounds, No Accessory Muscle Use, No Respiratory Distress Cardiovascular: Regular Rate, Rhythm, No Edema, No Gallop, No JVD, No Murmur, Normal Peripheral Pulses Gastrointestinal: Normal Bowel Sounds, No Organomegaly, No Pulsatile Mass, Non Tender, Soft Back: Normal Inspection, No CVA Tenderness, No Vertebral Tenderness Extremity: Non Tender, No Calf Tenderness, Pedal Edema (trace/RUFINA hose on) Neurologic/Psychiatric: Alert, Oriented x3 Skin: Warm/Dry, Other (right knee dressing in place and dry) Lymphatic: No Adenopathy Results/Procedures Lab Patient resulted labs reviewed. FIM Transfers Therapy Code Descriptions/Definitions Functional [place] Measure: 0=Not Assessed/NA 4=Minimal Assistance 1=Total Assistance 5=Supervision or Setup 2=Maximal Assistance 6=Modified [place] 3=Moderate Assistance 7=Complete IndependenceSCALE: Activities may be completed with or without assistive devices. 2-Vvqceqcict-atoedqe completes the activity by him/herself with no assistance from a helper. 5-Set-up or Clean-up Assistance-helper sets up or cleans up; patient completes activity. [place] assists only prior to or following the activity. 4-Supervision or Touching Assistance-helper provides verbal cues and/or touching/steadying and/or contact guard assistance as patient completes activity. Assistance may be provided throughout the activity or intermittently. 3-Partial/Moderate Assistance-helper does LESS THAN HALF the effort. [place] lifts, holds or supports trunk or limbs, but provides less than half the effort. 2-Substantial/Maximal Assistance-helper does MORE THAN HALF the effort. [place] lifts or holds trunk or limbs and provides more than half the effort. 3-Ecoptoqfv-gxkrwr does ALL the effort. Patient does none of the effort to complete the activity. Or, the assistance of 2 or more helpers is required for the patient to complete the activity. If activity was not attempted, code reason: 7-Patient Refused. 9-Not Applicable-not attempted and the patient did not perform the activity before the current illness, exacerbation or injury. 10-Not Attempted due to Environmental Limitations-(lack of equipment, weather restraints, etc.). 88-Not Attempted due to Medical Conditions or Safety Concerns. Roll Left to Right (QC): 6 Sit to Lying (QC): 6 Sit to Stand (QC): 6 Chair/Nvn-wy-Qkakf Xfer(QC): 6 Car Transfer (QC): 3 Gait Training Does the Patient Walk?: Yes Distance: 125' x2, 100' x2 Walk 10 feet (QC): 6 Walk 50 ft with 2 Turns(QC): 6 Walk 150 ft (QC): 6 Walking 10ft/uneven surface-QC: 6 Gait Persons Needed: 0 Gait Assistive Device: FWW Wheelchair Training Does the Pt Use a Wheelchair?: No Wheel 50 ft with 2 turns (QC): 88 Wheel 150 ft (QC): 88 Type of Wheelchair: N/A Stair Training Stair Training: Handrails/: 2 handrails #of Steps: 12 1 Step (curb) (QC): 6 4 Steps (QC): 6 12 Steps (QC): 6 Stairs: Pattern: Step to Balance Picking up an Object (QC): 6 ADL-Treatment Eating (QC): 6 Oral Hygiene (QC): 6 Shower/Bathe Self (QC): 5 Upper Body Dressing (QC): 6 Lower Body Dressing (QC): 6 On/Off Footwear (QC): 6 Toileting Hygiene (QC): 6 Toilet Transfer (QC): 6 Assessment/Plan Assessment and Plan Assess & Plan/Chief Complaint Assessment: Right total knee replacement postop day # 10 slow recovery Increased BMI 47 PAMELLA noncompliant with CPAP History of pulmonary emboli back on Eliquis DVT prophylaxis with Lovenox 30 mg SQ every 12 then switched to eliquis home dose Diabetes Hypertension Chronic kidney disease Chronic diarrhea Plan: Aggressive rehab Pain control DVT prophylaxis Monitor sugar 01/21/2022: Eliquis Monitor closely 01/22/2022: Eliquis Supportive care 01/23/2022: DC ASA DC accuchecks 01/24/22: Eliquis Monitor closely 01/25/2022: Discharge home Saturday01/26/22: DC tomorrow (1) Status post right knee replacement (2) Diabetes (3) Hypertension (4) Chronic kidney disease (5) History of pulmonary embolism (6) Osteoarthritis of right knee (7) PAMELLA on CPAP Status: Chronic (8) Obesity Status: Chronic MARISELA CHU DO Jan 26, 2022 10:40
--- NOTE | 2022-01-26 11:33 | Physical Therapy Daily Note ---
PT Daily Note-Current Subjective Pt. up in recliner, agrees to Rx. No c/p pain at this time Pain Location: No Pain Reported Mental Status Patient Orientation: Normal For Age Transfers SCALE: Activities may be completed with or without assistive devices. 2-Yklfirieiq-trzzczp completes the activity by him/herself with no assistance from a helper. 5-Set-up or Clean-up Assistance-helper sets up or cleans up; patient completes activity. [place] assists only prior to or following the activity. 4-Supervision or Touching Assistance-helper provides verbal cues and/or touching/steadying and/or contact guard assistance as patient completes activity. Assistance may be provided throughout the activity or intermittently. 3-Partial/Moderate Assistance-helper does LESS THAN HALF the effort. [place] lifts, holds or supports trunk or limbs, but provides less than half the effort. 2-Substantial/Maximal Assistance-helper does MORE THAN HALF the effort. [place] lifts or holds trunk or limbs and provides more than half the effort. 4-Gvspqofvv-dvdhxn does ALL the effort. Patient does none of the effort to complete the activity. Or, the assistance of 2 or more helpers is required for the patient to complete the activity. If activity was not attempted, code reason: 7-Patient Refused. 9-Not Applicable-not attempted and the patient did not perform the activity before the current illness, exacerbation or injury. 10-Not Attempted due to Environmental Limitations-(lack of equipment, weather restraints, etc.). 88-Not Attempted due to Medical Conditions or Safety Concerns. all TRFs mod I Weight Bearing Right Lower Extremity: Right Weight Bearing/Tolerated Left Lower Extremity: Left Full Weight Bearing Gait Training Does the Patient Walk?: Yes Gait Assistive Device: FWW 200ft with SBA and occas instruction for heel toe and knee flexion Exercises Supine Ex: Ankle pumps, Quad Set, Heel Slides, Short Arc Quads, Scooting, Straight leg raise Supine Reps: 20 Seated Therapy Exercises: Ankle pumps, Long arc quads, Hip flexion Seated Reps: 20 Assessment Current Status: Good Progress AROM approx 5 to 78 deg PT Short Term Goals Short Term Goals Time Frame: Feb 03, 2022 Roll Left & Right: 5 Sit to lyin Lying to sitting on side of be: 5 Sit to stand: 5 Chair/mjk-ez-bgbqp transfer: 5 Toilet transfer: 5 Car transfer: 5 Walk 50 feet with two turns: 5 Walk 150 feet: 5 Walking 10ft on uneven surface: 5 1 step (curb): 5 4 steps: 5 12 steps: 5 Picking up objects: 5 PT Orthophotography Technician Goals Orthophotography Technician Goals PT Orthophotography Technician Goals Time Frame: Feb 03, 2022 Roll Left & Right (QC): 6 Sit to Lying (QC): 6 Lying-Sitting on Side/Bed(QC): 6 Sit to Stand (QC): 6 Chair/Tbu-tl-Dyqxh Xfer(QC): 6 Toilet Transfer (QC): 6 Car Transfer (QC): 6 Does the Patient Walk: Yes Walk 10 feet (QC): 6 Walk 50ft with 2 Turns (QC): 6 Walk 150 ft (QC): 6 Walking 10ft on Uneven Surface: 6 1 Step (curb) (QC): 6 4 Steps (QC): 6 12 Steps (QC): 6 Picking up an Object (QC): 6 Wheel 50 feet with 2 turns (QC: 88 Wheel 150 feet: 88 PT Plan Treatment/Plan Treatment Plan: Continue Plan of Care Treatment Plan: Bed Mobility, Functional Activity Karen, Functional Strength, Group Therapy, Gait, Safety, Therapeutic Exercise, Transfers Treatment Duration: Feb 03, 2022 Frequency: At least 5 of 7 days/Wk (IRF) Estimated Hrs Per Day: 1.5 hours per day Patient and/or Family Agrees t: Yes Safety Risks/Education Patient Education: Gait Training, Transfer Techniques, Correct Positioning, Disease Process Teaching Recipient: Patient Teaching Methods: Discussion Response to Teaching: Return Demonstration, Reinforcement Needed Time/GCodes Time In: 1100 Time Out: 1130 Total Billed Treatment Time: 30 Total Billed Treatment 1,GT10m,EX20m ZANDRA PALOMO [employer]IM[employer] TICKET CHECKER Jan 26, 2022 11:33
[2022-01-26] MEDS ORDERED: METO50TA7 PO (12:14)
--- NOTE | 2022-01-26 12:15 | D/C HH Face to Face Order ---
D/C Face to Face Orders Reconcile Patient Problems Problems Reviewed?: Yes Instructions for Patient Via [facility], Patient Instructions/FollowUp: Dr Jovel as scheduled Physician to follow Patient: Ancelmojesus Discharge Diet for Home: No Restrictions Patient Problems: Knee replacement Patient Data-Allergies,Ht & Wt Patient Allergies: Coded Allergies: codeine (Verified Allergy, Mild, N/V, 11/02/19) Height (Feet): 5 Height (Inches): 8.00 Weight (Pounds): 294 Weight (Ounces): 0.6 Home Health Need/Face to Face Date of Face to Face: Jan 26, 2022 Clinical Findings: Generalized weakness and fatigue, Instability, Muscle weakness, Pain with ambulation, Unsteady gait I have seen Pt tlxm-fz-jknu: Yes Discharged To: Home Diagnosis/Conditions: Knee replacement Patient is Homebound due to: Bob fall risk due to instabilty, Muscle weakness, Pain w/ambulation Homebound Status Due to the above stated illness, injury or surgical procedure (medical condition or diagnosis) and associated clinical findings, the patient is homebound because of his/her inability to leave home except with aid of a supportive device and/or person AND leaving the home requires a considerable and taxing effort or is medically contraindicated. Pt req the following assistanc: Walker Home Health Nursing Orders Home Health Services Order: Nursing Services, Catering Manager-Evaluate & Tr eat, Physical Therapy-Evaluate & Treat Certify Stmt I certify that this patient is under my care and that I, a nurse practitioner or a physician; a habilitation assistant working with me, had a face to face encounter that - meets the physician face to face encounter requirements with this patient as dated. MARISELA CHU DO Jan 26, 2022 12:15
[2022-01-26] MEDS ORDERED: FAMO20TA5 PO (20:01)
--- NOTE | 2022-01-26 20:01 | Progress Note ---
Subjective Date Seen by a Provider: Jan 26, 2022 Time Seen by a Provider: 13:20 Subjective/Events-last exam Fwup Right TKA, HTN, DMII, renal insufficiency. Feeling good. Plan is for DC home tomorrow. Objective Exam Vital Signs Date Time Temp Pulse Resp B/P (MAP) Pulse Ox O2 Delivery O2 Flow Rate FiO2 01/26/22 09:05 95 Room Air 01/26/22 07:29 36.6 58 18 115/66 (82) 95 Room Air 01/25/22 21:25 96 Room Air Capillary Refill : General Appearance: No Apparent Distress Neck: Supple Respiratory: Lungs Clear Gastrointestinal: normal bowel sounds, non tender, soft Extremity: Non Tender, No Calf Tenderness, Pedal Edema (but improving) Assessment/Plan Assessment/Plan Assess & Plan/Chief Complaint 1. Right TKA--continue PT/OT, on eliquis for DVT prevention and due to history of DVT, pain control, added pepcid for stress ulcer prophylaxis, home tomorrow 2. Hypertension--continue Hyzaar and increased metoprolol dose 3. DMII--on Tradjenta with SSI and BS stable 4. Renal Insufficiency--BUN/Cr stable AYLA ALCALA DO Jan 26, 2022 20:01
[2022-01-26 20:41] VITALS: BP 137/62
[2022-01-26] MEDS: meTOproloL SUCCINATE 50 MG (TOPROL XL) TAB PO SCH (21:35)
--- NOTE | 2022-01-27 06:19 | Discharge Summary ---
Diagnosis/Chief Complaint Date of Admission Jan 20, 2022 at 11:15 Date of Discharge Discharge Date: Jan 27, 2022 Discharge Diagnosis Assessment: Right total knee replacement postop day # 10 slow recovery Increased BMI 47 PAMELLA noncompliant with CPAP History of pulmonary emboli back on Eliquis DVT prophylaxis with Lovenox 30 mg SQ every 12 then switched to eliquis home dose Diabetes Hypertension Chronic kidney disease Chronic diarrhea Plan: Aggressive rehab Pain control DVT prophylaxis Monitor sugar 01/21/2022: Eliquis Monitor closely 01/22/2022: Eliquis Supportive care 01/23/2022: DC ASA DC accuchecks 01/24/22: Eliquis Monitor closely 01/25/2022: Discharge home Saturday01/26/22: DC tomorrow (1) Status post right knee replacement (2) Diabetes (3) Hypertension (4) Chronic kidney disease (5) History of pulmonary embolism (6) Osteoarthritis of right knee (7) PAMELLA on CPAP Status: Chronic (8) Obesity Status: Discharge Summary Discharge Physical Examination Allergies: Coded Allergies: codeine (Verified Allergy, Mild, N/V, 11/02/19) Vitals & I&Os Vital Signs Date Time Temp Pulse Resp B/P (MAP) Pulse Ox O2 Delivery O2 Flow Rate FiO2 01/27/22 10:58 36.9 64 18 111/74 95 Room Air General Appearance: Alert, Oriented X3, Cooperative Respiratory: Clear to Auscultation Cardiovascular: Regular Rate Hospital Course Was the Problem List Reviewed?: Yes Pt had an uneventful 7 day hospital course after she had a right total knee replacement with slow recovery. Pt was restarted on her home Eliquis due to history of DVT PE. She was restarted on all of her home medication. BP and labs remained stable. She was discharged on home health to home on Saturday. Labs (last 24 hrs) Laboratory Tests 01/20/22 12:50: Glucometer 107 01/20/22 17:04: Glucometer 91 01/20/22 21:03: Glucometer 106 01/21/22 06:05: White Blood Count 11.6H, Red Blood Count 3.86, Hemoglobin 10.0L, Hematocrit 32L, Mean Corpuscular Volume 83, Mean Corpuscular Hemoglobin 26, Mean Corpuscular Hemoglobin Concent 31L, Red Cell Distribution Width 15.7H, Platelet Count 309, Mean Platelet Volume 9.7, Immature Granulocyte % (Auto) 1, Neutrophils (%) (Auto) 82H, Lymphocytes (%) (Auto) 9L, Monocytes (%) (Auto) 7, Eosinophils (%) (Auto) 2, Basophils (%) (Auto) 1, Neutrophils # (Auto) 9.5H, Lymphocytes # (Auto) 1.0, Monocytes # (Auto) 0.8, Eosinophils # (Auto) 0.2, Basophils # (Auto) 0.1, Immature Granulocyte # (Auto) 0.1, Sodium Level 138, Potassium Level 3.7, Chloride Level 101, Carbon Dioxide Level 26, Anion Gap 11, Blood Urea Nitrogen 13, Creatinine 0.76, Estimat Glomerular Filtration Rate 87, BUN/Creatinine Ratio 17, Glucose Level 104, Calcium Level 8.5, Corrected Calcium 9.4, Total Bilirubin 0.6, Aspartate Amino Transf (AST/SGOT) 14, Alanine Aminotransferase (ALT/SGPT) 16, Alkaline Phosphatase 72, Total Protein 6.3L, Albumin 2.9L 01/21/22 11:06: Glucometer 120H 01/21/22 16:58: Glucometer 100 01/21/22 20:56: Glucometer 100 01/22/22 11:10: Glucometer 108 01/22/22 16:34: Glucometer 106 01/22/22 20:04: Glucometer 127H 01/23/22 06:03: White Blood Count 11.6H, Red Blood Count 4.16, Hemoglobin 10.7L, Hematocrit 35, Mean Corpuscular Volume 83, Mean Corpuscular Hemoglobin 26, Mean Corpuscular Hemoglobin Concent 31L, Red Cell Distribution Width 15.7H, Platelet Count 375, Mean Platelet Volume 9.5, Sodium Level 139, Potassium Level 3.9, Chloride Level 99, Carbon Dioxide Level 27, Anion Gap 13, Blood Urea Nitrogen 15, Creatinine 0.75, Estimat Glomerular Filtration Rate 89, BUN/Creatinine Ratio 20, Glucose Level 107H, Calcium Level 9.0 01/23/22 10:49: Glucometer 114H Pending Labs Laboratory Tests 01/20/22 12:50: Glucometer 107 01/20/22 17:04: Glucometer 91 01/20/22 21:03: Glucometer 106 01/21/22 06:05: White Blood Count 11.6, Red Blood Count 3.86, Hemoglobin 10.0, Hematocrit 32, Mean Corpuscular Volume 83, Mean Corpuscular Hemoglobin 26, Mean Corpuscular He moglobin Concent 31, Red Cell Distribution Width 15.7, Platelet Count 309, Mean Platelet Volume 9.7, Immature Granulocyte % (Auto) 1, Neutrophils (%) (Auto) 82, Lymphocytes (%) (Auto) 9, Monocytes (%) (Auto) 7, Eosinophils (%) (Auto) 2, Basophils (%) (Auto) 1, Neutrophils # (Auto) 9.5, Lymphocytes # (Auto) 1.0, Monocytes # (Auto) 0.8, Eosinophils # (Auto) 0.2, Basophils # (Auto) 0.1, Immature Granulocyte # (Auto) 0.1, Sodium Level 138, Potassium Level 3.7, Chloride Level 101, Carbon Dioxide Level 26, Anion Gap 11, Blood Urea Nitrogen 13, Creatinine 0.76, Estimat Glomerular Filtration Rate 87, BUN/Creatinine Ratio 17, Glucose Level 104, Calcium Level 8.5, Corrected Calcium 9.4, Total Bilirubin 0.6, Aspartate Amino Transf (AST/SGOT) 14, Alanine Aminotransferase (ALT/SGPT) 16, Alkaline Phosphatase 72, Total Protein 6.3, Albumin 2.9 01/21/22 11:06: Glucometer 120 01/21/22 16:58: Glucometer 100 01/21/22 20:56: Glucometer 100 01/22/22 11:10: Glucometer 108 01/22/22 16:34: Glucometer 106 01/22/22 20:04: Glucometer 127 01/23/22 06:03: White Blood Count 11.6, Red Blood Count 4.16, Hemoglobin 10.7, Hematocrit 35, Mean Corpuscular Volume 83, Mean Corpuscular Hemoglobin 26, Mean Corpuscular Hemoglobin Concent 31, Red Cell Distribution Width 15.7, Platelet Count 375, Mean Platelet Volume 9.5, Sodium Level 139, Potassium Level 3.9, Chloride Level 99, Carbon Dioxide Level 27, Anion Gap 13, Blood Urea Nitrogen 15, Creatinine 0.75, Estimat Glomerular Filtration Rate 89, BUN/Creatinine Ratio 20, Glucose Level 107, Calcium Level 9.0 01/23/22 10:49: Glucometer 114 Discharge Home Medications: Active Scripts Active Famotidine 20 Mg Tablet 20 Mg PO BID Metoprolol Succinate 50 Mg Tab.er.24h 50 Mg PO HS Oxycodone-Acetaminophen 5-325 (Oxycodone HCl/Acetaminophen) 5 Mg-325 Mg Tablet 1 Each PO Q4H PRN MDD 6 Reported Januvia (Sitagliptin Phosphate) 25 Mg Tablet 25 Mg PO DAILY Eliquis (Apixaban) 5 Mg Tablet 5 Mg PO BID Multi-Vitamin Daily (Multivitamin) 1 Each Tablet 1 Each PO HS Losartan-Hctz 100-12.5 mg Tab (Losartan/Hydrochlorothiazide) 1 Each Tablet 1 Each PO DAILY Zyrtec (Cetirizine HCl) 10 Mg Tablet 10 Mg PO HS PRN Move Free Joint Health Tablet (Glucosam/Chond/Hyalu/Cf Borate) 1 Each Tablet 1 Tab PO HS Instructions to patient/family Please see electronic discharge instructions given to patient. Diagnosis/Problems Diagnosis/Problems (1) Status post right knee replacement (2) Diabetes (3) Hypertension (4) Chronic kidney disease (5) History of pulmonary embolism (6) Osteoarthritis of right knee (7) PAMELLA on CPAP Status: Chronic (8) Obesity Status: Chronic MARISELA CHU DO Jan 27, 2022 06:19
[2022-01-27 07:03] VITALS: BP 111/74
[2022-01-27] MEDS: oxyCODONE/APAP 5/325MG (PERCOCET 5) TABLET PO PRN (07:08)
[2022-01-27] MEDS: APIXABAN 5 MG (ELIQUIS) TABLET PO SCH (08:01)
[2022-01-27] MEDS: FAMOTIDINE 20 MG (PEPCID) TABLET PO SCH (08:01)
[2022-01-27] MEDS: DOCUSATE SODIUM 100 MG (COLACE) CAP PO SCH (08:02)
[2022-01-27] MEDS: SENNA W/DOCUSATE (SENOKOT S) TABLET PO SCH (08:02)
[2022-01-27] MEDS: polyethylene glycoL POWDER 17 GM (MIRALAX) PACK PO SCH (08:02)
[2022-01-27] MEDS: LOSARTAN 100 MG (COZAAR) TABLET PO SCH (08:04)
[2022-01-27 10:58] VITALS: BP 111/74
--- NOTE | 2022-01-29 10:12 | Therapy Team Discharge Summary ---
Therapy Discharge Summary Discharge Recommendations Date of Discharge Jan 27, 2022 at 11:03 Physical Therapy Patient came to rehab post right TKA. Upon evaluation patient performed rolling and supine <-> sit with CGA/SBA, sit <-> stand and transfers min/mod assist, car transfer min/mod assist, ambulated 200' with a rolling walker with CGA/SBA (including 50' with at least 2 turns of 90 degrees and 10' over an uneven surface), went up and down 4 steps using 2 handrails with CGA/SBA, and picked up an object from the floor with min/mod assist. Patient has been performing bed mobility and transfer training, balance and endurance training, functional strengthening, stair training, gait training, and education. Patient has made good progress and has met all of her terminal manager goals except for car transfer. Now, patient performs rolling and supine <-> sit with independence, sit <-> stand and transfers independent, car transfer mod assist, ambulates at least 150' with a rolling walker with independence (including 50' with at least 2 turns of 90 degrees and 10' over an uneven surface), can go up and down 12 steps using 2 handrails with independence, and can pick and shovel worker an object from the floor with independence. Patient has been discharged from this facility and will be discharged from PT at this time. Roll Left to Right (QC): 6 Sit to Lying (QC): 6 Lying to Sitting/Side of Bed(Q: 6 Sit to Stand (QC): 6 Chair/Asl-sj-Ilcod Xfer(QC): 6 Toilet Transfer (QC): 5 Car Transfer (QC): 3 Does the Patient Walk: Yes Mode of Locomotion: Walk Anticipated Mode of Locomotion: Walk Walk 10 feet (QC): 6 Walk 50 ft with 2 Turns(QC): 6 Walk 150 ft (QC): 6 Walking 10ft on uneven surface: 6 Distance: 200' Gait Assistive Device: FWW Does the Pt Use a Wheelchair: No Wheel 50 ft with 2 turns (QC): 88 Wheel 150 ft (QC): 88 Type of Wheelchair: N/A #of Steps: 12 1 Step (curb) (QC): 6 4 Steps (QC): 6 12 Steps (QC): 6 Balance Sitting Static: Fair Balance Sitting Dynamic: Fair Balance-Standing Static: Fair Picking up an Object (QC): 6 Occupational Therapy Decreased Activ Tolerance, Impaired I ADL's, Impaired Self-Care Skills Eating (QC): 6 Oral Hygiene (QC): 6 Shower/Bathe Self (QC): 5 Upper Body Dressing (QC): 6 Lower Body Dressing (QC): 6 On/Off Footwear (QC): 6 Toileting Hygiene (QC): 6 PT Skiver Operator Goals Skiver Operator Goals PT Skiver Operator Goals Time Frame: Feb 03, 2022 Roll Left to Right (QC): 6 Sit to Lying (QC): 6 Lying-Sitting on Side/Bed(QC): 6 Sit to Stand (QC): 6 Chair/Lvs-kt-Xrmsc Xfer(QC): 6 Car Transfer (QC): 6 Does the Patient Walk: Yes Walk 10 feet (QC): 6 Walk 10ft-Uneven Surface(QC): 6 Walk 50ft with 2 Turns (QC): 6 Walk 150 ft (QC): 6 Wheel 50 feet with 2 turns (QC: 88 1 Step (curb) (QC): 6 4 Steps (QC): 6 12 Steps (QC): 6 Picking up an Object (QC): 6 OT Alf Goals Alf Goals Time Frame: Feb 09, 2022 Eating (QC): 6 (met) Oral Hygiene (QC): 6 (met) Shower/Bathe Self (QC): 6 (not met, set up) Upper Body Dressing (QC): 6 (met) Lower Body Dressing (QC): 6 (met) On/Off Footwear (QC): 6 (met) Toileting Hygiene (QC): 6 (met) Toilet/Commode Transfer (QC): 6 Additional Goals: 1-Demonstrate ADL Tasks, 2-Verbalize Understanding, 3- ImproveStrength/Karen 1=Demonstrate adherence to instructed precautions during ADL tasks. 2=Patient will verbalize/demonstrate understanding of assistive devices/modifications for ADL. 3=Patient will improve strength/tolerance for activity to enable patient to perform ADL's. ISRAEL SEQUEIRA PT Jan 29, 2022 10:12
--- NOTE | 2022-01-29 13:15 | Therapy Team Discharge Summary ---
Therapy Discharge Summary Discharge Recommendations Date of Discharge Jan 27, 2022 at 11:03 Physical Therapy Roll Left to Right (QC): 6 Sit to Lying (QC): 6 Lying to Sitting/Side of Bed(Q: 6 Sit to Stand (QC): 6 Chair/Zrs-op-Fnqad Xfer(QC): 6 Toilet Transfer (QC): 5 Car Transfer (QC): 3 Does the Patient Walk: Yes Mode of Locomotion: Walk Anticipated Mode of Locomotion: Walk Walk 10 feet (QC): 6 Walk 50 ft with 2 Turns(QC): 6 Walk 150 ft (QC): 6 Walking 10ft on uneven surface: 6 Distance: 200' Gait Assistive Device: FWW Does the Pt Use a Wheelchair: No Wheel 50 ft with 2 turns (QC): 88 Wheel 150 ft (QC): 88 Type of Wheelchair: N/A #of Steps: 12 1 Step (curb) (QC): 6 4 Steps (QC): 6 12 Steps (QC): 6 Balance Sitting Static: Fair Balance Sitting Dynamic: Fair Balance-Standing Static: Fair Picking up an Object (QC): 6 Occupational Therapy Pt presented to ARU s/p R TKA. Pt reports being IND in ADLs prior to incident, no AD used. Upon arrival to ARU, pt was IND in eating and oral hygiene, setup with UBD, Min A with showering, toilet hygiene, and LBD, and dependent for footwear. OT tx focused on increasing functional mobility, activity tolerance, safety and IND in ADLs, and UE strength. Pt made progress towards goals, attaining all except showering. Pt discharged home with recommendations for wide sock aid and funeral workers. Pt discharged home, discharge from OT. Decreased Activ Tolerance, Impaired I ADL's, Impaired Self-Care Skills Eating (QC): 6 Oral Hygiene (QC): 6 Shower/Bathe Self (QC): 5 Upper Body Dressing (QC): 6 Lower Body Dressing (QC): 6 On/Off Footwear (QC): 6 Toileting Hygiene (QC): 6 PT Prison Goals Drywall Taper Helper Goals PT Prison Goals Time Frame: Feb 03, 2022 Roll Left to Right (QC): 6 Sit to Lying (QC): 6 Lying-Sitting on Side/Bed(QC): 6 Sit to Stand (QC): 6 Chair/Ldt-pm-Mdodk Xfer(QC): 6 Car Transfer (QC): 6 Does the Patient Walk: Yes Walk 10 feet (QC): 6 Walk 10ft-Uneven Surface(QC): 6 Walk 50ft with 2 Turns (QC): 6 Walk 150 ft (QC): 6 Wheel 50 feet with 2 turns (QC: 88 1 Step (curb) (QC): 6 4 Steps (QC): 6 12 Steps (QC): 6 Picking up an Object (QC): 6 OT Prison Goals Prison Goals Time Frame: Feb 09, 2022 Eating (QC): 6 (met) Oral Hygiene (QC): 6 (met) Shower/Bathe Self (QC): 6 (not met, set up) Upper Body Dressing (QC): 6 (met) Lower Body Dressing (QC): 6 (met) On/Off Footwear (QC): 6 (met) Toileting Hygiene (QC): 6 (met) Toilet/Commode Transfer (QC): 6 Additional Goals: 1-Demonstrate ADL Tasks, 2-Verbalize Understanding, 3- ImproveStrength/Karen 1=Demonstrate adherence to instructed precautions during ADL tasks. 2=Patient will verbalize/demonstrate understanding of assistive devices/modifications for ADL. 3=Patient will improve strength/tolerance for activity to enable patient to perform ADL's. ESTHELA MAHER OT Jan 29, 2022 13:15
== END 2022-01-27 11:03 | disposition home health service (06) | DRG 560 ==
PROVIDERS: ADMIT Internal Medicine; ATTEND Internal Medicine
DX: Z47.1 Aftercare following joint replacement surgery (principal); Z68.42 Body mass index [BMI] 45.0-49.9, adult; Z96.651 Presence of right artificial knee joint; I12.9 Hypertensive chronic kidney disease with stage 1 through stage 4 chronic kidney disease, or unspecified chronic kidney disease; E11.22 Type 2 diabetes mellitus with diabetic chronic kidney disease; N18.9 Chronic kidney disease, unspecified; K52.9 Noninfective gastroenteritis and colitis, unspecified; H54.3 Unqualified visual loss, both eyes; G47.33 Obstructive sleep apnea (adult) (pediatric); E66.9 Obesity, unspecified; Z79.84 Long term (current) use of oral hypoglycemic drugs; Z86.711 Personal history of pulmonary embolism; Z79.01 Long term (current) use of anticoagulants; Z88.5 Allergy status to narcotic agent
CPT/HCPCS: 36415; 80048; 80053; 82947; 85025; 85027

== ENCOUNTER 2022-03-16 10:35 | Outpatient (RCR) | payer BC ==
[~2022-03-16 10:35] MED LIST changes: -ACETAMINOPHEN 325 MG TABLET PO PRN; -ALPRAZolam 0.25 MG (XANAX) TAB PO PRN; -BISACODYL 10 MG SUPP (DULCOLAX) PR PRN; -CALCIUM CARBONATE 500 MG (TUMS) TAB.CHEW PO PRN; -DOCUSATE SODIUM 100 MG (COLACE) CAP PO PRN; +FAMO20TA5 PO; -FLEET ENEMA ADULT 1 EA BTL PR PRN; -LACTULOSE SYRUP 10GM/15ML (ENULOSE) 30ML UDC PO PRN; -LOPERAMIDE 2 MG (IMODIUM) TABLET PO PRN; -MELATONIN 3 MG TABLET PO PRN; +METO50TA7 PO; -SENNA W/DOCUSATE (SENOKOT S) TABLET PO SCH; -diphenhydrAMINE 25 MG TAB (BENADRYL) PO PRN
== END 2022-03-18 | disposition home or self-care (01) ==
PROVIDERS: ATTEND Orthopaedic Surgery
DX: M17.11 Unilateral primary osteoarthritis, right knee (principal); I10 Essential (primary) hypertension; E11.9 Type 2 diabetes mellitus without complications; Z96.651 Presence of right artificial knee joint

== ENCOUNTER 2022-04-17 15:49 | Outpatient (RCR) | payer BC | END 2022-04-18 | disposition home or self-care (01) | PROVIDERS: ATTEND Orthopaedic Surgery | DX: M17.11 Unilateral primary osteoarthritis, right knee (principal); I10 Essential (primary) hypertension; E11.9 Type 2 diabetes mellitus without complications; Z96.651 Presence of right artificial knee joint ==

== ENCOUNTER 2022-05-16 16:05 | Outpatient (RCR) | payer BC | END 2022-05-16 16:51 | disposition home or self-care (01) | PROVIDERS: ATTEND Orthopaedic Surgery | DX: M17.11 Unilateral primary osteoarthritis, right knee (principal); I10 Essential (primary) hypertension; E11.9 Type 2 diabetes mellitus without complications ==

== ENCOUNTER → 2022-06-14 | Outpatient (CLI) | payer BC ==
--- NOTE | 2022-06-14 11:10 | Diagnostic Imaging Report ---
INDICATION: Routine screening. COMPARISON: Prior mammograms from 06/12/2021 and 06/09/2020. TECHNIQUE: 2D and 3D bilateral screening mammography was performed with CAD. FINDINGS: Scattered fibroglandular densities are identified bilaterally. The parenchymal pattern appears stable. There are scattered benign nodules throughout both breasts. There are scattered benign calcifications. No spiculated mass or malignant-appearing microcalcifications are seen. The axillae are unremarkable. IMPRESSION: No mammographic features suspicious for malignancy are identified. ACR BI-RADS Category 2: Benign findings. Result letter will be mailed to the patient. Note: At least 10% of breast cancer is not imaged by mammography. Dictated by: Dictated on workstation # [id number]
== END ==
LOC: RAD 07:33
PROVIDERS: ATTEND Nurse Practitioner Family
DX: Z12.31 Encounter for screening mammogram for malignant neoplasm of breast (principal)
CPT/HCPCS: 77063; 77067

== ENCOUNTER → 2023-06-17 | Outpatient (CLI) | payer BC ==
[~2023-06-17] MED LIST changes: -LOSA100T57 PO; +LOSA100T58 PO
--- NOTE | 2023-06-17 08:56 | Diagnostic Imaging Report ---
INDICATION: Routine screening. COMPARISON: 06/14/2022 and 06/12/2021. TECHNIQUE: 2D and 3D bilateral screening mammography was performed with CAD. FINDINGS: Scattered fibroglandular densities are identified bilaterally. There are benign nodules scattered throughout both breasts. No dominant mass or malignant-appearing microcalcifications are identified. There are scattered benign calcifications within both breasts. The axillae are unremarkable. IMPRESSION: No mammographic features suspicious for malignancy are identified. ACR BI-RADS Category 2: Benign findings. Result letter will be mailed to the patient. Note: At least 10% of breast cancer is not imaged by mammography. Dictated by: Dictated on workstation # [id number]
== END ==
LOC: RAD 07:29
PROVIDERS: ATTEND Family Medicine
DX: Z12.31 Encounter for screening mammogram for malignant neoplasm of breast (principal)
CPT/HCPCS: 77063; 77067